=== PATIENT | female | born 1940 | race Caucasian/White ===

== ENCOUNTER 2020-01-02 12:00 | Outpatient (CLI) | payer MEDICARE, BC, SELFPAY ==
--- NOTE | ~2020-01-02 | XR_ITS ---
EXAMINATION: XR hip LT min 2V DATE: 01/02/2020 12:36 INDICATION: Dorsalgia, unspecified. TECHNIQUE: 3 views of left hip were obtained. COMPARISON: Left hip radiographs 12/06/2014 FINDINGS: Bone alignment is normal. No fracture. There is mild left hip osteoarthritis. IMPRESSION: 1. Mild left hip osteoarthritis. Reviewed, dictated and finalized at location E.
--- NOTE | ~2020-01-02 | XR_ITS ---
XR lumbar spine 2-3V 01/02/2020 12:36 Indication: Back pain Procedure: 3 views lumbar spine Comparison: 12/06/2014 Findings: There is disc narrowing at all lumbar levels. There is moderate multilevel facet hypertroph y. There is grade 1 degenerative spondylolisthesis at L4-5. No acute fracture or traumatic malalignme nt. Sacral foramen are symmetric. There is a right total hip arthroplasty. Status post cholecystectom y. There is atherosclerosis of the aorta. There are cholecystectomy clips. Impression: 1: Moderate-severe lumbar spondylosis. Reviewed, dictated and finalized at location A. Impression: 1: Moderate-severe lumbar spondylosis.
== END 2020-01-02 12:01 | disposition home or self-care (01) ==
LOC: ANHIMG 12:11
PROVIDERS: PCP Family Medicine; Visit Provider Physician Assistant
DX: M16.12 Unilateral primary osteoarthritis, left hip (principal); M47.816 Spondylosis without myelopathy or radiculopathy, lumbar region
CPT/HCPCS: 72100; 73502

== ENCOUNTER 2020-02-20 12:06 | Outpatient (CLI) | payer MEDICARE, BC, SELFPAY ==
--- NOTE | ~2020-02-20 | XR_ITS ---
EXAMINATION: XR chest 2V DATE: 02/20/2020 12:22 INDICATION: Shortness of breath. TECHNIQUE: Frontal and lateral views of the chest were obtained. COMPARISON: Chest 2 views 12/20/2017, CT abdomen and pelvis 05/19/2018 FINDINGS: The chest demonstrates clear lungs without pneumonia, pleural effusion, or pneumothorax. Th e heart size is normal. There are changes of aortic valve replacement. Surgical clips in the right u pper quadrant are likely from cholecystectomy. IMPRESSION: 1. No acute cardiopulmonary disease. Reviewed, dictated and finalized at location A.
== END 2020-02-20 12:07 | disposition home or self-care (01) ==
LOC: ANHIMG 12:11
PROVIDERS: PCP Family Medicine; Visit Provider Physician Assistant
DX: R06.02 Shortness of breath (principal)
CPT/HCPCS: 71046

== ENCOUNTER 2020-07-15 11:22 | Outpatient (NON) | payer MEDICARE, BC, SELFPAY ==
[2020-07-15 22:00] LABS: SARS-CoV-2 RNA PCR Negative
== END 2020-07-15 11:23 ==
LOC: ANHCOVIDDT 11:24
PROVIDERS: PCP Family Medicine; Visit Provider Family Medicine
DX: R19.7 Diarrhea, unspecified (principal); R50.9 Fever, unspecified; Z20.828 Contact with and (suspected) exposure to other viral communicable diseases
CPT/HCPCS: 87635; C9803; U0003

== ENCOUNTER 2021-02-05 01:02 | Day surgery (SDC) | payer MEDICARE, BC, SELFPAY ==
[2021-01-20 13:10] VITALS: BMI 34.4
--- NOTE | 2021-02-05 09:16 | WPDANESEPPF ---
Anes - Initial Pre Proc Eval Procedure: Operation Date: 02/05/21 11:00 Proposed Procedures p Colonoscopy - Kristofer Rico MD Date/Time: 02/05/21 09:16 Surgeon: Kristofer Rico MD Pre Op Diagnosis: diarrhea Patient Data Age: 80 Gender: F Height: 1.63 m Weight: 91 kg Allergies Allergy/AdvReac Type Severity Reaction Status Date / Time amitriptyline Allergy Unknown OPPOSITE Verified 01/20/21 13:03 atenolol Allergy Unknown cough Verified 01/20/21 13:03 chlordiazepoxide Allergy Unknown [place] crazy Verified 01/20/21 13:03 chlorthalidone [Tenoretic] Allergy Unknown cough Verified 01/20/21 13:03 ciprofloxacin Allergy Unknown Diarrhea Verified 01/20/21 13:03 house dust Allergy Unknown Sneezing Verified 01/20/21 13:03 milk Allergy Unknown DIARRHEA, Verified 01/20/21 13:03 CRAMPING niacin Allergy Unknown Skin Verified 01/20/21 13:03 Reaction Nitrate Analogues Allergy Unknown GI UPSET Verified 01/20/21 13:03 oxycodone Allergy Unknown RASH Verified 01/20/21 13:03 pepper (genus Capsicum) Allergy Unknown GI BURNING Verified 01/20/21 13:03 Home Medications Medication Instructions Recorded Confirmed Type aspirin 81 mg tablet,delayed 81 mg PO DAILY 05/30/19 01/20/21 History release cetirizine 10 mg capsule 10 mg PO DAILY cap 05/30/19 01/20/21 History hydrochlorothiazide 25 mg tablet 25 mg PO DAILY 05/30/19 01/20/21 History metoprolol succinate 100 mg 100 mg PO DAILY 05/30/19 01/20/21 History tablet,extended release 24 hr sulfamethoxazole 800 0.5 tablet PO DAILY #45 tablet 05/28/20 01/20/21 Rx mg-trimethoprim 160 mg tablet budesonide-formoterol HFA 160 2 puff INHALATION Q12H #10.2 gm 08/05/20 01/20/21 Rx mcg-4.5 mcg/actuation aerosol inhaler famotidine 20 mg tablet 20 mg PO Q12H #60 tablet 08/13/20 01/20/21 Rx losartan 50 mg tablet See Rx Instructions .ROUTE 11/11/20 01/20/21 Rx .COMPLEX #90 tablet levothyroxine 50 mcg tablet See Rx Instructions .ROUTE 12/09/20 01/20/21 Rx .COMPLEX #90 tablet omeprazole 40 mg capsule,delayed 40 mg PO DAILY #90 cap 01/15/21 01/20/21 Rx release ropinirole 1 mg tablet See Rx Instructions .ROUTE 01/28/21 Rx .COMPLEX #30 tablet Patient hx anesthesia problems: none Family hx anesthesia problems: none PMFSH Past Medical History Medical History (Updated 02/05/21 @ 09:18 by Franck Green MD) Carpal tunnel syndrome, bilateral GERD (gastroesophageal reflux disease) History of Mohs micrographic surgery for skin cancer Hx of ectopic Hypothyroidism Irritable bowel syndrome Mixed hyperlipidemia due to type 2 diabetes mellitus CESAR on CPAP Osteoarthritis Spinal stenosis, lumbar region, without neurogenic claudication Type 2 diabetes mellitus with complication, without long-term current use of insulin Unspecified essential hypertension Surgical History Surgical History H/O aortic valve replacement using Ross procedure H/O cataract removal with insertion of prosthetic lens History of back surgery History of cholecystectomy History of hip replacement Family History Family History Father Diabetes mellitus, Onset Age: 80 Hypertension, Onset Age: 80 Family history of allergic disorder, Onset Age: 80 Family history of elevated blood lipids, Onset Age: 80 Family history of cardiovascular disease, Onset Age: 80 Cerebrovascular accident, Onset Age: 80 Sibling Diabetes mellitus Family history of cardiovascular disease Acute myocardial infarction, Onset Age: 60 Family history of coronary artery disease Family history of malignant neoplasm of breast in first degree relative Mother Family history of Parkinson's disease, Onset Age: 86 Social History Social History Smoking status: Never smoker Alcohol intake: never Substance use: never Substanc
[2021-02-05 10:13] VITALS: BP 169/77; PULSE 59; RESP 18; TEMP 35.7; O2SAT 99; BMI 35.5
[2021-02-05] MEDS: LACTATED RINGERS 1,000 ML 150 ML IV CONT (10:34)
[2021-02-05] MEDS: AMPICILLIN 2 GM/NS 100 ML 2 GM/100 ML BAG IVPB (10:44)
--- NOTE | 2021-02-05 10:50 | WPDGICN ---
Assessment and Plan Assessment and plan (1) Diarrhea: Code(s): R19.7 - Diarrhea, unspecified Status: Acute Assessment and Plan: Patient with ongoing diarrhea. No improved with recent therapy. No obvious cultures have confirmed an infection. Plan is for follow-up colonoscopy. Continue Imodium if needed to control diarrhea fiber supplementation may be of additional benefit. Further recommendations will be given after endoscopy. Patient does have a prior history of irritable bowel syndrome and this may be related. (2) GERD (gastroesophageal reflux disease): Code(s): K21.9 - Gastro-esophageal reflux disease without esophagitis Status: Acute Assessment and Plan: Stable on current Therapy with famotidine. GI Consult Note Consult date/time: 02/05/21 10:50 HPI: Elizabeth Herrera is a 80 year old female Presents for colonoscopy. Patient's last colonoscopy was 2012. Patient has had recent diarrhea with 6 bowel movements a day. Typically watery. She has had some improvement on taking Imodium on a daily basis. She denies any blood in her stools. She has no significant abdominal pain at present. No specific aggravating or alleviating factors were identified. She had no improvement with Pepto-Bismol and other empiric treatment such as fiber therapy. A colonoscopy has been requested will be performed. Patient has had recurrent urinary tract infections recurring of occasional antibiotic usage. Stool cultures recently obtained were unremarkable. Review of Systems Review of Systems: All systems reviewed & are unremarkable except as noted in HPI and below PMFSH Past Medical History Medical History (Updated 02/05/21 @ 09:18 by Franck Green MD) Carpal tunnel syndrome, bilateral GERD (gastroesophageal reflux disease) History of Mohs micrographic surgery for skin cancer Hx of ectopic Hypothyroidism Irritable bowel syndrome Mixed hyperlipidemia due to type 2 diabetes mellitus CESAR on CPAP Osteoarthritis Spinal stenosis, lumbar region, without neurogenic claudication Type 2 diabetes mellitus with complication, without long-term current use of insulin Unspecified essential hypertension Surgical History Surgical History H/O aortic valve replacement using Ross procedure H/O cataract removal with insertion of prosthetic lens History of back surgery History of cholecystectomy History of hip replacement Family History Family History Father Diabetes mellitus, Onset Age: 80 Hypertension, Onset Age: 80 Family history of allergic disorder, Onset Age: 80 Family history of elevated blood lipids, Onset Age: 80 Family history of cardiovascular disease, Onset Age: 80 Cerebrovascular accident, Onset Age: 80 Sibling Diabetes mellitus Family history of cardiovascular disease Acute myocardial infarction, Onset Age: 60 Family history of coronary artery disease Family history of malignant neoplasm of breast in first degree relative Mother Family history of Parkinson's disease, Onset Age: 86 Social History Social History Smoking status: Never smoker Alcohol intake: never Substance use: never Substance use type: does not use Living arrangements: alone Gender identity (if verbalized by the patient): Female Sexual Orientation (if Verbalized by the Patient): Straight or Heterosexual Spiritual care concerns: No Meds Home Medications and Allergies Home Medications Medication Instructions Recorded Confirmed Type aspirin 81 mg tablet,delayed 81 mg PO DAILY 05/30/19 01/20/21 History release cetirizine 10 mg capsule 10 mg PO DAILY cap 05/30/19 01/20/21 History hydrochlorothiazide 25 mg tablet 25 mg PO DAILY 05/30/19 01/20/21 History metoprolol succinate 100 mg 100 mg PO DA
[2021-02-05 11:14] VITALS: BP 103/52; PULSE 56; RESP 15; O2SAT 97
[2021-02-05 11:24] VITALS: BP 108/58; PULSE 60; RESP 20; O2SAT 99
[2021-02-05] MEDS: GENTAMICIN 80MG/SOD CHL 50 ML 80 MG/50 ML BAG 100 MG IVPB (11:30)
[2021-02-05 11:34] VITALS: BP 109/57; PULSE 50; RESP 20; O2SAT 100
== END 2021-02-05 12:41 | disposition home or self-care (01) ==
PROVIDERS: PCP Family Medicine; Visit Provider Internal Medicine Gastroenterology
PROC: 0DJD8ZZ Inspection of Lower Intestinal Tract, Via Natural or Artificial Opening Endoscopic (ICD-10-PCS; CPT 45378; principal; 2021-02-05 11:00)
DX: K52.831 Collagenous colitis (principal); K52.832 Lymphocytic colitis; K64.8 Other hemorrhoids; K57.30 Diverticulosis of large intestine without perforation or abscess without bleeding; K21.9 Gastro-esophageal reflux disease without esophagitis; E11.9 Type 2 diabetes mellitus without complications; E78.2 Mixed hyperlipidemia; G47.33 Obstructive sleep apnea (adult) (pediatric); I10 Essential (primary) hypertension; E03.9 Hypothyroidism, unspecified; M48.061 Spinal stenosis, lumbar region without neurogenic claudication; Z79.82 Long term (current) use of aspirin; E66.9 Obesity, unspecified; Z68.35 Body mass index [BMI] 35.0-35.9, adult
CPT/HCPCS: 45380; 88305; J0290; J1580; J2704; J7120

== ENCOUNTER 2021-06-11 10:09 | Outpatient (CLI) | payer MEDICARE, BC, SELFPAY ==
[2021-06-11 10:51] LABS: Basophils Percent Auto 0.3 % (0.2-1.2); Eosinophils Absolute Auto 0.1 K/mm3 (0-0.3); Eosinophils Percent Auto 2.2 % (0-4.4); Hematocrit 34.7 % (37.0-47.0); Hemoglobin 11.3 g/dL (12.0-15.0); Immature Granulocyte Absolute 0.02 K/mm3 (0.00-0.031); Immature Granulocyte Percent A 0.3 % (0-0.5); Lymphocytes Absolute Auto 2.11 K/mm3 (0.9-3.2); Lymphocytes Percent Auto 32.7 % (18.3-44.2); Mean Corpuscular HGB Conc 32.6 g/dl (32-36); Mean Corpuscular Hemoglobin 30.5 pg (26-34); Mean Corpuscular Volume 93.5 fl (80-100); Mean Platelet Volume 8.5 fl (7.4-10.4); Monocytes Absolute Auto 0.9 K/mm3 (0.1-0.6); Monocytes Percent Auto 14.6 % (2.6-8.5); Neutrophils Absolute Auto 3.2 K/mm3 (1.3-6.7); Neutrophils Percent Auto 49.9 % (45.5-73.1); Platelet Count Result 277 k/mm3 (150-375); Red Blood Count 3.71 M/mm3 (4.2-5.4); Red Cell Distribution Width 13.4 % (11.5-14.5); White Blood Count 6.5 K/mm3 (4.5-10.0)
[2021-06-11 10:58] LABS: Alanine Aminotransferase 22 U/L (4-35); Alkaline Phosphatase 80 U/L (38-126); Anion Gap 7 mmol/L (8-16); Aspartate Amino Transferase 27 U/L (14-36); Bilirubin,Total 0.4 mg/dL (0.2-1.3); Blood Urea Nitrogen 18 mg/dL (7-17); Calcium 9.6 mg/dL (8.4-10.2); Carbon Dioxide 28 mmol/L (22-30); Chloride 96 mmol/L (98-107); Cholesterol 150 mg/dL (0-200); Estimated Glomerular Filt Rate 60; Glucose 126 mg/dL (65-110); HDL Direct 44 mg/dL; Potassium 4.4 mmol/L (3.4-5.0); Sodium 131 mmol/L (137-145); Triglycerides 181 mg/dL (<150)
[2021-06-11 11:11] LABS: Hemoglobin A1C 5.4 % (<5.7)
[2021-06-11 11:11] LABS: LDL Cholesterol Direct 65 mg/dL
== END 2021-06-11 10:10 | disposition home or self-care (01) ==
PROVIDERS: PCP Family Medicine; Visit Provider Physician Assistant
DX: E03.9 Hypothyroidism, unspecified (principal); K21.9 Gastro-esophageal reflux disease without esophagitis; E11.69 Type 2 diabetes mellitus with other specified complication; E78.2 Mixed hyperlipidemia
CPT/HCPCS: 36415; 80053; 80061; 83036; 84443; 85025

== ENCOUNTER 2021-06-12 16:21 | Emergency (ER) | payer OTHER, MEDICARE, BC, SELFPAY ==
--- NOTE | ~2021-06-12 | XR_ITS ---
EXAMINATION: [id number] DATE: 06/12/2021 18:10 INDICATION: Right rib pain TECHNIQUE: PA view of the chest and 3 views of the right ribs were obtained. COMPARISON: Chest radiograph dated 02/20/2020 FINDINGS: No rib fractures identified. Mild linear discoid atelectasis/scarring at the left lung base. Lungs ar e otherwise clear with no other airspace opacities, pulmonary edema, pleural effusion or pneumothorax . Cardiomediastinal silhouette is normal. Median sternotomy wires and prosthetic aortic valve. Cholec ystectomy clips in right upper quadrant. Partially visualized mild lumbar levoscoliosis with severe s pondylosis. IMPRESSION: 1. No rib fracture or acute cardiopulmonary disease. Reviewed, dictated and finalized at location A. 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
[2021-06-12 16:59] VITALS: BP 166/81; PULSE 65; RESP 14; TEMP 37.1; O2SAT 100
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
== END 2021-06-12 19:18 | disposition home or self-care (01) ==
PROVIDERS: Emergency Provider General Practice; PCP Family Medicine
DX: S23.41XA Sprain of ribs, initial encounter (principal); E11.69 Type 2 diabetes mellitus with other specified complication; E78.2 Mixed hyperlipidemia; I10 Essential (primary) hypertension; K21.9 Gastro-esophageal reflux disease without esophagitis; E03.9 Hypothyroidism, unspecified; K58.9 Irritable bowel syndrome, unspecified; G47.33 Obstructive sleep apnea (adult) (pediatric); M19.90 Unspecified osteoarthritis, unspecified site; Z85.828 Personal history of other malignant neoplasm of skin; Z79.82 Long term (current) use of aspirin; Z95.2 Presence of prosthetic heart valve; Z98.49 Cataract extraction status, unspecified eye; Z96.1 Presence of intraocular lens; Z96.641 Presence of right artificial hip joint; V49.40XA Driver injured in collision with unspecified motor vehicles in traffic accident, initial encounter
CPT/HCPCS: 71101; 99283

== ENCOUNTER 2021-06-27 10:57 | Outpatient (CLI) | payer MEDICARE, BC, SELFPAY ==
[2021-06-27 11:18] LABS: Basophils Percent Auto 0.3 % (0.2-1.2); Eosinophils Absolute Auto 0.1 K/mm3 (0-0.3); Eosinophils Percent Auto 1.6 % (0-4.4); Hemoglobin 10.9 g/dL (12.0-15.0); Immature Granulocyte Absolute 0.01 K/mm3 (0.00-0.031); Immature Granulocyte Percent A 0.1 % (0-0.5); Immature Reticulocyte Fraction 16.2 % (3.0-15.9); Lymphocytes Absolute Auto 1.79 K/mm3 (0.9-3.2); Lymphocytes Percent Auto 26.1 % (18.3-44.2); Mean Corpuscular Hemoglobin 31.8 pg (26-34); Mean Corpuscular Volume 96.2 fl (80-100); Mean Platelet Volume 8.5 fl (7.4-10.4); Monocytes Absolute Auto 0.8 K/mm3 (0.1-0.6); Monocytes Percent Auto 10.9 % (2.6-8.5); Neutrophils Absolute Auto 4.2 K/mm3 (1.3-6.7); Platelet Count Result 232 k/mm3 (150-375); Red Blood Count 3.43 M/mm3 (4.2-5.4); Red Cell Distribution Width 14.8 % (11.5-14.5); Reticulocyte Hemoglobin Conten 38.7 pg (28.2-35.7); Reticulocyte Percent 2.66 % (0.7-4.3); Reticulocytes Absolute 0.09 B/L (32.2-175.7); White Blood Count 6.9 K/mm3 (4.5-10.0)
[2021-06-27 11:31] LABS: Alanine Aminotransferase 23 U/L (4-35); Alkaline Phosphatase 99 U/L (38-126); Anion Gap 7 mmol/L (8-16); Aspartate Amino Transferase 31 U/L (14-36); Bilirubin,Total 0.4 mg/dL (0.2-1.3); Blood Urea Nitrogen 17 mg/dL (7-17); Calcium 9.3 mg/dL (8.4-10.2); Carbon Dioxide 24 mmol/L (22-30); Chloride 98 mmol/L (98-107); Estimated Glomerular Filt Rate > 60; Glucose 112 mg/dL (65-110); Potassium 4.2 mmol/L (3.4-5.0); Sodium 129 mmol/L (137-145)
[2021-06-27 12:18] LABS: Iron 54 ug/dL (37-170); Percent Iron Saturation 18 % (20-50)
[2021-06-27 12:53] LABS: Folic Acid > 20.0 ng/mL (2.76->20)
== END 2021-06-27 10:58 | disposition home or self-care (01) ==
PROVIDERS: PCP Family Medicine; Referring Provider Family Medicine; Visit Provider Physician Assistant
DX: D64.9 Anemia, unspecified (principal); E87.1 Hypo-osmolality and hyponatremia
CPT/HCPCS: 36415; 80053; 82607; 82728; 82746; 83540; 83550; 85025; 85046

== ENCOUNTER 2021-09-09 14:32 | Outpatient (CLI) | payer MEDICARE, BC, SELFPAY ==
--- NOTE | ~2021-09-09 | MM_ITS ---
EXAMINATION: MM screening sasha BI w hemal HISTORY: Screening TECHNIQUE: Craniocaudal and mediolateral oblique 3-D tomosynthesis images were obtained and synthetic 2-D images were generated. CAD analysis was submitted and interpreted. COMPARISON: Comparison to multiple prior studies sequentially, with oldest reviewed study dated 12/12. BREAST PARENCHYMAL COMPOSITION: There are scattered areas of fibroglandular density. FINDINGS: There is no evidence of suspicious mass, calcification, or architectural distortion to sugg est malignancy in either breast. There has been no suspicious interval change. IMPRESSION: 1. No mammographic evidence of malignancy. 2. Recommend routine screening mammography in one year. BI-RADS Category 1: Negative Reviewed, dictated and finalized at location A. 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
== END 2021-09-09 14:33 | disposition home or self-care (01) ==
LOC: ANHIMG 14:33
PROVIDERS: PCP Family Medicine; Visit Provider Physician Assistant
DX: Z12.31 Encounter for screening mammogram for malignant neoplasm of breast (principal)
CPT/HCPCS: 77063; 77067

== ENCOUNTER 2021-11-10 11:14 | Outpatient (CLI) | payer MEDICARE, BC, SELFPAY ==
[2021-11-10 11:50] LABS: Basophils Percent Auto 0.7 % (0.2-1.2); Eosinophils Absolute Auto 0.1 K/mm3 (0-0.3); Eosinophils Percent Auto 2.3 % (0-4.4); Hematocrit 38.6 % (37.0-47.0); Hemoglobin 12.8 g/dL (12.0-15.0); Immature Granulocyte Absolute 0.02 K/mm3 (0.00-0.031); Immature Granulocyte Percent A 0.3 % (0-0.5); Lymphocytes Percent Auto 36.9 % (18.3-44.2); Mean Corpuscular HGB Conc 33.2 g/dl (32-36); Mean Corpuscular Hemoglobin 33.4 pg (26-34); Mean Corpuscular Volume 100.8 fl (80-100); Mean Platelet Volume 9.3 fl (7.4-10.4); Monocytes Absolute Auto 0.5 K/mm3 (0.1-0.6); Monocytes Percent Auto 9.1 % (2.6-8.5); Neutrophils Percent Auto 50.7 % (45.5-73.1); Platelet Count Result 204 k/mm3 (150-375); Red Blood Count 3.83 M/mm3 (4.2-5.4); Red Cell Distribution Width 12.6 % (11.5-14.5)
[2021-11-10 12:04] LABS: Hemoglobin A1C 5.2 % (<5.7)
[2021-11-10 12:05] LABS: Creatinine Urine 103.5 mg/dL
[2021-11-10 12:12] LABS: MALB Creatinine Ratio 7.1 mg/g (0-30); Microalbumin Urine Random 7.3 mg/L (0-16.7)
[2021-11-10 12:15] LABS: Alanine Aminotransferase 27 U/L (4-35); Albumin Level 4.4 g/dL (3.5-5.1); Alkaline Phosphatase 80 U/L (38-126); Anion Gap 10 mmol/L (8-16); Aspartate Amino Transferase 35 U/L (14-36); Bilirubin,Total 0.4 mg/dL (0.2-1.3); Blood Urea Nitrogen 17 mg/dL (7-17); Calcium 9.6 mg/dL (8.4-10.2); Carbon Dioxide 25 mmol/L (22-30); Chloride 101 mmol/L (98-107); Cholesterol 183 mg/dL (0-200); Estimated Glomerular Filt Rate 53; Glucose 111 mg/dL (65-110); HDL Direct 46 mg/dL; LDL Cholesterol Direct 64 mg/dL; Potassium 4.3 mmol/L (3.4-5.0); Sodium 136 mmol/L (137-145); Triglycerides 284 mg/dL (<150); Uric Acid 5.3 mg/dL (2.5-7.5)
[2021-11-10 12:41] LABS: Free T4 Free Thyroxine 1.31 ng/mL (0.78-2.19)
[2021-11-10 12:45] LABS: Total Triiodothyronine (T3) 1.12 NG/ML (0.97-1.69)
== END 2021-11-10 11:15 | disposition home or self-care (01) ==
LOC: ANHLAB 11:16
PROVIDERS: PCP Family Medicine; Visit Provider Family Medicine
DX: E78.2 Mixed hyperlipidemia (principal); E03.9 Hypothyroidism, unspecified; E11.9 Type 2 diabetes mellitus without complications; I10 Essential (primary) hypertension; E79.0 Hyperuricemia without signs of inflammatory arthritis and tophaceous disease
CPT/HCPCS: 36415; 80053; 80061; 82043; 83036; 84439; 84443; 84480; 84550; 85025

== ENCOUNTER 2022-04-29 16:05 | Outpatient (CLI) | payer MEDICARE, BC, SELFPAY ==
[2022-04-29 17:09] LABS: Hematocrit 35.4 % (37.0-47.0); Hemoglobin 11.5 g/dL (12.0-15.0); Mean Corpuscular HGB Conc 32.5 g/dl (32-36); Mean Corpuscular Hemoglobin 33.2 pg (26-34); Mean Corpuscular Volume 102.3 fl (80-100); Mean Platelet Volume 8.5 fl (7.4-10.4); Platelet Count Result 286 k/mm3 (150-375); Red Blood Count 3.46 M/mm3 (4.2-5.4); Red Cell Distribution Width 12.9 % (11.5-14.5); White Blood Count 6.7 K/mm3 (4.5-10.0)
[2022-04-29 17:16] LABS: Appearance Urine Slightly Cloudy (Clear); Bilirubin Urine 1+ (Negative); Blood Urine Negative (Negative); Color Urine Yellow (Yellow); Glucose Urine UA Negative (Negative); Ketones Urine Trace mg/dL (Negative); Leukocyte Esterase Ur Negative LEU/UL (Negative); Nitrate Urine Negative (Negative); Protein Urine Negative (Negative); Urobilinogen Urine 0.2 mg/dL (<2.0); pH Urine 5.5 (5.0-9.0)
[2022-04-29 17:30] LABS: Bacteria Urine Trace /hpf; Mucus Urine Rare /lpf; RBC Urine 0-2 /hpf (0-2); Squamous Epithelial Cell Urine Rare /hpf (Few); WBC Urine 0-3 /hpf
[2022-04-29 17:32] LABS: Add Urine Microscopic? YES
[2022-04-29 17:52] LABS: Alanine Aminotransferase 31 U/L (6-35); Albumin Level 3.8 g/dL (3.5-5.1); Alkaline Phosphatase 81 U/L (38-126); Anion Gap 11 mmol/L (8-16); Aspartate Amino Transferase 33 U/L (14-36); Bilirubin,Total 0.3 mg/dL (0.2-1.3); Blood Urea Nitrogen 16 mg/dL (7-17); CRP 2.4 mg/dL (<1.0); Calcium 9.4 mg/dL (8.4-10.2); Carbon Dioxide 21 mmol/L (22-30); Chloride 100 mmol/L (98-107); Estimated Glomerular Filt Rate 36; Glucose 114 mg/dL (65-110); Potassium 4.6 mmol/L (3.4-5.0); Sodium 132 mmol/L (137-145)
[2022-04-29 19:31] LABS: Erythrocyte Sedimentation Rate 42 mm/hr (0-20)
== END 2022-04-29 16:06 | disposition home or self-care (01) ==
PROVIDERS: PCP Family Medicine; Visit Provider Nurse Practitioner Family
DX: R19.7 Diarrhea, unspecified (principal); R11.2 Nausea with vomiting, unspecified; E11.8 Type 2 diabetes mellitus with unspecified complications
CPT/HCPCS: 36415; 80053; 81001; 85027; 85652; 86140

== ENCOUNTER 2022-05-01 12:03 | Emergency (ER) | payer MEDICARE, BC, SELFPAY ==
--- NOTE | ~2022-05-01 | XR_ITS ---
EXAMINATION: XR chest 1V portable DATE: 05/01/2022 12:42 INDICATION: Chest pain and shortness of breath. TECHNIQUE: A single frontal view of the chest was obtained. COMPARISON: Chest 2 views 02/20/2020 FINDINGS: The chest demonstrates clear lungs without pneumonia, pleural effusion, or pneumothorax. Th e heart size is normal. There are changes of aortic valve replacement. IMPRESSION: 1. No acute cardiopulmonary disease. Reviewed, dictated and finalized at location B.
[2022-05-01 12:08] VITALS: BP 168/76; PULSE 79; RESP 16; TEMP 36.5; O2SAT 98
[2022-05-01 12:12] VITALS: PULSE 77
--- NOTE | 2022-05-01 12:13 | ECG_ITS ---
Measurements Intervals [place] Rate: 76 P: 74 SD: 160 QRS: -19 QRSD: 101 T: 75 QT: 365 QTc: 410 Interpretive Statements SINUS RHYTHM MODERATE VOLTAGE CRITERIA FOR LVH, CONSIDER NORMAL VARIANT [MEETS CRITERIA IN ONE OF: R(aVL), S(V1), R(V5), R(V5/V6)+S(V1)] NONSPECIFIC T-WAVE ABNORMALITY ABNORMAL ECG NO PREVIOUS ECG AVAILABLE FOR COMPARISON Electronically Signed On 05-01-2022 13:54:08 CDT by Ignacio Willard M.D.
[2022-05-01 12:30] LABS: Basophils Percent Auto 0.5 % (0.2-1.2); Eosinophils Percent Auto 0.3 % (0-4.4); Hematocrit 36.8 % (37.0-47.0); Hemoglobin 11.9 g/dL (12.0-15.0); Immature Granulocyte Absolute 0.03 K/mm3 (0.00-0.031); Immature Granulocyte Percent A 0.5 % (0-0.5); Lymphocytes Percent Auto 27.1 % (18.3-44.2); Mean Corpuscular HGB Conc 32.3 g/dl (32-36); Mean Corpuscular Hemoglobin 33.5 pg (26-34); Mean Corpuscular Volume 103.7 fl (80-100); Mean Platelet Volume 8.4 fl (7.4-10.4); Monocytes Absolute Auto 0.6 K/mm3 (0.1-0.6); Monocytes Percent Auto 9.7 % (2.6-8.5); Neutrophils Absolute Auto 3.9 K/mm3 (1.3-6.7); Neutrophils Percent Auto 61.9 % (45.5-73.1); Platelet Count Result 295 k/mm3 (150-375); Red Blood Count 3.55 M/mm3 (4.2-5.4); Red Cell Distribution Width 12.8 % (11.5-14.5); White Blood Count 6.3 K/mm3 (4.5-10.0)
[2022-05-01 12:42] LABS: INR 1.1; Partial Thromboplastin Time 21.1 SECONDS (22.3-36.8); Prothrombin Time 14.1 Seconds (11.1-14.7)
[2022-05-01 12:46] LABS: Alanine Aminotransferase 27 U/L (6-35); Albumin Level 4.1 g/dL (3.5-5.1); Alkaline Phosphatase 88 U/L (38-126); Anion Gap 15 mmol/L (8-16); Aspartate Amino Transferase 29 U/L (14-36); Bilirubin,Total 0.4 mg/dL (0.2-1.3); Blood Urea Nitrogen 20 mg/dL (7-17); Calcium 9.5 mg/dL (8.4-10.2); Carbon Dioxide 20 mmol/L (22-30); Chloride 100 mmol/L (98-107); Estimated CRCL calculation 37 ml/min; Estimated Glomerular Filt Rate 48; Glucose 124 mg/dL (65-110); Potassium 4.1 mmol/L (3.4-5.0); Sodium 135 mmol/L (137-145)
--- NOTE | 2022-05-01 12:53 | ED.ARRPALP ---
HPI - Arrhythmia/Palpitations General Chief Complaint: Arrhythmia/Palpitations Stated Complaint: dizzy & SOB Time Seen by Provider: 05/01/22 12:32 Source: patient, EMS, RN notes reviewed and old records reviewed Mode of arrival: EMS Limitations: no limitations History of Present Illness HPI narrative: This is an 81 year old female with history of chronic UTI and colitis who presents for evaluation of heart palpitations. Patient states she takes Bactrim daily for chronic UTI but she has increased dose to BID for 1 week. This was done because she was having burning with urination and she took a home test. She did not send an official sample to her PCP. She also reports intermittent nausea, vomiting and diarrhea for 2 weeks. She has not had any emesis since yesterday. She reports her stool is no longer watery. She was started on Flagyl by her seafood preparer yesterday and she was suppose to give stool sample. She has been unable to give stool sample. She called 911 because she developed feeling of heart racing, dizziness and sob 1 hour after taking her Flagyl and Bactrim. She feels better. She denies abdominal pain or fever. She denies chest pain. Related Data Home Medications Medication Instructions Recorded Confirmed aspirin 81 mg tablet,delayed 81 mg PO DAILY 05/30/19 04/29/22 release cetirizine 10 mg capsule (Zyrtec) 10 mg PO DAILY 05/30/19 04/29/22 metoprolol succinate 100 mg 50 mg PO DAILY 05/12/21 04/29/22 tablet,extended release 24 hr ferrous sulfate 325 mg (65 mg 325 mg PO BID 08/25/21 04/29/22 iron) tablet garlic 100 mg tablet 100 mg PO DAILY 08/25/21 04/29/22 magnesium 200 mg tablet 400 mg PO BID 08/25/21 04/29/22 zinc gluconate 50 mg tablet 50 mg PO DAILY 08/25/21 04/29/22 Allergies Allergy/AdvReac Type Severity Reaction Status Date / Time amitriptyline Allergy Unknown OPPOSITE Verified 05/01/22 12:17 atenolol Allergy Unknown cough Verified 05/01/22 12:17 chlordiazepoxide Allergy Unknown [place] crazy Verified 05/01/22 12:17 chlorthalidone [Tenoretic] Allergy Unknown cough Verified 05/01/22 12:17 ciprofloxacin Allergy Unknown Diarrhea Verified 05/01/22 12:17 house dust Allergy Unknown Sneezing Verified 05/01/22 12:17 milk Allergy Unknown DIARRHEA, Verified 05/01/22 12:17 CRAMPING niacin Allergy Unknown Skin Verified 05/01/22 12:17 Reaction Nitrate Analogues Allergy Unknown GI UPSET Verified 05/01/22 12:17 oxycodone Allergy Unknown RASH Verified 05/01/22 12:17 pepper (genus Capsicum) Allergy Unknown GI BURNING Verified 05/01/22 12:17 Review of Systems Review of Systems: All systems reviewed & are unremarkable except as noted in HPI and below Constitutional: Constitutional: Denies chills, Reports fatigue and Denies fever(s) Cardiovascular: Cardiovascular: Denies chest pain and Reports rapid heart rate Respiratory: Respiratory: Denies chest congestion, Reports dyspnea and Denies wheezing Gastrointestinal: Gastrointestinal: Denies abdominal pain, Reports diarrhea, Reports nausea and Reports vomiting Genitourinary: Genitourinary: Reports dysuria and Denies flank pain Neurologic: Denies syncope and Denies headache(s) [facility] Past Medical History Medical History (Updated 05/01/22 @ 15:33 by Ines Clark MD) Carpal tunnel syndrome, bilateral GERD (gastroesophageal reflux disease) History of Mohs micrographic surgery for skin cancer Hx of ectopic Hypothyroidism Irritable bowel syndrome Mixed hyperlipidemia due to type 2 diabetes mellitus Obese CESAR on CPAP Osteoarthritis Spinal stenosis, lumbar region, without neurogenic claudication Type 2 diabetes mellitus with complication, without long-term current use of insulin Unspecified essential hypertension Surgical History Surgical History H/O aortic valve replacement using Ross procedure H/O cataract removal with insertion of prosthetic lens History of back braulio
[2022-05-01 12:58] LABS: Troponin I < 0.012 ng/mL (0.000-0.034)
[2022-05-01] MEDS: LACTATED RINGERS 1,000 ML 999 ML IV CONT (13:05)
[2022-05-01 13:06] VITALS: BP 125/58; PULSE 63; RESP 18; O2SAT 98
[2022-05-01 13:19] LABS: Magnesium 1.4 mg/dL (1.6-2.3)
[2022-05-01 13:49] LABS: Influenza A QL RT-PCR Negative (Negative); Influenza B QL RT-PCR Negative (Negative); SARS-CoV-2 RNA PCR Negative
[2022-05-01 14:02] LABS: Appearance Urine Clear (Clear); Bilirubin Urine 1+ (Negative); Blood Urine Negative (Negative); Color Urine Yellow (Yellow); Glucose Urine UA Negative (Negative); Ketones Urine Trace mg/dL (Negative); Leukocyte Esterase Ur Negative LEU/UL (Negative); Nitrate Urine Negative (Negative); Protein Urine Negative (Negative); Urobilinogen Urine 0.2 mg/dL (<2.0); pH Urine 5.5 (5.0-9.0)
[2022-05-01 14:11] LABS: Bacteria Urine 2+ /hpf; Mucus Urine Rare /lpf; RBC Urine 0-2 /hpf (0-2)
[2022-05-01 14:16] LABS: Add Urine Microscopic? YES
[2022-05-01] MEDS: MAGNESIUM SULF 2 GM/WATER 50ML 2 GM/50 ML BAG IVPB (14:54)
[2022-05-01 14:56] VITALS: PULSE 61; RESP 17; O2SAT 100
[2022-05-01 15:47] VITALS: BP 142/87; PULSE 67; RESP 20; O2SAT 97
== END 2022-05-01 15:48 | disposition home or self-care (01) ==
PROVIDERS: Emergency Medicine; Emergency Provider General Practice; PCP Family Medicine
DX: R00.2 Palpitations (principal); E83.42 Hypomagnesemia; Z20.822 Contact with and (suspected) exposure to COVID-19; I10 Essential (primary) hypertension; E11.69 Type 2 diabetes mellitus with other specified complication; E03.9 Hypothyroidism, unspecified; E78.2 Mixed hyperlipidemia; K21.9 Gastro-esophageal reflux disease without esophagitis; K58.9 Irritable bowel syndrome, unspecified; G47.33 Obstructive sleep apnea (adult) (pediatric); Z85.828 Personal history of other malignant neoplasm of skin; Z95.2 Presence of prosthetic heart valve; Z98.49 Cataract extraction status, unspecified eye; Z96.1 Presence of intraocular lens; Z96.649 Presence of unspecified artificial hip joint; R94.31 Abnormal electrocardiogram [ECG] [EKG]; Z79.82 Long term (current) use of aspirin
CPT/HCPCS: 36415; 51701; 71045; 80053; 81001; 83735; 84484; 85025; 85610; 85730; 87502; 93005; 96361; 96365; 99284; C9803; J3475; J7120; U0003; U0005

== ENCOUNTER 2022-05-27 14:28 | Outpatient (CLI) | payer MEDICARE, BC, SELFPAY ==
[2022-05-27 14:55] LABS: Anion Gap 13 mmol/L (8-16); Blood Urea Nitrogen 15 mg/dL (7-17); Calcium 8.8 mg/dL (8.4-10.2); Carbon Dioxide 26 mmol/L (22-30); Chloride 96 mmol/L (98-107); Estimated Glomerular Filt Rate 60; Glucose 128 mg/dL (65-110); Potassium 3.9 mmol/L (3.4-5.0); Sodium 135 mmol/L (137-145)
== END 2022-05-27 14:29 | disposition home or self-care (01) ==
PROVIDERS: PCP Family Medicine; Visit Provider Physician Assistant
DX: E87.1 Hypo-osmolality and hyponatremia (principal)
CPT/HCPCS: 36415; 80048

== ENCOUNTER 2022-08-03 15:28 | Outpatient (CLI) | payer MEDICARE, BC, SELFPAY ==
[2022-08-03 16:10] LABS: Basophils Percent Auto 0.2 % (0.2-1.2); Eosinophils Absolute Auto 0.1 K/mm3 (0-0.3); Eosinophils Percent Auto 0.5 % (0-4.4); Hematocrit 31.8 % (37.0-47.0); Hemoglobin 10.5 g/dL (12.0-15.0); Immature Granulocyte Absolute 0.08 K/mm3 (0.00-0.031); Immature Granulocyte Percent A 0.7 % (0-0.5); Lymphocytes Absolute Auto 1.51 K/mm3 (0.9-3.2); Lymphocytes Percent Auto 12.3 % (18.3-44.2); Mean Corpuscular Hemoglobin 32.7 pg (26-34); Mean Corpuscular Volume 99.1 fl (80-100); Mean Platelet Volume 9.2 fl (7.4-10.4); Monocytes Absolute Auto 1.1 K/mm3 (0.1-0.6); Monocytes Percent Auto 9.2 % (2.6-8.5); Neutrophils Absolute Auto 9.4 K/mm3 (1.3-6.7); Neutrophils Percent Auto 77.1 % (45.5-73.1); Platelet Count Result 264 k/mm3 (150-375); Red Blood Count 3.21 M/mm3 (4.2-5.4); Red Cell Distribution Width 14.1 % (11.5-14.5); White Blood Count 12.3 K/mm3 (4.5-10.0)
[2022-08-03 16:20] LABS: Add Urine Microscopic? YES; Appearance Urine Clear (Clear); Bilirubin Urine Negative (Negative); Blood Urine 1+ (Negative); Color Urine Yellow (Yellow); Glucose Urine UA Negative (Negative); Ketones Urine Negative (Negative); Leukocyte Esterase Ur 3+ LEU/UL (Negative); Nitrate Urine Negative (Negative); Protein Urine 1+ mg/dL (Negative); Urobilinogen Urine 0.2 mg/dL (<2.0)
[2022-08-03 16:28] LABS: Bacteria Urine Trace /hpf; Squamous Epithelial Cell Urine Rare /hpf (Few); WBC Clumps Urine Present /HPF; WBC Urine >75 /hpf
[2022-08-03 18:32] LABS: Iron 18 ug/dL (37-170)
[2022-08-03 18:42] LABS: Percent Iron Saturation 8 % (20-50)
[2022-08-03 18:50] LABS: Free T4 Free Thyroxine 1.71 ng/mL (0.78-2.19)
[2022-08-03 19:13] LABS: Total Triiodothyronine (T3) 1.28 NG/ML (0.97-1.69)
[2022-08-03 20:34] LABS: Hemoglobin A1C 5.2 % (<5.7)
== END 2022-08-03 15:29 | disposition home or self-care (01) ==
PROVIDERS: PCP Family Medicine; Visit Provider Nurse Practitioner Gerontology
DX: R30.0 Dysuria (principal); E11.8 Type 2 diabetes mellitus with unspecified complications; D64.9 Anemia, unspecified; E03.9 Hypothyroidism, unspecified
CPT/HCPCS: 36415; 81001; 83036; 83540; 83550; 84439; 84443; 84480; 85025; 87077; 87086; 87186

== ENCOUNTER 2022-09-02 11:30 | Outpatient (CLI) | payer MEDICARE, BC, SELFPAY ==
[2022-09-02 12:48] LABS: Basophils Percent Auto 0.3 % (0.2-1.2); Eosinophils Percent Auto 0.5 % (0-4.4); Hematocrit 38.3 % (37.0-47.0); Hemoglobin 12.2 g/dL (12.0-15.0); Immature Granulocyte Absolute 0.03 K/mm3 (0.00-0.031); Immature Granulocyte Percent A 0.4 % (0-0.5); Lymphocytes Absolute Auto 2.33 K/mm3 (0.9-3.2); Lymphocytes Percent Auto 29.3 % (18.3-44.2); Mean Corpuscular HGB Conc 31.9 g/dl (32-36); Mean Corpuscular Hemoglobin 31.9 pg (26-34); Mean Platelet Volume 9.2 fl (7.4-10.4); Monocytes Absolute Auto 0.7 K/mm3 (0.1-0.6); Monocytes Percent Auto 8.2 % (2.6-8.5); Neutrophils Absolute Auto 4.9 K/mm3 (1.3-6.7); Neutrophils Percent Auto 61.3 % (45.5-73.1); Platelet Count Result 270 k/mm3 (150-375); Red Blood Count 3.83 M/mm3 (4.2-5.4); Red Cell Distribution Width 13.4 % (11.5-14.5)
[2022-09-02 12:49] LABS: Appearance Urine Clear (Clear); Bilirubin Urine Negative (Negative); Blood Urine Negative (Negative); Color Urine Yellow (Yellow); Glucose Urine UA Negative (Negative); Ketones Urine Negative (Negative); Leukocyte Esterase Ur Trace LEU/UL (Negative); Nitrate Urine Negative (Negative); Protein Urine Negative (Negative); Urobilinogen Urine 0.2 mg/dL (<2.0)
[2022-09-02 12:50] LABS: Bacteria Urine Trace /hpf; Mucus Urine Rare /lpf; RBC Urine 0-2 /hpf (0-2); WBC Urine 0-3 /hpf
[2022-09-02 12:54] LABS: Add Urine Microscopic? YES
[2022-09-02 12:59] LABS: Magnesium 1.8 mg/dL (1.6-2.3)
[2022-09-02 13:03] LABS: Alanine Aminotransferase 20 U/L (6-35); Albumin Level 4.2 g/dL (3.5-5.1); Alkaline Phosphatase 78 U/L (38-126); Anion Gap 9 mmol/L (8-16); Aspartate Amino Transferase 26 U/L (14-36); Bilirubin,Total 0.6 mg/dL (0.2-1.3); Blood Urea Nitrogen 10 mg/dL (7-17); Calcium 9.6 mg/dL (8.4-10.2); Carbon Dioxide 26 mmol/L (22-30); Chloride 96 mmol/L (98-107); Estimated Glomerular Filt Rate > 60; Glucose 111 mg/dL (65-110); Potassium 3.9 mmol/L (3.4-5.0); Sodium 131 mmol/L (137-145)
[2022-09-02 13:24] LABS: Iron 90 ug/dL (37-170)
[2022-09-02 13:25] LABS: Hemoglobin A1C 5.2 % (<5.7)
[2022-09-02 13:29] LABS: Total Triiodothyronine (T3) 0.96 NG/ML (0.97-1.69)
[2022-09-02 13:34] LABS: Percent Iron Saturation 27 % (20-50)
[2022-09-02 13:42] LABS: Free T4 Free Thyroxine 1.42 ng/mL (0.78-2.19)
== END 2022-09-02 11:31 | disposition home or self-care (01) ==
PROVIDERS: PCP Family Medicine; Visit Provider Nurse Practitioner Gerontology
DX: E11.8 Type 2 diabetes mellitus with unspecified complications (principal); D72.829 Elevated white blood cell count, unspecified; N39.0 Urinary tract infection, site not specified; D64.9 Anemia, unspecified; E87.1 Hypo-osmolality and hyponatremia; R53.1 Weakness; E86.0 Dehydration; R19.7 Diarrhea, unspecified; I10 Essential (primary) hypertension; E11.69 Type 2 diabetes mellitus with other specified complication; E78.2 Mixed hyperlipidemia; E03.9 Hypothyroidism, unspecified; K52.839 Microscopic colitis, unspecified; D63.8 Anemia in other chronic diseases classified elsewhere; R30.0 Dysuria; E83.42 Hypomagnesemia
CPT/HCPCS: 36415; 80053; 81001; 82607; 83036; 83540; 83550; 83735; 84439; 84443; 84480; 85025

== ENCOUNTER 2022-09-04 12:00 | Outpatient (CLI) | payer MEDICARE, BC, SELFPAY ==
[2022-09-04 12:33] LABS: Appearance Urine Cloudy (Clear); Bilirubin Urine Negative (Negative); Blood Urine 2+ (Negative); Color Urine Yellow (Yellow); Glucose Urine UA Negative (Negative); Ketones Urine Negative (Negative); Leukocyte Esterase Ur 3+ LEU/UL (Negative); Nitrate Urine Negative (Negative); Protein Urine 1+ mg/dL (Negative); Urobilinogen Urine 0.2 mg/dL (<2.0); pH Urine 6.5 (5.0-9.0)
[2022-09-04 12:36] LABS: Add Urine Microscopic? YES; Bacteria Urine Trace /hpf; RBC Urine 21-50 /hpf (0-2); WBC Clumps Urine Present /HPF; WBC Urine >75 /hpf
== END 2022-09-04 12:01 | disposition home or self-care (01) ==
LOC: ANHLAB 12:02
PROVIDERS: PCP Family Medicine; Visit Provider Nurse Practitioner Gerontology
DX: R30.0 Dysuria (principal)
CPT/HCPCS: 81001; 87077; 87086; 87186

== ENCOUNTER 2022-09-17 12:59 | Outpatient (CLI) | payer MEDICARE, BC, SELFPAY ==
--- NOTE | ~2022-09-17 | XR_ITS ---
Supine view of the abdomen Clinical history: Abdominal pain Findings: Bowel gas pattern is nonspecific. No evidence for obstruction or free air. No abnormal mass lesion or calcification is seen. Cholecystectomy clips noted. Right hip arthroplasty present. Degene rative changes of the lumbar spine are noted. There is severe osteoarthritis of the left hip joint. Impression: No renal stone identified. Degenerative changes, as above. Status post cholecystectomy. Reviewed, dictated and finalized at location . 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 Degenerative changes, as above. Status post cholecystectomy.
== END 2022-09-17 13:00 | disposition home or self-care (01) ==
PROVIDERS: PCP Family Medicine; Visit Provider Nurse Practitioner Gerontology
DX: R10.9 Unspecified abdominal pain (principal); Z90.49 Acquired absence of other specified parts of digestive tract
CPT/HCPCS: 74018

== ENCOUNTER 2022-10-08 15:15 | Emergency (ER) | payer OTHER, MEDICARE, BC, SELFPAY ==
[2022-10-08] VITALS (26 sets, daily range): BP systolic 133–183; BP diastolic 64–110; PULSE 59–70; RESP 15; TEMP 36.2; O2SAT 84–100
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
--- NOTE | 2022-10-08 15:36 | ECG_ITS ---
Measurements Intervals [place] Rate: 64 P: 71 [place]: 163 QRS: 12 QRSD: 105 T: 73 QT: 427 QTc: 442 Interpretive Statements SINUS RHYTHM LEFT VENTRICULAR HYPERTROPHY WITH ST-T CHANGE BASELINE ARTIFACT- I, II, III, AVR, AVF, V1-V6 BORDERLINE ECG COMPARED TO ECG 05/01/2022 12:10:56 NO SIGNIFICANT CHANGES Electronically Signed On 10-08-2022 15:48:07 CDT by Bryce Mcgregor D.O.
[2022-10-08 16:01] LABS: Basophils Percent Auto 0.4 % (0.2-1.2); Eosinophils Percent Auto 0.3 % (0-4.4); Hematocrit 36.2 % (37.0-47.0); Hemoglobin 11.8 g/dL (12.0-15.0); Mean Corpuscular HGB Conc 32.6 g/dl (32-36); Mean Corpuscular Hemoglobin 32.3 pg (26-34); Mean Corpuscular Volume 99.2 fl (80-100); Mean Platelet Volume 8.3 fl (7.4-10.4); Monocytes Absolute Auto 0.6 K/mm3 (0.1-0.6); Neutrophils Absolute Auto 7.7 K/mm3 (1.3-6.7); Neutrophils Percent Auto 77.3 % (45.5-73.1); Platelet Count Result 284 k/mm3 (150-375); Red Blood Count 3.65 M/mm3 (4.2-5.4); Red Cell Distribution Width 13.3 % (11.5-14.5)
[2022-10-08 16:14] LABS: Alanine Aminotransferase 27 U/L (6-35); Albumin Level 4.1 g/dL (3.5-5.1); Alkaline Phosphatase 93 U/L (38-126); Anion Gap 5 mmol/L (8-16); Aspartate Amino Transferase 31 U/L (14-36); Bilirubin,Total 0.5 mg/dL (0.2-1.3); Blood Urea Nitrogen 14 mg/dL (7-17); Calcium 9.2 mg/dL (8.4-10.2); Carbon Dioxide 24 mmol/L (22-30); Chloride 97 mmol/L (98-107); Estimated CRCL calculation 56 ml/min; Estimated Glomerular Filt Rate > 60; Glucose 151 mg/dL (65-110); Lipase 80 U/L (23-300); Potassium 4.4 mmol/L (3.4-5.0); Sodium 126 mmol/L (137-145)
[2022-10-08 16:17] LABS: Prothrombin Time 12.9 Seconds (11.1-14.7)
[2022-10-08 16:18] LABS: Partial Thromboplastin Time 24.3 SECONDS (22.3-36.8)
[2022-10-08 16:25] LABS: Troponin I < 0.012 ng/mL (0.000-0.034)
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
[2022-10-08] MEDS: SODIUM CHLORIDE 0.9% IV 1,000 ML 999 ML IV CONT (20:31)
[2022-10-08 22:06] LABS: Troponin I < 0.012 ng/mL (0.000-0.034)
[2022-10-08] MEDS: fentaNYL CITRATE INJ (*CRX) 100 MCG/2 ML VIAL 25 MCG IV PUSH (23:15)
== END 2022-10-08 23:24 | disposition short-term general hospital (02) ==
PROVIDERS: Emergency Medicine; Emergency Provider Physician Assistant; PCP Family Medicine
DX: S62.002A Unspecified fracture of navicular [scaphoid] bone of left wrist, initial encounter for closed fracture (principal); S22.41XA Multiple fractures of ribs, right side, initial encounter for closed fracture; S09.90XA Unspecified injury of head, initial encounter; R07.81 Pleurodynia; I10 Essential (primary) hypertension; I35.0 Nonrheumatic aortic (valve) stenosis; E11.69 Type 2 diabetes mellitus with other specified complication; E78.2 Mixed hyperlipidemia; E88.81 Metabolic syndrome and other insulin resistance; E03.9 Hypothyroidism, unspecified; K21.9 Gastro-esophageal reflux disease without esophagitis; K58.9 Irritable bowel syndrome, unspecified; G47.33 Obstructive sleep apnea (adult) (pediatric); M19.031 Primary osteoarthritis, right wrist; F32.A Depression, unspecified; F41.9 Anxiety disorder, unspecified; Z95.2 Presence of prosthetic heart valve; Z98.49 Cataract extraction status, unspecified eye; Z96.1 Presence of intraocular lens; Z96.649 Presence of unspecified artificial hip joint; Z85.828 Personal history of other malignant neoplasm of skin; Z79.82 Long term (current) use of aspirin; M47.812 Spondylosis without myelopathy or radiculopathy, cervical region; I51.7 Cardiomegaly; V43.52XA Car driver injured in collision with other type car in traffic accident, initial encounter
CPT/HCPCS: 29125; 36415; 70450; 71046; 71260; 72125; 73030; 73110; 74177; 80053; 83690; 84484; 85025; 85610; 85730; 93005; 96365; 96366; 96375; 99285; J0131; J3010; J7030; Q9967

== ENCOUNTER 2022-11-05 10:05 | Emergency (ER) | payer MEDICARE, BC, SELFPAY ==
[2022-11-05 10:12] VITALS: BP 146/60; PULSE 67; RESP 20; TEMP 36.7; O2SAT 98
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
== END 2022-11-05 11:15 | disposition home or self-care (01) ==
PROVIDERS: Emergency Provider Nurse Practitioner Family; PCP Family Medicine
DX: N39.0 Urinary tract infection, site not specified (principal); I10 Essential (primary) hypertension; K21.9 Gastro-esophageal reflux disease without esophagitis; E03.9 Hypothyroidism, unspecified; E78.2 Mixed hyperlipidemia; E11.9 Type 2 diabetes mellitus without complications; G47.33 Obstructive sleep apnea (adult) (pediatric); M19.90 Unspecified osteoarthritis, unspecified site; Z85.828 Personal history of other malignant neoplasm of skin; Z79.82 Long term (current) use of aspirin
CPT/HCPCS: 81003; 87077; 87086; 87186; 99213; G0463

== ENCOUNTER 2022-12-16 09:21 | Outpatient (CLI) | payer MEDICARE, BC, SELFPAY ==
[2022-12-16 09:45] LABS: Hematocrit 36.9 % (37.0-47.0); Hemoglobin 11.9 g/dL (12.0-15.0)
[2022-12-16 10:00] LABS: Alanine Aminotransferase 20 U/L (6-35); Albumin Level 4.2 g/dL (3.5-5.1); Alkaline Phosphatase 79 U/L (38-126); Anion Gap 7 mmol/L (8-16); Aspartate Amino Transferase 27 U/L (14-36); Bilirubin,Total 0.7 mg/dL (0.2-1.3); Blood Urea Nitrogen 14 mg/dL (7-17); Calcium 9.5 mg/dL (8.4-10.2); Carbon Dioxide 29 mmol/L (22-30); Chloride 95 mmol/L (98-107); Estimated Glomerular Filt Rate > 60; Glucose 104 mg/dL (65-110); Potassium 4.2 mmol/L (3.4-5.0); Sodium 131 mmol/L (137-145); Uric Acid 4.9 mg/dL (2.5-7.5)
[2022-12-16 10:07] LABS: Hemoglobin A1C 5.4 % (<5.7)
== END 2022-12-16 09:22 | disposition home or self-care (01) ==
PROVIDERS: PCP Family Medicine; Visit Provider Family Medicine
DX: E79.0 Hyperuricemia without signs of inflammatory arthritis and tophaceous disease (principal); E03.9 Hypothyroidism, unspecified; I10 Essential (primary) hypertension; D50.9 Iron deficiency anemia, unspecified; E11.8 Type 2 diabetes mellitus with unspecified complications
CPT/HCPCS: 36415; 80053; 83036; 84439; 84443; 84480; 84550; 85014; 85018

== ENCOUNTER 2023-02-16 16:27 | Outpatient (CLI) | payer MEDICARE, BC, SELFPAY ==
[2023-02-16 17:20] LABS: Alanine Aminotransferase 18 U/L (6-35); Alkaline Phosphatase 74 U/L (38-126); Anion Gap 10 mmol/L (8-16); Aspartate Amino Transferase 25 U/L (14-36); Bilirubin,Total 0.2 mg/dL (0.2-1.3); Blood Urea Nitrogen 19 mg/dL (7-17); Calcium 9.2 mg/dL (8.4-10.2); Carbon Dioxide 26 mmol/L (22-30); Chloride 96 mmol/L (98-107); Estimated Glomerular Filt Rate 60; Glucose 115 mg/dL (65-110); Potassium 4.9 mmol/L (3.4-5.0); Sodium 132 mmol/L (137-145)
[2023-02-16 19:57] LABS: Free T4 Free Thyroxine 1.67 ng/mL (0.78-2.19)
[2023-02-17 03:07] LABS: Total Triiodothyronine (T3) 1.28 NG/ML (0.97-1.69)
== END 2023-02-16 16:28 | disposition home or self-care (01) ==
PROVIDERS: PCP Family Medicine; Visit Provider Family Medicine
DX: E03.9 Hypothyroidism, unspecified (principal); I10 Essential (primary) hypertension
CPT/HCPCS: 36415; 80053; 84439; 84443; 84480

== ENCOUNTER 2023-02-25 10:52 | Inpatient (IN) | payer MEDICARE, BC, SELFPAY ==
[2023-02-25] VITALS (30 sets, daily range): BP systolic 109–144; BP diastolic 48–73; PULSE 64–93; RESP 11–30; TEMP 36.3–36.6; O2SAT 89–100; BMI 28.0
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
[2023-02-25 11:23] LABS: Hematocrit 34.6 % (37.0-47.0); Hemoglobin 11.3 g/dL (12.0-15.0); Mean Corpuscular HGB Conc 32.7 g/dl (32-36); Mean Platelet Volume 8.5 fl (7.4-10.4); Platelet Count Result 246 k/mm3 (150-375); Red Blood Count 3.53 M/mm3 (4.2-5.4); Red Cell Distribution Width 12.8 % (11.5-14.5)
[2023-02-25 11:37] LABS: Alanine Aminotransferase 16 U/L (6-35); Albumin Level 3.8 g/dL (3.5-5.1); Alkaline Phosphatase 74 U/L (38-126); Anion Gap 9 mmol/L (8-16); Aspartate Amino Transferase 18 U/L (14-36); Bilirubin,Total 0.3 mg/dL (0.2-1.3); Blood Urea Nitrogen 22 mg/dL (7-17); Calcium 9.2 mg/dL (8.4-10.2); Carbon Dioxide 26 mmol/L (22-30); Chloride 91 mmol/L (98-107); Estimated CRCL calculation 37 ml/min; Estimated Glomerular Filt Rate 53; Glucose 119 mg/dL (65-110); Lipase 24 U/L (23-300); Potassium 4.6 mmol/L (3.4-5.0); Sodium 126 mmol/L (137-145)
[2023-02-25 11:44] LABS: Band Neutrophils Percent 9 % (0-6); Eosinophils Absolute Manual 0.05 K/mm3 (0.02-0.5); Eosinophils Percent Manual 1 % (0-4); Monocytes Absolute Manual 0.55 K/mm3 (0.1-0.90); Monocytes Percent Manual 11 % (3-9); Neutrophils Percent Manual 47 % (46-73); Total Cells Counted 100
[2023-02-25 11:45] LABS: Platelet Estimate Adequate (Adequate); Schistocytes None Seen (NORMAL)
--- NOTE | 2023-02-25 12:48 | ED.GENADULT ---
HPI - General Adult General Chief complaint: Nausea/Vomiting/Diarrhea Stated complaint: diarrhea Time Seen by Provider: 02/25/23 12:47 Source: patient and family History of Present Illness HPI narrative: Patient is an 82-year-old female with history of type 2 diabetes, IBS, here under recommendation of her primary care doctor for diarrhea and low sodium levels. Patient notes that she has history of chronic diarrhea for the last 30 years, her last colonoscopy was within the last 5 years and found to have some mild colitis changes and started on budesonide. She notes she is currently on a very small dose of budesonide after tapering with her primary care doctor. She notes that typically her diarrhea is loose and watery however it seems to now be containing chunks of tissue and worsened over the last couple of weeks. It is associated with a excessive amount of flatulence and foul-smelling stools and flatulence. She additionally has some diffuse cramping abdominal pain. She notes some associated weakness and fatigue. She had outpatient labs performed preoperatively for a hip replacement on 02/24 and she was found to have a sodium of 127 there. she denies any fever chills. She denies any urinary changes. She has attempted to take Imodium at home without improvement. MD complaint: abdominal pain, diarrhea Onset (ago): week(s) Location: abdomen Severity: moderate Associated symptoms: malaise and nausea/vomiting Related Data Home Medications Medication Instructions Recorded Confirmed aspirin 81 mg tablet,delayed 81 mg PO DAILY 05/30/19 02/25/23 release metoprolol succinate 100 mg 100 mg PO DAILY 05/12/21 02/25/23 tablet,extended release 24 hr ferrous sulfate 325 mg (65 mg 325 mg PO BID 08/25/21 02/25/23 iron) tablet budesonide 3 mg 3 mg PO DAILY 02/25/23 02/25/23 capsule,delayed,extended release cholecalciferol (vitamin D3) 50 50 mcg PO DAILY 02/25/23 02/25/23 mcg (2,000 unit) tablet (Vitamin D3) diclofenac sodium 75 mg 75 mg PO BID 02/25/23 02/25/23 tablet,delayed release famotidine 20 mg tablet 20 mg PO BID 02/25/23 02/25/23 levothyroxine 50 mcg tablet 50 mcg PO DAILY 02/25/23 02/25/23 losartan 50 mg tablet 50 mg PO DAILY 02/25/23 02/25/23 psyllium husk 0.52 gram capsule 0.52 g PO DAILY 02/25/23 02/25/23 ropinirole 1 mg tablet 1 mg PO HS 02/25/23 02/25/23 sodium chloride 1 gram tablet 1,000 mg PO BID 02/25/23 02/25/23 Allergies Allergy/AdvReac Type Severity Reaction Status Date / Time amitriptyline Allergy Unknown OPPOSITE Verified 02/25/23 17:42 atenolol Allergy Unknown cough Verified 02/25/23 17:42 chlordiazepoxide Allergy Unknown [place] crazy Verified 02/25/23 17:42 chlorthalidone [Tenoretic] Allergy Unknown cough Verified 02/25/23 17:42 ciprofloxacin Allergy Unknown Diarrhea Verified 02/25/23 17:42 house dust Allergy Unknown Sneezing Verified 02/25/23 17:42 milk Allergy Unknown DIARRHEA, Verified 02/25/23 17:42 CRAMPING niacin Allergy Unknown Skin Verified 02/25/23 17:42 Reaction Nitrate Analogues Allergy Unknown GI UPSET Verified 02/25/23 17:42 oxycodone Allergy Unknown RASH Verified 02/25/23 17:42 pepper (genus Capsicum) Allergy Unknown GI BURNING Verified 02/25/23 17:42 cephalexin [From Keflex] AdvReac Intermediate Diarrhea Verified 02/25/23 17:42 Review of Systems Review of Systems: CONSTITUTIONAL: Denies fever, chills, or sweats. Has had some fatigue and generalized weakness. EYES: Denies visual changes, redness, or discharge. ENT: Denies rhinorrhea, congestion, sore throat, or otalgia. CARDIOVASCULAR: Denies chest pain, palpitations, or edema. RESPIRATORY: Denies cough or dyspnea. GASTROINTESTINAL: + abdominal pain and diarrhea, no nausea, vomiting GENITOURINARY: Denies dysuria or hematuria. SKIN: Denies rash or itching. MUSCULOSKELETAL: Denies back pain, joint pain, or myalgia. NEUROLOGIC: Denies headache, numbness PSYCHIATRIC: Denies anxiety or depression. PMFSH Past Medi
[2023-02-25 13:50] LABS: Appearance Urine Cloudy (Clear); Bacteria Urine 4+ /hpf; Bilirubin Urine Negative (Negative); Blood Urine Negative (Negative); Color Urine Yellow (Yellow); Glucose Urine UA Negative (Negative); Ketones Urine Trace mg/dL (Negative); Leukocyte Esterase Ur 3+ LEU/UL (Negative); Need Manual Microscopic Reviewed; Nitrate Urine Positive (Negative); Protein Urine 1+ mg/dL (Negative); RBC Urine 0-2 /hpf (0-2); Specific Grav Ur 1.021 (1.001-1.035); Squamous Epithelial Cell Urine None seen /hpf (Few); WBC Urine >100 /hpf
[2023-02-25 13:56] LABS: Add Urine Microscopic? YES
[2023-02-25 14:05] LABS: Magnesium 2.3 mg/dL (1.6-2.3)
[2023-02-25 14:08] LABS: Lactic Acid Reflex 1.3 mmol/L (0.7-2.0)
[2023-02-25] MEDS: LACTATED RINGERS 1,000 ML 999 ML IV CONT (14:22)
[2023-02-25 15:40] LABS: IFOB Positive Control Positive; Immunochemical Fecal Occult Bl Positive (N)
[2023-02-25 15:44] LABS: Sodium Urine Random 20 meq/L
[2023-02-25 16:11] LABS: Toxigenic C. Diff POSITIVE (NEGATIVE)
[2023-02-25 17:02] LABS: Sodium 125 mmol/L (137-145)
[2023-02-25] MEDS: ACETAMINOPHEN 325 MG TABLET 650 MG PO (17:03)
[2023-02-25 17:08] LABS: Anion Gap 7 mmol/L (8-16); Blood Urea Nitrogen 20 mg/dL (7-17); Calcium 9.3 mg/dL (8.4-10.2); Carbon Dioxide 25 mmol/L (22-30); Chloride 93 mmol/L (98-107); Estimated CRCL calculation 41 ml/min; Estimated Glomerular Filt Rate 60; Glucose 115 mg/dL (65-110); Potassium 4.2 mmol/L (3.4-5.0)
--- NOTE | 2023-02-25 17:35 | ADMGEN ---
This patient, Elizabeth Herrera, was admitted to Medical Room 346-. Patient/family oriented to hospital policies and general routines including ID bracelet, bed and alarms, visiting hours, pain management, procedures, bathroom and other care routines, personal items, smoking policy, room service/diet, and visiting hours. Information on how to activate the Rapid Response Team has been discussed. Patient/Family are encouraged to report perceived risks to care and to ask questions if they do not understand what they are told or what they should do.
--- NOTE | 2023-02-25 21:13 | PM.IMHP ---
H&P: HPI History of Present Illness Date/Time: 02/25/23 21:13 Chief Complaint: Nausea vomiting diarrhea Narrative: This is an 82 year old female patient who has a history of chronic diarrhea with chronic IBS, and diabetes type 2. The patient came here under the recommendation of her primary care doctor who stated that she had low sodium levels. The patient has had diarrhea for 30 years but she stated that she has been having a change in her stools. The patient was noted to have colitis on her last colonoscopy. The patient had some preop labs for her surgery for her hip replacement on 8 to in her sodium was found to be 127. The patient attempted to take Imodium at home without improvement. Her white count is normal. H&H is 11.3 and 34.6. Her initial sodium was found to be 125 here and it is now 128. Chloride 93 now 94. BUN 20 now 18. The patient was also found to have a UTI. Patient was positive for stool for occult blood and C diff. the patient was given lactated Ringer's, Zofran morphine, Rocephin, vancomycin p.o., and Tylenol. The patient is being admitted to observation status on the date of service of 02/25/2023 Review of Systems Review of Systems: All systems reviewed & are unremarkable except as noted in HPI and below Constitutional: Constitutional: Reports as per HPI and Reports no additional constitutional complaints Eyes: Eyes: Reports as per HPI and Reports no additional eye complaints ENT: Reports system reviewed and no additional complaints, except as documented and Reports Normal hearing present Cardiovascular: Cardiovascular: Reports no additional cardiovascular complaints Respiratory: Respiratory: Reports no additional respiratory complaints and Reports no additional respiratory complaints Gastrointestinal: Gastrointestinal: Reports as per HPI and Reports no additional gastrointestinal complaints Musculoskeletal: Musculoskeletal: Reports no additional musculoskeletal complaints Integumentary/Breasts: Skin/Breast: Reports system reviewed and no additional complaints, except as docu and Reports as per HPI Neurologic: Reports system reviewed and no additional complaints, except as documented, Reports as per HPI and Reports Normal hearing present Psychiatric: Psychiatric: Reports no additional psychiatric complaints and Reports as per HPI Endocrine: Endocrine: Reports no additional endocrine complaints Hematologic/Lymphatic: Hematologic/Lymphatic: Reports no additional hematologic/lymphatic complaints Allergic/Immunologic: Allergic/Immunologic: Reports no additional allergic/immunologic complaints [facility] Past Medical History Medical History (Updated 02/26/23 @ 01:25 by Nickie Klein NP) Allergic conjunctivitis of right eye Allergic rhinitis, cause unspecified Anxiety state, unspecified Basal cell carcinoma of skin, unspecified Benign hypertension Benign paroxysmal positional vertigo Carpal tunnel syndrome, bilateral Cutaneous abscess of abdominal wall Dependence on other enabling machines and devices Depressive disorder, not elsewhere classified Dysmetabolic syndrome X Dysphagia Dysuria Encounter for immunization (04/18/18) Esophageal spasm Essential (primary) hypertension Gastro-esophageal reflux disease without esophagitis GERD (gastroesophageal reflux disease) History of Mohs micrographic surgery for skin cancer Hx of ectopic Hypothyroidism Impacted cerumen of left ear Infected cyst of skin Irritable bowel syndrome Metabolic syndrome Mixed hyperlipidemia due to type 2 diabetes mellitus Nonrheumatic aortic (valve) stenosis Obese CESAR on CPAP Osteoarthritis Other seborrheic keratosis Spinal stenosis, lumbar region, without neurogenic claudication Type 2 diabetes mellitus with complication, without long-term current use of insulin Unspecified essential hypertension Surgical History Surgical History H/O aortic valve replacemen
--- NOTE | 2023-02-25 21:31 | PC.NURSE ---
Called pharmacy regarding 1700 dose of oral Vancomycin. Marisa stated that she would send up med.
[2023-02-25] MEDS: WATER FOR IRRIGATION, STERILE 1,000 ML BOTTLE 1000 ML (21:50)
--- NOTE | 2023-02-25 21:58 | PC.NURSE ---
Received call from pharmacy stating that medication was sent and that the order was discontinued. Both floor nurses have checked the fridge as the med rec shows medication still show as needing to be given. Will call pharmacy again.
--- NOTE | 2023-02-25 22:04 | PC.NURSE ---
Called pharmacy. Again she stated that she would send the medication. Awaiting medication
[2023-02-25] MEDS: VANCOMYCIN ORAL 125 MG/2.5 ML SYRUP PO (22:54)
[2023-02-25 23:22] LABS: Anion Gap 6 mmol/L (8-16); Blood Urea Nitrogen 18 mg/dL (7-17); Carbon Dioxide 28 mmol/L (22-30); Chloride 94 mmol/L (98-107); Estimated CRCL calculation 46 ml/min; Estimated Glomerular Filt Rate > 60; Glucose 96 mg/dL (65-110); Sodium 128 mmol/L (137-145)
[2023-02-26] MEDS: LACTATED RINGERS 1,000 ML 100 ML IV CONT ×2 (02:46→11:30)
[2023-02-26 03:40] VITALS: BP 124/54; PULSE 87; RESP 16; TEMP 36.6; O2SAT 94
[2023-02-26 03:53] LABS: Potassium Urine Random 49.8 meq/L; Sodium Urine Random 41 meq/L
[2023-02-26] MEDS: VANCOMYCIN ORAL 500 MG/10 ML SYRUP PO ×3 (05:15→17:16)
[2023-02-26] MEDS: LEVOTHYROXINE SODIUM 50 MCG TABLET PO (05:17)
[2023-02-26 08:00] VITALS: O2SAT 94
[2023-02-26 08:03] LABS: Basophils Percent Auto 0.2 % (0.2-1.2); Eosinophils Absolute Auto 0.1 K/mm3 (0-0.3); Eosinophils Percent Auto 1.1 % (0-4.4); Hematocrit 31.7 % (37.0-47.0); Hemoglobin 10.3 g/dL (12.0-15.0); Immature Granulocyte Absolute 0.02 K/mm3 (0.00-0.031); Immature Granulocyte Percent A 0.4 % (0-0.5); Lymphocytes Absolute Auto 1.47 K/mm3 (0.9-3.2); Mean Corpuscular HGB Conc 32.5 g/dl (32-36); Mean Corpuscular Hemoglobin 31.1 pg (26-34); Mean Corpuscular Volume 95.8 fl (80-100); Mean Platelet Volume 8.6 fl (7.4-10.4); Monocytes Absolute Auto 0.8 K/mm3 (0.1-0.6); Monocytes Percent Auto 18.6 % (2.6-8.5); Neutrophils Absolute Auto 2.1 K/mm3 (1.3-6.7); Neutrophils Percent Auto 46.7 % (45.5-73.1); Platelet Count Result 239 k/mm3 (150-375); Red Blood Count 3.31 M/mm3 (4.2-5.4); Red Cell Distribution Width 12.7 % (11.5-14.5); White Blood Count 4.5 K/mm3 (4.5-10.0)
[2023-02-26 08:18] LABS: Lactic Acid Reflex 1.1 mmol/L (0.7-2.0)
[2023-02-26 08:20] LABS: Alanine Aminotransferase 13 U/L (6-35); Albumin Level 3.3 g/dL (3.5-5.1); Alkaline Phosphatase 71 U/L (38-126); Anion Gap 6 mmol/L (8-16); Aspartate Amino Transferase 19 U/L (14-36); Bilirubin,Total 0.2 mg/dL (0.2-1.3); Blood Urea Nitrogen 15 mg/dL (7-17); Calcium 8.8 mg/dL (8.4-10.2); Carbon Dioxide 27 mmol/L (22-30); Chloride 96 mmol/L (98-107); Estimated CRCL calculation 46 ml/min; Estimated Glomerular Filt Rate > 60; Glucose 98 mg/dL (65-110); Potassium 4.1 mmol/L (3.4-5.0); Sodium 129 mmol/L (137-145)
[2023-02-26] MEDS: ACETAMINOPHEN 500 MG TABLET 1000 MG PO (08:32)
[2023-02-26 08:49] LABS: Cortisol Random 7.61 ug/dL
[2023-02-26] MEDS: FERROUS SULFATE 325 MG TABLET DR PO (09:55)
[2023-02-26] MEDS: CHOLECALCIFEROL 1,000 UNITS TABLET 2000 UNITS PO (09:55)
[2023-02-26] MEDS: ASPIRIN 81 MG ENTERIC TABLET PO (09:55)
[2023-02-26] MEDS: BUDESONIDE 3 MG CAP.SR.24H PO (09:55)
[2023-02-26 09:56] VITALS: PULSE 72
[2023-02-26] MEDS: PANTOPRAZOLE 40 MG TABLET PO (09:56)
[2023-02-26] MEDS: LOSARTAN POTASSIUM 100 MG TABLET PO (09:56)
[2023-02-26] MEDS: DICLOFENAC SOD 75 MG TABLET.EC PO ×2 (09:56→20:57)
[2023-02-26] MEDS: SODIUM CHLORIDE 500 MG TABLET 1000 MG PO ×2 (09:56→17:16)
[2023-02-26] MEDS: METOPROLOL SUCCINATE EXT REL 50 MG TABCR PO (09:56)
[2023-02-26] MEDS: FAMOTIDINE 20 MG TABLET PO ×2 (09:56→20:56)
[2023-02-26 11:05] VITALS: BMI 28.0
[2023-02-26] MEDS: LORATADINE 10 MG TABLET PO (11:30)
--- NOTE | 2023-02-26 11:32 | PM.IMPN ---
Progress Note: A&P Assessment and Plan (1) C. difficile colitis: Code(s): A04.72 - Enterocolitis due to Clostridium difficile, not specified as recurrent Status: Acute Assessment and Plan: The patient was started on oral vancomycin. (2) Acute hyponatremia: Code(s): E87.1 - Hypo-osmolality and hyponatremia Status: Acute Assessment and Plan: Check urine osmolality and electrolytes. The patient has chronic diarrhea and now she has C diff. the patient was started on sodium tablets. Patient's sodium level was last found to be 132. The patient is now 128. Continue to hydrate the patient. (3) Acute lower UTI: Code(s): N39.0 - Urinary tract infection, site not specified Status: Acute Assessment and Plan: Although the patient has listed Keflex as an allergy she did tolerate Rocephin in the emergency room. Continue IV Rocephin. urine and blood cultures are pending. (4) Sleep apnea: Qualifiers: Sleep apnea type: obstructive Qualified Code(s): G47.33 - Obstructive sleep apnea (adult) (pediatric) Code(s): G47.30 - Sleep apnea, unspecified Status: Acute Assessment and Plan: CPAP as per home settings. (5) Hypothyroidism: Qualifiers: Hypothyroidism type: unspecified Qualified Code(s): E03.9 - Hypothyroidism, unspecified Code(s): E03.9 - Hypothyroidism, unspecified Status: Acute Assessment and Plan: Continue with levothyroxine and check thyroid levels. (6) Essential (primary) hypertension: Code(s): I10 - Essential (primary) hypertension Status: Acute Assessment and Plan: Continue with losartan and metoprolol Subjective Date/time seen: 02/26/23 11:32 Interval history: Diarrhea is better Review of Systems Review of Systems: All systems reviewed & are unremarkable except as noted in HPI and below Constitutional: Constitutional: Reports as per HPI and Reports no additional constitutional complaints Eyes: Eyes: Reports as per HPI and Reports no additional eye complaints ENT: Reports system reviewed and no additional complaints, except as documented and Reports Normal hearing present Cardiovascular: Cardiovascular: Reports no additional cardiovascular complaints Respiratory: Respiratory: Reports no additional respiratory complaints and Reports no additional respiratory complaints Gastrointestinal: Gastrointestinal: Reports as per HPI and Reports no additional gastrointestinal complaints Musculoskeletal: Musculoskeletal: Reports no additional musculoskeletal complaints Integumentary/Breasts: Skin/Breast: Reports system reviewed and no additional complaints, except as docu and Reports as per HPI Neurologic: Reports system reviewed and no additional complaints, except as documented, Reports as per HPI and Reports Normal hearing present Psychiatric: Psychiatric: Reports no additional psychiatric complaints and Reports as per HPI Endocrine: Endocrine: Reports no additional endocrine complaints Hematologic/Lymphatic: Hematologic/Lymphatic: Reports no additional hematologic/lymphatic complaints Allergic/Immunologic: Allergic/Immunologic: Reports no additional allergic/immunologic complaints Exam Const: General: cooperative, healthy appearing, comfortable, no acute distress, well developed, alert, awake, Physically active and thin Nutritional Appearance: average body habitus and well nourished Orientation/consciousness: oriented to person, oriented to place, oriented to time and patient oriented x3 Limitations: no limitations HENMT: Head: normal to inspection, No palpable skull fracture present, normocephalic and atraumatic Ears: external ears normal and hearing grossly impaired Face/Nose/Sinus: Normal external nose present and Normal nares present Eyes: General: appearance normal, both eyes and all related structures Alignment and Position: alignment normal Periorbital: periorbital fi
[2023-02-26 14:00] VITALS: BP 121/63; PULSE 65; RESP 18; TEMP 36.6; O2SAT 100
--- NOTE | 2023-02-26 14:50 | PHAR ---
HOME MEDICATION VERIFIED BY PHARMACY: ACETAMINOPHEN 650MG EXTENDED RELEASE TABLETS
[2023-02-26] MEDS: rOPINIRole HCL 1 MG TABLET PO (20:56)
[2023-02-26 20:59] VITALS: BP 115/54; PULSE 84; RESP 18; TEMP 36.8; O2SAT 93
[2023-02-26 23:15] VITALS: RESP 18; O2SAT 98
[2023-02-27] MEDS: VANCOMYCIN ORAL 500 MG/10 ML SYRUP PO ×4 (03:28→17:40)
[2023-02-27] MEDS: LACTATED RINGERS 1,000 ML 100 ML IV CONT ×2 (05:44→17:37)
[2023-02-27] MEDS: LEVOTHYROXINE SODIUM 50 MCG TABLET PO (05:45)
[2023-02-27 05:46] VITALS: BP 126/76; PULSE 67; RESP 18; TEMP 36.5; O2SAT 100
[2023-02-27 09:43] VITALS: BP 142/60; PULSE 75; O2SAT 96
[2023-02-27] MEDS: PANTOPRAZOLE 40 MG TABLET PO (09:45)
[2023-02-27 09:46] VITALS: PULSE 75
[2023-02-27] MEDS: FERROUS SULFATE 325 MG TABLET DR PO (09:46)
[2023-02-27] MEDS: METOPROLOL SUCCINATE EXT REL 50 MG TABCR PO (09:46)
[2023-02-27] MEDS: LORATADINE 10 MG TABLET PO (09:46)
[2023-02-27] MEDS: ASPIRIN 81 MG ENTERIC TABLET PO (09:47)
[2023-02-27] MEDS: LOSARTAN POTASSIUM 100 MG TABLET PO (09:47)
[2023-02-27] MEDS: BUDESONIDE 3 MG CAP.SR.24H PO (09:47)
[2023-02-27] MEDS: DICLOFENAC SOD 75 MG TABLET.EC PO ×2 (09:47→20:33)
[2023-02-27] MEDS: SODIUM CHLORIDE 500 MG TABLET 1000 MG PO ×2 (09:47→16:49)
[2023-02-27] MEDS: FAMOTIDINE 20 MG TABLET PO ×2 (09:48→20:33)
[2023-02-27] MEDS: CHOLECALCIFEROL 1,000 UNITS TABLET 2000 UNITS PO (09:48)
[2023-02-27 10:05] LABS: Anion Gap 7 mmol/L (8-16); Blood Urea Nitrogen 12 mg/dL (7-17); Calcium 8.4 mg/dL (8.4-10.2); Carbon Dioxide 25 mmol/L (22-30); Chloride 98 mmol/L (98-107); Estimated CRCL calculation 46 ml/min; Estimated Glomerular Filt Rate > 60; Glucose 117 mg/dL (65-110); Sodium 130 mmol/L (137-145)
--- NOTE | 2023-02-27 11:34 | PM.IMPN ---
Progress Note: A&P Assessment and Plan (1) C. difficile colitis: Code(s): A04.72 - Enterocolitis due to Clostridium difficile, not specified as recurrent Status: Acute Assessment and Plan: The patient was started on oral vancomycin. (2) Acute hyponatremia: Code(s): E87.1 - Hypo-osmolality and hyponatremia Status: Acute Assessment and Plan: Check urine osmolality and electrolytes. The patient has chronic diarrhea and now she has C diff. the patient was started on sodium tablets. Continue to hydrate the patient. (3) Acute lower UTI: Code(s): N39.0 - Urinary tract infection, site not specified Status: Acute Assessment and Plan: Although the patient has listed Keflex as an allergy she did tolerate Rocephin in the emergency room. Continue IV Rocephin. (4) Sleep apnea: Qualifiers: Sleep apnea type: obstructive Qualified Code(s): G47.33 - Obstructive sleep apnea (adult) (pediatric) Code(s): G47.30 - Sleep apnea, unspecified Status: Acute Assessment and Plan: CPAP as per home settings. (5) Hypothyroidism: Qualifiers: Hypothyroidism type: unspecified Qualified Code(s): E03.9 - Hypothyroidism, unspecified Code(s): E03.9 - Hypothyroidism, unspecified Status: Acute Assessment and Plan: Continue with levothyroxine. Thyroid panel normal (6) Essential (primary) hypertension: Code(s): I10 - Essential (primary) hypertension Status: Acute Assessment and Plan: Continue with losartan and metoprolol Subjective Date/time seen: 02/27/23 11:34 Interval history: Patient states diarrhea is a little worse today Review of Systems Review of Systems: All systems reviewed & are unremarkable except as noted in HPI and below Constitutional: Constitutional: Reports as per HPI and Reports no additional constitutional complaints Eyes: Eyes: Reports as per HPI and Reports no additional eye complaints ENT: Reports system reviewed and no additional complaints, except as documented and Reports Normal hearing present Cardiovascular: Cardiovascular: Reports no additional cardiovascular complaints Respiratory: Respiratory: Reports no additional respiratory complaints and Reports no additional respiratory complaints Gastrointestinal: Gastrointestinal: Reports as per HPI and Reports no additional gastrointestinal complaints Musculoskeletal: Musculoskeletal: Reports no additional musculoskeletal complaints Integumentary/Breasts: Skin/Breast: Reports system reviewed and no additional complaints, except as docu and Reports as per HPI Neurologic: Reports system reviewed and no additional complaints, except as documented, Reports as per HPI and Reports Normal hearing present Psychiatric: Psychiatric: Reports no additional psychiatric complaints and Reports as per HPI Endocrine: Endocrine: Reports no additional endocrine complaints Hematologic/Lymphatic: Hematologic/Lymphatic: Reports no additional hematologic/lymphatic complaints Allergic/Immunologic: Allergic/Immunologic: Reports no additional allergic/immunologic complaints Exam Const: General: cooperative, healthy appearing, comfortable, no acute distress, well developed, alert, awake, Physically active and thin Nutritional Appearance: average body habitus and well nourished Orientation/consciousness: oriented to person, oriented to place, oriented to time and patient oriented x3 Limitations: no limitations HENMT: Head: normal to inspection, No palpable skull fracture present, normocephalic and atraumatic Ears: external ears normal and hearing grossly impaired Face/Nose/Sinus: Normal external nose present and Normal nares present Eyes: General: appearance normal, both eyes and all related structures Alignment and Position: alignment normal Periorbital: periorbital findings normal Eyelids: eyelids normal Sclera: sclerae normal Pupils: Equal, round a
[2023-02-27] MEDS: LOPERAMIDE HCL 2 MG CAPSULE PO (12:18)
[2023-02-27 14:00] VITALS: BP 147/59; PULSE 57; RESP 20; TEMP 36.4; O2SAT 96
[2023-02-27 20:30] VITALS: BP 132/72; PULSE 62; RESP 18; TEMP 36.2; O2SAT 94
[2023-02-27] MEDS: rOPINIRole HCL 1 MG TABLET PO (20:33)
[2023-02-27 21:50] VITALS: RESP 20
[2023-02-28] MEDS: VANCOMYCIN ORAL 500 MG/10 ML SYRUP PO ×5 (00:31→23:58)
[2023-02-28] MEDS: LACTATED RINGERS 1,000 ML 100 ML IV CONT (03:52)
[2023-02-28 03:59] VITALS: BP 145/54; PULSE 60; RESP 18; TEMP 36.6; O2SAT 100
[2023-02-28] MEDS: LEVOTHYROXINE SODIUM 50 MCG TABLET PO (06:38)
[2023-02-28 08:25] VITALS: BP 148/58; PULSE 60
[2023-02-28 08:30] VITALS: PULSE 60; O2SAT 100
[2023-02-28] MEDS: LORATADINE 10 MG TABLET PO (08:30)
[2023-02-28] MEDS: DICLOFENAC SOD 75 MG TABLET.EC PO ×2 (08:30→20:39)
[2023-02-28] MEDS: CHOLECALCIFEROL 1,000 UNITS TABLET 2000 UNITS PO (08:30)
[2023-02-28] MEDS: FERROUS SULFATE 325 MG TABLET DR PO (08:30)
[2023-02-28] MEDS: FAMOTIDINE 20 MG TABLET PO ×2 (08:30→20:40)
[2023-02-28] MEDS: SODIUM CHLORIDE 500 MG TABLET 1000 MG PO ×2 (08:30→17:33)
[2023-02-28] MEDS: LOSARTAN POTASSIUM 100 MG TABLET PO (08:30)
[2023-02-28] MEDS: BUDESONIDE 3 MG CAP.SR.24H PO (08:30)
[2023-02-28] MEDS: METOPROLOL SUCCINATE EXT REL 50 MG TABCR PO (08:30)
[2023-02-28] MEDS: ASPIRIN 81 MG ENTERIC TABLET PO (08:30)
[2023-02-28] MEDS: PANTOPRAZOLE 40 MG TABLET PO (08:30)
[2023-02-28] MEDS: ONDANSETRON HCL ODT 4 MG TABLET PO ×2 (08:33→18:32)
[2023-02-28 10:09] LABS: Anion Gap 3 mmol/L (8-16); Blood Urea Nitrogen 7 mg/dL (7-17); Calcium 8.4 mg/dL (8.4-10.2); Carbon Dioxide 26 mmol/L (22-30); Chloride 98 mmol/L (98-107); Estimated CRCL calculation 52 ml/min; Estimated Glomerular Filt Rate > 60; Glucose 113 mg/dL (65-110); Potassium 3.7 mmol/L (3.4-5.0); Sodium 127 mmol/L (137-145)
--- NOTE | 2023-02-28 12:01 | PM.IMPN ---
Progress Note: A&P Assessment and Plan (1) C. difficile colitis: Code(s): A04.72 - Enterocolitis due to Clostridium difficile, not specified as recurrent Status: Acute Assessment and Plan: Some improvement. Continue the patient on oral vancomycin. Discontinue IV fluids (2) Acute hyponatremia: Code(s): E87.1 - Hypo-osmolality and hyponatremia Status: Acute Assessment and Plan: Sodium still low. Patient asymptomatic. the patient has chronic diarrhea and now she has C diff. the patient was started on sodium tablets. (3) Acute lower UTI: Code(s): N39.0 - Urinary tract infection, site not specified Status: Acute Assessment and Plan: Discontinue IV Rocephin. Finished the course (4) Sleep apnea: Qualifiers: Sleep apnea type: obstructive Qualified Code(s): G47.33 - Obstructive sleep apnea (adult) (pediatric) Code(s): G47.30 - Sleep apnea, unspecified Status: Acute Assessment and Plan: CPAP as per home settings. (5) Hypothyroidism: Qualifiers: Hypothyroidism type: unspecified Qualified Code(s): E03.9 - Hypothyroidism, unspecified Code(s): E03.9 - Hypothyroidism, unspecified Status: Acute Assessment and Plan: Continue with levothyroxine. Thyroid panel normal (6) Essential (primary) hypertension: Code(s): I10 - Essential (primary) hypertension Status: Acute Assessment and Plan: Continue with losartan and metoprolol Subjective Date/time seen: 02/28/23 12:01 Interval history: Still having diarrhea Review of Systems Review of Systems: All systems reviewed & are unremarkable except as noted in HPI and below Constitutional: Constitutional: Reports as per HPI and Reports no additional constitutional complaints Eyes: Eyes: Reports as per HPI and Reports no additional eye complaints ENT: Reports system reviewed and no additional complaints, except as documented and Reports Normal hearing present Cardiovascular: Cardiovascular: Reports no additional cardiovascular complaints Respiratory: Respiratory: Reports no additional respiratory complaints and Reports no additional respiratory complaints Gastrointestinal: Gastrointestinal: Reports as per HPI and Reports no additional gastrointestinal complaints Musculoskeletal: Musculoskeletal: Reports no additional musculoskeletal complaints Integumentary/Breasts: Skin/Breast: Reports system reviewed and no additional complaints, except as docu and Reports as per HPI Neurologic: Reports system reviewed and no additional complaints, except as documented, Reports as per HPI and Reports Normal hearing present Psychiatric: Psychiatric: Reports no additional psychiatric complaints and Reports as per HPI Endocrine: Endocrine: Reports no additional endocrine complaints Hematologic/Lymphatic: Hematologic/Lymphatic: Reports no additional hematologic/lymphatic complaints Allergic/Immunologic: Allergic/Immunologic: Reports no additional allergic/immunologic complaints Exam Const: General: cooperative, healthy appearing, comfortable, no acute distress, well developed, alert, awake, Physically active and thin Nutritional Appearance: average body habitus and well nourished Orientation/consciousness: oriented to person, oriented to place, oriented to time and patient oriented x3 Limitations: no limitations HENMT: Head: normal to inspection, No palpable skull fracture present, normocephalic and atraumatic Ears: external ears normal and hearing grossly impaired Face/Nose/Sinus: Normal external nose present and Normal nares present Eyes: General: appearance normal, both eyes and all related structures Alignment and Position: alignment normal Periorbital: periorbital findings normal Eyelids: eyelids normal Sclera: sclerae normal Pupils: Equal, round and reactive pupils present EOM: EOMs intact bilaterally Neck: Neck: normal visual inspection, f
[2023-02-28 14:00] VITALS: BP 139/60; PULSE 53; RESP 16; TEMP 36.2; O2SAT 100
[2023-02-28 20:37] VITALS: BP 163/57; PULSE 73; RESP 20; TEMP 36.6; O2SAT 96
[2023-02-28] MEDS: rOPINIRole HCL 1 MG TABLET PO (20:40)
[2023-02-28 21:51] LABS: Osmolality, Urine 178 mOsm/kg (50-1200)
[2023-02-28 23:55] VITALS: RESP 18
[2023-03-01 04:57] VITALS: BP 146/58; PULSE 58; RESP 20; TEMP 36.9; O2SAT 98
[2023-03-01] MEDS: LEVOTHYROXINE SODIUM 50 MCG TABLET PO (05:59)
[2023-03-01] MEDS: VANCOMYCIN ORAL 500 MG/10 ML SYRUP PO ×2 (05:59→12:18)
[2023-03-01 07:41] VITALS: O2SAT 98
[2023-03-01 09:00] VITALS: BP 168/65; PULSE 65
[2023-03-01] MEDS: FERROUS SULFATE 325 MG TABLET DR PO (09:00)
[2023-03-01] MEDS: ASPIRIN 81 MG ENTERIC TABLET PO (09:00)
[2023-03-01 09:01] VITALS: PULSE 65
[2023-03-01] MEDS: LORATADINE 10 MG TABLET PO (09:01)
[2023-03-01] MEDS: SODIUM CHLORIDE 500 MG TABLET 1000 MG PO (09:01)
[2023-03-01] MEDS: METOPROLOL SUCCINATE EXT REL 50 MG TABCR PO (09:01)
[2023-03-01] MEDS: FAMOTIDINE 20 MG TABLET PO (09:01)
[2023-03-01] MEDS: PANTOPRAZOLE 40 MG TABLET PO (09:01)
[2023-03-01] MEDS: LOSARTAN POTASSIUM 100 MG TABLET PO (09:01)
[2023-03-01] MEDS: DICLOFENAC SOD 75 MG TABLET.EC PO (09:01)
[2023-03-01] MEDS: CHOLECALCIFEROL 1,000 UNITS TABLET 2000 UNITS PO (09:01)
[2023-03-01] MEDS: BUDESONIDE 3 MG CAP.SR.24H PO (09:01)
--- NOTE | 2023-03-01 10:27 | PM.DS ---
DS: Admitting Diagnosis Discharge Date 03/01/2023 Admitting Diagnosis UTI Chronic hyponatremia DS: Discharge Diagnosis Discharge Diagnosis (1) C. difficile colitis: Code(s): A04.72 - Enterocolitis due to Clostridium difficile, not specified as recurrent Status: Acute (2) Essential (primary) hypertension: Code(s): I10 - Essential (primary) hypertension Status: Acute (3) Acute lower UTI: Code(s): N39.0 - Urinary tract infection, site not specified Status: Acute DS: Summary Hospital Course Hospital Course: This is an 82 year old female patient who has a history of chronic diarrhea with chronic IBS, and diabetes type 2.? The patient came here under the recommendation of her primary care doctor who stated that she had low sodium levels.? The patient has had diarrhea for 30 years but she stated that she has been having a change in her stools.? The patient was noted to have colitis on her last colonoscopy.? The patient had some preop labs for her surgery for her hip replacement and her sodium was found to be 127.? Her initial sodium was found to be 125 here and it is now 128.? Chloride 93 now 94.? BUN 20 now 18.? The patient was also found to have a UTI.? Patient was positive for stool for occult blood and C diff. the patient was given lactated Ringer's, Zofran morphine, Rocephin, vancomycin p.o., and Tylenol.? She has chronic hyponatremia. Sodium has improved now. Patient is asymptomatic. Diarrhea is improved. She has finished course of Rocephin. Continue vancomycin p.o. for 10 more days for C diff colitis. Time Spent with Patient Time attestation: Total time spent providing and/or coordinating discharge services: DS: Data Data Completed and Pending Labs on day of discharge: Labs from last 24 hours 02/25/23 15:33 Urine Osmolality 178 Preliminary micro results at discharge 02/26/23 07:40 Blood Culture - Preliminary Blood 02/26/23 07:40 Blood Culture - Preliminary Blood Discharge Plan Discharge Discharging Clinician: Bryson Bateman Anticipated Discharge Date/Time: 03/01/23 10:25 Patient Disposition: Home, Self-Care Activity: no preference Diet: heart healthy Patient Instructions: Antibiotic Form Stand Alone Forms: General Discharge Information Follow-up/Referrals: Morelia Ingram MD [Primary Care Provider] - Discharge Medications: New loperamide 2 mg Capsule 2 mg PO PRN PRN (Reason: Diarrhea) Qty: 30 0RF vancomycin 1,000 mg Recon Soln 500 mg PO Q6HR 10 Days Qty: 40 0RF Continued metoprolol succinate 100 mg tablet extended release 24 hr 100 mg PO DAILY aspirin 81 mg tablet,delayed release (DR/EC) 81 mg PO DAILY omeprazole 40 mg capsule,delayed release(DR/EC) 40 mg PO DAILY Qty: 90 3RF budesonide 3 mg capsule,delayed,extend.release 3 mg PO DAILY ropinirole 1 mg tablet 1 mg PO HS famotidine 20 mg tablet 20 mg PO BID levothyroxine 50 mcg tablet 50 mcg PO DAILY losartan 50 mg Tablet 50 mg PO DAILY sodium chloride 1 gram Tablet 1,000 mg PO BID cholecalciferol (vitamin D3) [Vitamin D3] 50 mcg (2,000 unit) Tablet 50 mcg PO DAILY psyllium husk [Metamucil] 0.52 gram Capsule 0.52 g PO DAILY acetaminophen [Arthritis Pain Relief (acetam)] 650 mg Tablet Extended Release 1,300 mg PO Q8H Rx Instructions: home med ondansetron HCl 4 mg tablet 4 mg PO Q8H PRN (Reason: nausea and vomiting) Qty: 30 0RF Changed ferrous sulfate 325 mg (65 mg iron) tablet 325 mg PO DAILY 30 Days Qty: 0 0RF Discontinued diclofenac sodium 75 mg tablet,delayed release (DR/EC) 75 mg PO BID Date of admission: 02/26/23 09:58 Primary Care Provider: Morelia Ingram Admitting Provider: Kannan Mckeon Attending physician on admission: Bryson Bateman Condition: Stable
--- NOTE | 2023-03-01 18:39 | PC.NURSE ---
In Shop Service Technician spoke with [facility] pharmacy in regards to medication orders from Dr. Bateman. Pharmacy never received orders. In Shop Service Technician retransmitted orders to pharmacy.
== END 2023-03-01 12:50 | disposition home or self-care (01) | DRG 372 ==
LOC: ANHED 16:28 → ANH3MED 16:50
PROVIDERS: General Practice; Nurse Practitioner; Admitting Provider Internal Medicine; Emergency Provider Student in an Organized Health Care Education/Training Program; PCP Family Medicine; Visit Provider Hospitalist
DX: A04.72 Enterocolitis due to Clostridium difficile, not specified as recurrent (principal); E87.1 Hypo-osmolality and hyponatremia; N39.0 Urinary tract infection, site not specified; I10 Essential (primary) hypertension; K58.9 Irritable bowel syndrome, unspecified; E11.9 Type 2 diabetes mellitus without complications; E88.81 Metabolic syndrome and other insulin resistance; K21.9 Gastro-esophageal reflux disease without esophagitis; E03.9 Hypothyroidism, unspecified; E78.2 Mixed hyperlipidemia; M19.90 Unspecified osteoarthritis, unspecified site; M48.061 Spinal stenosis, lumbar region without neurogenic claudication; I35.0 Nonrheumatic aortic (valve) stenosis; G47.30 Sleep apnea, unspecified; F32.A Depression, unspecified; F41.9 Anxiety disorder, unspecified; Z96.649 Presence of unspecified artificial hip joint; Z85.828 Personal history of other malignant neoplasm of skin; Z95.2 Presence of prosthetic heart valve; Z90.49 Acquired absence of other specified parts of digestive tract
CPT/HCPCS: 36415; 74177; 80048; 80053; 81001; 82274; 82533; 83605; 83690; 83735; 83935; 84133; 84300; 84443; 85025; 87040; 87045; 87077; 87086; 87177; 87186; 87209; 87269; 87272; 87427; 87449; 87493; 89055; 94660; 96365; 99285; A9270; G0378; J0696; J7120; Q9967

== ENCOUNTER 2023-03-08 10:56 | Outpatient (CLI) | payer MEDICARE, BC, SELFPAY ==
[2023-03-08 11:23] LABS: Anion Gap 6 mmol/L (8-16); Blood Urea Nitrogen 18 mg/dL (7-17); Calcium 9.3 mg/dL (8.4-10.2); Carbon Dioxide 25 mmol/L (22-30); Chloride 96 mmol/L (98-107); Estimated Glomerular Filt Rate 60; Glucose 116 mg/dL (65-110); Potassium 3.8 mmol/L (3.4-5.0); Sodium 127 mmol/L (137-145)
== END 2023-03-08 10:57 | disposition home or self-care (01) ==
LOC: ANHLAB 10:59
PROVIDERS: PCP Family Medicine; Visit Provider Family Medicine
DX: E87.1 Hypo-osmolality and hyponatremia (principal)
CPT/HCPCS: 36415; 80048

== ENCOUNTER 2023-03-13 11:26 | Inpatient (IN) | payer MEDICARE, BC, SELFPAY ==
--- NOTE | ~2023-03-13 | US_ITS ---
EXAMINATION: US venous doppler [facility] DATE: 03/22/2023 16:32 INDICATION: Calf pain. TECHNIQUE: Grayscale ultrasound images without and with compression and Doppler ultrasound images of the bilateral lower extremity veins were obtained. COMPARISON: None. FINDINGS: The visualized portions of right common femoral vein, profunda (deep) femoral vein, femoral vein, pop liteal vein, peroneal veins, posterior tibial veins, and greater saphenous vein outflow are patent. The visualized portions of left common femoral vein, profunda femoral vein, femoral vein, popliteal v ein, peroneal veins, posterior tibial veins, and greater saphenous vein outflow are patent. IMPRESSION: 1. No deep venous thrombosis. Reviewed, dictated and finalized at location E.
[2023-03-13 11:30] VITALS: BP 125/63; PULSE 82; RESP 18; TEMP 36.3; O2SAT 100
[2023-03-13 11:47] LABS: Basophils Percent Auto 0.5 % (0.2-1.2); Eosinophils Absolute Auto 0.1 K/mm3 (0-0.3); Eosinophils Percent Auto 2.8 % (0-4.4); Hematocrit 33.1 % (37.0-47.0); Hemoglobin 10.6 g/dL (12.0-15.0); Immature Granulocyte Absolute 0.01 K/mm3 (0.00-0.031); Immature Granulocyte Percent A 0.3 % (0-0.5); Lymphocytes Absolute Auto 1.14 K/mm3 (0.9-3.2); Lymphocytes Percent Auto 29.2 % (18.3-44.2); Mean Corpuscular Hemoglobin 31.6 pg (26-34); Mean Corpuscular Volume 98.8 fl (80-100); Mean Platelet Volume 8.8 fl (7.4-10.4); Monocytes Absolute Auto 0.6 K/mm3 (0.1-0.6); Monocytes Percent Auto 14.4 % (2.6-8.5); Neutrophils Absolute Auto 2.1 K/mm3 (1.3-6.7); Neutrophils Percent Auto 52.8 % (45.5-73.1); Platelet Count Result 279 k/mm3 (150-375); Red Blood Count 3.35 M/mm3 (4.2-5.4); Red Cell Distribution Width 13.7 % (11.5-14.5); White Blood Count 3.9 K/mm3 (4.5-10.0)
[2023-03-13 11:57] LABS: Anion Gap 11 mmol/L (8-16); Blood Urea Nitrogen 16 mg/dL (7-17); Carbon Dioxide 23 mmol/L (22-30); Chloride 95 mmol/L (98-107); Estimated CRCL calculation 41 ml/min; Estimated Glomerular Filt Rate 60; Potassium 4.5 mmol/L (3.4-5.0); Sodium 129 mmol/L (137-145)
[2023-03-13 11:58] LABS: Alanine Aminotransferase 18 U/L (6-35); Albumin Level 3.7 g/dL (3.5-5.1); Alkaline Phosphatase 86 U/L (38-126); Aspartate Amino Transferase 23 U/L (14-36); Bilirubin,Total 0.5 mg/dL (0.2-1.3); Calcium 9.1 mg/dL (8.4-10.2); Glucose 130 mg/dL (65-110); Lipase 31 U/L (23-300)
--- NOTE | 2023-03-13 14:00 | PC.NURSE ---
Has had dark green soft stools since arrival to ed.
--- NOTE | 2023-03-13 14:23 | ED.GENADULT ---
HPI - General Adult General Chief complaint: Nausea/Vomiting/Diarrhea Stated complaint: c-diff Time Seen by Provider: 03/13/23 12:05 History of Present Illness HPI narrative: 82-year-old female with history of anemia, obesity, type 2 diabetes, hypothyroidism presented the emergency department for evaluation of worsening C. difficile. Patient was initially diagnosed with C. difficile on 02/25 and started on oral vancomycin. Patient states that over the last few days she had worsening diarrhea with worsening nausea and vomiting. Patient reports increased generalized weakness. Patient denies any abdominal pain. Related Data Home Medications Medication Instructions Recorded Confirmed aspirin 81 mg tablet,delayed 81 mg PO DAILY 05/30/19 03/13/23 release metoprolol succinate 100 mg 100 mg PO DAILY 05/12/21 03/13/23 tablet,extended release 24 hr budesonide 3 mg 3 mg PO DAILY 02/25/23 03/13/23 capsule,delayed,extended release cholecalciferol (vitamin D3) 50 50 mcg PO DAILY 02/25/23 03/13/23 mcg (2,000 unit) tablet (Vitamin D3) levothyroxine 50 mcg tablet 50 mcg PO DAILY 02/25/23 03/13/23 losartan 50 mg tablet 50 mg PO DAILY 02/25/23 03/13/23 psyllium husk 0.52 gram capsule 0.52 g PO DAILY 02/25/23 03/13/23 ropinirole 1 mg tablet 1 mg PO HS 02/25/23 03/13/23 acetaminophen 650 mg 1,300 mg PO Q8H 02/26/23 03/13/23 tablet,extended release (Arthritis Pain Relief (acetaminophen) ER) diclofenac sodium 75 mg 75 mg PO BID 03/13/23 03/13/23 tablet,delayed release Allergies Allergy/AdvReac Type Severity Reaction Status Date / Time ciprofloxacin Allergy Unknown Diarrhea Verified 03/13/23 11:34 house dust Allergy Unknown Sneezing Verified 03/13/23 11:34 milk Allergy Unknown DIARRHEA, Verified 03/13/23 11:34 CRAMPING niacin Allergy Unknown Skin Verified 03/13/23 11:34 Reaction Nitrate Analogues Allergy Unknown GI UPSET Verified 03/13/23 11:34 oxycodone Allergy Unknown RASH Verified 03/13/23 11:34 pepper (genus Capsicum) Allergy Unknown GI BURNING Verified 03/05/23 13:07 cephalexin [From Keflex] AdvReac Intermediate Diarrhea Verified 03/05/23 13:07 amitriptyline AdvReac Unknown OPPOSITE Verified 03/13/23 11:34 atenolol AdvReac Unknown cough Verified 03/13/23 11:34 chlordiazepoxide AdvReac Unknown Jackson crazy Verified 03/13/23 11:34 chlorthalidone [Tenoretic] AdvReac Unknown cough Verified 03/13/23 11:34 Review of Systems Review of Systems: All systems reviewed & are unremarkable except as noted in HPI and below PMFSH Past Medical History Medical History Allergic conjunctivitis of right eye Allergic rhinitis, cause unspecified Anxiety state, unspecified Basal cell carcinoma of skin, unspecified Benign hypertension Benign paroxysmal positional vertigo Carpal tunnel syndrome, bilateral Cutaneous abscess of abdominal wall Dependence on other enabling machines and devices Depressive disorder, not elsewhere classified Dysmetabolic syndrome X Dysphagia Dysuria Encounter for immunization (04/18/18) Esophageal spasm Essential (primary) hypertension Gastro-esophageal reflux disease without esophagitis GERD (gastroesophageal reflux disease) History of Mohs micrographic surgery for skin cancer Hx of ectopic Hypothyroidism Impacted cerumen of left ear Infected cyst of skin Irritable bowel syndrome Metabolic syndrome Mixed hyperlipidemia due to type 2 diabetes mellitus Nonrheumatic aortic (valve) stenosis Obese CESAR on CPAP Osteoarthritis Other seborrheic keratosis Spinal stenosis, lumbar region, without neurogenic claudication Type 2 diabetes mellitus with complication, without long-term current use of insulin Unspecified essential hypertension Surgical History Surgical History H/O aortic valve replacement H/O aortic valve replacement using Ross procedure H/O cataract removal with insertion of prosthe
[2023-03-13] MEDS: SODIUM CHLORIDE 0.9% IV 1,000 ML 999 ML IV CONT (14:47)
[2023-03-13] MEDS: ONDANSETRON INJ 4 MG/2 ML VIAL IV PUSH (14:47)
[2023-03-13 15:10] VITALS: BP 119/53; PULSE 59; RESP 20; O2SAT 100
[2023-03-13 15:26] LABS: Appearance Urine Clear (Clear); Bacteria Urine None Seen /hpf; Bilirubin Urine Negative (Negative); Blood Urine Negative (Negative); Color Urine Yellow (Yellow); Glucose Urine UA Negative (Negative); Hyaline Casts Urine Present /lpf; Ketones Urine Trace mg/dL (Negative); Leukocyte Esterase Ur 1+ LEU/UL (Negative); Nitrate Urine Negative (Negative); Protein Urine Negative (Negative); RBC Urine 0-2 /hpf (0-2); Specific Grav Ur 1.022 (1.001-1.035); Squamous Epithelial Cell Urine None seen /hpf (Few); Urobilinogen Urine 0.2 mg/dL (<2.0)
[2023-03-13 15:29] LABS: Add Urine Microscopic? YES
[2023-03-13 15:55] VITALS: BP 112/68; PULSE 61; RESP 20; O2SAT 96
--- NOTE | 2023-03-13 16:13 | PC.NURSE ---
This patient, Elizabeth Herrera, was admitted to Medical Room 244-. Patient/family oriented to hospital policies and general routines including ID bracelet, bed and alarms, visiting hours, pain management, procedures, bathroom and other care routines, personal items, smoking policy, room service/diet, and visiting hours. Information on how to activate the Rapid Response Team has been discussed. Patient/Family are encouraged to report perceived risks to care and to ask questions if they do not understand what they are told or what they should do.
[2023-03-13] MEDS: SODIUM CHLORIDE 0.9% IV 1,000 ML 75 ML IV CONT (16:23)
[2023-03-13] MEDS: FIDAXOMICIN 200 MG TABLET PO ×2 (16:27→20:28)
[2023-03-13 16:29] VITALS: BMI 28.3
[2023-03-13 16:30] VITALS: BP 123/48; PULSE 58; RESP 16; TEMP 35.9; O2SAT 100
[2023-03-13 20:04] VITALS: BP 117/51; PULSE 65; RESP 15; TEMP 36.1; O2SAT 100
--- NOTE | 2023-03-13 20:28 | PM.IMHP ---
H&P: HPI History of Present Illness Date/Time: 03/13/23 20:28 Chief Complaint: Nausea vomiting diarrhea Narrative: This is an 82-year-old female patient who recently was diagnosed with C diff is sound had been on p.o. vancomycin at home. The patient stated that the stool started to lighten up and her dose of vancomycin was decreased. The patient stated that she was 4 tablets of the vancomycin daily in when she was doing better she stated that her primary care doctor decreased her dose. Since then she has been more nauseated having more stools. She stated that she had house keeper clean her home with bleach. The patient stated that she feels very weak and is having difficulty getting up to the bathroom. The patient was changed to dificid in the emergency room. She was started on IV fluids and given Zofran as well. Her H&H is 10.6 and 33.1 which appears to be her baseline. Her white count is 3.9. Her sodium is 129 again this is her baseline. The patient is on sodium tablets at home. She has trace ketones in her urine. The patient is being admitted to observation status on the date of service of 03/13/2023. Review of Systems Review of Systems: All systems reviewed & are unremarkable except as noted in HPI and below Constitutional: Constitutional: Reports as per HPI and Reports no additional constitutional complaints Eyes: Eyes: Reports as per HPI and Reports no additional eye complaints ENT: Reports system reviewed and no additional complaints, except as documented and Reports Normal hearing present Cardiovascular: Cardiovascular: Reports no additional cardiovascular complaints Respiratory: Respiratory: Reports no additional respiratory complaints and Reports no additional respiratory complaints Gastrointestinal: Gastrointestinal: Reports as per HPI and Reports no additional gastrointestinal complaints Musculoskeletal: Musculoskeletal: Reports no additional musculoskeletal complaints Integumentary/Breasts: Skin/Breast: Reports system reviewed and no additional complaints, except as docu and Reports as per HPI Neurologic: Reports system reviewed and no additional complaints, except as documented, Reports as per HPI and Reports Normal hearing present Psychiatric: Psychiatric: Reports no additional psychiatric complaints and Reports as per HPI Endocrine: Endocrine: Reports no additional endocrine complaints Hematologic/Lymphatic: Hematologic/Lymphatic: Reports no additional hematologic/lymphatic complaints Allergic/Immunologic: Allergic/Immunologic: Reports no additional allergic/immunologic complaints [facility] Past Medical History Medical History Allergic conjunctivitis of right eye Allergic rhinitis, cause unspecified Anxiety state, unspecified Basal cell carcinoma of skin, unspecified Benign hypertension Benign paroxysmal positional vertigo Carpal tunnel syndrome, bilateral Cutaneous abscess of abdominal wall Dependence on other enabling machines and devices Depressive disorder, not elsewhere classified Dysmetabolic syndrome X Dysphagia Dysuria Encounter for immunization (04/18/18) Esophageal spasm Essential (primary) hypertension Gastro-esophageal reflux disease without esophagitis GERD (gastroesophageal reflux disease) History of Mohs micrographic surgery for skin cancer Hx of ectopic Hypothyroidism Impacted cerumen of left ear Infected cyst of skin Irritable bowel syndrome Metabolic syndrome Mixed hyperlipidemia due to type 2 diabetes mellitus Nonrheumatic aortic (valve) stenosis Obese CESAR on CPAP Osteoarthritis Other seborrheic keratosis Spinal stenosis, lumbar region, without neurogenic claudication Type 2 diabetes mellitus with complication, without long-term current use of insulin Unspecified essential hypertension Surgical History Surgical History H/O aortic valve replacement H/O aort
[2023-03-13 22:00] VITALS: PULSE 58; O2SAT 99
--- NOTE | 2023-03-13 23:28 | PHAR ---
PHARMACY VERIFIED HOME MED: * USE FROM HOME * ACETAMINOPHEN EXTENDED RELEASE 650 MG CAPLETS TAKE 2 CAPLETS BY MOUTH EVERY 8 HOURS
--- NOTE | 2023-03-13 23:32 | PC.NURSE ---
Maintenance checked home CPAP. Ok to use. RT notified.
[2023-03-13] MEDS: rOPINIRole HCL 1 MG TABLET PO (23:49)
[2023-03-14 04:20] LABS: Basophils Percent Auto 0.3 % (0.2-1.2); Eosinophils Absolute Auto 0.1 K/mm3 (0-0.3); Eosinophils Percent Auto 2.9 % (0-4.4); Hematocrit 30.4 % (37.0-47.0); Hemoglobin 9.6 g/dL (12.0-15.0); Lymphocytes Absolute Auto 1.21 K/mm3 (0.9-3.2); Lymphocytes Percent Auto 39.2 % (18.3-44.2); Mean Corpuscular HGB Conc 31.6 g/dl (32-36); Mean Corpuscular Hemoglobin 31.6 pg (26-34); Mean Platelet Volume 9.1 fl (7.4-10.4); Monocytes Absolute Auto 0.6 K/mm3 (0.1-0.6); Monocytes Percent Auto 20.1 % (2.6-8.5); Neutrophils Absolute Auto 1.2 K/mm3 (1.3-6.7); Neutrophils Percent Auto 37.5 % (45.5-73.1); Platelet Count Result 234 k/mm3 (150-375); Red Blood Count 3.04 M/mm3 (4.2-5.4); White Blood Count 3.1 K/mm3 (4.5-10.0)
[2023-03-14 04:27] LABS: Lactic Acid Reflex 0.8 mmol/L (0.7-2.0)
[2023-03-14 04:28] LABS: Alanine Aminotransferase 13 U/L (6-35); Alkaline Phosphatase 71 U/L (38-126); Anion Gap 5 mmol/L (8-16); Aspartate Amino Transferase 26 U/L (14-36); Bilirubin,Total 0.4 mg/dL (0.2-1.3); Blood Urea Nitrogen 12 mg/dL (7-17); Calcium 8.6 mg/dL (8.4-10.2); Carbon Dioxide 25 mmol/L (22-30); Chloride 102 mmol/L (98-107); Estimated CRCL calculation 52 ml/min; Estimated Glomerular Filt Rate > 60; Glucose 98 mg/dL (65-110); Sodium 132 mmol/L (137-145)
[2023-03-14 05:52] VITALS: BP 120/65; PULSE 68; RESP 17; TEMP 36.1; O2SAT 94
[2023-03-14] MEDS: LEVOTHYROXINE SODIUM 50 MCG TABLET PO (06:05)
[2023-03-14] MEDS: SODIUM CHLORIDE 0.9% IV 1,000 ML 75 ML IV CONT (06:05)
[2023-03-14] MEDS: ASPIRIN 81 MG ENTERIC TABLET PO (09:39)
[2023-03-14] MEDS: FERROUS SULFATE 325 MG TABLET DR BY MOUTH (09:40)
[2023-03-14] MEDS: DICLOFENAC SOD 75 MG TABLET.EC PO ×2 (09:40→17:24)
[2023-03-14] MEDS: CHOLECALCIFEROL 1,000 UNITS TABLET 2000 UNITS PO (09:40)
[2023-03-14] MEDS: FAMOTIDINE 20 MG TABLET PO ×2 (09:40→17:24)
[2023-03-14] MEDS: PANTOPRAZOLE 40 MG TABLET PO (09:41)
[2023-03-14] MEDS: SODIUM CHLORIDE 1 GM TABLET PO (09:41)
[2023-03-14] MEDS: FUROSEMIDE 20 MG TABLET PO (09:41)
[2023-03-14] MEDS: FIDAXOMICIN 200 MG TABLET PO ×2 (09:41→21:07)
[2023-03-14] MEDS: LOSARTAN POTASSIUM 50 MG TABLET PO (09:41)
[2023-03-14 09:43] VITALS: PULSE 66
[2023-03-14] MEDS: METOPROLOL SUCCINATE EXT REL 100 MG TABCR PO (09:43)
--- NOTE | 2023-03-14 11:32 | PM.IMPN ---
Progress Note: A&P Assessment and Plan (1) C. difficile diarrhea: Code(s): A04.72 - Enterocolitis due to Clostridium difficile, not specified as recurrent Status: Acute Assessment and Plan: The patient was diagnosed with CDiff prior to admission on 02/25. CT A/P (02/25) for diarrhea showed no colitis. The patient was on p.o. vancomycin and recently went to primary care doctor's office and her dose was decreased. The patient stated that she became weak and was having diarrhea. She is afebrile and WBC was normal/low. She was started on IV fluids. Clear liquid diet started. Oral Vanco was held and Dificid was started. Diarrhea resolving and she feels better. Advance diet. Stopped IV fluids. Stop Metamucil and Entocort. Care coordination to determine taylor of Dificid. (2) Weakness generalized: Code(s): R53.1 - Weakness Status: Acute Assessment and Plan: Related to above. PT OT evaluation ordered (3) Hyponatremia: Code(s): E87.1 - Hypo-osmolality and hyponatremia Status: Acute Assessment and Plan: Patient has chronically low sodium. Na 129 on admisison. She is currently on IV fluids and her sodium chloride tablets were resumed. Na level better today. Stop IV fluids. Follow (4) Essential (primary) hypertension: Code(s): I10 - Essential (primary) hypertension Status: Acute Assessment and Plan: Patient's blood pressure was reviewed on 03/14 Blood pressure remains well controlled. Will continue to monitor (5) Sleep apnea: Qualifiers: Sleep apnea type: obstructive Qualified Code(s): G47.33 - Obstructive sleep apnea (adult) (pediatric) Code(s): G47.30 - Sleep apnea, unspecified Status: Acute Assessment and Plan: Chronic. Continue with home settings for CPAP (6) Anemia: Code(s): D64.9 - Anemia, unspecified Status: Acute Assessment and Plan: Chronic. Hgb mostly in the 10-11 range and 10.6 on admission. Hgb dropped to 9.6 today felt related to IV fluids. No evidence of acute blod loss. Iron studies normal in August. Monitor. Transfuse as needed. Continue with ferrous sulfate. (7) Hypothyroidism: Qualifiers: Hypothyroidism type: unspecified Qualified Code(s): E03.9 - Hypothyroidism, unspecified Code(s): E03.9 - Hypothyroidism, unspecified Status: Acute Assessment and Plan: TSH normal in January. Continue with levothyroxine Plan Leukopenia - B12 level normal in Aug. Normal plt count. Monocytosis noted. Related to Vanco? Follow Subjective Date/time seen: 03/14/23 11:32 Interval history: 82yo female with HTN, CESAR, hyponatremia and hypothyroidism here for worsening CDiff. Patient states her diarrhea was improving prior to her provider decreasing the dose of oral vancomycin. Patient has been started on Dificid. She feels much better today. No chest pain or shortness of breath. She does have dyspnea on exertion but this is chronic. No abdominal pain. She has not had a bowel movement since midnight. She is tolerating her clear liquid diet. Exam Narrative: AF 97.0 120/65 66 17 94% ra Gen - NARD Chest - CTA bilaterally, nml RR CV - RRR S1/S2 Abd - Soft, NT/ND, Positive BS Ext - No pedal edema Psych - Nml mood and affect Skin - Warm and dry Objective Data Vital Signs Vital Signs: Vital Signs - 24 hr 03/13/23 15:10 03/13/23 15:55 03/13/23 16:30 Temperature 96.6 F L Pulse Rate 59 L 61 58 L Respiratory Rate 20 20 16 Blood Pressure 119/53 L 112/68 123/48 L Pulse Oximetry 100 96 100 Oxygen Delivery Fraction of Inspired Oxygen 03/13/23 17:00 03/13/23 20:04 03/13/23 20:00 Temperature 97 F L Pulse Rate 65 Respiratory Rate 15 Blood Pressure 117/51 L Pulse Oximetry 100 Oxygen Delivery Room Air Room Air Fraction of Inspired Oxygen 03/13/23 22:00 03/13/23 22:00 03/14/23 05:52 Temperature 97 F L
[2023-03-14 14:00] VITALS: BP 120/47; PULSE 57; RESP 16; TEMP 36.6; O2SAT 100
[2023-03-14] MEDS: LOPERAMIDE HCL 2 MG CAPSULE PO (14:32)
[2023-03-14 20:43] VITALS: BP 126/67; PULSE 52; RESP 18; TEMP 36; O2SAT 100
[2023-03-14] MEDS: rOPINIRole HCL 1 MG TABLET PO (21:07)
[2023-03-14 23:05] VITALS: PULSE 61; O2SAT 97
[2023-03-15 05:46] VITALS: BP 140/52; PULSE 58; RESP 20; TEMP 36.6; O2SAT 100
[2023-03-15] MEDS: LEVOTHYROXINE SODIUM 50 MCG TABLET PO (06:15)
[2023-03-15] MEDS: FAMOTIDINE 20 MG TABLET PO ×2 (09:26→16:43)
[2023-03-15] MEDS: ASPIRIN 81 MG ENTERIC TABLET PO (09:26)
[2023-03-15] MEDS: METOPROLOL SUCCINATE EXT REL 100 MG TABCR PO (09:26)
[2023-03-15] MEDS: FUROSEMIDE 20 MG TABLET PO (09:26)
[2023-03-15] MEDS: LOSARTAN POTASSIUM 50 MG TABLET PO (09:26)
[2023-03-15] MEDS: PANTOPRAZOLE 40 MG TABLET PO (09:26)
[2023-03-15] MEDS: FERROUS SULFATE 325 MG TABLET DR BY MOUTH (09:26)
[2023-03-15] MEDS: SODIUM CHLORIDE 1 GM TABLET PO (09:26)
[2023-03-15] MEDS: CHOLECALCIFEROL 1,000 UNITS TABLET 2000 UNITS PO (09:26)
[2023-03-15] MEDS: FIDAXOMICIN 200 MG TABLET PO ×2 (09:27→21:18)
[2023-03-15] MEDS: DICLOFENAC SOD 75 MG TABLET.EC PO ×2 (09:27→16:43)
--- NOTE | 2023-03-15 11:35 | PM.IMPN ---
Progress Note: A&P Assessment and Plan (1) C. difficile diarrhea: Code(s): A04.72 - Enterocolitis due to Clostridium difficile, not specified as recurrent Status: Acute Assessment and Plan: The patient was diagnosed with CDiff prior to admission on 02/25. CT A/P (02/25) for diarrhea showed no colitis. The patient was on p.o. vancomycin and recently went to primary care doctor's office and her dose was decreased. The patient stated that she became weak and was having diarrhea. She is afebrile and WBC was normal/low. She was started on IV fluids. Started on clear liquid diet and advanced. Oral Vanco was held and Dificid was started. Diarrhea improved initially but worse now. Add Banatrol. No imodium. Continu Dificid. (2) Weakness generalized: Code(s): R53.1 - Weakness Status: Acute Assessment and Plan: Related to above. Better. Continue PT/OT. (3) Hyponatremia: Code(s): E87.1 - Hypo-osmolality and hyponatremia Status: Acute Assessment and Plan: Patient has chronically low sodium. Na 129 on admisison. She was on IV fluids but now stopped. Sodium chloride tablets were resumed. Na level better. Follow (4) Essential (primary) hypertension: Code(s): I10 - Essential (primary) hypertension Status: Acute Assessment and Plan: Patient's blood pressure was reviewed on 03/15 Blood pressure remains well controlled. Will continue to monitor (5) Sleep apnea: Qualifiers: Sleep apnea type: obstructive Qualified Code(s): G47.33 - Obstructive sleep apnea (adult) (pediatric) Code(s): G47.30 - Sleep apnea, unspecified Status: Acute Assessment and Plan: Chronic. Continue with home settings for CPAP (6) Anemia: Code(s): D64.9 - Anemia, unspecified Status: Acute Assessment and Plan: Chronic. Hgb mostly in the 10-11 range and 10.6 on admission. Hgb dropped to 9.6 felt related to IV fluids. No evidence of acute blood loss. Iron studies normal in August. Monitor. Transfuse as needed. Continue with ferrous sulfate. (7) Hypothyroidism: Qualifiers: Hypothyroidism type: unspecified Qualified Code(s): E03.9 - Hypothyroidism, unspecified Code(s): E03.9 - Hypothyroidism, unspecified Status: Acute Assessment and Plan: TSH normal in January. Continue with levothyroxine Plan Leukopenia - B12 level normal in Aug. Normal plt count. Monocytosis noted. Leukopenia related to Vanco? Follow. Subjective Date/time seen: 03/15/23 11:35 Interval history: 82yo female with HTN, CESAR, hyponatremia and hypothyroidism here for worsening CDiff. Patient having more diarrhea past 24 hours. Had about 10 BMs this morning already. No blood. No abd pain except occasionally crampy pain. No n/v today. Eating okay. Exam Narrative: AF 98.0 140/52 58 20 100% ra Gen - NARD Chest - CTA bilaterally, nml RR CV - RRR S1/S2 Abd - Soft, NT/ND, Positive BS Ext - No pedal edema Psych - Nml mood and affect Skin - Warm and dry Objective Data Vital Signs Vital Signs: Vital Signs - 24 hr 03/14/23 14:00 03/14/23 20:43 03/14/23 20:00 Temperature 97.9 F 96.8 F L Pulse Rate 57 L 52 L Respiratory Rate 16 18 Blood Pressure 120/47 L 126/67 Pulse Oximetry 100 100 Oxygen Delivery Room Air 03/14/23 22:00 03/15/23 05:46 03/14/23 23:05 Temperature 98 F Pulse Rate 58 L 61 Respiratory Rate 20 Blood Pressure 140/52 L Pulse Oximetry 100 97 Oxygen Delivery CPAP CPAP Intake/Output Intake/Output: Intake & Output 03/12/23 03/13/23 03/14/23 03/15/23 23:59 23:59 23:59 23:59 Intake Total 1250 3130 530 Balance 1250 3130 530 Meds/Results Medications: Active Medications Generic Name Dose Route Start Last Admin Trade Name Freq PRN Reason Stop Dose Admin Aspirin 81 mg 03/14/23 09:00 03/15/23 09:26 Aspirin 81 Mg Enteric Tablet PO 81 mg DAILY [facility]
[2023-03-15 12:32] VITALS: BMI 28.3
[2023-03-15 14:31] VITALS: BP 153/67; PULSE 57; RESP 17; TEMP 36.7; O2SAT 100
[2023-03-15 19:37] VITALS: BP 149/62; PULSE 55; RESP 18; TEMP 36.6; O2SAT 100
[2023-03-15] MEDS: rOPINIRole HCL 1 MG TABLET PO (21:18)
[2023-03-15 23:43] VITALS: PULSE 60; O2SAT 98
[2023-03-16] MEDS: ONDANSETRON INJ 4 MG/2 ML VIAL IV PUSH (01:20)
[2023-03-16 02:37] VITALS: PULSE 57; O2SAT 98
[2023-03-16 05:30] LABS: Basophils Percent Auto 0.4 % (0.2-1.2); Eosinophils Absolute Auto 0.2 K/mm3 (0-0.3); Eosinophils Percent Auto 4.2 % (0-4.4); Hematocrit 33.4 % (37.0-47.0); Hemoglobin 10.6 g/dL (12.0-15.0); Immature Granulocyte Absolute 0.02 K/mm3 (0.00-0.031); Immature Granulocyte Percent A 0.4 % (0-0.5); Lymphocytes Absolute Auto 1.99 K/mm3 (0.9-3.2); Lymphocytes Percent Auto 34.9 % (18.3-44.2); Mean Corpuscular HGB Conc 31.7 g/dl (32-36); Mean Corpuscular Hemoglobin 31.5 pg (26-34); Mean Corpuscular Volume 99.1 fl (80-100); Mean Platelet Volume 9.1 fl (7.4-10.4); Monocytes Absolute Auto 0.8 K/mm3 (0.1-0.6); Monocytes Percent Auto 14.2 % (2.6-8.5); Neutrophils Absolute Auto 2.6 K/mm3 (1.3-6.7); Neutrophils Percent Auto 45.9 % (45.5-73.1); Platelet Count Result 262 k/mm3 (150-375); Red Blood Count 3.37 M/mm3 (4.2-5.4); Red Cell Distribution Width 13.4 % (11.5-14.5); White Blood Count 5.7 K/mm3 (4.5-10.0)
[2023-03-16 05:40] LABS: Alanine Aminotransferase 14 U/L (6-35); Albumin Level 3.6 g/dL (3.5-5.1); Alkaline Phosphatase 94 U/L (38-126); Anion Gap 5 mmol/L (8-16); Aspartate Amino Transferase 25 U/L (14-36); Bilirubin,Total 0.2 mg/dL (0.2-1.3); Blood Urea Nitrogen 12 mg/dL (7-17); Carbon Dioxide 27 mmol/L (22-30); Chloride 99 mmol/L (98-107); Estimated CRCL calculation 41 ml/min; Estimated Glomerular Filt Rate 60; Glucose 95 mg/dL (65-110); Sodium 131 mmol/L (137-145)
[2023-03-16 06:00] VITALS: BP 155/73; PULSE 65; RESP 18; TEMP 36.4; O2SAT 100
[2023-03-16] MEDS: LEVOTHYROXINE SODIUM 50 MCG TABLET PO (06:30)
[2023-03-16 06:43] LABS: Folic Acid 13.8 ng/mL (2.76->20)
--- NOTE | 2023-03-16 07:52 | P.CDI_ITS ---
CDI Query Clarification Request BMI 28.3 Nutritional Diagnostic Statement Moderate protein calorie malnutrition related to acute c-diff and chronic diarrhea as evidenced by intake <75% needs > 1 month; weight loss 12% /6 months; mild muscle wasting and fat loss. Please refer to the comprehensive nutrition assessment for further information. Please clarify severity of protein calorie malnutrition if known: * Mild * Moderate * Severe * Other/ Unspecified
[2023-03-16 11:08] VITALS: BP 126/60; PULSE 69; O2SAT 100
[2023-03-16] MEDS: FERROUS SULFATE 325 MG TABLET DR BY MOUTH (11:08)
[2023-03-16] MEDS: METOPROLOL SUCCINATE EXT REL 100 MG TABCR PO (11:08)
[2023-03-16] MEDS: FUROSEMIDE 20 MG TABLET PO (11:09)
[2023-03-16] MEDS: CHOLECALCIFEROL 1,000 UNITS TABLET 2000 UNITS PO (11:09)
[2023-03-16] MEDS: PANTOPRAZOLE 40 MG TABLET PO (11:09)
[2023-03-16] MEDS: FIDAXOMICIN 200 MG TABLET PO ×2 (11:09→21:03)
[2023-03-16] MEDS: ASPIRIN 81 MG ENTERIC TABLET PO (11:09)
[2023-03-16] MEDS: LOSARTAN POTASSIUM 50 MG TABLET PO (11:10)
[2023-03-16] MEDS: DICLOFENAC SOD 75 MG TABLET.EC PO ×2 (11:10→16:20)
[2023-03-16] MEDS: FAMOTIDINE 20 MG TABLET PO ×2 (11:10→16:20)
[2023-03-16] MEDS: SODIUM CHLORIDE 1 GM TABLET PO (11:10)
[2023-03-16 15:20] VITALS: BP 116/68; PULSE 60; RESP 16; TEMP 36.7; O2SAT 99
--- NOTE | 2023-03-16 16:48 | PM.IMPN ---
Progress Note: A&P Assessment and Plan (1) C. difficile diarrhea: Code(s): A04.72 - Enterocolitis due to Clostridium difficile, not specified as recurrent Status: Acute Assessment and Plan: The patient was diagnosed with CDiff prior to admission on 02/25. CT A/P (02/25) for diarrhea showed no colitis. The patient was on p.o. vancomycin and was being weaned down when she had recurrent diarrhea. The patient stated that she became weak from the diarrhea. She is afebrile and WBC was normal/low. CDiff not rechecked since most likely would be positive. She was started on IV fluids. Started on clear liquid diet and advanced to regular. Oral Vanco was held and Dificid was started. Banatrol added. Diarrhea waxing and waning. Check CT if persistent diarrhea. Check stool studies. Continue Dificid. (2) Weakness generalized: Code(s): R53.1 - Weakness Status: Acute Assessment and Plan: Related to above. Better. Continue PT/OT. (3) Hyponatremia: Code(s): E87.1 - Hypo-osmolality and hyponatremia Status: Acute Assessment and Plan: Patient has chronically low sodium. Na 129 on admisison. She was on IV fluids but now stopped. Sodium chloride tablets were resumed. Na level low but stable. Follow (4) Essential (primary) hypertension: Code(s): I10 - Essential (primary) hypertension Status: Acute Assessment and Plan: Patient's blood pressure was reviewed on 03/16 Blood pressure remains controlled. Will continue to monitor (5) Sleep apnea: Qualifiers: Sleep apnea type: obstructive Qualified Code(s): G47.33 - Obstructive sleep apnea (adult) (pediatric) Code(s): G47.30 - Sleep apnea, unspecified Status: Acute Assessment and Plan: Chronic. Continue with home settings for CPAP (6) Anemia: Code(s): D64.9 - Anemia, unspecified Status: Acute Assessment and Plan: Chronic. Hgb mostly in the 10-11 range and 10.6 on admission. Hgb dropped to 9.6 felt related to IV fluids. No evidence of acute blood loss. Iron studies normal in August. Monitor. Transfuse as needed. Continue with ferrous sulfate. (7) Hypothyroidism: Qualifiers: Hypothyroidism type: unspecified Qualified Code(s): E03.9 - Hypothyroidism, unspecified Code(s): E03.9 - Hypothyroidism, unspecified Status: Acute Assessment and Plan: TSH normal in January. Continue with levothyroxine (8) Moderate protein-calorie malnutrition: Code(s): E44.0 - Moderate protein-calorie malnutrition Status: Acute Assessment and Plan: Moderate protein calorie malnutrition related to acute C diff and chronic diarrhea as evidenced by <75% needs greater than 1 month and weight loss 12% over 6 months. She also has mild muscle wasting and fat loss. Continue supplements. Plan Leukopenia - B12 level normal in Fe. Normal plt count. Monocytosis noted. Leukopenia better. Follow. Subjective Date/time seen: 03/16/23 16:48 Interval history: 82yo female with HTN, CESAR, hyponatremia and hypothyroidism here for worsening CDiff. Diagnosed with CDiff on 02/25/23. Was on a tapering dose on Vanco on admission. Patient had nausea and 8 BMs overnight (within 2 hour span). Symptoms have improved and only has had 2 BM's today. Eating much better. Exam Narrative: AF 98.0 116/68 60 16 99% ra Gen - NARD Chest - CTA bilaterally, nml RR CV - RRR S1/S2 Abd - Soft, NT/ND, Positive BS Ext - No pedal edema Psych - Nml mood and affect Skin - Warm and dry Objective Data Vital Signs Vital Signs: Vital Signs - 24 hr 03/15/23 19:37 03/15/23 23:43 03/15/23 20:00 Temperature 97.8 F Pulse Rate 55 L 60 Respiratory Rate 18 Blood Pressure 149/62 H Pulse Oximetry 100 98 Oxygen Delivery CPAP Room Air 03/16/23 02:37 03/16/23 06:00 03/16/23 11:08 Temperature 97.6 F Pulse Rate 57 L 65 69 Respiratory Rate 1
[2023-03-16 20:29] VITALS: BP 140/55; PULSE 57; RESP 20; TEMP 36.1; O2SAT 99
[2023-03-16 21:00] VITALS: PULSE 58; O2SAT 97
[2023-03-16] MEDS: MELATONIN 3 MG TABLET PO (21:03)
[2023-03-16] MEDS: rOPINIRole HCL 1 MG TABLET PO (21:03)
[2023-03-17 05:16] VITALS: BP 129/57; PULSE 58; RESP 18; TEMP 36.2; O2SAT 98
[2023-03-17] MEDS: LEVOTHYROXINE SODIUM 50 MCG TABLET PO (06:40)
--- NOTE | 2023-03-17 07:01 | PC.NURSE ---
Med cart not unlocking. IT called and will come up to work on it. Pt's 0600 home dose Tylenol locked in and not administered at this time. Will notify dayshift nurse of issue.
[2023-03-17 08:57] VITALS: BP 115/46; PULSE 67; O2SAT 99
[2023-03-17] MEDS: ASPIRIN 81 MG ENTERIC TABLET PO (09:02)
[2023-03-17] MEDS: FIDAXOMICIN 200 MG TABLET PO ×2 (09:02→21:13)
[2023-03-17] MEDS: CHOLECALCIFEROL 1,000 UNITS TABLET 2000 UNITS PO (09:03)
[2023-03-17] MEDS: FAMOTIDINE 20 MG TABLET PO ×2 (09:03→18:15)
[2023-03-17] MEDS: SODIUM CHLORIDE 1 GM TABLET PO (09:03)
[2023-03-17] MEDS: PANTOPRAZOLE 40 MG TABLET PO (09:03)
[2023-03-17] MEDS: DICLOFENAC SOD 75 MG TABLET.EC PO ×2 (09:04→18:15)
[2023-03-17] MEDS: FERROUS SULFATE 325 MG TABLET DR BY MOUTH (09:04)
[2023-03-17 09:05] VITALS: PULSE 67
--- NOTE | 2023-03-17 11:50 | PM.IMPN ---
Progress Note: A&P Assessment and Plan (1) C. difficile diarrhea: Code(s): A04.72 - Enterocolitis due to Clostridium difficile, not specified as recurrent Status: Acute Assessment and Plan: The patient was diagnosed with CDiff prior to admission on 02/25. CT A/P (02/25) for diarrhea showed no colitis. The patient was on p.o. vancomycin and was being weaned down when she had recurrent diarrhea. The patient stated that she became weak from the diarrhea. She is afebrile and WBC was normal/low. CDiff not rechecked since most likely would be positive. She was started on IV fluids. Started on clear liquid diet and advanced to regular. Oral Vanco was held and Dificid was started. Banatrol added. Diarrhea waxing and waning. Check CT if persistent diarrhea. Check stool studies. Continue Dificid. (2) Weakness generalized: Code(s): R53.1 - Weakness Status: Acute Assessment and Plan: Related to above. Better. Continue PT/OT. (3) Hyponatremia: Code(s): E87.1 - Hypo-osmolality and hyponatremia Status: Acute Assessment and Plan: Patient has chronically low sodium. Na 129 on admisison. She was on IV fluids but now stopped. Sodium chloride tablets were resumed. Na level low but stable. Follow (4) Essential (primary) hypertension: Code(s): I10 - Essential (primary) hypertension Status: Acute Assessment and Plan: Patient's blood pressure was reviewed on 03/16 Blood pressure remains controlled. Will continue to monitor (5) Sleep apnea: Qualifiers: Sleep apnea type: obstructive Qualified Code(s): G47.33 - Obstructive sleep apnea (adult) (pediatric) Code(s): G47.30 - Sleep apnea, unspecified Status: Acute Assessment and Plan: Chronic. Continue with home settings for CPAP (6) Anemia: Code(s): D64.9 - Anemia, unspecified Status: Acute Assessment and Plan: Chronic. Hgb mostly in the 10-11 range and 10.6 on admission. Hgb dropped to 9.6 felt related to IV fluids. No evidence of acute blood loss. Iron studies normal in August. Monitor. Transfuse as needed. Continue with ferrous sulfate. (7) Hypothyroidism: Qualifiers: Hypothyroidism type: unspecified Qualified Code(s): E03.9 - Hypothyroidism, unspecified Code(s): E03.9 - Hypothyroidism, unspecified Status: Acute Assessment and Plan: TSH normal in January. Continue with levothyroxine (8) Moderate protein-calorie malnutrition: Code(s): E44.0 - Moderate protein-calorie malnutrition Status: Acute Assessment and Plan: Moderate protein calorie malnutrition related to acute C diff and chronic diarrhea as evidenced by <75% needs greater than 1 month and weight loss 12% over 6 months. She also has mild muscle wasting and fat loss. Continue supplements. Plan Leukopenia - B12 level normal in Aug. Normal plt count. Monocytosis noted. Leukopenia better. Follow. Subjective Date/time seen: 03/17/23 11:50 Interval history: still having diarrhea Exam Narrative: AF 98.0 116/68 60 16 99% ra Gen - NARD Chest - CTA bilaterally, nml RR CV - RRR S1/S2 Abd - Soft, NT/ND, Positive BS Ext - No pedal edema Psych - Nml mood and affect Skin - Warm and dry Objective Data Vital Signs Vital Signs: Vital Signs - 24 hr 03/16/23 15:20 03/16/23 20:29 03/16/23 21:00 Temperature 98.0 F 97.0 F L Pulse Rate 60 57 L 58 L Respiratory Rate 16 20 Blood Pressure 116/68 140/55 L Pulse Oximetry 99 99 97 Oxygen Delivery CPAP 03/16/23 20:50 03/17/23 05:16 03/17/23 08:57 Temperature 97.1 F L Pulse Rate 58 L 67 Respiratory Rate 18 Blood Pressure 129/57 L 115/46 L Pulse Oximetry 98 99 Oxygen Delivery Room Air 03/17/23 09:05 Temperature Pulse Rate 67 Respiratory Rate Blood Pressure Pulse Oximetry Oxygen Delivery Intake/Output Intake/Output: Intake & Output 02/24
[2023-03-17 14:00] VITALS: BP 125/54; PULSE 62; RESP 19; TEMP 37; O2SAT 99
[2023-03-17 20:09] VITALS: BP 137/57; PULSE 61; RESP 20; TEMP 36.3; O2SAT 100
[2023-03-17 20:30] VITALS: PULSE 61; RESP 20; O2SAT 100
[2023-03-17] MEDS: rOPINIRole HCL 1 MG TABLET PO (21:13)
[2023-03-17] MEDS: MELATONIN 3 MG TABLET PO (21:25)
[2023-03-18 05:13] VITALS: BP 124/62; PULSE 71; RESP 18; TEMP 36.3; O2SAT 100
[2023-03-18] MEDS: LEVOTHYROXINE SODIUM 50 MCG TABLET PO (06:12)
[2023-03-18 08:00] VITALS: O2SAT 100
[2023-03-18] MEDS: ASPIRIN 81 MG ENTERIC TABLET PO (08:51)
[2023-03-18] MEDS: CHOLECALCIFEROL 1,000 UNITS TABLET 2000 UNITS PO (08:51)
[2023-03-18] MEDS: FERROUS SULFATE 325 MG TABLET DR BY MOUTH (08:52)
[2023-03-18] MEDS: LOSARTAN POTASSIUM 50 MG TABLET PO (08:52)
[2023-03-18] MEDS: PANTOPRAZOLE 40 MG TABLET PO (08:52)
[2023-03-18] MEDS: SODIUM CHLORIDE 1 GM TABLET PO (08:52)
[2023-03-18] MEDS: FIDAXOMICIN 200 MG TABLET PO ×2 (08:52→20:55)
[2023-03-18] MEDS: DICLOFENAC SOD 75 MG TABLET.EC PO ×2 (08:52→17:00)
[2023-03-18 08:53] VITALS: PULSE 80
[2023-03-18] MEDS: METOPROLOL SUCCINATE EXT REL 100 MG TABCR PO (08:53)
[2023-03-18] MEDS: ONDANSETRON INJ 4 MG/2 ML VIAL IV PUSH (08:54)
[2023-03-18] MEDS: FAMOTIDINE 20 MG TABLET PO ×2 (08:56→17:00)
[2023-03-18 09:46] LABS: Anion Gap 6 mmol/L (8-16); Blood Urea Nitrogen 11 mg/dL (7-17); Calcium 8.9 mg/dL (8.4-10.2); Carbon Dioxide 25 mmol/L (22-30); Chloride 95 mmol/L (98-107); Estimated CRCL calculation 41 ml/min; Estimated Glomerular Filt Rate 60; Glucose 116 mg/dL (65-110); Potassium 3.5 mmol/L (3.4-5.0); Sodium 126 mmol/L (137-145)
--- NOTE | 2023-03-18 10:47 | PM.IMPN ---
Progress Note: A&P Assessment and Plan (1) C. difficile diarrhea: Code(s): A04.72 - Enterocolitis due to Clostridium difficile, not specified as recurrent Status: Acute Assessment and Plan: Still having loose stools. Had more than 7 yesterday. Still having some abdominal cramping. Eating some. Monitor 1 more day in hospital (2) Weakness generalized: Code(s): R53.1 - Weakness Status: Acute Assessment and Plan: Related to above. Better. Continue PT/OT. (3) Hyponatremia: Code(s): E87.1 - Hypo-osmolality and hyponatremia Status: Acute Assessment and Plan: Patient has chronically low sodium. Na 129 on admisison. She was on IV fluids but now stopped. Sodium chloride tablets were resumed. Na level low but stable. Follow (4) Essential (primary) hypertension: Code(s): I10 - Essential (primary) hypertension Status: Acute Assessment and Plan: Patient's blood pressure was reviewed on 03/16 Blood pressure remains controlled. Will continue to monitor (5) Sleep apnea: Qualifiers: Sleep apnea type: obstructive Qualified Code(s): G47.33 - Obstructive sleep apnea (adult) (pediatric) Code(s): G47.30 - Sleep apnea, unspecified Status: Acute Assessment and Plan: Chronic. Continue with home settings for CPAP (6) Anemia: Code(s): D64.9 - Anemia, unspecified Status: Acute Assessment and Plan: Chronic. Hgb mostly in the 10-11 range and 10.6 on admission. Hgb dropped to 9.6 felt related to IV fluids. No evidence of acute blood loss. Iron studies normal in August. Monitor. Transfuse as needed. Continue with ferrous sulfate. (7) Hypothyroidism: Qualifiers: Hypothyroidism type: unspecified Qualified Code(s): E03.9 - Hypothyroidism, unspecified Code(s): E03.9 - Hypothyroidism, unspecified Status: Acute Assessment and Plan: TSH normal in January. Continue with levothyroxine (8) Moderate protein-calorie malnutrition: Code(s): E44.0 - Moderate protein-calorie malnutrition Status: Acute Assessment and Plan: Moderate protein calorie malnutrition related to acute C diff and chronic diarrhea as evidenced by <75% needs greater than 1 month and weight loss 12% over 6 months. She also has mild muscle wasting and fat loss. Continue supplements. Plan Leukopenia - B12 level normal in Feb. Normal plt count. Monocytosis noted. Leukopenia better. Follow. Subjective Date/time seen: 03/18/23 10:47 Interval history: No new complaints. Exam Narrative: AF 98.0 116/68 60 16 99% ra Gen - NARD Chest - CTA bilaterally, nml RR CV - RRR S1/S2 Abd - Soft, NT/ND, Positive BS Ext - No pedal edema Psych - Nml mood and affect Skin - Warm and dry Objective Data Vital Signs Vital Signs: Vital Signs - 24 hr 03/17/23 14:00 03/17/23 20:09 03/17/23 20:30 Temperature 98.6 F 97.3 F L Pulse Rate 62 61 61 Respiratory Rate 19 20 20 Blood Pressure 125/54 L 137/57 L Pulse Oximetry 99 100 100 Oxygen Delivery Room Air Fraction of Inspired Oxygen 21 03/18/23 05:13 03/18/23 08:53 03/18/23 08:00 Temperature 97.3 F L Pulse Rate 71 80 Respiratory Rate 18 Blood Pressure 124/62 Pulse Oximetry 100 100 Oxygen Delivery Room Air Fraction of Inspired Oxygen Intake/Output Intake/Output: Intake & Output 03/15/23 03/16/23 03/17/23 03/18/23 23:59 23:59 23:59 23:59 Intake Total 1210 2030 2290 770 Output Total 1 Balance 1210 2030 2289 770 Meds/Results Medications: Active Medications Generic Name Dose Route Start Last Admin Trade Name Freq PRN Reason Stop Dose Admin Aspirin 81 mg 03/14/23 09:00 03/18/23 08:51 Aspirin 81 Mg Enteric Tablet PO 81 mg DAILY [facility] Administration Budesonide 3 mg 03/14/23 09:00 Budesonide 3 Mg Cap.Sr.24h PO DAILY [facility] Diclofenac Sodium 75 mg 03/14/23 09:0
[2023-03-18 15:26] VITALS: BP 116/54; PULSE 65; RESP 18; TEMP 36.4; O2SAT 99
[2023-03-18 20:35] VITALS: BP 143/57; PULSE 66; RESP 18; TEMP 36.3; O2SAT 98
[2023-03-18 20:45] VITALS: PULSE 66; RESP 18; O2SAT 98
[2023-03-18] MEDS: MELATONIN 3 MG TABLET PO (20:55)
[2023-03-18] MEDS: rOPINIRole HCL 1 MG TABLET PO (20:55)
[2023-03-19] MEDS: ONDANSETRON INJ 4 MG/2 ML VIAL IV PUSH (03:15)
[2023-03-19 04:01] VITALS: BP 131/53; PULSE 64; RESP 20; TEMP 36.4; O2SAT 98
[2023-03-19] MEDS: LEVOTHYROXINE SODIUM 50 MCG TABLET PO (06:36)
[2023-03-19 08:12] LABS: Anion Gap 3 mmol/L (8-16); Blood Urea Nitrogen 13 mg/dL (7-17); Calcium 8.8 mg/dL (8.4-10.2); Carbon Dioxide 27 mmol/L (22-30); Chloride 96 mmol/L (98-107); Estimated CRCL calculation 46 ml/min; Estimated Glomerular Filt Rate > 60; Glucose 105 mg/dL (65-110); Potassium 4.1 mmol/L (3.4-5.0); Sodium 126 mmol/L (137-145)
[2023-03-19] MEDS: ASPIRIN 81 MG ENTERIC TABLET PO (09:14)
[2023-03-19] MEDS: FAMOTIDINE 20 MG TABLET PO ×2 (09:15→17:12)
[2023-03-19] MEDS: CHOLECALCIFEROL 1,000 UNITS TABLET 2000 UNITS PO (09:15)
[2023-03-19] MEDS: DICLOFENAC SOD 75 MG TABLET.EC PO ×2 (09:15→17:11)
[2023-03-19 09:16] VITALS: PULSE 66
[2023-03-19] MEDS: LOSARTAN POTASSIUM 50 MG TABLET PO (09:16)
[2023-03-19] MEDS: FERROUS SULFATE 325 MG TABLET DR BY MOUTH (09:16)
[2023-03-19] MEDS: FIDAXOMICIN 200 MG TABLET PO ×2 (09:16→20:46)
[2023-03-19] MEDS: METOPROLOL SUCCINATE EXT REL 100 MG TABCR PO (09:16)
[2023-03-19] MEDS: PANTOPRAZOLE 40 MG TABLET PO (09:17)
[2023-03-19] MEDS: SODIUM CHLORIDE 1 GM TABLET PO (09:18)
--- NOTE | 2023-03-19 11:12 | PM.IMPN ---
Progress Note: A&P Assessment and Plan (1) C. difficile diarrhea: Code(s): A04.72 - Enterocolitis due to Clostridium difficile, not specified as recurrent Status: Acute Assessment and Plan: Still having loose stools. Had more than 7 yesterday. Still having some abdominal cramping. Eating some. Monitor 1 more day in hospital (2) Weakness generalized: Code(s): R53.1 - Weakness Status: Acute Assessment and Plan: Related to above. Better. Continue PT/OT. (3) Hyponatremia: Code(s): E87.1 - Hypo-osmolality and hyponatremia Status: Acute Assessment and Plan: Patient has chronically low sodium. Na 129 on admisison. She was on IV fluids but now stopped. Sodium chloride tablets were resumed. Na level low but stable. Follow (4) Essential (primary) hypertension: Code(s): I10 - Essential (primary) hypertension Status: Acute Assessment and Plan: Patient's blood pressure was reviewed on 03/16 Blood pressure remains controlled. Will continue to monitor (5) Sleep apnea: Qualifiers: Sleep apnea type: obstructive Qualified Code(s): G47.33 - Obstructive sleep apnea (adult) (pediatric) Code(s): G47.30 - Sleep apnea, unspecified Status: Acute Assessment and Plan: Chronic. Continue with home settings for CPAP (6) Anemia: Code(s): D64.9 - Anemia, unspecified Status: Acute Assessment and Plan: Chronic. Hgb mostly in the 10-11 range and 10.6 on admission. Hgb dropped to 9.6 felt related to IV fluids. No evidence of acute blood loss. Iron studies normal in August. Monitor. Transfuse as needed. Continue with ferrous sulfate. (7) Hypothyroidism: Qualifiers: Hypothyroidism type: unspecified Qualified Code(s): E03.9 - Hypothyroidism, unspecified Code(s): E03.9 - Hypothyroidism, unspecified Status: Acute Assessment and Plan: TSH normal in January. Continue with levothyroxine (8) Moderate protein-calorie malnutrition: Code(s): E44.0 - Moderate protein-calorie malnutrition Status: Acute Assessment and Plan: Moderate protein calorie malnutrition related to acute C diff and chronic diarrhea as evidenced by <75% needs greater than 1 month and weight loss 12% over 6 months. She also has mild muscle wasting and fat loss. Continue supplements. Plan Leukopenia - B12 level normal in Feb. Normal plt count. Monocytosis noted. Leukopenia better. Follow. Subjective Date/time seen: 03/19/23 11:12 Interval history: No complaints Exam Narrative: AF 98.0 116/68 60 16 99% ra Gen - NARD Chest - CTA bilaterally, nml RR CV - RRR S1/S2 Abd - Soft, NT/ND, Positive BS Ext - No pedal edema Psych - Nml mood and affect Skin - Warm and dry Objective Data Vital Signs Vital Signs: Vital Signs - 24 hr 03/18/23 15:26 03/18/23 20:35 03/18/23 20:45 Temperature 97.6 F 97.4 F L Pulse Rate 65 66 66 Respiratory Rate 18 18 18 Blood Pressure 116/54 L 143/57 H Pulse Oximetry 99 98 98 Oxygen Delivery Room Air Fraction of Inspired Oxygen 21 03/19/23 04:01 03/19/23 09:16 Temperature 97.6 F Pulse Rate 64 66 Respiratory Rate 20 Blood Pressure 131/53 L Pulse Oximetry 98 Oxygen Delivery Fraction of Inspired Oxygen Intake/Output Intake/Output: Intake & Output 03/16/23 03/17/23 03/18/23 03/19/23 23:59 23:59 23:59 23:59 Intake Total 2029 2290 1610 890 Output Total 07 26 Balance 20299 1610 889 Meds/Results Medications: Active Medications Generic Name Dose Route Start Last Admin Trade Name Freq PRN Reason Stop Dose Admin Aspirin 81 mg 03/14/23 09:00 03/19/23 09:14 Aspirin 81 Mg Enteric Tablet PO [address] [facility] Administration Budesonide 3 mg 03/14/23 09:00 Budesonide 3 Mg Cap.Sr.24h PO DAILY [facility] Diclofenac Sodium 75 mg 03/14/23 09:00 03/19/23 09:15 Diclofenac Sod 75 Mg
--- NOTE | 2023-03-19 12:54 | PCNFU ---
Nutrition Follow-Up Complete: Moderate protein calorie malnutrition related to acute c-diff and chronic diarrhea as evidenced by intake <75% needs >1 month; weight loss 12%/6 months; mild muscle wasting and fat loss. Adequate PO intake at least 75% meals and supplements Goal: Pt current nutrition is Heart healthy diet with Ensure Compact BID and Banatrol BID for diarrhea. Nutrition recommendation: Last recorded weight is 72.6 kg. Bowel Motility: +1 BM today 03/19/23 Labs Reviewed: Hgb 10.6, Hct 33.4, Na 26 Meds Noted: Vancomycin, Lasix, Zofran, protonix Skin: No areas of skin breakdown noted Additional Notes: Intakes are improving. Drinking 50-100% Glucerna. Still having loose stools although less frequent. Labs improved. Agree with current orders Monitor intakes, weights, labs, plan of care, supplement tolerance, stool patterns Follow up in 5 days
[2023-03-19 15:15] VITALS: BP 130/55; PULSE 64; RESP 18; TEMP 36.2; O2SAT 100
[2023-03-19 20:00] VITALS: PULSE 59; RESP 18; O2SAT 100
[2023-03-19] MEDS: MELATONIN 3 MG TABLET PO (20:46)
[2023-03-19] MEDS: rOPINIRole HCL 1 MG TABLET PO (20:46)
[2023-03-19] MEDS: WATER FOR IRRIGATION, STERILE 1,000 ML BOTTLE 1000 ML (20:47)
[2023-03-19 20:58] VITALS: BP 148/63; PULSE 59; RESP 18; TEMP 36.2; O2SAT 100
[2023-03-20] VITALS (8 sets, daily range): BP systolic 116–141; BP diastolic 52–56; PULSE 59–66; RESP 16–20; TEMP 36–36.6; O2SAT 97–100
[2023-03-20] MEDS: LEVOTHYROXINE SODIUM 50 MCG TABLET PO (05:27)
[2023-03-20] MEDS: ONDANSETRON INJ 4 MG/2 ML VIAL IV PUSH (05:29)
[2023-03-20 07:48] LABS: Anion Gap 4 mmol/L (8-16); Blood Urea Nitrogen 12 mg/dL (7-17); Calcium 8.7 mg/dL (8.4-10.2); Carbon Dioxide 25 mmol/L (22-30); Chloride 93 mmol/L (98-107); Estimated CRCL calculation 46 ml/min; Estimated Glomerular Filt Rate > 60; Glucose 95 mg/dL (65-110); Potassium 4.1 mmol/L (3.4-5.0); Sodium 122 mmol/L (137-145)
[2023-03-20 08:50] LABS: Basophils Percent Auto 0.5 % (0.2-1.2); Eosinophils Absolute Auto 0.2 K/mm3 (0-0.3); Eosinophils Percent Auto 2.8 % (0-4.4); Hemoglobin 9.8 g/dL (12.0-15.0); Immature Granulocyte Absolute 0.08 K/mm3 (0.00-0.031); Immature Granulocyte Percent A 1.1 % (0-0.5); Lymphocytes Absolute Auto 2.17 K/mm3 (0.9-3.2); Lymphocytes Percent Auto 28.8 % (18.3-44.2); Mean Corpuscular HGB Conc 31.6 g/dl (32-36); Mean Corpuscular Hemoglobin 31.4 pg (26-34); Mean Corpuscular Volume 99.4 fl (80-100); Mean Platelet Volume 9.6 fl (7.4-10.4); Monocytes Percent Auto 12.7 % (2.6-8.5); Neutrophils Absolute Auto 4.1 K/mm3 (1.3-6.7); Neutrophils Percent Auto 54.1 % (45.5-73.1); Platelet Count Result 241 k/mm3 (150-375); Red Blood Count 3.12 M/mm3 (4.2-5.4); Red Cell Distribution Width 13.7 % (11.5-14.5); White Blood Count 7.5 K/mm3 (4.5-10.0)
[2023-03-20] MEDS: ASPIRIN 81 MG ENTERIC TABLET PO (09:14)
[2023-03-20] MEDS: FAMOTIDINE 20 MG TABLET PO ×2 (09:14→17:21)
[2023-03-20] MEDS: CHOLECALCIFEROL 1,000 UNITS TABLET 2000 UNITS PO (09:14)
[2023-03-20] MEDS: DICLOFENAC SOD 75 MG TABLET.EC PO ×2 (09:14→17:21)
[2023-03-20] MEDS: FERROUS SULFATE 325 MG TABLET DR BY MOUTH (09:14)
[2023-03-20] MEDS: SODIUM CHLORIDE 1 GM TABLET PO ×2 (09:15→13:05)
[2023-03-20] MEDS: FIDAXOMICIN 200 MG TABLET PO ×2 (09:15→20:13)
[2023-03-20] MEDS: PANTOPRAZOLE 40 MG TABLET PO (09:15)
[2023-03-20] MEDS: LOSARTAN POTASSIUM 50 MG TABLET PO (09:15)
[2023-03-20] MEDS: METOPROLOL SUCCINATE EXT REL 100 MG TABCR PO (09:16)
--- NOTE | 2023-03-20 10:56 | PM.IMPN ---
Progress Note: A&P Assessment and Plan (1) C. difficile diarrhea: Code(s): A04.72 - Enterocolitis due to Clostridium difficile, not specified as recurrent Status: Acute Assessment and Plan: Still having loose stools. Had for 5 loose stools this morning. Still having some abdominal cramping. Eating some. Monitor Cannot tolerate cholestyramine secondary to nausea (2) Weakness generalized: Code(s): R53.1 - Weakness Status: Acute Assessment and Plan: Related to above. Better. Continue PT/OT. (3) Hyponatremia: Code(s): E87.1 - Hypo-osmolality and hyponatremia Status: Acute Assessment and Plan: Sodium level is 122 today. Has history of chronic hyponatremia between 129 and 130. Will increase sodium chloride tabs. Likely secondary to GI losses. Serial sodium levels today No symptoms. (4) Essential (primary) hypertension: Code(s): I10 - Essential (primary) hypertension Status: Acute Assessment and Plan: Monitor (5) Sleep apnea: Qualifiers: Sleep apnea type: obstructive Qualified Code(s): G47.33 - Obstructive sleep apnea (adult) (pediatric) Code(s): G47.30 - Sleep apnea, unspecified Status: Acute Assessment and Plan: Chronic. Continue with home settings for CPAP (6) Anemia: Code(s): D64.9 - Anemia, unspecified Status: Acute Assessment and Plan: Chronic. Hgb mostly in the 10-11 range and 10.6 on admission. Hgb dropped to 9.6 felt related to IV fluids. No evidence of acute blood loss. Iron studies normal in August. Monitor. Transfuse as needed. Continue with ferrous sulfate. (7) Hypothyroidism: Qualifiers: Hypothyroidism type: unspecified Qualified Code(s): E03.9 - Hypothyroidism, unspecified Code(s): E03.9 - Hypothyroidism, unspecified Status: Acute Assessment and Plan: TSH normal in January. Continue with levothyroxine (8) Moderate protein-calorie malnutrition: Code(s): E44.0 - Moderate protein-calorie malnutrition Status: Acute Plan Leukopenia - B12 level normal in Aug. Normal plt count. Monocytosis noted. Leukopenia better. Follow. Subjective Date/time seen: 03/20/23 10:56 Interval history: Doing okay, still having loose stools. Some nausea as well. She does have this at home. Sodium level noted. Exam Narrative: AF 98.0 116/68 60 16 99% ra Gen - NARD Chest - CTA bilaterally, nml RR CV - RRR S1/S2 Abd - Soft, NT/ND, Positive BS Ext - No pedal edema Psych - Nml mood and affect Skin - Warm and dry Objective Data Vital Signs Vital Signs: Vital Signs - 24 hr 03/19/23 15:15 03/19/23 20:58 03/19/23 21:26 Temperature 97.2 F L 97.1 F L Pulse Rate 64 59 L Respiratory Rate 18 18 Blood Pressure 130/55 L 148/63 H Pulse Oximetry 100 100 Oxygen Delivery CPAP Fraction of Inspired Oxygen 03/19/23 20:00 03/20/23 04:29 03/20/23 09:16 Temperature 97.8 F Pulse Rate 59 L 59 L 66 Respiratory Rate 18 20 Blood Pressure 141/53 H Pulse Oximetry 100 98 Oxygen Delivery CPAP Fraction of Inspired Oxygen 21 03/20/23 09:11 Temperature Pulse Rate Respiratory Rate Blood Pressure Pulse Oximetry Oxygen Delivery Room Air Fraction of Inspired Oxygen Intake/Output Intake/Output: Intake & Output 03/17/23 03/18/23 03/19/23 03/20/23 23:59 23:59 23:59 23:59 Intake Total 2290 1610 1770 850 Output Total 1 1 Balance 2289 1610 1769 850 Meds/Results Medications: Active Medications Generic Name Dose Route Start Last Admin Trade Name Freq PRN Reason Stop Dose Admin Aspirin 81 mg 03/14/23 09:00 03/20/23 09:14 Aspirin 81 Mg Enteric Tablet PO 81 mg DAILY [facility] Administration Budesonide 3 mg 03/14/23 09:00 Budesonide 3 Mg Cap.Sr.24h PO DAILY [facility] Diclofenac Sodium 75 mg 03/14/23 09:00 03/20/23 09:14 Diclofenac Sod 75 Mg Tablet.Ec PO
[2023-03-20 15:56] LABS: Anion Gap 6 mmol/L (8-16); Blood Urea Nitrogen 14 mg/dL (7-17); Calcium 8.7 mg/dL (8.4-10.2); Carbon Dioxide 28 mmol/L (22-30); Chloride 94 mmol/L (98-107); Estimated CRCL calculation 46 ml/min; Estimated Glomerular Filt Rate > 60; Glucose 105 mg/dL (65-110); Potassium 4.2 mmol/L (3.4-5.0); Sodium 128 mmol/L (137-145)
[2023-03-20] MEDS: rOPINIRole HCL 1 MG TABLET PO (20:13)
[2023-03-20] MEDS: MELATONIN 3 MG TABLET PO (20:13)
[2023-03-20 20:20] LABS: Sodium 125 mmol/L (137-145)
[2023-03-21] VITALS (7 sets, daily range): BP systolic 117–138; BP diastolic 48–65; PULSE 56–68; RESP 14–18; TEMP 36.4–36.7; O2SAT 96–100
[2023-03-21] MEDS: ONDANSETRON INJ 4 MG/2 ML VIAL IV PUSH (04:09)
[2023-03-21 05:11] LABS: Anion Gap 8 mmol/L (8-16); Blood Urea Nitrogen 14 mg/dL (7-17); Calcium 8.6 mg/dL (8.4-10.2); Carbon Dioxide 25 mmol/L (22-30); Chloride 94 mmol/L (98-107); Estimated CRCL calculation 46 ml/min; Estimated Glomerular Filt Rate > 60; Glucose 92 mg/dL (65-110); Potassium 3.7 mmol/L (3.4-5.0); Sodium 127 mmol/L (137-145)
[2023-03-21] MEDS: LEVOTHYROXINE SODIUM 50 MCG TABLET PO (06:04)
[2023-03-21] MEDS: CHOLECALCIFEROL 1,000 UNITS TABLET 2000 UNITS PO (09:29)
[2023-03-21] MEDS: DICLOFENAC SOD 75 MG TABLET.EC PO ×2 (09:29→17:14)
[2023-03-21] MEDS: ASPIRIN 81 MG ENTERIC TABLET PO (09:29)
[2023-03-21] MEDS: SODIUM CHLORIDE 1 GM TABLET PO (09:30)
[2023-03-21] MEDS: PANTOPRAZOLE 40 MG TABLET PO (09:30)
[2023-03-21] MEDS: FERROUS SULFATE 325 MG TABLET DR BY MOUTH (09:30)
[2023-03-21] MEDS: FAMOTIDINE 20 MG TABLET PO ×2 (09:30→17:14)
[2023-03-21] MEDS: FIDAXOMICIN 200 MG TABLET PO ×2 (09:30→21:12)
[2023-03-21] MEDS: METOPROLOL SUCCINATE EXT REL 100 MG TABCR PO (09:33)
[2023-03-21] MEDS: LOSARTAN POTASSIUM 50 MG TABLET PO (09:34)
--- NOTE | 2023-03-21 11:55 | PM.IMPN ---
Progress Note: A&P Assessment and Plan (1) C. difficile diarrhea: Code(s): A04.72 - Enterocolitis due to Clostridium difficile, not specified as recurrent Status: Acute Assessment and Plan: Still having loose stools but improved with decreased volume. Abd cramping better. Cannot tolerate cholestyramine secondary to nausea Her persistent diarrhea could be related to IBD. Her Entocort is on hold still Add Metamucil GI consult Continue Banatol (2) Weakness generalized: Code(s): R53.1 - Weakness Status: Acute Assessment and Plan: Related to above. Better. Continue PT/OT. (3) Hyponatremia: Code(s): E87.1 - Hypo-osmolality and hyponatremia Status: Acute Assessment and Plan: Sodium level dropped to 122 yesterday. Has history of chronic hyponatremia between 129 and 130. Sodium chloride tab dose increased. Likely secondary to GI losses. Serial sodium level better today at 127 No symptoms. (4) Essential (primary) hypertension: Code(s): I10 - Essential (primary) hypertension Status: Acute Assessment and Plan: Monitor (5) Sleep apnea: Qualifiers: Sleep apnea type: obstructive Qualified Code(s): G47.33 - Obstructive sleep apnea (adult) (pediatric) Code(s): G47.30 - Sleep apnea, unspecified Status: Acute Assessment and Plan: Chronic. Continue with home settings for CPAP. (6) Anemia: Code(s): D64.9 - Anemia, unspecified Status: Acute Assessment and Plan: Chronic. Hgb mostly in the 10-11 range and 10.6 on admission. Hgb dropped to 9.6 felt related to IV fluids. No evidence of acute blood loss. Iron studies normal in August. Monitor. Transfuse as needed. Continue with ferrous sulfate. (7) Hypothyroidism: Qualifiers: Hypothyroidism type: unspecified Qualified Code(s): E03.9 - Hypothyroidism, unspecified Code(s): E03.9 - Hypothyroidism, unspecified Status: Acute Assessment and Plan: TSH normal in January. Continue with levothyroxine (8) Moderate protein-calorie malnutrition: Code(s): E44.0 - Moderate protein-calorie malnutrition Status: Acute Assessment and Plan: Moderate protein calorie malnutrition related to acute C diff and chronic diarrhea as evidenced by <75% needs greater than 1 month and weight loss 12% over 6 months.? She also has mild muscle wasting and fat loss. Continue supplements. Plan Leukopenia - B12 level normal in Feb. Normal plt count. Monocytosis noted. Leukopenia resolved. Follow. Subjective Date/time seen: 03/21/23 11:55 Interval history: 82yo female with HTN, CESAR, hyponatremia and hypothyroidism here for worsening CDiff. Diagnosed with CDiff on 02/25/23. Was on a tapering dose on Vanco on admission. Assuming care. Chart reviewed. Patient still having multiple number of stools but small volume. Abd cramping better. Had upper bilateral chest pain yesterday that she felt related to using the walker frequently but no pain today. When she has a flare of her IBD, she states this is similar with frequent stools. Exam Narrative: AF 97.8 123/54 66 15 100% ra Gen - NARD Chest - CTA bilaterally, nml RR CV - RRR S1/S2 Abd - Soft, NT/ND, Positive BS Ext - No pedal edema Psych - Nml mood and affect Skin - Warm and dry Objective Data Vital Signs Vital Signs: Vital Signs - 24 hr 03/20/23 14:00 03/20/23 15:06 03/20/23 19:22 Temperature 96.8 F L 97 F L Pulse Rate 62 60 65 Respiratory Rate 16 18 18 Blood Pressure 122/55 L 116/52 L 130/56 L Pulse Oximetry 100 100 Oxygen Delivery Fraction of Inspired Oxygen 03/20/23 20:00 03/20/23 21:50 03/21/23 04:33 Temperature 97.8 F Pulse Rate 66 56 L Respiratory Rate 18 15 Blood Pressure 123/54 L Pulse Oximetry 98 97 100 Oxygen Delivery Room Air CPAP Fraction of Inspired Oxygen 21 03/21/23 09:33 03/21/23 09:26 Tempera
[2023-03-21 12:47] LABS: Sodium 125 mmol/L (137-145)
[2023-03-21 18:51] LABS: Sodium 127 mmol/L (137-145)
[2023-03-21] MEDS: MELATONIN 3 MG TABLET PO (21:12)
[2023-03-21] MEDS: rOPINIRole HCL 1 MG TABLET PO (21:12)
[2023-03-22] VITALS (8 sets, daily range): BP systolic 132–144; BP diastolic 54; PULSE 52–64; RESP 14–18; TEMP 35.7–36.6; O2SAT 97–100
[2023-03-22 01:32] LABS: Sodium 127 mmol/L (137-145)
[2023-03-22 05:59] LABS: Hemoglobin 9.7 g/dL (12.0-15.0); Mean Corpuscular HGB Conc 32.3 g/dl (32-36); Mean Corpuscular Hemoglobin 31.6 pg (26-34); Mean Corpuscular Volume 97.7 fl (80-100); Mean Platelet Volume 9.2 fl (7.4-10.4); Platelet Count Result 229 k/mm3 (150-375); Red Blood Count 3.07 M/mm3 (4.2-5.4); Red Cell Distribution Width 13.4 % (11.5-14.5); White Blood Count 6.5 K/mm3 (4.5-10.0)
[2023-03-22] MEDS: LEVOTHYROXINE SODIUM 50 MCG TABLET PO (06:06)
[2023-03-22 06:13] LABS: Anion Gap 16 mmol/L (8-16); Blood Urea Nitrogen 13 mg/dL (7-17); Calcium 8.5 mg/dL (8.4-10.2); Carbon Dioxide 24 mmol/L (22-30); Chloride 87 mmol/L (98-107); Estimated CRCL calculation 46 ml/min; Estimated Glomerular Filt Rate > 60; Glucose 95 mg/dL (65-110); Magnesium 1.5 mg/dL (1.6-2.3); Phosphorus 4.4 mg/dL (2.5-4.5); Potassium 3.9 mmol/L (3.4-5.0); Sodium 127 mmol/L (137-145)
[2023-03-22] MEDS: MAGNESIUM SULF 2 GM/WATER 50ML 2 GM/50 ML BAG IVPB (09:51)
[2023-03-22] MEDS: FIDAXOMICIN 200 MG TABLET PO ×2 (09:52→21:22)
[2023-03-22] MEDS: PANTOPRAZOLE 40 MG TABLET PO (09:52)
[2023-03-22] MEDS: SODIUM CHLORIDE 1 GM TABLET PO ×2 (09:53→17:00)
[2023-03-22] MEDS: DICLOFENAC SOD 75 MG TABLET.EC PO ×2 (09:53→17:00)
[2023-03-22] MEDS: LOSARTAN POTASSIUM 50 MG TABLET PO (09:53)
[2023-03-22] MEDS: FERROUS SULFATE 325 MG TABLET DR BY MOUTH (09:53)
[2023-03-22] MEDS: FAMOTIDINE 20 MG TABLET PO ×2 (09:54→17:00)
[2023-03-22] MEDS: ASPIRIN 81 MG ENTERIC TABLET PO (09:54)
[2023-03-22] MEDS: CHOLECALCIFEROL 1,000 UNITS TABLET 2000 UNITS PO (09:54)
[2023-03-22] MEDS: METOPROLOL SUCCINATE EXT REL 100 MG TABCR PO (09:57)
[2023-03-22] MEDS: PSYLLIUM POWDER PACKET 1 PACKET BY MOUTH (10:02)
[2023-03-22] MEDS: SODIUM CHLORIDE 0.9% IV 1,000 ML 100 ML IV CONT (10:39)
[2023-03-22 10:48] LABS: Sodium 127 mmol/L (137-145)
--- NOTE | 2023-03-22 11:13 | PM.IMPN ---
Progress Note: A&P Assessment and Plan (1) C. difficile diarrhea: Code(s): A04.72 - Enterocolitis due to Clostridium difficile, not specified as recurrent Status: Acute Assessment and Plan: Still having loose stools but improved with decreased volume. Abd cramping resolved Cannot tolerate cholestyramine secondary to nausea so stopped Her persistent symtoms could be related to IBD. Her Entocort is on hold still Resume Metamucil. Stop Banatrol. GI consulted (2) Weakness generalized: Code(s): R53.1 - Weakness Status: Acute Assessment and Plan: Related to above. Better. has been ambulating in the room. Continue PT/OT. (3) Hyponatremia: Code(s): E87.1 - Hypo-osmolality and hyponatremia Status: Acute Assessment and Plan: Sodium level dropped to 122 on 03/20. has been asymptomatic. Has history of chronic hyponatremia between 129 and 130. Drop in sodium likely secondary to GI losses. Sodium chloride tab dose increased. Serial sodium level better but stable at 127 Follow (4) Essential (primary) hypertension: Code(s): I10 - Essential (primary) hypertension Status: Acute Assessment and Plan: Patient's blood pressure was reviewed on 03/22 Blood pressure remains well controlled. Will continue to monitor (5) Sleep apnea: Qualifiers: Sleep apnea type: obstructive Qualified Code(s): G47.33 - Obstructive sleep apnea (adult) (pediatric) Code(s): G47.30 - Sleep apnea, unspecified Status: Acute Assessment and Plan: Chronic. Patient has been compliant with CPAP. Continue with home settings for CPAP. (6) Anemia: Code(s): D64.9 - Anemia, unspecified Status: Acute Assessment and Plan: Chronic. Hgb mostly in the 10-11 range and 10.6 on admission. Hgb dropped to 9.6 felt related to IV fluids. No evidence of acute blood loss. Iron studies normal in August. Repeat hgb in the 9 range. Monitor. Transfuse as needed. Continue with ferrous sulfate. (7) Hypothyroidism: Qualifiers: Hypothyroidism type: unspecified Qualified Code(s): E03.9 - Hypothyroidism, unspecified Code(s): E03.9 - Hypothyroidism, unspecified Status: Acute Assessment and Plan: TSH normal in January. Continue with levothyroxine (8) Moderate protein-calorie malnutrition: Code(s): E44.0 - Moderate protein-calorie malnutrition Status: Acute Assessment and Plan: Moderate protein calorie malnutrition related to acute C diff and chronic diarrhea as evidenced by <75% needs greater than 1 month and weight loss 12% over 6 months.? She also has mild muscle wasting and fat loss. Continue supplements. Plan Leukopenia - B12 level normal in Feb. Normal plt count. Monocytosis noted. [place] related to CDiff infection. Leukopenia resolved. Follow. DVT Prophylaxis - SCDs. Check Dopplers. Add prophylactic Lovenox if doppler negative Code status - Full Subjective Date/time seen: 03/22/23 11:13 Interval history: 82yo female with HTN, CESAR, hyponatremia and hypothyroidism here for worsening CDiff. Diagnosed with CDiff on 02/25/23. Was on a tapering dose on Vanco on admission. No abd pain. Having small stools associated with passing gas but no large volumes. Not been wearing the SCDs. Exam Narrative: AF 98.0 132/54 64 16 100% ra Gen - NARD Chest - CTA bilaterally, nml RR CV - RRR S1/S2 Abd - Soft, NT/ND, Positive BS Ext - No pedal edema. +Homans bilaterally (described as achy) Psych - Nml mood and affect Skin - Warm and dry Objective Data Vital Signs Vital Signs: Vital Signs - 24 hr 03/21/23 14:30 03/21/23 20:00 03/21/23 21:14 Temperature 98.1 F 97.6 F Pulse Rate 63 68 60 Respiratory Rate 16 18 14 Blood Pressure 138/65 117/48 L Pulse Oximetry 100 99 100 Oxygen Delivery CPAP Fraction of Inspired Oxygen 21 03/21/23 23:46 03/22/23 02:34 03/22/23
[2023-03-22 12:44] LABS: Creatinine Urine 22.6 mg/dL
[2023-03-22 12:56] LABS: Sodium Urine Random 65 meq/L
--- NOTE | 2023-03-22 13:23 | WPDGICN ---
Assessment and Plan Assessment and plan (1) C. difficile diarrhea: Code(s): A04.72 - Enterocolitis due to Clostridium difficile, not specified as recurrent Status: Acute Assessment and Plan: currently on dificid, she says that better almost 1 month of diarrhea, will resume budesonide 3 mg since she has been diagnosed in the past with microscopic colitis and helped previously, probably also component of ibs she can complete treatment as outpatient (2) Hyponatremia: Code(s): E87.1 - Hypo-osmolality and hyponatremia Status: Acute Assessment and Plan: stable now (3) Irritable bowel syndrome: Code(s): K58.9 - Irritable bowel syndrome without diarrhea Status: Chronic (4) Microscopic colitis: Code(s): K52.839 - Microscopic colitis, unspecified Status: Acute Assessment and Plan: resume budesonide and she can follow-up with Dr Rico (5) Recurrent UTI: Code(s): N39.0 - Urinary tract infection, site not specified Status: Acute (6) Moderate protein-calorie malnutrition: Code(s): E44.0 - Moderate protein-calorie malnutrition Status: Acute (7) Anemia: Code(s): D64.9 - Anemia, unspecified Status: Acute Assessment and Plan: h/h stable, no overt gib noted fobt + but probably from c diff last colonoscopy 2020 GI Consult Note Consult date/time: 03/22/23 13:23 Reason for consult: C diff, microscopic colitis HPI: Elizabeth Herrera is a 82 year old female with last colonoscopy [address] Rico performed because of chronic diarrhea revealed microscopic colitis, histology was consistent with collagenous colitis and was on Enticort 3 mg?sometimes twice daily with better control of diarrhea. Also known IBS, GERD with bloating. She has recurrent urinary tract infections recurring of occasional antibiotic usage and about 1 month ago diagnosed for first time with C diff, initially treated with vancomycin taper but diarrhea worsen finally admitted to hospital, also found to have hyponatremia, currently on dificid and feeling better with less diarrhea, still bloating. She is feeling like going home soon. Budesonide has been on hold since C diff infection. Review of Systems Constitutional: Constitutional: Reports lethargy Eyes: Eyes: Denies blurry vision ENT: Reports Normal hearing present Cardiovascular: Cardiovascular: Denies chest pain Respiratory: Respiratory: Denies cough Gastrointestinal: Gastrointestinal: Reports diarrhea Genitourinary: Comments: recurrent uti Musculoskeletal: Musculoskeletal: Denies back pain Integumentary/Breasts: Skin/Breast: Denies rash Neurologic: Denies Abnormal speech present Psychiatric: Psychiatric: Denies behavioral changes [facility] Past Medical History Medical History (Updated 03/16/23 @ 16:58 by Kannan Mckeon MD) Allergic conjunctivitis of right eye Allergic rhinitis, cause unspecified Anxiety state, unspecified Basal cell carcinoma of skin, unspecified Benign hypertension Benign paroxysmal positional vertigo Carpal tunnel syndrome, bilateral Cutaneous abscess of abdominal wall Dependence on other enabling machines and devices Depressive disorder, not elsewhere classified Dysmetabolic syndrome X Dysphagia Dysuria Encounter for immunization (04/18/18) Esophageal spasm Essential (primary) hypertension Gastro-esophageal reflux disease without esophagitis GERD (gastroesophageal reflux disease) History of Mohs micrographic surgery for skin cancer Hx of ectopic Hyponatremia Hypothyroidism Impacted cerumen of left ear Infected cyst of skin Irritable bowel syndrome Metabolic syndrome Mixed hyperlipidemia due to type 2 diabetes mellitus Nonrheumatic aortic (valve) stenosis Obese CESAR on CPAP Osteoarthritis Other seborrheic keratosis Spinal stenosis, lumbar region, without neurogenic claudication Type 2 diabetes mellitus with complication, without long-term cu
[2023-03-22 16:58] LABS: Sodium 129 mmol/L (137-145)
[2023-03-22] MEDS: rOPINIRole HCL 1 MG TABLET PO (21:23)
[2023-03-22] MEDS: MELATONIN 3 MG TABLET PO (21:23)
[2023-03-23 00:01] LABS: Sodium 129 mmol/L (137-145)
[2023-03-23 02:30] VITALS: O2SAT 96
[2023-03-23 04:09] VITALS: BP 139/54; PULSE 64; RESP 20; TEMP 36.3; O2SAT 100
[2023-03-23] MEDS: ONDANSETRON HCL ODT 4 MG TABLET PO (04:18)
[2023-03-23 04:56] LABS: Anion Gap 6 mmol/L (8-16); Blood Urea Nitrogen 16 mg/dL (7-17); Calcium 8.7 mg/dL (8.4-10.2); Carbon Dioxide 23 mmol/L (22-30); Chloride 99 mmol/L (98-107); Estimated CRCL calculation 46 ml/min; Estimated Glomerular Filt Rate > 60; Glucose 104 mg/dL (65-110); Sodium 128 mmol/L (137-145)
[2023-03-23] MEDS: LEVOTHYROXINE SODIUM 50 MCG TABLET PO (05:39)
[2023-03-23] MEDS: SODIUM CHLORIDE 1 GM TABLET PO ×2 (08:59→16:43)
[2023-03-23] MEDS: ASPIRIN 81 MG ENTERIC TABLET PO (09:00)
[2023-03-23] MEDS: FERROUS SULFATE 325 MG TABLET DR BY MOUTH (09:00)
[2023-03-23] MEDS: DICLOFENAC SOD 75 MG TABLET.EC PO ×2 (09:00→16:43)
[2023-03-23] MEDS: CHOLECALCIFEROL 1,000 UNITS TABLET 2000 UNITS PO (09:00)
[2023-03-23] MEDS: LOSARTAN POTASSIUM 50 MG TABLET PO (09:00)
[2023-03-23] MEDS: FAMOTIDINE 20 MG TABLET PO ×2 (09:00→16:43)
[2023-03-23 09:01] VITALS: PULSE 64
[2023-03-23] MEDS: FIDAXOMICIN 200 MG TABLET PO (09:01)
[2023-03-23] MEDS: PANTOPRAZOLE 40 MG TABLET PO (09:01)
[2023-03-23] MEDS: METOPROLOL SUCCINATE EXT REL 100 MG TABCR PO (09:01)
[2023-03-23 09:02] VITALS: RESP 20; O2SAT 100
[2023-03-23] MEDS: BUDESONIDE 3 MG CAP.SR.24H PO (09:02)
--- NOTE | 2023-03-23 10:53 | WPDGIPROGNO ---
Progress Note: A&P Assessment and Plan (1) C. difficile colitis: Code(s): A04.72 - Enterocolitis due to Clostridium difficile, not specified as recurrent Status: Acute Assessment and Plan: treated with vancomycin as outpatient and then dificid she also has ibs with microscopic colitis, today started back on budesonide 3 mg daily (2) Microscopic colitis: Code(s): K52.839 - Microscopic colitis, unspecified Status: Acute Assessment and Plan: resume budesonide today (3) Hyponatremia: Code(s): E87.1 - Hypo-osmolality and hyponatremia Status: Acute Assessment and Plan: stable (4) Moderate protein-calorie malnutrition: Code(s): E44.0 - Moderate protein-calorie malnutrition Status: Acute (5) Weakness generalized: Code(s): R53.1 - Weakness Status: Acute Subjective Date/time seen: 03/23/23 10:53 Interval history: she was having better day yesterday but then tonight again with nausea and had to use restrooms several times. Review of Systems Review of Systems: All systems reviewed & are unremarkable except as noted in HPI and below Exam Const: General: comfortable and no acute distress HENMT: Face/Nose/Sinus: Normal nares present Eyes: Sclera: sclerae normal Neck: Neck: supple Resp: Auscultation: clear to auscultation bilaterally Cardio: Rate: regular rate GI: GI Palp: Yes Soft to palpation, No Tenderness to palpation present (GI) and No Guarding due to palpation present (GI) Auscultation: normal bowel sounds Skin: General skin exam: normal color Neuro: Speech: normal speech Motor exam (neuro): 5/5 motor strength present throughout Extrem: General: normal to inspection Psych: Affect: normal affect Objective Data Vital Signs Vital Signs: Vital Signs - 24 hr 03/22/23 16:34 03/22/23 20:08 03/22/23 20:00 Temperature 97.7 F 96.3 F L Pulse Rate 54 L 56 L 56 L Respiratory Rate 16 18 18 Blood Pressure 134/54 L 144/54 H Pulse Oximetry 100 100 100 Oxygen Delivery Room Air Fraction of Inspired Oxygen 21 03/23/23 04:09 03/22/23 22:45 03/23/23 02:30 Temperature 97.4 F L Pulse Rate 64 57 L Respiratory Rate 20 Blood Pressure 139/54 L Pulse Oximetry 100 97 96 Oxygen Delivery CPAP CPAP Fraction of Inspired Oxygen 03/23/23 09:01 03/23/23 09:02 Temperature Pulse Rate 64 Respiratory Rate 20 Blood Pressure Pulse Oximetry 100 Oxygen Delivery Room Air Fraction of Inspired Oxygen Intake/Output Intake/Output: Intake & Output 03/20/23 03/21/23 03/22/23 03/23/23 23:59 23:59 23:59 23:59 Intake Total 2430 1590 1310 460 Output Total 1 2 550 200 Balance 2429 1588 760 260 Meds/Results Medications: Active Medications Generic Name Dose Route Start Last Admin Trade Name Freq PRN Reason Stop Dose Admin Aspirin 81 mg 03/14/23 09:00 03/23/23 09:00 Aspirin 81 Mg Enteric Tablet PO 81 mg DAILY [facility] Administration Budesonide 3 mg 03/14/23 09:00 03/23/23 09:02 Budesonide 3 Mg Cap.Sr.24h PO 3 mg DAILY [facility] Administration Diclofenac Sodium 75 mg 03/14/23 09:00 03/23/23 09:00 Diclofenac Sod 75 Mg Tablet.Ec PO 75 mg BID [facility] Administration Famotidine 20 mg 03/14/23 09:00 03/23/23 09:00 Famotidine 20 Mg Tablet PO 20 mg BID [facility] Administration Ferrous Sulfate 325 mg 03/14/23 09:00 03/23/23 09:00 Ferrous Sulfate [address] BY MOUTH 325 mg DAILY [facility] Administration Fidaxomicin 200 mg 03/13/23 21:00 03/23/23 09:01 Fidaxomicin 200 Mg Tablet PO 03/23/23 20:59 200 mg Q12HR [facility] Administration Furosemide 20 mg 03/14/23 09:00 03/23/23 09:01 Furosemide 20 Mg Tablet PO Not Given QAM [facility] Home Med 2 each 03/13/23 23:30 03/23/23 05:39 * Home Med * Acetaminophen Xr 650 Mg Caplets PO 2 each Q8HR [facility] Administration Levothyroxine Sodium 50 mcg 03/14/23 06:30 03/23/23 05:39 Levothyroxine Sodium 50 Mcg Table
[2023-03-23 14:07] VITALS: BP 118/70; PULSE 65; RESP 18; TEMP 36.8; O2SAT 100
[2023-03-23 15:58] LABS: Sodium 129 mmol/L (137-145)
--- NOTE | 2023-03-23 16:11 | PM.DS ---
DS: Admitting Diagnosis Discharge Date 03/23/23 Admitting Diagnosis Diarrhea DS: Discharge Diagnosis Discharge Diagnosis (1) C. difficile diarrhea: Code(s): A04.72 - Enterocolitis due to Clostridium difficile, not specified as recurrent Status: Acute (2) Weakness generalized: Code(s): R53.1 - Weakness Status: Acute (3) Hyponatremia: Code(s): E87.1 - Hypo-osmolality and hyponatremia Status: Acute (4) Essential (primary) hypertension: Code(s): I10 - Essential (primary) hypertension Status: Acute (5) Sleep apnea: Qualifiers: Sleep apnea type: obstructive Qualified Code(s): G47.33 - Obstructive sleep apnea (adult) (pediatric) Code(s): G47.30 - Sleep apnea, unspecified Status: Acute (6) Anemia: Code(s): D64.9 - Anemia, unspecified Status: Acute (7) Hypothyroidism: Qualifiers: Hypothyroidism type: unspecified Qualified Code(s): E03.9 - Hypothyroidism, unspecified Code(s): E03.9 - Hypothyroidism, unspecified Status: Acute (8) Moderate protein-calorie malnutrition: Code(s): E44.0 - Moderate protein-calorie malnutrition Status: Acute DS: Summary Hospital Course Reason for hospitalization: 82yo female with HTN, CESAR, hyponatremia and hypothyroidism here for worsening CDiff. Diagnosed with CDiff on 02/25/23. Was on a tapering dose on Vanco on admission. Please see H&P for details Hospital Course: Patient presents with diarrhea. She completed a course of Vancomycin for CDiff and now on a tapering dose prior to admission. She tested positive here for CDiff. She was changed to Dificid. She had clinical improvement with decreasing abdominal pain and decrease in the volume of stool but still having frequency. She could not tolerate cholestyramine secondary to nausea so stopped. Banatrol added. Her Entocort was on hold prior to admission and while hospitalized. Concern that she may be having flare from her IBD. GI consulted. We resumed Metamucil and Entocort. She was weak but this improved. She has been ambulating in the room. She worked with PT/OT. Sodium level dropped to 122 on 03/20. She was asymptomatic. She has a history of chronic hyponatremia between 129 and 130. The drop in sodium likely secondary to GI losses. Treated with NaCl tabs. Repeat Na level was 129. Patient has been compliant with CPAP.?Hgb mostly in the 10-11 range and 10.6 on admission. Hgb dropped to 9.6 felt related to IV fluids. No evidence of acute blood loss. Iron studies normal in August. Repeat hgb stable in the 9 range. Moderate protein calorie malnutrition related to acute C diff and chronic diarrhea as evidenced by <75% needs greater than 1 month and weight loss 12% over 6 months.? She also has mild muscle wasting and fat loss. Treated with supplements. Leukopenia noted. B12 level normal in Aug. Normal plt count. Monocytosis noted. Spraggs related to CDiff infection. Leukopenia resolved.? She overall did well and was able to be discharged home on 03/23/23 Status at Discharge Cognitive/behavioral status at discharge: stable Time Spent with Patient Time attestation: Total time spent providing and/or coordinating discharge services: 35 minutes Time spent: Greater than 30 minutes Exam Narrative: AF 98.3 118/70 65 18 100% ra Gen - NARD Chest - CTA bilaterally, nml RR CV - RRR S1/S2 Abd - Soft, NT/ND, Positive BS Ext - No pedal edema Psych - Nml mood and affect Skin - Warm and dry DS: Data Data Completed and Pending Labs on day of discharge: Labs from last 24 hours 03/23/23 03/23/23 03/22/23 15:05 04:26 23:27 Sodium 129 L 128 L 129 L Potassium 4.0 Chloride 99 Carbon Dioxide 23 Anion Gap 6 L BUN 16 Creatinine 0.80 Estim Creat Clear Calc 46 Estimated GFR > 60 Glucose 104 Calcium 8.7 03/22/23 16:24 Sodium 129 L Potassium Chloride Carbon Dioxide Anion Gap
--- NOTE | 2023-03-23 18:19 | PC.NURSE ---
Last dose of FIDAXOMICIN 200 mg given at 1818 prior to discharge.
== END 2023-03-23 18:45 | disposition home or self-care (01) | DRG 372 ==
LOC: ANHED 15:06 → ANH3MEDSUR 15:35 → ANH2MED 15:49
PROVIDERS: Chiropractor; Emergency Medicine; Nurse Practitioner; Admitting Provider Hospitalist; Emergency Provider Emergency Medicine; PCP Family Medicine; Visit Provider Internal Medicine
DX: A04.72 Enterocolitis due to Clostridium difficile, not specified as recurrent (principal); E44.0 Moderate protein-calorie malnutrition; E87.1 Hypo-osmolality and hyponatremia; N39.0 Urinary tract infection, site not specified; I20.9 Angina pectoris, unspecified; I10 Essential (primary) hypertension; I77.1 Stricture of artery; D64.9 Anemia, unspecified; K21.9 Gastro-esophageal reflux disease without esophagitis; K52.839 Microscopic colitis, unspecified; E11.9 Type 2 diabetes mellitus without complications; E03.9 Hypothyroidism, unspecified; E78.2 Mixed hyperlipidemia; M19.90 Unspecified osteoarthritis, unspecified site; M48.061 Spinal stenosis, lumbar region without neurogenic claudication; H81.10 Benign paroxysmal vertigo, unspecified ear; G47.33 Obstructive sleep apnea (adult) (pediatric); F41.1 Generalized anxiety disorder; F32.A Depression, unspecified; Z96.649 Presence of unspecified artificial hip joint; Z95.2 Presence of prosthetic heart valve; Z79.82 Long term (current) use of aspirin; Z68.28 Body mass index [BMI] 28.0-28.9, adult
CPT/HCPCS: 36415; 80048; 80053; 80069; 81001; 82570; 82746; 83605; 83690; 83735; 84295; 84300; 85025; 85027; 87045; 87086; 87427; 87449; 93970; 96361; 96374; 97110; 97116; 97161; 97165; 99285; A9270; G0378; J2405; J3475; J7030

== ENCOUNTER 2023-03-30 17:17 | Outpatient (CLI) | payer MEDICARE, BC, SELFPAY ==
[2023-03-30 18:45] LABS: Anion Gap 8 mmol/L (8-16); Blood Urea Nitrogen 21 mg/dL (7-17); Calcium 9.3 mg/dL (8.4-10.2); Carbon Dioxide 27 mmol/L (22-30); Chloride 98 mmol/L (98-107); Estimated Glomerular Filt Rate 60; Glucose 104 mg/dL (65-110); Potassium 4.1 mmol/L (3.4-5.0); Sodium 133 mmol/L (137-145)
[2023-03-30 18:46] LABS: Anion Gap 9 mmol/L (8-16); Blood Urea Nitrogen 21 mg/dL (7-17); Calcium 9.4 mg/dL (8.4-10.2); Carbon Dioxide 27 mmol/L (22-30); Chloride 98 mmol/L (98-107); Estimated Glomerular Filt Rate 53; Glucose 105 mg/dL (65-110); Potassium 4.1 mmol/L (3.4-5.0); Sodium 134 mmol/L (137-145)
== END 2023-03-30 17:18 | disposition home or self-care (01) ==
PROVIDERS: Physician Assistant; PCP Family Medicine; Visit Provider Internal Medicine
DX: E87.1 Hypo-osmolality and hyponatremia (principal)
CPT/HCPCS: 36415; 80048

== ENCOUNTER 2023-04-07 13:00 | Outpatient (CLI) | payer MEDICARE, BC, SELFPAY ==
[2023-04-07 14:20] LABS: Appearance Urine Turbid (Clear); Bacteria Urine 2+ /hpf; Bilirubin Urine Negative (Negative); Blood Urine Trace (Negative); Color Urine Yellow (Yellow); Glucose Urine UA Negative (Negative); Ketones Urine Negative (Negative); Leukocyte Esterase Ur 3+ LEU/UL (Negative); Nitrate Urine Positive (Negative); Non Pathogenic Casts 0-2; Protein Urine Trace mg/dL (Negative); RBC Urine 0-2 /hpf (0-2); Specific Grav Ur 1.018 (1.001-1.035); Squamous Epithelial Cell Urine None seen /hpf (Few); Urobilinogen Urine 0.2 mg/dL (<2.0); WBC Urine >100 /hpf
[2023-04-07 14:29] LABS: Add Urine Microscopic? YES
== END 2023-04-07 13:01 | disposition home or self-care (01) ==
LOC: ANHLAB 13:03
PROVIDERS: PCP Family Medicine; Visit Provider Nurse Practitioner Family
DX: N39.0 Urinary tract infection, site not specified (principal)
CPT/HCPCS: 81001; 87086; 87088

== ENCOUNTER 2023-04-26 16:12 | Outpatient (CLI) | payer MEDICARE, BC, SELFPAY ==
--- NOTE | ~2023-04-26 | XR_ITS ---
Supine and upright views of the abdomen Clinical history: Kidney stones COMPARISON: 09/17/2022 Findings: Bowel gas pattern is nonspecific. No evidence for obstruction or free air. No definite baljit l stone identified. Calcified pelvic phleboliths are present. Cholecystectomy clips are present. Dege nerative spondylosis of the lumbar spine noted. Right hip arthroplasty present. Impression: No definite renal stone. Calcified pelvic phleboliths. Reviewed, dictated and finalized at location . Impression: No definite renal stone. Calcified pelvic phleboliths.
== END 2023-04-26 16:13 | disposition home or self-care (01) ==
LOC: ANHIMG 16:15
PROVIDERS: PCP Family Medicine; Visit Provider Urology
DX: N20.0 Calculus of kidney (principal)
CPT/HCPCS: 74018

== ENCOUNTER 2023-04-28 13:23 | Outpatient (CLI) | payer MEDICARE, BC, SELFPAY ==
[2023-04-28 14:57] LABS: Anion Gap 6 mmol/L (8-16); Blood Urea Nitrogen 22 mg/dL (7-17); Calcium 9.5 mg/dL (8.4-10.2); Carbon Dioxide 29 mmol/L (22-30); Chloride 97 mmol/L (98-107); Estimated Glomerular Filt Rate 53; Glucose 108 mg/dL (65-110); Potassium 4.2 mmol/L (3.4-5.0); Sodium 132 mmol/L (137-145)
== END 2023-04-28 13:24 | disposition home or self-care (01) ==
LOC: ANHLAB 13:24
PROVIDERS: PCP Family Medicine; Visit Provider Family Medicine
DX: E87.1 Hypo-osmolality and hyponatremia (principal)
CPT/HCPCS: 36415; 80048

== ENCOUNTER 2023-06-03 08:59 | Outpatient (NON) | payer MEDICARE, BC, SELFPAY ==
[2023-06-03 11:14] LABS: Toxigenic C. Diff NEGATIVE (NEGATIVE)
[2023-06-09 17:53] LABS: Calprotectin, Stool 4210 mcg/g; Pancreatic Elastase, Stool 231 mcg/g
== END 2023-06-03 09:00 | disposition home or self-care (01) ==
LOC: ANHLAB 09:01
PROVIDERS: PCP Family Medicine; Visit Provider Nurse Practitioner Family
DX: R19.7 Diarrhea, unspecified (principal)
CPT/HCPCS: 82653; 83993; 87493

== ENCOUNTER 2023-07-04 16:07 | Inpatient (IN) | payer MEDICARE, BC, SELFPAY ==
[2023-07-04] VITALS (7 sets, daily range): BP systolic 130–162; BP diastolic 61–90; PULSE 58–88; RESP 16–19; TEMP 36.2–36.7; O2SAT 96–100; BMI 24.3
--- NOTE | ~2023-07-04 | XR_ITS ---
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 RESULT: Lines, tubes, and devices: Intact sternotomy wires. Cardiac valve replacement. Cholecystectomy clips .. Lungs and pleura: Senescent changes, otherwise clear. Cardiomediastinal silhouette: Stable. Other: No acute osseous or upper abdominal finding. IMPRESSION: No acute cardiopulmonary process. Reviewed, dictated and finalized at location K. R MAKER
--- NOTE | ~2023-07-04 | CT_ITS ---
EXAMINATION: CT brain wo con DATE: 07/04/2023 18:42 INDICATION: dizziness, LH, HAs . TECHNIQUE: Computed tomography (CT) of the head was performed without intravenous contrast. The mA wa s adjusted according to patient size. Iterative reconstruction technique was employed. The dose-lengt h product was 605.33 mGy-cm. COMPARISON: 10/08/2022. FINDINGS: No acute intracranial hemorrhage or extra-axial fluid collection. No hydrocephalus, mass, or herniation. No acute ischemic infarct. Unremarkable dural venous sinus attenuation. No acute osseous abnormality. The aerated spaces are clear. Mild atrophy and chronic white matter change. Atherosclerotic intracranial calcification. Bilateral l ens replacements. IMPRESSION: No acute intracranial process. Reviewed, dictated and finalized at location K. LAINT INVESTIGATIONS OFFICER
--- NOTE | 2023-07-04 16:20 | ECG_ITS ---
Measurements Intervals [place] Rate: 77 P: 81 IA: 197 QRS: 10 QRSD: 105 T: 72 QT: 404 QTc: 459 Interpretive Statements SINUS RHYTHM POSSIBLE LATERAL MYOCARDIAL INFARCTION , PROBABLY OLD [30 ms Q WAVE IN I/aVL/V5/V6] ABNORMAL ECG COMPARED TO ECG 10/08/2022 15:42:06 NO SIGNIFICANT CHANGES Electronically Signed On 07-05-2023 12:40:22 BOOKMAKER'S CLERK by Darrion Ramos M.D.
[2023-07-04 19:07] LABS: Basophils Percent Auto 0.4 % (0.2-1.2); Eosinophils Absolute Auto 0.1 K/mm3 (0-0.3); Eosinophils Percent Auto 1.1 % (0-4.4); Hemoglobin 10.7 g/dL (12.0-15.0); Immature Granulocyte Absolute 0.02 K/mm3 (0.00-0.031); Immature Granulocyte Percent A 0.2 % (0-0.5); Lymphocytes Absolute Auto 1.77 K/mm3 (0.9-3.2); Lymphocytes Percent Auto 19.4 % (18.3-44.2); Mean Corpuscular HGB Conc 31.5 g/dl (32-36); Mean Corpuscular Hemoglobin 35.1 pg (26-34); Mean Corpuscular Volume 111.5 fl (80-100); Mean Platelet Volume 8.5 fl (7.4-10.4); Monocytes Absolute Auto 0.8 K/mm3 (0.1-0.6); Monocytes Percent Auto 8.3 % (2.6-8.5); Neutrophils Absolute Auto 6.5 K/mm3 (1.3-6.7); Neutrophils Percent Auto 70.6 % (45.5-73.1); Platelet Count Result 197 k/mm3 (150-375); Red Blood Count 3.05 M/mm3 (4.2-5.4); Red Cell Distribution Width 12.1 % (11.5-14.5); White Blood Count 9.1 K/mm3 (4.5-10.0)
[2023-07-04 19:17] LABS: Alanine Aminotransferase 20 U/L (6-35); Albumin Level 3.8 g/dL (3.5-5.1); Alkaline Phosphatase 71 U/L (38-126); Anion Gap 9 mmol/L (8-16); Appearance Urine Clear (Clear); Aspartate Amino Transferase 29 U/L (14-36); Bacteria Urine None Seen /hpf; Bilirubin Urine Negative (Negative); Bilirubin,Total 0.6 mg/dL (0.2-1.3); Blood Urea Nitrogen 19 mg/dL (7-17); Blood Urine Negative (Negative); Calcium 9.3 mg/dL (8.4-10.2); Carbon Dioxide 21 mmol/L (22-30); Chloride 100 mmol/L (98-107); Color Urine Dark Yellow (Yellow); Estimated CRCL calculation 50 ml/min; Estimated Glomerular Filt Rate > 60; Glucose 104 mg/dL (65-110); Glucose Urine UA Negative (Negative); INR 1.1; Ketones Urine Negative (Negative); Leukocyte Esterase Ur 3+ LEU/UL (Negative); Magnesium 2.2 mg/dL (1.6-2.3); Need Manual Microscopic Reviewed; Nitrate Urine Positive (Negative); Non Pathogenic Casts 0-2; Partial Thromboplastin Time 26.9 SECONDS (22.3-36.8); Potassium 4.2 mmol/L (3.4-5.0); Protein Urine Negative (Negative); Prothrombin Time 14.4 Seconds (11.1-14.7); RBC Urine 0-2 /hpf (0-2); Sodium 130 mmol/L (137-145); Specific Grav Ur 1.007 (1.001-1.035); Squamous Epithelial Cell Urine None seen /hpf (Few)
--- NOTE | 2023-07-04 19:18 | ED.GENADULT ---
HPI - General Adult General Chief complaint: Dizziness <PETERSON Farrar Last Filed: 07/04/23 22:09> Stated complaint: EAR, NECK PAIN <PETERSON Farrar Last Filed: 07/04/23 22:09> Time Seen by Provider: 07/04/23 17:02 <Monica Tai PA-C - Last Filed: 07/04/23 22:09> Source: patient <PETERSON Farrar Last Filed: 07/04/23 22:09> Mode of arrival: EMS <PETERSON Farrar Last Filed: 07/04/23 22:09> Limitations: no limitations <PETERSON Farrar Last Filed: 07/04/23 22:09> History of Present Illness HPI narrative: Patient is an 82-year-old female, with PMH of aortic valve replacement, who presents to ED via EMS with report of the lightheadedness, left-sided neck and shoulder pain. Patient reports she began feeling unwell around 1:30 p.m. today when she developed pain in her left-sided neck, extending into her left shoulder and jaw. She developed a headache and palpitations and began feeling nauseous and lightheaded at that time. She felt near-syncopal. She states sx's progressively worsened for approx 1 hour before resolving on its own. Patient does still feel slightly lightheaded currently but otherwise feels mostly back to her baseline. She denies feeling as though the pain radiated into her chest today. Denies chest pain currently. Denies previous CAD. Denied feeling short of breath. Denies recent cough/cold sx's, vision changes, focal numbness or weakness. Patient sees Dr. Bangura. <PETERSON Farrar Last Filed: 07/04/23 22:09> Related Data Home medications: Home Medications Medication Instructions Recorded Confirmed aspirin 81 mg tablet,delayed 81 mg PO DAILY 05/30/19 06/23/23 release metoprolol succinate 100 mg 100 mg PO DAILY 05/12/21 06/23/23 tablet,extended release 24 hr cholecalciferol (vitamin D3) 50 50 mcg PO DAILY 02/25/23 06/23/23 mcg (2,000 unit) tablet (Vitamin D3) levothyroxine 50 mcg tablet 50 mcg PO DAILY 02/25/23 06/23/23 losartan 50 mg tablet 50 mg PO DAILY 02/25/23 06/23/23 ropinirole 1 mg tablet 1 mg PO HS 02/25/23 06/23/23 acetaminophen 650 mg 1,300 mg PO Q8H 02/26/23 06/23/23 tablet,extended release (Arthritis Pain Relief (acetaminophen) ER) cetirizine 10 mg tablet (Zyrtec) 10 mg PO HS 03/16/23 06/23/23 melatonin 3 mg tablet 3 mg PO HS 03/16/23 06/23/23 d-mannose 500 mg capsule (AZO mg PO 06/08/23 06/23/23 D-Mannose) estradiol 0.01% (0.1 mg/gram) 1 g vaginal 2XW 06/08/23 06/23/23 vaginal cream magnesium citrate 100 mg tablet 100 mg PO DAILY 06/23/23 06/23/23 potassium chloride 20 mEq 20 meq PO DAILY 06/23/23 06/23/23 tablet,extended release thiamine HCl (vitamin B1) 250 mg 250 mg PO DAILY 06/23/23 06/23/23 tablet <Monica Tai PA-C - Last Filed: 07/04/23 22:09> Allergies/adverse reactions: Allergies Allergy/AdvReac Type Severity Reaction Status Date / Time ciprofloxacin Allergy Unknown Diarrhea Verified 07/04/23 16:19 house dust Allergy Unknown Sneezing Verified 07/04/23 16:19 niacin Allergy Unknown Skin Verified 07/04/23 16:19 Reaction Nitrate Analogues Allergy Unknown GI UPSET Verified 07/04/23 16:19 oxycodone Allergy Unknown RASH Verified 07/04/23 16:19 pepper (genus Capsicum) Allergy Unknown GI BURNING Verified 07/04/23 16:19 cephalexin [From Keflex] AdvReac Intermediate Diarrhea Verified 07/04/23 16:19 lactose AdvReac Mild Diarrhea Verified 07/04/23 16:19 amitriptyline AdvReac Unknown OPPOSITE Verified 07/04/23 16:19 atenolol AdvReac Unknown cough Verified 07/04/23 16:19 chlordiazepoxide AdvReac Unknown [place] crazy Verified 06/23/23 10:01 chlorthalidone [Tenoretic] AdvReac Unknown cough Verified 06/23/23 10:01 <Monica Tai PA-C - Last Filed: 07/04/23 22:09> Review of Systems Review of Systems: CONSTITUTIONAL: Denies fever, chills, or sweats. ENT: Denies vision changes, rhinorrhea, congestion, sore throat. CARD
[2023-07-04 19:21] LABS: Add Urine Microscopic? YES
[2023-07-04 19:28] LABS: NT Pro B Type Natriuretic Pept 789 pg/mL (19.9-100); Troponin I 0.016 ng/mL (0.000-0.034)
[2023-07-04] MEDS: SODIUM CHLORIDE 0.9% IV 500 ML 999 ML IV CONT (19:38)
--- NOTE | 2023-07-04 21:53 | ECG_ITS ---
Measurements Intervals [place] Rate: 57 P: 82 SC: 195 QRS: 24 QRSD: 100 T: 64 QT: 451 QTc: 443 Interpretive Statements SINUS BRADYCARDIA POSSIBLE LATERAL MYOCARDIAL INFARCTION , PROBABLY OLD [30 ms Q WAVE IN I/aVL/V5/V6] ABNORMAL ECG COMPARED TO ECG 07/04/2023 16:47:44 SINUS BRADYCARDIA NOW PRESENT Electronically Signed On 07-05-2023 12:44:49 TUMBLING AND ROLLING SUPERVISOR by Darrion Ramos M.D.
[2023-07-04 22:19] LABS: Troponin I 0.026 ng/mL (0.000-0.034)
--- NOTE | 2023-07-04 23:08 | PM.IMHP ---
H&P: HPI History of Present Illness Date/Time: 07/04/23 23:08 Chief Complaint: Near-syncope Narrative: This is an 82-year-old female who resides at a halfway, past medical history significant for generalized anxiety disorder, hypertension, paroxysmal positional vertigo, depression, dysphagia, GERD, obstructive sleep apnea on CPAP, osteoarthritis, type 2 diabetes mellitus, spinal stenosis. Patient was brought to the emergency room for evaluation after having episode of near-syncope while using the toilet patient felt dizzy lightheaded and had palpitations, waited for a few minutes but this did not go away and decided to call the ambulance. By the time EMS arrived patient was back to her usual. However was brought to the emergency room to be checked up. Preliminary workup was significant for mild hyponatremia with sodium 130, a urinalysis showed numerous WBCs present. EXAMINATION: CT brain wo con DATE: 07/04/2023 18:42 INDICATION: dizziness, LH, HAs . TECHNIQUE: Computed tomography (CT) of the head was performed without intravenous contrast. The mA was adjusted according to patient size. Iterative reconstruction technique was employed. The dose-length product was 605.33 mGy-cm. COMPARISON: 10/08/2022. FINDINGS: No acute intracranial hemorrhage or extra-axial fluid collection. No hydrocephalus, mass, or herniation. No acute ischemic infarct. Unremarkable dural venous sinus attenuation. No acute osseous abnormality. The? aerated spaces are clear. Mild atrophy and chronic white matter change. Atherosclerotic intracranial calcification. Bilateral lens replacements. IMPRESSION:? No acute intracranial process. EXAMINATION:? XR chest 2V Exam Date/Time:? 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 Comparison:? 10/08/2022. RESULT: Lines, tubes, and devices:? Intact sternotomy wires. Cardiac valve replacement. Cholecystectomy clips.. Lungs and pleura:? Senescent changes, otherwise clear. Cardiomediastinal silhouette:? Stable. Other:? No acute osseous or upper abdominal finding. ? IMPRESSION: No acute cardiopulmonary process. Review of Systems Review of Systems: Near-syncope, palpitations. Constitutional: Constitutional: Denies chills, Denies fatigue, Denies fever(s), Denies malaise and Denies weakness Eyes: Eyes: Denies change in vision ENT: Denies dysphagia and Denies odynophagia Cardiovascular: Cardiovascular: Denies chest pain, Reports lightheadedness, Denies radiating jaw, neck or arm pain and Reports palpitations Respiratory: Respiratory: Denies cough Gastrointestinal: Gastrointestinal: Denies abdominal pain, Denies dyspepsia, Denies heartburn, Denies diarrhea, Denies nausea and Denies vomiting Genitourinary: Genitourinary: Denies dysuria Musculoskeletal: Musculoskeletal: Reports back pain Integumentary/Breasts: Skin/Breast: Denies rash Neurologic: Denies focal weakness and Denies Sensory deficit (Neuro) Psychiatric: Psychiatric: Reports no additional psychiatric complaints and Reports as per HPI Endocrine: Endocrine: Denies cold intolerance, Denies fatigue, Denies flushing, Denies heat intolerance, Denies polyphagia, Denies polydipsia and Denies palpitations Hematologic/Lymphatic: Hematologic/Lymphatic: Reports no additional hematologic/lymphatic complaints and Reports as per HPI Allergic/Immunologic: Allergic/Immunologic: Reports no additional allergic/immunologic complaints and Reports as per HPI PMFSH Past Medical History Medical History Allergic conjunctivitis of right eye Allergic rhinitis, cause unspecified Anxiety state, unspecified Basal cell carcinoma of skin, unspecified Benign hypertension Benign paroxysmal positional vertigo BMI 27.0-27.9,adult Carpal tunnel syndrome, bilateral Cutaneous abscess of abdominal wall Dependence on other enabling machines and devices Depr
--- NOTE | 2023-07-04 23:51 | PC.NURSE ---
This patient, Elizabeth Herrera, was admitted to IMU Room 201-01 at 2236. Patient/family oriented to hospital policies and general routines including ID bracelet, bed and alarms, visiting hours, pain management, procedures, bathroom and other care routines, personal items, smoking policy, room service/diet, and visiting hours. Information on how to activate the Rapid Response Team has been discussed. Patient/Family are encouraged to report perceived risks to care and to ask questions if they do not understand what they are told or what they should do.
[2023-07-05] VITALS (20 sets, daily range): BP systolic 124–154; BP diastolic 55–78; PULSE 50–71; RESP 14–27; TEMP 36.2–36.8; O2SAT 93–98
--- NOTE | 2023-07-05 | ECHO_ITS ---
Patient Info Name: Elizabeth Herrera Age: 82 years : 1940 Gender: Female Ht: 63 in Wt: 140 lbs BSA: 1.69 m2 HR: 80 bpm BP: 124 / 55 mmHg Heart Rhythm: Sinus Rhythm Technical Quality: Fair Exam Date: 07/05/2023 4:28 PM Exam Location: Echo Lab Exam Room: 201 Patient Status: Inpatient Admit Date: 07/04/2023 Staff Ordering Physician: Kannan Mckeon MD Lithographic General Worker: Gosia Cameron RDCS Attending Provider: Emily Malik MD Exam Type: CA echo doppler color flow Study Info Indications - pre syncope Complete two-dimensional, color flow and Doppler transthoracic echocardiogram is performed. Summary 1. Complete two-dimensional, color flow and Doppler transthoracic echocardiogram is performed. 2. Left ventricular chamber dimension is normal. 3. Left ventricular systolic function is normal, estimated at 65-70%. 4. There is mildly increased left ventricular wall thickness. 5. The left ventricular diastolic function is grade I diastolic dysfunction. 6. Left atrial chamber dimension is mildly enlarged. 7. There is moderate aortic valve stenosis with a peak velocity of 309 cm/s, mean gradient of 16 mmHg, and aortic valve area of 1.2 cm2. 8. There is mild aortic valve regurgitation. 9. There is mild aortic valve calcification. 10. There is mild to moderate mitral valve regurgitation. 11. The mitral valve has thickened leaflets. 12. The mitral valve annulus is severely calcified. 13. There is mild tricuspid valve regurgitation. 14. There is mild pulmonic regurgitation. Left Ventricle Left ventricular chamber dimension is normal. Left ventricular systolic function is normal, estimated at 65-70%. There is mildly increased left ventricular wall thickness. The left ventricular diastolic function is grade I diastolic dysfunction. Right Ventricle Right ventricular chamber dimension is normal. Right ventricular systolic function is normal. Left Atria Left atrial chamber dimension is mildly enlarged. Right Atria Right atrial chamber dimension is normal. Atrial Septum Intact interatrial septum visualized by color flow imaging. Aortic Valve The aortic valve is not well visualized. There is moderate aortic valve stenosis with a peak velocity of 309 cm/s, mean gradient of 16 mmHg, and aortic valve area of 1.2 cm2. There is mild aortic valve regurgitation. There is mild aortic valve calcification. Pulmonic Valve The pulmonic valve is normal. There is no pulmonic valve stenosis. There is mild pulmonic regurgitation. Mitral Valve The mitral valve has thickened leaflets. There is no mitral valve stenosis. There is mild to moderate mitral valve regurgitation. The mitral valve annulus is severely calcified. Tricuspid Valve The tricuspid valve leaflets are normal. There is no significant tricuspid valve stenosis. There is mild tricuspid valve regurgitation. No pulmonary hypertension, estimated pulmonary arterial systolic pressure is 28 mmHg. Pericardium/Pleural The pericardium appears normal. There is no pericardial effusion. Inferior Vena Cava Normal inferior vena cava with <50% collapse upon inspiration consistent with elevated right atrial pressure, 10 mmHg. Aorta The aortic root size at the sinus of Valsalva is normal. Left Ventricular Outflow Tract Name Value Normal LVOT 2D LVOT
[2023-07-05] MEDS: WATER FOR IRRIGATION, STERILE 1,000 ML BOTTLE 1000 ML (04:43)
[2023-07-05] MEDS: rOPINIRole HCL 1 MG TABLET PO ×2 (05:32→21:35)
[2023-07-05] MEDS: ACETAMINOPHEN 500 MG TABLET 1000 MG PO ×2 (05:32→18:13)
[2023-07-05] MEDS: LEVOTHYROXINE SODIUM 50 MCG TABLET PO (05:32)
[2023-07-05 08:10] LABS: Anion Gap 6 mmol/L (8-16); Blood Urea Nitrogen 13 mg/dL (7-17); Calcium 9.4 mg/dL (8.4-10.2); Carbon Dioxide 26 mmol/L (22-30); Chloride 102 mmol/L (98-107); Estimated CRCL calculation 52 ml/min; Estimated Glomerular Filt Rate > 60; Glucose 98 mg/dL (65-110); Potassium 4.3 mmol/L (3.4-5.0); Sodium 134 mmol/L (137-145)
[2023-07-05 08:30] LABS: Toxigenic C. Diff POSITIVE (NEGATIVE)
[2023-07-05] MEDS: DICLOFENAC SOD 75 MG TABLET.EC PO ×2 (09:48→21:36)
[2023-07-05] MEDS: PHENAZOPYRIDINE HCL 100 MG TABLET 200 MG PO (09:48)
[2023-07-05] MEDS: THIAMINE HCL 50 MG TABLET PO (09:48)
[2023-07-05] MEDS: THIAMINE HCL 100 MG TABLET 200 MG PO (09:50)
[2023-07-05] MEDS: METOPROLOL SUCCINATE EXT REL 50 MG TABCR PO (09:50)
[2023-07-05] MEDS: LOSARTAN POTASSIUM 100 MG TABLET PO (09:50)
[2023-07-05] MEDS: CHOLECALCIFEROL 1,000 UNITS TABLET 2000 UNITS PO (09:51)
[2023-07-05] MEDS: FAMOTIDINE 20 MG TABLET PO ×2 (09:52→21:36)
[2023-07-05] MEDS: SODIUM CHLORIDE 1 GM TABLET PO (09:52)
[2023-07-05] MEDS: FERROUS SULFATE 325 MG TABLET DR PO (13:03)
[2023-07-05] MEDS: CHOLESTYRAMINE (W/ SUGAR) 4 GM POWD.PACK PO ×2 (13:03→21:37)
[2023-07-05] MEDS: FIDAXOMICIN 200 MG TABLET PO ×2 (13:03→21:35)
--- NOTE | 2023-07-05 15:14 | PM.IMPN ---
Progress Note: A&P Assessment and Plan (1) Lightheadedness: Code(s): R42 - Dizziness and giddiness Status: Acute Assessment and Plan: Patient developed LH and left arm pain while sitting on the toilet. Possibly vasovagal but not had this before. Left arm pain radiated to the neck and her Fitbit and HR 107 EKG showing NSR with possible lateral old PR but no change from prior EKG Troponin negative x2. [facility] 2016 showing no angiographic evidence of coronary dz but no recent stress Hx of bioprostheic calve. Check Echo. Cardiology consult (2) C. difficile diarrhea: Code(s): A04.72 - Enterocolitis due to Clostridium difficile, not specified as recurrent Status: Acute Assessment and Plan: Patient has a long hx of CDiff infection. She was CDiff negative in May. She was finally weaned off Vanco about 2 weeks ago. Was still having diarrhea despite being off Vanco and no recent abx. On Rocephin now CDiff positive today. Diarrhea worse per patient Start fidaxomicin. GI consult for other options given her hx (3) Acute lower UTI: Code(s): N39.0 - Urinary tract infection, site not specified Status: Acute Assessment and Plan: UA is consistent with UTI. UCx collected. Rocephin started. UCx pending. Follow up on UCx results. (4) Weakness generalized: Code(s): R53.1 - Weakness Status: Acute Assessment and Plan: Related to above. Start PT and OT. (5) Acute hyponatremia: Code(s): E87.1 - Hypo-osmolality and hyponatremia Status: Acute Assessment and Plan: Patient with chronic hyponatremia. Sodium 130 on admission and improved to 134 today. Continue to follow. (6) Essential (primary) hypertension: Code(s): I10 - Essential (primary) hypertension Status: Acute Assessment and Plan: Patient's blood pressure was reviewed on 07/05 Blood pressure remains well controlled. Will continue to monitor (7) Sleep apnea: Qualifiers: Sleep apnea type: obstructive Qualified Code(s): G47.33 - Obstructive sleep apnea (adult) (pediatric) Code(s): G47.30 - Sleep apnea, unspecified Status: Acute Assessment and Plan: Patient with CESAR. CPAP ordered. (8) Type 2 diabetes mellitus with complication, without long-term current use of insulin: Code(s): E11.8 - Type 2 diabetes mellitus with unspecified complications Status: Chronic Assessment and Plan: A1c 5.4% in November. The patient's blood glucose was reviewed on 07/05 Glucose remains well controlled. Start AccuCheks covering with sliding scale. Hypoglycemia protocol available as needed. Continue to monitor Subjective Date/time seen: 07/05/23 15:14 Interval history: 82yo female with hx of CDiff, HTN, CESAR and DM here for near syncope. Tested negative for CDiff in May. No recent abx. Stop Vanco about 2 weeks ago. Despite being off Vanco, still was having 3-4 stools per day. She has not had the LH or arm pain before. Exam Narrative: AF 98.3 135/69 66 14 93% ra Gen - NARD sitting up Chest - CTA bilaterally, nml RR CV - RRR S1/S2. Tele showing no significant dysrhythmias Abd - Soft, NT/ND, Positive BS Ext - trace pedal edema Psych - Nml mood and affect Skin - Warm and dry Objective Data Vital Signs Vital Signs: Vital Signs - 24 hr 07/04/23 16:10 07/04/23 18:54 07/04/23 20:29 Temperature 98.1 F Pulse Rate 88 66 63 Respiratory Rate 16 17 18 Blood Pressure 130/72 140/61 138/68 Pulse Oximetry 96 100 100 Oxygen Delivery Room Air 07/04/23 22:26 07/04/23 23:14 07/05/23 00:53 Temperature 97.1 F L Pulse Rate 58 L 59 L 60 Respiratory Rate 19 19 27 H Blood Pressure 132/76 162/90 H Pulse Oximetry 98 98 98 Oxygen Delivery Autopap 07/05/23 00:00 07/05/23 02:00 07/04/23 22:46 Temperature Pulse Rate 71 59 L 63 Respiratory Rate Blood Pressure Pulse Oxime
[2023-07-05 16:44] LABS: Troponin I 0.013 ng/mL (0.000-0.034)
[2023-07-05 17:55] LABS: Glucose Point of Care 105 mg/dl (65-105)
[2023-07-05 20:40] LABS: Glucose Point of Care 113 mg/dl (65-105)
[2023-07-05] MEDS: ASPIRIN 81 MG ENTERIC TABLET PO (21:35)
[2023-07-05] MEDS: LORATADINE 10 MG TABLET PO (21:36)
[2023-07-05] MEDS: MELATONIN 3 MG TABLET PO (21:37)
[2023-07-06] VITALS (19 sets, daily range): BP systolic 118–164; BP diastolic 53–69; PULSE 50–81; RESP 14–21; TEMP 36.3–36.7; O2SAT 97–100
[2023-07-06] MEDS: ACETAMINOPHEN 500 MG TABLET 1000 MG PO ×3 (00:15→14:16)
[2023-07-06 05:43] LABS: Basophils Percent Auto 0.5 % (0.2-1.2); Eosinophils Absolute Auto 0.1 K/mm3 (0-0.3); Eosinophils Percent Auto 1.8 % (0-4.4); Hematocrit 32.9 % (37.0-47.0); Hemoglobin 10.4 g/dL (12.0-15.0); Immature Granulocyte Absolute 0.02 K/mm3 (0.00-0.031); Immature Granulocyte Percent A 0.4 % (0-0.5); Lymphocytes Absolute Auto 2.32 K/mm3 (0.9-3.2); Lymphocytes Percent Auto 41.6 % (18.3-44.2); Mean Corpuscular HGB Conc 31.6 g/dl (32-36); Mean Corpuscular Hemoglobin 35.3 pg (26-34); Mean Corpuscular Volume 111.5 fl (80-100); Mean Platelet Volume 9.1 fl (7.4-10.4); Monocytes Absolute Auto 0.6 K/mm3 (0.1-0.6); Neutrophils Absolute Auto 2.6 K/mm3 (1.3-6.7); Neutrophils Percent Auto 45.7 % (45.5-73.1); Platelet Count Result 186 k/mm3 (150-375); Red Blood Count 2.95 M/mm3 (4.2-5.4); Red Cell Distribution Width 12.1 % (11.5-14.5); White Blood Count 5.6 K/mm3 (4.5-10.0)
[2023-07-06 05:50] LABS: Albumin Level 3.5 g/dL (3.5-5.1); Anion Gap 7 mmol/L (8-16); Blood Urea Nitrogen 18 mg/dL (7-17); Calcium 9.2 mg/dL (8.4-10.2); Carbon Dioxide 23 mmol/L (22-30); Chloride 100 mmol/L (98-107); Estimated CRCL calculation 40 ml/min; Estimated Glomerular Filt Rate > 60; Glucose 86 mg/dL (65-110); Magnesium 1.9 mg/dL (1.6-2.3); Phosphorus 3.5 mg/dL (2.5-4.5); Potassium 3.9 mmol/L (3.4-5.0); Sodium 130 mmol/L (137-145)
[2023-07-06] MEDS: LEVOTHYROXINE SODIUM 50 MCG TABLET PO (06:00)
[2023-07-06 06:12] LABS: Macrocytosis 1+ (NORMAL); Platelet Estimate Adequate (Adequate)
[2023-07-06 06:13] LABS: Schistocytes None Seen (NORMAL)
[2023-07-06 07:39] LABS: Hemoglobin A1C < 4.0 % (<5.7)
[2023-07-06 08:55] LABS: Glucose Point of Care 89 mg/dl (65-105)
[2023-07-06] MEDS: FIDAXOMICIN 200 MG TABLET PO ×2 (09:00→20:18)
[2023-07-06] MEDS: THIAMINE HCL 100 MG TABLET 200 MG PO (09:16)
[2023-07-06] MEDS: SODIUM CHLORIDE 1 GM TABLET PO (09:17)
[2023-07-06] MEDS: LOSARTAN POTASSIUM 100 MG TABLET PO (09:17)
[2023-07-06] MEDS: PHENAZOPYRIDINE HCL 100 MG TABLET 200 MG PO (09:17)
[2023-07-06] MEDS: FAMOTIDINE 20 MG TABLET PO ×2 (09:17→20:17)
[2023-07-06] MEDS: CHOLECALCIFEROL 1,000 UNITS TABLET 2000 UNITS PO (09:17)
[2023-07-06] MEDS: METOPROLOL SUCCINATE EXT REL 50 MG TABCR PO (09:17)
[2023-07-06] MEDS: THIAMINE HCL 50 MG TABLET PO (09:17)
[2023-07-06] MEDS: DICLOFENAC SOD 75 MG TABLET.EC PO ×2 (09:17→20:17)
[2023-07-06] MEDS: ESTRADIOL VAGINAL CREAM 42.5 GM 1 APPLIC VAGINAL (11:44)
[2023-07-06 11:59] LABS: Glucose Point of Care 105 mg/dl (65-105)
--- NOTE | 2023-07-06 14:16 | PM.CNCAR ---
Assessment and Plan Assessment and plan (1) Pre-syncope: Code(s): R55 - Syncope and collapse Status: Acute Assessment and Plan: She had dizziness in the setting of palpitations, but did not have syncope. Has not had any recurrence of symptoms since hospital admission. Thus far her telemetry does not show any tachyarrhythmias and her ECG has shown sinus rhythm and sinus bradycardia. Continue to monitor on telemetry and will plan for a 30 day outpatient cardiac monitor Echo has been ordered and will be reviewed (2) Aortic stenosis: Code(s): I35.0 - Nonrheumatic aortic (valve) stenosis Status: Acute Assessment and Plan: Status post bioprosthetic aortic valve replacement in 2016. She does have systolic murmur consistent with aortic stenosis which is not new. Echocardiogram has been ordered and will be reviewed. History of Present Illness History of Present Illness Consult date/time: 07/06/23 14:16 Requesting physician: Kannan Mckeon MD Consult reason: Other (arm pain, pre-syncope) Reason For Visit: L Sided Neck/Jaw Pain, HEART score =4, UTI Narrative: Elizabeth Herrera is a 82 year old female with a history of bioprosthetic aortic valve replacement for severe aortic stenosis in July 2025, hypertension, diabetes, and obesity. She is hospitalized because of an episode of palpitations. She had an episode of palpitations on Wednesday following eating a meal. She had a sudden onset of a racing heartbeat and had associated shortness of breath, jaw pain, and arm pain. She did briefly feel like she was going to pass out but said on the toilet and placed her head between her legs which resolved her presyncope. She did continue to have palpitations for about an hour and finally decided to call EMS. She states that during that time her Fitbit was alerting her of a high heart rate and noticed a heart rate of 107 bpm. Her EKG in the emergency department shows sinus rhythm with a heart rate of 77 bpm. Telemetry has not revealed any tachyarrhythmias. She is being treated for C diff. at the time of my visit with her she is resting comfortably in bed does not have any complaints. Review of Systems Review of Systems: All systems reviewed & are unremarkable except as noted in HPI and below PMFSH Past Medical History Medical History Allergic conjunctivitis of right eye Allergic rhinitis, cause unspecified Anxiety state, unspecified Basal cell carcinoma of skin, unspecified Benign hypertension Benign paroxysmal positional vertigo BMI 27.0-27.9,adult Carpal tunnel syndrome, bilateral Cutaneous abscess of abdominal wall Dependence on other enabling machines and devices Depressive disorder, not elsewhere classified Dysmetabolic syndrome X Dysphagia Dysuria Encounter for immunization (04/18/18) Esophageal spasm Essential (primary) hypertension Gastro-esophageal reflux disease without esophagitis GERD (gastroesophageal reflux disease) History of Mohs micrographic surgery for skin cancer Hx of ectopic Hyponatremia Hypothyroidism Impacted cerumen of left ear Infected cyst of skin Irritable bowel syndrome Metabolic syndrome Mixed hyperlipidemia due to type 2 diabetes mellitus Nonrheumatic aortic (valve) stenosis Obese CESAR on CPAP Osteoarthritis Other seborrheic keratosis Spinal stenosis, lumbar region, without neurogenic claudication Type 2 diabetes mellitus with complication, without long-term current use of insulin Unspecified essential hypertension Surgical History Surgical History H/O aortic valve replacement H/O aortic valve replacement using Ross procedure H/O cataract removal with insertion of prosthetic lens H/O excision of epidermal inclusion cyst 07/01/2022- excision ruptured epidermal cyst of the LLQ abdomen H/O hammer toe correction History of back surgery History of cho
[2023-07-06] MEDS: CHOLESTYRAMINE (W/ SUGAR) 4 GM POWD.PACK PO (14:18)
[2023-07-06] MEDS: PSYLLIUM SUGAR FREE POWDER PACKET 1 PACKET PO (14:21)
[2023-07-06] MEDS: FERROUS SULFATE 325 MG TABLET DR PO (14:22)
--- NOTE | 2023-07-06 15:40 | PCCCNOTE ---
On 07/06/23, the student, [Tita Easley ], provided care and completed [facility] documentation on this patient. I have reviewed the student's documentation and agree with the findings.
--- NOTE | 2023-07-06 16:11 | WPDGICN ---
Assessment and Plan Assessment and plan (1) C. difficile diarrhea: Code(s): A04.72 - Enterocolitis due to Clostridium difficile, not specified as recurrent Status: Acute Assessment and Plan: she was on long vancomycin taper that was discontinued few weeks ago after had negative C diff started on dificid this time, consider use of fecal microbiota spore (vowst) 1-2 days after completing treatment (2) Pre-syncope: Code(s): R55 - Syncope and collapse Status: Acute Assessment and Plan: resolved work up by cardiology (3) Aortic stenosis: Code(s): I35.0 - Nonrheumatic aortic (valve) stenosis Status: Acute Assessment and Plan: pending 2d-echo (4) Lightheadedness: Code(s): R42 - Dizziness and giddiness Status: Acute GI Consult Note Consult date/time: 07/06/23 16:11 Reason for consult: recurrent C diff HPI: Elizabeth Herrera is a 82 year old female with past medical history significant for generalized anxiety disorder, hypertension, paroxysmal positional vertigo, depression, GERD, obstructive sleep apnea on CPAP, type 2 diabetes mellitus and previous history of C diff (she has hx of microscopic colitis and was dx with C-diff in Feb with hospitalization and treated with dificid and vancomycin taper along with budesonide 6 mg daily. Initially diarrhea improved but she called the office on 06/01/2023 for worsening diarrhea. She was instructed to increase her budesonide back to 6 mg daily but is actually taking 9 mg daily and cholestyramine 1-2 daily was added, finally 06/03/23 repeat C diff was negative and she discontinued long taper vancomycin recently). She came to the emergency room for evaluation after having episode of near-syncope while using the toilet, she felt dizzy and lightheaded. She had loose stool and C diff again positive. Review of Systems Review of Systems: CONSTITUTIONAL: Denies fever, chills, or sweats. ENT: Denies vision changes, rhinorrhea, congestion, sore throat. CARDIOVASCULAR: Denies chest pain, palpitations, or edema. RESPIRATORY: Denies cough or dyspnea. GASTROINTESTINAL: See HPI. GENITOURINARY: Denies dysuria or hematuria. SKIN: Denies rash or itching. MUSCULOSKELETAL: See HPI. NEUROLOGIC: See HPI. All systems reviewed & are unremarkable except as noted in HPI and below PMFSH Past Medical History Medical History Allergic conjunctivitis of right eye Allergic rhinitis, cause unspecified Anxiety state, unspecified Basal cell carcinoma of skin, unspecified Benign hypertension Benign paroxysmal positional vertigo BMI 27.0-27.9,adult Carpal tunnel syndrome, bilateral Cutaneous abscess of abdominal wall Dependence on other enabling machines and devices Depressive disorder, not elsewhere classified Dysmetabolic syndrome X Dysphagia Dysuria Encounter for immunization (04/18/18) Esophageal spasm Essential (primary) hypertension Gastro-esophageal reflux disease without esophagitis GERD (gastroesophageal reflux disease) History of Mohs micrographic surgery for skin cancer Hx of ectopic Hyponatremia Hypothyroidism Impacted cerumen of left ear Infected cyst of skin Irritable bowel syndrome Metabolic syndrome Mixed hyperlipidemia due to type 2 diabetes mellitus Nonrheumatic aortic (valve) stenosis Obese CESAR on CPAP Osteoarthritis Other seborrheic keratosis Spinal stenosis, lumbar region, without neurogenic claudication Type 2 diabetes mellitus with complication, without long-term current use of insulin Unspecified essential hypertension Surgical History Surgical History H/O aortic valve replacement H/O aortic valve replacement using Ross procedure H/O cataract removal with insertion of prosthetic lens H/O excision of epidermal inclusion cyst 07/01/2022- excision ruptured epidermal cyst of the LLQ abdomen H/O hammer toe
[2023-07-06 16:46] LABS: Glucose Point of Care 105 mg/dl (65-105)
--- NOTE | 2023-07-06 16:53 | PM.IMPN ---
Progress Note: A&P Assessment and Plan (1) Lightheadedness: Code(s): R42 - Dizziness and giddiness Status: Acute Assessment and Plan: Patient developed LH and left arm pain while sitting on the toilet. Possibly vasovagal but not had this before. Left arm pain radiated to the neck and her Fitbit had HR 107 EKG showing NSR with possible lateral old [place] but no change from prior EKG Troponin negative x3 [facility] 2016 showing no angiographic evidence of coronary dz but no recent stress Hx of bioprosthetic valve with Echo showing EF 65-70% with Grade I diastolic dysfxn and moderate (1.2cm2) and mild-mod MR. Cardiology consulted and appreciate their input. (2) C. difficile diarrhea: Code(s): A04.72 - Enterocolitis due to Clostridium difficile, not specified as recurrent Status: Acute Assessment and Plan: Patient has a long hx of CDiff infection. She was CDiff negative in May on Vanco She was finally weaned off Vanco about 2 weeks ago. Was still having diarrhea despite being off Vanco. No recent abx. On Rocephin now for UTI CDiff positive and started on fidaxomicin. GI consult for other options given her hx but her stool volume has decreased Dtr recently with gastroenteritis symptoms. False positive? Continue fidaxomicin for now. GI consult appreciated. Home tomorrow if stool output manageable. Care coordiantor to see about cost of meds (3) Acute lower UTI: Code(s): N39.0 - Urinary tract infection, site not specified Status: Acute Assessment and Plan: UA is consistent with UTI. UCx collected. Rocephin started. UCx growing 10-49K Proteus. Rocephin 1gm IV x3 days only then stop (4) Weakness generalized: Code(s): R53.1 - Weakness Status: Acute Assessment and Plan: Related to above. Continue PT and OT. (5) Acute hyponatremia: Code(s): E87.1 - Hypo-osmolality and hyponatremia Status: Acute Assessment and Plan: Patient with chronic hyponatremia. Sodium 130 on admission and within 130-134 range Continue to follow. (6) Essential (primary) hypertension: Code(s): I10 - Essential (primary) hypertension Status: Acute Assessment and Plan: Patient's blood pressure was reviewed on 07/06 Blood pressure remains well controlled. Will continue to monitor (7) Sleep apnea: Qualifiers: Sleep apnea type: obstructive Qualified Code(s): G47.33 - Obstructive sleep apnea (adult) (pediatric) Code(s): G47.30 - Sleep apnea, unspecified Status: Acute Assessment and Plan: Patient with CESAR. CPAP ordered. (8) Type 2 diabetes mellitus with complication, without long-term current use of insulin: Code(s): E11.8 - Type 2 diabetes mellitus with unspecified complications Status: Chronic Assessment and Plan: A1c 5.4% in November. The patient's blood glucose was reviewed on 07/06 Glucose remains well controlled. Start AccuCheks covering with sliding scale. Hypoglycemia protocol available as needed. Continue to monitor Plan DVT Prophylaxis - SCDs Code status - full Subjective Date/time seen: 07/06/23 16:53 Interval history: 82yo female with hx of CDiff, HTN, CESAR and DM here for near syncope. The number of stools have since yesterday. She feels better today. Eating well. She does take questran at home chronically. Exam Narrative: AF 98.0 122/60 59 14 100% ra Gen - NARD sitting up at side of bed Chest - CTA bilaterally, nml RR CV - RRR S1/S2 with 2/6 systolic murmur USB. Tele showing no significant dysrhythmias Abd - Soft, NT/ND, Positive BS Ext - trace pedal edema Psych - Nml mood and affect Skin - Warm and dry Objective Data Vital Signs Vital Signs: Vital Signs - 24 hr 07/05/23 18:00 07/05/23 20:42 07/05/23 20:00 Temperature 97.1 F L Pulse Rate 63 63 65 Respiratory Rate 16 Blood Pressure 125/78 Pulse Oxi
[2023-07-06] MEDS: LORATADINE 10 MG TABLET PO (20:17)
[2023-07-06] MEDS: rOPINIRole HCL 1 MG TABLET PO (20:17)
[2023-07-06 20:18] LABS: Glucose Point of Care 108 mg/dl (65-105)
[2023-07-06] MEDS: ASPIRIN 81 MG ENTERIC TABLET PO (20:18)
[2023-07-06] MEDS: MELATONIN 3 MG TABLET PO (20:18)
--- NOTE | 2023-07-06 23:30 | PC.NURSE ---
This patient, Elizabeth Herrera, was transferred to [[id number] ] on 07/06/23 at 2331. Personal belongings sent with patient. Report given to [Jay decker ]. Appropriate documentation sent with patient.
[2023-07-07] VITALS (8 sets, daily range): BP systolic 121–147; BP diastolic 58–69; PULSE 55–61; RESP 16–21; TEMP 36.6–36.9; O2SAT 96–98
[2023-07-07] MEDS: LEVOTHYROXINE SODIUM 50 MCG TABLET PO (05:39)
[2023-07-07] MEDS: ACETAMINOPHEN 500 MG TABLET 1000 MG PO (05:49)
[2023-07-07 06:34] LABS: Anion Gap 8 mmol/L (8-16); Blood Urea Nitrogen 17 mg/dL (7-17); Calcium 9.1 mg/dL (8.4-10.2); Carbon Dioxide 20 mmol/L (22-30); Chloride 101 mmol/L (98-107); Estimated CRCL calculation 52 ml/min; Estimated Glomerular Filt Rate > 60; Glucose 87 mg/dL (65-110); Potassium 4.1 mmol/L (3.4-5.0); Sodium 129 mmol/L (137-145)
[2023-07-07] MEDS: DICLOFENAC SOD 75 MG TABLET.EC PO ×2 (08:12→20:31)
[2023-07-07] MEDS: LOSARTAN POTASSIUM 100 MG TABLET PO (08:12)
[2023-07-07] MEDS: FIDAXOMICIN 200 MG TABLET PO ×2 (08:12→20:31)
[2023-07-07] MEDS: PHENAZOPYRIDINE HCL 100 MG TABLET 200 MG PO (08:12)
[2023-07-07] MEDS: CHOLECALCIFEROL 1,000 UNITS TABLET 2000 UNITS PO (08:12)
[2023-07-07] MEDS: FAMOTIDINE 20 MG TABLET PO ×2 (08:12→20:30)
[2023-07-07] MEDS: THIAMINE HCL 100 MG TABLET 200 MG PO (08:12)
[2023-07-07] MEDS: METOPROLOL SUCCINATE EXT REL 50 MG TABCR PO (08:13)
[2023-07-07] MEDS: SODIUM CHLORIDE 1 GM TABLET PO (08:13)
[2023-07-07 08:28] LABS: Glucose Point of Care 93 mg/dl (65-105)
--- NOTE | 2023-07-07 09:13 | P.PNIM_ITS ---
Progress Note: A&P Assessment and Plan (1) Acute lower UTI: Code(s): N39.0 - Urinary tract infection, site not specified Status: Acute Assessment and Plan: 07/06/23: * UA is consistent with UTI. UCx collected. * Rocephin started. * UCx growing 10-49K Proteus. * Rocephin 1gm IV x3 days only then stop 07/07/23: * Continue Rocephin * Urine culture showing Proteus mirabilis on preliminary read, awaiting sensitivities. (2) C. difficile diarrhea: Code(s): A04.72 - Enterocolitis due to Clostridium difficile, not specified as recurrent Status: Acute Assessment and Plan: 07/06/23: * Patient has a long hx of CDiff infection. She was CDiff negative in May on Vanco * She was finally weaned off Vanco about 2 weeks ago. * Was still having diarrhea despite being off Vanco. No recent abx. * On Rocephin now for UTI * CDiff positive and started on fidaxomicin. * GI consult for other options given her hx but her stool volume has decreased * Dtr recently with gastroenteritis symptoms. False positive? * Continue fidaxomicin for now. GI consult appreciated. * Home tomorrow if stool output manageable. * Care coordiantor to see about cost of meds 07/07/23: * Continue difficile * GI following * Care coordination following as well for outpatient needs (3) Lightheadedness: Code(s): R42 - Dizziness and giddiness Status: Acute Assessment and Plan: 07/06/23: * Patient developed LH and left arm pain while sitting on the toilet. Possibly vasovagal but not had this before. * Left arm pain radiated to the neck and her Fitbit had HR 107 * EKG showing NSR with possible lateral old [place] but no change from prior EKG * Troponin negative x3 * [facility] 2015 showing no angiographic evidence of coronary dz but no recent stress * Hx of bioprosthetic valve with Echo showing EF 65-70% with Grade I diastolic dysfxn and moderate (1.2cm2) and mild-mod MR. Cardiology consulted and appreciate their input. 07/07/23: * Echo showing moderate aortic stenosis, EF 65-70% with a grade 1 diastolic dysfunction * Cardiology is following (4) Weakness generalized: Code(s): R53.1 - Weakness Status: Acute Assessment and Plan: 07/06/23: * Related to above. * Continue PT and OT. 07/07/23: * Continue with PT and OT (5) Acute hyponatremia: Code(s): E87.1 - Hypo-osmolality and hyponatremia Status: Acute Assessment and Plan: 07/06/23: * Patient with chronic hyponatremia. * Sodium 130 on admission and within 130-134 range * Continue to follow. 07/07/23: * Sodium level 129 today * Continue to trend labs (6) Essential (primary) hypertension: Code(s): I10 - Essential (primary) hypertension Status: Acute Assessment and Plan: 07/06/23: * Patient's blood pressure was reviewed on 07/06 * Blood pressure remains well controlled. * Will continue to monitor 07/07/23: * No change to current treatment plan (7) Sleep apnea: Qualifiers: Sleep apnea type: obstructive Qualified Code(s): G47.33 - Obstructive sleep apnea (adult) (pediatric) Code(s): G47.30 - Sleep apnea, unspecified Status: Acute Assessment and Plan: 07/06/23: * Patient with CESAR. * CPAP ordered. 07/07/23: * No change to current treatment plan (8) Type 2 diabetes mellitus with complication, without long-term current use of insulin: C
--- NOTE | 2023-07-07 09:13 | PM.IMPN ---
Progress Note: A&P Assessment and Plan (1) Acute lower UTI: Code(s): N39.0 - Urinary tract infection, site not specified Status: Acute Assessment and Plan: 07/06/23: UA is consistent with UTI. UCx collected. Rocephin started. UCx growing 10-49K Proteus. Rocephin 1gm IV x3 days only then stop 07/07/23: Continue Rocephin Urine culture showing Proteus mirabilis on preliminary read, awaiting sensitivities. (2) C. difficile diarrhea: Code(s): A04.72 - Enterocolitis due to Clostridium difficile, not specified as recurrent Status: Acute Assessment and Plan: 07/06/23: Patient has a long hx of CDiff infection. She was CDiff negative in May on Vanco She was finally weaned off Vanco about 2 weeks ago. Was still having diarrhea despite being off Vanco. No recent abx. On Rocephin now for UTI CDiff positive and started on fidaxomicin. GI consult for other options given her hx but her stool volume has decreased Dtr recently with gastroenteritis symptoms. False positive? Continue fidaxomicin for now. GI consult appreciated. Home tomorrow if stool output manageable. Care coordiantor to see about cost of meds 07/07/23: Continue difficile GI following Care coordination following as well for outpatient needs (3) Lightheadedness: Code(s): R42 - Dizziness and giddiness Status: Acute Assessment and Plan: 07/06/23: Patient developed LH and left arm pain while sitting on the toilet. Possibly vasovagal but not had this before. Left arm pain radiated to the neck and her Fitbit had HR 107 EKG showing NSR with possible lateral old [place] but no change from prior EKG Troponin negative x3 [facility] 2016 showing no angiographic evidence of coronary dz but no recent stress Hx of bioprosthetic valve with Echo showing EF 65-70% with Grade I diastolic dysfxn and moderate (1.2cm2) and mild-mod MR. Cardiology consulted and appreciate their input. 07/07/23: Echo showing moderate aortic stenosis, EF 65-70% with a grade 1 diastolic dysfunction Cardiology is following (4) Weakness generalized: Code(s): R53.1 - Weakness Status: Acute Assessment and Plan: 07/06/23: Related to above. Continue PT and OT. 07/07/23: Continue with PT and OT (5) Acute hyponatremia: Code(s): E87.1 - Hypo-osmolality and hyponatremia Status: Acute Assessment and Plan: 07/06/23: Patient with chronic hyponatremia. Sodium 130 on admission and within 130-134 range Continue to follow. 07/07/23: Sodium level 129 today Continue to trend labs (6) Essential (primary) hypertension: Code(s): I10 - Essential (primary) hypertension Status: Acute Assessment and Plan: 07/06/23: Patient's blood pressure was reviewed on 07/06 Blood pressure remains well controlled. Will continue to monitor 07/07/23: No change to current treatment plan (7) Sleep apnea: Qualifiers: Sleep apnea type: obstructive Qualified Code(s): G47.33 - Obstructive sleep apnea (adult) (pediatric) Code(s): G47.30 - Sleep apnea, unspecified Status: Acute Assessment and Plan: 07/06/23: Patient with CESAR. CPAP ordered. 07/07/23: No change to current treatment plan (8) Type 2 diabetes mellitus with complication, without long-term current use of insulin: Code(s): E11.8 - Type 2 diabetes mellitus with unspecified complications Status: Chronic Assessment and Plan: 07/06/23: A1c 5.4% in November. The patient's blood glucose was reviewed on 07/06 Glucose remains well controlled. Start AccuCheks covering with sliding scale. Hypoglycemia protocol available as needed. Continue to monitor 07/07/23: Blood sugars ranging 85-108 No change to current treatment plan Time Spent With Patient Time with patient: Greater than 35 minutes Subjective Date/time seen: 07/07/23 09
[2023-07-07 09:33] LABS: Basophils Percent Auto 0.6 % (0.2-1.2); Eosinophils Absolute Auto 0.1 K/mm3 (0-0.3); Eosinophils Percent Auto 1.8 % (0-4.4); Hematocrit 34.9 % (37.0-47.0); Hemoglobin 10.5 g/dL (12.0-15.0); Immature Granulocyte Absolute 0.02 K/mm3 (0.00-0.031); Immature Granulocyte Percent A 0.4 % (0-0.5); Lymphocytes Absolute Auto 2.34 K/mm3 (0.9-3.2); Lymphocytes Percent Auto 45.9 % (18.3-44.2); Mean Corpuscular HGB Conc 30.1 g/dl (32-36); Mean Corpuscular Hemoglobin 35.6 pg (26-34); Mean Corpuscular Volume 118.3 fl (80-100); Monocytes Absolute Auto 0.5 K/mm3 (0.1-0.6); Monocytes Percent Auto 9.8 % (2.6-8.5); Neutrophils Absolute Auto 2.1 K/mm3 (1.3-6.7); Neutrophils Percent Auto 41.5 % (45.5-73.1); Platelet Count Result 167 k/mm3 (150-375); Red Blood Count 2.95 M/mm3 (4.2-5.4); Red Cell Distribution Width 12.3 % (11.5-14.5); White Blood Count 5.1 K/mm3 (4.5-10.0)
[2023-07-07 09:39] LABS: Alanine Aminotransferase 18 U/L (6-35); Albumin Level 3.5 g/dL (3.5-5.1); Alkaline Phosphatase 60 U/L (38-126); Aspartate Amino Transferase 58 U/L (14-36); Bilirubin,Total 0.6 mg/dL (0.2-1.3)
[2023-07-07 10:20] LABS: Macrocytosis 1+ (NORMAL); Platelet Estimate Adequate (Adequate); Schistocytes None Seen (NORMAL)
[2023-07-07] MEDS: THIAMINE HCL 50 MG TABLET PO (10:28)
[2023-07-07 12:31] LABS: Glucose Point of Care 85 mg/dl (65-105)
[2023-07-07] MEDS: FERROUS SULFATE 325 MG TABLET DR PO (12:39)
[2023-07-07] MEDS: CHOLESTYRAMINE (W/ SUGAR) 4 GM POWD.PACK PO ×2 (12:39→20:31)
[2023-07-07] MEDS: PSYLLIUM SUGAR FREE POWDER PACKET 1 PACKET PO ×2 (12:39→20:30)
--- NOTE | 2023-07-07 14:39 | PM.PNCARD ---
Progress Note: A&P Assessment and Plan (1) Pre-syncope: Code(s): R55 - Syncope and collapse Status: Acute Assessment and Plan: She had dizziness in the setting of palpitations, but did not have syncope.? Has not had any recurrence of symptoms since hospital admission.? Thus far her telemetry does not show any tachyarrhythmias and her ECG has shown sinus rhythm and sinus bradycardia. Continue to monitor on telemetry and will plan for a 30 day outpatient [facility] (already ordered). Echo with normal LVEF, moderate , mild-moderate MR No further inpatient cardiac evaluation needed. Will arrange for outpatient follow up in our clinic. (2) Aortic stenosis: Code(s): I35.0 - Nonrheumatic aortic (valve) stenosis Status: Acute Assessment and Plan: Status post bioprosthetic aortic valve replacement in 2015.? She does have systolic murmur consistent with aortic stenosis which is not new. Echo with normal LVEF. Moderate , mild AR. No further inpatient cardiac evaluation needed. Will arrange for outpatient follow up in our clinic. Plan Okay to discharge home from a Cardiology standpoint. We will sign off at this time. Subjective Date/time seen: 07/07/23 14:39 Interval history: Reason for visit: Presyncope HPI: Elizabeth Herrera is a 82 year old female with a history of bioprosthetic aortic valve replacement for severe aortic stenosis in July 2025, hypertension, diabetes, and obesity.? She is hospitalized because of an episode of palpitations.? She had an episode of palpitations on Wednesday following eating a meal.? She had a sudden onset of a racing heartbeat and had associated shortness of breath, jaw pain, and arm pain.? She did briefly feel like she was going to pass out but said on the toilet and placed her head between her legs which resolved her presyncope.? She did continue to have palpitations for about an hour and finally decided to call EMS.? She states that during that time her Fitbit was alerting her of a high heart rate and noticed a heart rate of 107 bpm.? Her EKG in the emergency department shows sinus rhythm with a heart rate of 77 bpm.? Telemetry has not revealed any tachyarrhythmias.? She is being treated for C diff. at the time of my visit with her she is resting comfortably in bed does not have any complaints. Date of service 07/07: Feeling well today. No cardiac complaints. Exam Const: General: comfortable and no acute distress Eyes: General: appearance normal, both eyes and all related structures Sclera: sclerae normal Neck: Neck: supple Resp: Effort & Inspection: normal respiratory effort Cardio: Rate: regular rate Rhythm: regular rhythm Skin: General skin exam: normal color Neuro: Speech: normal speech Psych: Mental Status: mental status grossly normal Affect: normal affect Objective Data Vital Signs Vital Signs: Vital Signs - 24 hr 07/06/23 15:50 07/06/23 15:50 07/06/23 16:28 Temperature 36.7 C Pulse Rate 81 72 62 Respiratory Rate 16 14 Blood Pressure 122/60 Pulse Oximetry 97 100 Oxygen Delivery Room Air 07/06/23 16:36 07/06/23 19:45 07/06/23 20:00 Temperature 36.4 C Pulse Rate 59 L 62 62 Respiratory Rate 18 Blood Pressure 164/69 H Pulse Oximetry 97 Oxygen Delivery 07/06/23 20:00 07/06/23 22:46 07/06/23 23:27 Temperature Pulse Rate 62 67 62 Respiratory Rate 18 20 Blood Pressure Pulse Oximetry 97 98 Oxygen Delivery Room Air Autopap 07/06/23 23:27 07/06/23 23:55 07/07/23 00:16 Temperature 36.6 C Pulse Rate 62 57 L Respiratory Rate 17 Blood Pressure 135/53 L Pulse Oximetry 97 Oxygen Delivery Autopap 07/07/23 04:00 07/07/23 05:11 Temperature 36.8 C Pulse Rate 55 L 59 L Respiratory Rate 17 Blood Pressure 147/58 H Pulse Oximetry 98 Oxygen Delivery Intake/Output Intake/Output: Intake & Output 07/04/23 07/05/23 07/06/23 07/07/23 23:59 23:59 23:59 23:59 Intak
--- NOTE | 2023-07-07 15:10 | WPDGIPROGNO ---
Progress Note: A&P Assessment and Plan (1) C. difficile diarrhea: Code(s): A04.72 - Enterocolitis due to Clostridium difficile, not specified as recurrent Status: Acute Assessment and Plan: denies more loose stool she can complete total of 10 days of dificid then hopefully she can get vowst 1-2 days after completing treatment (will check with her insurance if that is possible) now also on iv abx because uti, try shortest duration possible (2) Pre-syncope: Code(s): R55 - Syncope and collapse Status: Acute Assessment and Plan: resolved (3) Aortic stenosis: Code(s): I35.0 - Nonrheumatic aortic (valve) stenosis Status: Acute (4) Acute lower UTI: Code(s): N39.0 - Urinary tract infection, site not specified Status: Acute Assessment and Plan: on rx (5) Acute hyponatremia: Code(s): E87.1 - Hypo-osmolality and hyponatremia Status: Acute Subjective Date/time seen: 07/07/23 15:10 Interval history: semi-formed stool, feeling better, hoping to go home tomorrow Review of Systems Review of Systems: All systems reviewed & are unremarkable except as noted in HPI and below Exam Const: General: comfortable, no acute distress, alert and awake Orientation/consciousness: patient oriented x3 HENMT: Head: normal to inspection Eyes: General: appearance normal, both eyes and all related structures Pupils: Equal, round and reactive pupils present Neck: Neck: normal visual inspection and supple Resp: Effort & Inspection: normal respiratory effort Auscultation: clear to auscultation bilaterally Cardio: Rate: regular rate Rhythm: regular rhythm Heart sounds: Murmur heart sound present systolic III/ GI: GI Palp: Yes Soft to palpation, No Tenderness to palpation present (GI) and No Guarding due to palpation present (GI) Auscultation: normal bowel sounds Skin: General skin exam: normal color Neuro: General: patient oriented x3 Cranial nerves: Yes Equal, round and reactive pupils present Speech: normal speech Extrem: General: normal to inspection Psych: Appearance: grossly normal Mental Status: mental status grossly normal Objective Data Vital Signs Vital Signs: Vital Signs - 24 hr 07/06/23 15:50 07/06/23 15:50 07/06/23 16:28 Temperature 98.0 F Pulse Rate 81 72 62 Respiratory Rate 16 14 Blood Pressure 122/60 Pulse Oximetry 97 100 Oxygen Delivery Room Air 07/06/23 16:36 07/06/23 19:45 07/06/23 20:00 Temperature 97.6 F Pulse Rate 59 L 62 62 Respiratory Rate 18 Blood Pressure 164/69 H Pulse Oximetry 97 Oxygen Delivery 07/06/23 20:00 07/06/23 22:46 07/06/23 23:27 Temperature Pulse Rate 62 67 62 Respiratory Rate 18 20 Blood Pressure Pulse Oximetry 97 98 Oxygen Delivery Room Air Autopap 07/06/23 23:27 07/06/23 23:55 07/07/23 00:16 Temperature 97.9 F Pulse Rate 62 57 L Respiratory Rate 17 Blood Pressure 135/53 L Pulse Oximetry 97 Oxygen Delivery Autopap 07/07/23 04:00 07/07/23 05:11 07/07/23 08:00 Temperature 98.2 F Pulse Rate 55 L 59 L 59 L Respiratory Rate 17 17 Blood Pressure 147/58 H Pulse Oximetry 98 98 Oxygen Delivery Room Air Intake/Output Intake/Output: Intake & Output 07/04/23 07/05/23 07/06/23 07/07/23 23:59 23:59 23:59 23:59 Intake Total 550 2200 1270 480 Output Total 064 747 6083 Balance -50 1450 -1132 480 Meds/Results Medications: Active Medications Generic Name Dose Route Start Last Admin Trade Name Freq PRN Reason Stop Dose Admin Acetaminophen 1,000 mg 07/05/23 04:45 07/07/23 05:49 Acetaminophen 500 Mg Tablet PO 1,000 mg Q6H PRN Administration PAIN 1-3 Aspirin 81 mg 07/05/23 21:00 07/06/23 20:18 Aspirin 81 Mg Enteric Tablet PO 81 mg HS VY Administration Cholestyramine Resin 4 gm 07/05/23 12:00 07/07/23 12:39 Cholestyramine (W/ Sugar) 4 Gm Powd.Pack PO 08/04/23 11:59 4 gm 1200,2
--- NOTE | 2023-07-07 15:19 | PCCCNOTE ---
On 07/07/23, the student, [Tita Easley ], provided care and completed [facility] documentation on this patient. I have reviewed the student's documentation and agree with the findings.
[2023-07-07 17:21] LABS: Glucose Point of Care 92 mg/dl (65-105)
[2023-07-07] MEDS: LORATADINE 10 MG TABLET PO (20:31)
[2023-07-07] MEDS: ASPIRIN 81 MG ENTERIC TABLET PO (20:31)
[2023-07-07] MEDS: rOPINIRole HCL 1 MG TABLET PO (20:31)
[2023-07-07] MEDS: MELATONIN 3 MG TABLET PO (20:31)
[2023-07-07] MEDS: CEFDINIR 300 MG CAPSULE PO (20:31)
[2023-07-07 20:49] LABS: Glucose Point of Care 103 mg/dl (65-105)
[2023-07-08] VITALS (7 sets, daily range): BP systolic 146; BP diastolic 61; PULSE 54–69; RESP 17–18; TEMP 36.8; O2SAT 98
[2023-07-08] MEDS: ACETAMINOPHEN 500 MG TABLET 1000 MG PO ×2 (03:59→10:12)
[2023-07-08] MEDS: LEVOTHYROXINE SODIUM 50 MCG TABLET PO (05:54)
[2023-07-08 06:18] LABS: Basophils Absolute Auto 0.1 K/mm3 (0.0-0.1); Basophils Percent Auto 1.1 % (0.2-1.2); Eosinophils Absolute Auto 0.1 K/mm3 (0-0.3); Hematocrit 34.5 % (37.0-47.0); Hemoglobin 10.9 g/dL (12.0-15.0); Immature Granulocyte Absolute 0.01 K/mm3 (0.00-0.031); Immature Granulocyte Percent A 0.2 % (0-0.5); Lymphocytes Absolute Auto 2.07 K/mm3 (0.9-3.2); Lymphocytes Percent Auto 37.7 % (18.3-44.2); Mean Corpuscular HGB Conc 31.6 g/dl (32-36); Mean Corpuscular Hemoglobin 35.5 pg (26-34); Mean Corpuscular Volume 112.4 fl (80-100); Mean Platelet Volume 8.7 fl (7.4-10.4); Monocytes Absolute Auto 0.5 K/mm3 (0.1-0.6); Monocytes Percent Auto 8.4 % (2.6-8.5); Neutrophils Absolute Auto 2.8 K/mm3 (1.3-6.7); Neutrophils Percent Auto 50.6 % (45.5-73.1); Platelet Count Result 164 k/mm3 (150-375); Red Blood Count 3.07 M/mm3 (4.2-5.4); Red Cell Distribution Width 11.9 % (11.5-14.5); White Blood Count 5.5 K/mm3 (4.5-10.0)
[2023-07-08 06:32] LABS: Alanine Aminotransferase 18 U/L (6-35); Albumin Level 3.5 g/dL (3.5-5.1); Alkaline Phosphatase 68 U/L (38-126); Anion Gap 7 mmol/L (8-16); Aspartate Amino Transferase 27 U/L (14-36); Bilirubin,Total 0.4 mg/dL (0.2-1.3); Blood Urea Nitrogen 16 mg/dL (7-17); Calcium 9.3 mg/dL (8.4-10.2); Carbon Dioxide 21 mmol/L (22-30); Chloride 99 mmol/L (98-107); Estimated CRCL calculation 40 ml/min; Estimated Glomerular Filt Rate > 60; Glucose 86 mg/dL (65-110); Potassium 3.9 mmol/L (3.4-5.0); Sodium 127 mmol/L (137-145)
--- NOTE | 2023-07-08 08:08 | PM.DS ---
DS: Admitting Diagnosis Discharge Date 07/08/23 Admitting Diagnosis lightheadedness acute lower UTI weakness generalized acute hyponatremia essential hypertension sleep apnea type 2 DM spinal stenosis, lumbar region, without neurogenic claudication GERD restless legs syndrome DS: Discharge Diagnosis Discharge Diagnosis (1) Acute lower UTI: Code(s): N39.0 - Urinary tract infection, site not specified Status: Acute (2) C. difficile diarrhea: Code(s): A04.72 - Enterocolitis due to Clostridium difficile, not specified as recurrent Status: Acute (3) Lightheadedness: Code(s): R42 - Dizziness and giddiness Status: Acute (4) Weakness generalized: Code(s): R53.1 - Weakness Status: Acute (5) Acute hyponatremia: Code(s): E87.1 - Hypo-osmolality and hyponatremia Status: Acute (6) Essential (primary) hypertension: Code(s): I10 - Essential (primary) hypertension Status: Acute (7) Sleep apnea: Qualifiers: Sleep apnea type: obstructive Qualified Code(s): G47.33 - Obstructive sleep apnea (adult) (pediatric) Code(s): G47.30 - Sleep apnea, unspecified Status: Acute (8) Type 2 diabetes mellitus with complication, without long-term current use of insulin: Code(s): E11.8 - Type 2 diabetes mellitus with unspecified complications Status: Chronic DS: Summary Hospital Course Reason for hospitalization: Urinary tract infection C-diff Hospital Course: This is an 82 year old female who presented to the hospital on 07/04/23 with complaint of worsening diarrhea. Patient has history of C-diff colitis and was recently on a long taper of vancomycin, Dificid, and budesonide 6mg daily. Patient had a repeat C-diff lab on 06/03/23 which was negative for C-diff. She was then discontinued on vancomycin. She presented to the ER after a near syncopal episode while using the toilet. She stated that she felt dizzy and lightheaded. Another specimen was obtained showing that she was C-diff positive again. Work up in the hospital included a UA which shown positive nitrates, 3+ leukocytes, 11-20 urine WBC's. Urine culture was obtained and is showing proteus mirabilis on final read. Patient was started on Difacid and Rocephin. She was then transitioned to oral Cefdinir once urine cultures resulted. Head CT which was negative for any intracranial process, and a chest x-ray which was negative for any cardiopulmonary process.? Cardiology was consulted. An echo was obtained which shown normal LV systolic function with an EF of 65-70%, grade I diastolic dysfunction, moderate aortic stenosis, RV function was normal. GI was also consulted. On examination today is alert oriented x3, sitting in the chair. She denies any fever, chills, nausea, vomiting,abdominal pain, chest pain, shortness a breath. Vital signs are stable, she is on room air, she has remained afebrile. labs today show hemoglobin 10.9 hematocrit 34.5, sodium 127, potassium 3.9, bicarb 21, blood sugars 86-103, liver enzymes are normal. Patient is stable for discharge at this time. She will need to follow up with her primary care physician which she has an appointment set up for tomorrow. She will also need to follow up in 2 weeks with the gastrointestinal doctor for further management of her stay chronic C diff. she will be discharged home on cefdinir and Dificid. She will also need to follow up with cardiology in 2 weeks. Final diagnosis: urinary tract infection and C difficile Status at Discharge Cognitive/behavioral status at discharge: Alert and oriented x3 Functional status at discharge: independent ambulation Overall status at discharge: patient is progressing back to baseline Time Spent with Patient Time attestation: Total time spent providing and/or coordinating discharge services: Time spent: Greater than 30 minutes Exam Narrative: General: In no acute distress, well nourished Head:
[2023-07-08 08:20] LABS: Glucose Point of Care 90 mg/dl (65-105)
[2023-07-08] MEDS: FIDAXOMICIN 200 MG TABLET PO (08:29)
[2023-07-08] MEDS: SODIUM CHLORIDE 1 GM TABLET PO (08:29)
[2023-07-08] MEDS: DICLOFENAC SOD 75 MG TABLET.EC PO (08:29)
[2023-07-08] MEDS: PHENAZOPYRIDINE HCL 100 MG TABLET 200 MG PO (08:29)
[2023-07-08] MEDS: FAMOTIDINE 20 MG TABLET PO (08:29)
[2023-07-08] MEDS: CEFDINIR 300 MG CAPSULE PO (08:29)
[2023-07-08] MEDS: LOSARTAN POTASSIUM 100 MG TABLET PO (08:29)
[2023-07-08] MEDS: THIAMINE HCL 50 MG TABLET PO (08:29)
[2023-07-08] MEDS: THIAMINE HCL 100 MG TABLET 200 MG PO (08:30)
[2023-07-08] MEDS: CHOLECALCIFEROL 1,000 UNITS TABLET 2000 UNITS PO (08:30)
[2023-07-08] MEDS: METOPROLOL SUCCINATE EXT REL 50 MG TABCR PO (08:30)
== END 2023-07-08 11:10 | disposition home or self-care (01) | DRG 372 ==
LOC: ANHED 22:09 → ANHIMU 22:10 → ANH2MED 07-06 23:30
PROVIDERS: Internal Medicine; Admitting Provider Internal Medicine; Emergency Provider Physician Assistant; PCP Family Medicine; Visit Provider Nurse Practitioner Acute Care
DX: A04.72 Enterocolitis due to Clostridium difficile, not specified as recurrent (principal); E87.1 Hypo-osmolality and hyponatremia; N39.0 Urinary tract infection, site not specified; B96.4 Proteus (mirabilis) (morganii) as the cause of diseases classified elsewhere; E11.9 Type 2 diabetes mellitus without complications; E78.5 Hyperlipidemia, unspecified; E03.9 Hypothyroidism, unspecified; F41.1 Generalized anxiety disorder; F32.A Depression, unspecified; G25.81 Restless legs syndrome; G47.33 Obstructive sleep apnea (adult) (pediatric); H81.10 Benign paroxysmal vertigo, unspecified ear; I10 Essential (primary) hypertension; I35.0 Nonrheumatic aortic (valve) stenosis; K21.9 Gastro-esophageal reflux disease without esophagitis; M48.061 Spinal stenosis, lumbar region without neurogenic claudication; M19.90 Unspecified osteoarthritis, unspecified site; R55 Syncope and collapse; Z95.4 Presence of other heart-valve replacement; Z79.82 Long term (current) use of aspirin; Z99.89 Dependence on other enabling machines and devices; Z98.49 Cataract extraction status, unspecified eye; Z96.1 Presence of intraocular lens; Z90.49 Acquired absence of other specified parts of digestive tract; Z85.828 Personal history of other malignant neoplasm of skin
CPT/HCPCS: 36415; 70450; 71046; 80048; 80053; 80069; 80076; 81001; 82948; 83036; 83735; 83880; 84484; 85025; 85610; 85730; 87077; 87086; 87186; 87493; 93005; 93306; 96365; 96366; 97161; 97165; 97530; 97535; 99285; A9270; G0378; J0696; J7040

== ENCOUNTER 2023-08-10 17:04 | Outpatient (CLI) | payer MEDICARE, BC, SELFPAY ==
[2023-08-10 17:55] LABS: Hematocrit 34.7 % (37.0-47.0); Hemoglobin 11.5 g/dL (12.0-15.0); Mean Corpuscular HGB Conc 33.1 g/dl (32-36); Mean Corpuscular Hemoglobin 33.2 pg (26-34); Mean Corpuscular Volume 100.3 fl (80-100); Mean Platelet Volume 8.6 fl (7.4-10.4); Platelet Count Result 252 k/mm3 (150-375); Red Blood Count 3.46 M/mm3 (4.2-5.4); Red Cell Distribution Width 11.4 % (11.5-14.5); White Blood Count 6.3 K/mm3 (4.5-10.0)
[2023-08-10 18:02] LABS: Alanine Aminotransferase 18 U/L (6-35); Albumin Level 4.2 g/dL (3.5-5.1); Alkaline Phosphatase 87 U/L (38-126); Anion Gap 12 mmol/L (8-16); Aspartate Amino Transferase 29 U/L (14-36); Bilirubin,Total 0.8 mg/dL (0.2-1.3); Blood Urea Nitrogen 27 mg/dL (7-17); Calcium 9.8 mg/dL (8.4-10.2); Carbon Dioxide 26 mmol/L (22-30); Chloride 88 mmol/L (98-107); Estimated Glomerular Filt Rate 43; Glucose 115 mg/dL (65-110); Potassium 4.3 mmol/L (3.4-5.0); Sodium 126 mmol/L (137-145)
== END 2023-08-10 17:05 | disposition home or self-care (01) ==
PROVIDERS: PCP Family Medicine; Visit Provider Nurse Practitioner Family
DX: R19.7 Diarrhea, unspecified (principal); A04.72 Enterocolitis due to Clostridium difficile, not specified as recurrent
CPT/HCPCS: 36415; 80053; 85027

== ENCOUNTER 2023-08-11 15:48 | Outpatient (NON) | payer MEDICARE, BC, SELFPAY ==
[2023-08-11 18:28] LABS: Toxigenic C. Diff NEGATIVE (NEGATIVE)
[2023-08-18 23:47] LABS: Calprotectin, Stool 3910 mcg/g
== END 2023-08-11 15:49 | disposition home or self-care (01) ==
LOC: ANHLAB 15:50
PROVIDERS: PCP Family Medicine; Visit Provider Nurse Practitioner Family
DX: A04.72 Enterocolitis due to Clostridium difficile, not specified as recurrent (principal); R19.7 Diarrhea, unspecified; R19.5 Other fecal abnormalities
CPT/HCPCS: 83993; 87493

== ENCOUNTER 2023-09-01 11:17 | Outpatient (CLI) | payer MEDICARE, BC, SELFPAY ==
[2023-09-01 11:44] LABS: Anion Gap 3 mmol/L (8-16); Blood Urea Nitrogen 19 mg/dL (7-17); Carbon Dioxide 25 mmol/L (22-30); Chloride 101 mmol/L (98-107); Estimated Glomerular Filt Rate > 60; Glucose 104 mg/dL (65-110); Potassium 3.9 mmol/L (3.4-5.0); Sodium 129 mmol/L (137-145)
== END 2023-09-01 11:18 | disposition home or self-care (01) ==
LOC: ANHLAB 11:20
PROVIDERS: PCP Family Medicine; Visit Provider Physician Assistant
DX: E87.1 Hypo-osmolality and hyponatremia (principal)
CPT/HCPCS: 36415; 80048

== ENCOUNTER 2023-09-14 09:12 | Outpatient (RCR) | payer MEDICARE, BC, SELFPAY ==
[2023-09-14 10:32] LABS: Toxigenic C. Diff NEGATIVE (NEGATIVE)
== END 2023-09-14 09:30 | disposition home or self-care (01) ==
LOC: ANHLAB 09:12
PROVIDERS: PCP Family Medicine; Visit Provider Nurse Practitioner
DX: A04.72 Enterocolitis due to Clostridium difficile, not specified as recurrent (principal)
CPT/HCPCS: 87493

== ENCOUNTER 2023-10-24 18:50 | Inpatient (IN) | payer MEDICARE, BC, SELFPAY ==
[2023-10-24] VITALS (28 sets, daily range): BP systolic 88–124; BP diastolic 40–57; PULSE 67–80; RESP 12–20; TEMP 36.3–36.7; O2SAT 90–100
--- NOTE | 2023-10-24 | ECG_ITS ---
Measurements Intervals [place] Rate: 73 P: 70 SC: 170 QRS: -22 QRSD: 107 T: 46 QT: 413 QTc: 456 Interpretive Statements SINUS RHYTHM NONSPECIFIC ST & T-WAVE ABNORMALITY BORDERLINE ECG COMPARED TO ECG 10/24/2023 20:00:36 NO DIFFERENCE Electronically Signed On 10-25-2023 12:53:32 CDT by Ignacio Willard M.D.
--- NOTE | ~2023-10-24 | XR_ITS ---
EXAMINATION: XR chest 1V portable DATE: 10/24/2023 20:04 INDICATION: Weakness. Syncope. TECHNIQUE: A single frontal view of the chest was obtained. COMPARISON: Chest 2 views 07/04/2023 FINDINGS: There is no pneumonia, pleural effusion, or pneumothorax. The heart size is normal. There a re changes of aortic valve replacement. IMPRESSION: 1. No acute cardiopulmonary disease. Reviewed, dictated and finalized at location E.
--- NOTE | ~2023-10-24 | CT_ITS ---
EXAMINATION: CT abdomen pelvis w con DATE: 10/24/2023 21:02 INDICATION: Nausea and vomiting. Weakness. TECHNIQUE: Computed tomography (CT) of the abdomen and pelvis was performed with 100 mL Omnipaque 350 intravenous contrast. Automated exposure control and iterative reconstruction technique were employe d. The dose-length product was 354.00 mGy-cm. COMPARISON: None. FINDINGS: The visualized portions of the lung bases demonstrate mild atelectasis. There is mild scarr ing in paraspinal right lower lobe. No pleural effusion. The heart size is normal. No pericardial eff usion. There is a small sliding hiatal hernia. The liver and spleen are normal. There are changes of cholecystectomy. The pancreas and adrenal glands are normal. There is cortical thinning of the kidney s. There are two stones in right kidney measuring up to 5 mm. There is mild right hydronephrosis. The re is a 3 mm stone in proximal right ureter. There is diverticulosis of the colon without evidence of diverticulitis. There are no dilated loops of bowel. The appendix is not visualized. There is calcif ied atherosclerosis of the aorta and many of the other arteries. There are no pathologically enlarged lymph nodes. There is no free intraperitoneal fluid. There is a total right hip arthroplasty. There is advanced left hip osteoarthritis. There is thoracolumbar dextroscoliosis and severe spondylosis. IMPRESSION: 1. 3 mm stone in proximal right ureter with mild right hydronephrosis. 2. Nonobstructing right kidney stones. Reviewed, dictated and finalized at location E.
--- NOTE | ~2023-10-24 | XR_ITS ---
EXAMINATION: XR abdomen/kub 1V DATE: 10/27/2023 14:13 INDICATION: Right ureteral stone. TECHNIQUE: A supine view of the abdomen on 2 radiographs was obtained. COMPARISON: CT abdomen and pelvis 02/25/2023, abdomen radiographs 04/26/2023 FINDINGS: There are no dilated loops of bowel. Surgical clips in the right upper quadrant are likely from cholecystectomy. There are changes of heart valve replacement. There is a total right hip arthro plasty. IMPRESSION: 1. No visible urolithiasis. Reviewed, dictated and finalized at location A. IMPRESSION: 1. No visible urolithiasis.
--- NOTE | ~2023-10-24 | US_ITS ---
EXAMINATION: US renal BI DATE: 10/28/2023 14:16 INDICATION: Right ureteral stone with mild hydronephrosis TECHNIQUE: Multiple ultrasound grayscale images of the kidneys were obtained. COMPARISON: CT dated 10/24/2023 FINDINGS: The right kidney measures 9.8 x 4.3 x 4.8 cm. The left kidney measures 11.0 x 5.5 x 4.7 cm. The kidne ys demonstrate normal echogenicity. There are a few echogenic and shadowing stones in the right kidne y the largest measuring 5-6 mm in maximal diameter. There is mild right hydronephrosis. There also ap pears to be a approximately 8 mm long dimension 3 mm wide shadowing stone in the proximal most and ri ght ureter best appreciated on the cine images. No left-sided renal stones or hydronephrosis. The jordy dder is decompressed which limits evaluation. IMPRESSION: 1. Right nephrolithiasis with persistent mild right hydronephrosis and likely obstructing 7 x 3 mm s tone in the proximal right ureter. Reviewed, dictated and finalized at location A. IMPRESSION: 1. Right nephrolithiasis with persistent mild right hydronephrosis and likely obstructing 7 x 3 mm stone in the proximal right ureter.
--- NOTE | 2023-10-24 19:13 | ECG_ITS ---
Measurements Intervals [place] Rate: 70 P: 85 OR: 163 QRS: 24 QRSD: 98 T: 156 QT: 414 QTc: 448 Interpretive Statements SINUS RHYTHM NONSPECIFIC ST-T WAVE ABNORMALITY- DIFFUSE LEADS BASELINE ARTIFACT- I, II, AVR, AVL, AVF, V1-V6 BORDERLINE ECG COMPARED TO ECG 07/04/2023 21:59:29 [address]M NOW PRESENT ST-T WAVE ABNORMALITY NOW PRESENT Electronically Signed On 10-24-2023 20:08:01 CDT by Bryce Mcgregor D.O.
--- NOTE | 2023-10-24 19:47 | ED.GENADULT ---
HPI - General Adult General Chief complaint: Weakness Stated complaint: weakness Time Seen by Provider: 10/24/23 18:59 History of Present Illness HPI narrative: This is an 82 yo female presenting with nausea/vomiting/abdominal pain x 3 days. She has also had several loose stools. She said they were dark however she is already on iron supplementation for anemia and they are typically dark. The nausea vomiting associated with a crampy epigastric pain, it is nonradiating constant. Pain is worse after eating. Patient notes subjective fevers but denies chest pain difficulty breathing or urinary symptoms. She has been having episodes of presyncope that resolved when she put her head between her knees. No true syncope or falls. Patient states she takes daily phenazopyridine for frequent UTIs... Related Data Home Medications Medication Instructions Recorded Confirmed aspirin 81 mg tablet,delayed 81 mg PO HS 05/30/19 10/18/23 release cholecalciferol (vitamin D3) 50 50 mcg PO DAILY 02/25/23 10/18/23 mcg (2,000 unit) tablet (Vitamin D3) acetaminophen 650 mg 1,300 mg PO Q8H 02/26/23 10/18/23 tablet,extended release (Arthritis Pain Relief (acetaminophen) ER) cetirizine 10 mg tablet (Zyrtec) 10 mg PO HS 03/16/23 10/18/23 melatonin 3 mg tablet 3 mg PO HS 03/16/23 10/18/23 d-mannose 500 mg capsule (AZO See Rx Instructions .Route .COMPLEX 06/08/23 10/18/23 D-Mannose) estradiol 0.01% (0.1 mg/gram) 1 g vaginal 2XW 06/08/23 10/18/23 vaginal cream magnesium citrate 100 mg tablet 200 mg PO BID 06/23/23 10/18/23 thiamine HCl (vitamin B1) 250 mg 250 mg PO DAILY 06/23/23 10/18/23 tablet cranberry 1,680 mg PO BID 07/04/23 10/18/23 diclofenac sodium 75 mg 75 mg PO Q12H 07/04/23 10/18/23 tablet,delayed release furosemide 20 mg tablet 20 mg PO DAILY PRN swelling 07/04/23 10/18/23 metoprolol succinate 50 mg 50 mg PO DAILY 07/04/23 10/18/23 tablet,extended release 24 hr potassium gluconate 595 mg (99 mg) 595 mg PO BID 07/04/23 10/18/23 tablet psyllium husk 0.52 gram capsule 0.52 g PO BID 07/05/23 10/18/23 loperamide 2 mg capsule (Imodium 2 mg PO Q6H PRN 10/18/23 10/18/23 A-D) Allergies Allergy/AdvReac Type Severity Reaction Status Date / Time ciprofloxacin Allergy Unknown Diarrhea Verified 10/24/23 19:01 house dust Allergy Unknown Sneezing Verified 10/24/23 19:01 niacin Allergy Unknown Skin Verified 10/24/23 19:01 Reaction Nitrate Analogues Allergy Unknown GI UPSET Verified 10/24/23 19:01 oxycodone Allergy Unknown RASH Verified 10/24/23 19:01 pepper (genus Capsicum) Allergy Unknown GI BURNING Verified 10/24/23 19:01 cephalexin [From Keflex] AdvReac Intermediate Diarrhea Verified 10/24/23 19:01 lactose AdvReac Mild Diarrhea Verified 10/24/23 19:01 amitriptyline AdvReac Unknown OPPOSITE Verified 10/24/23 19:01 atenolol AdvReac Unknown cough Verified 10/24/23 19:01 chlordiazepoxide AdvReac Unknown Cashion crazy Verified 10/24/23 19:01 chlorthalidone [Tenoretic] AdvReac Unknown cough Verified 10/24/23 19:01 [facility] Past Medical History Medical History Allergic conjunctivitis of right eye Allergic rhinitis, cause unspecified Anxiety state, unspecified Basal cell carcinoma of skin, unspecified Benign hypertension Benign paroxysmal positional vertigo BMI 27.0-27.9,adult Carpal tunnel syndrome, bilateral Cutaneous abscess of abdominal wall Dependence on other enabling machines and devices Depressive disorder, not elsewhere classified Dysmetabolic syndrome X Dysphagia Dysuria Encounter for immunization (04/18/18) Esophageal spasm Essential (primary) hypertension Gastro-esophageal reflux disease without esophagitis GERD (gastroesophageal reflux disease) History of Mohs micrographic surgery for skin cancer Hx of ectopic Hyponatremia Hypothyroidism Impacted cerumen of left ear Infected cyst of skin Irritable bowel syndrome Metabolic syndrome Mixed hyperlip
[2023-10-24 20:01] LABS: Basophils Percent Auto 0.5 % (0.2-1.2); Eosinophils Absolute Auto 0.1 K/mm3 (0-0.3); Eosinophils Percent Auto 0.6 % (0-4.4); Hematocrit 22.5 % (37.0-47.0); Immature Granulocyte Absolute 0.02 K/mm3 (0.00-0.031); Immature Granulocyte Percent A 0.2 % (0-0.5); Lymphocytes Absolute Auto 2.36 K/mm3 (0.9-3.2); Lymphocytes Percent Auto 27.8 % (18.3-44.2); Mean Corpuscular HGB Conc 30.7 g/dl (32-36); Mean Corpuscular Hemoglobin 32.7 pg (26-34); Mean Corpuscular Volume 106.6 fl (80-100); Monocytes Absolute Auto 0.8 K/mm3 (0.1-0.6); Monocytes Percent Auto 9.1 % (2.6-8.5); Neutrophils Absolute Auto 5.3 K/mm3 (1.3-6.7); Neutrophils Percent Auto 61.8 % (45.5-73.1); Platelet Count Result 178 k/mm3 (150-375); Red Blood Count 2.11 M/mm3 (4.2-5.4); Red Cell Distribution Width 14.2 % (11.5-14.5); White Blood Count 8.5 K/mm3 (4.5-10.0)
[2023-10-24] MEDS: SODIUM CHLORIDE 0.9% IV 2,000 ML 999 ML IV CONT (20:16)
[2023-10-24 20:17] LABS: Hemoglobin 6.9 g/dL (12.0-15.0)
[2023-10-24] MEDS: ONDANSETRON INJ 4 MG/2 ML VIAL IV PUSH (20:17)
[2023-10-24] MEDS: FAMOTIDINE 20 MG/2 ML VIAL IV PUSH (20:17)
[2023-10-24 20:18] LABS: Anisocytosis 1+; Platelet Estimate Adequate (Adequate); Schistocytes Rare
[2023-10-24 20:19] LABS: Lipase 48 U/L (23-300)
[2023-10-24 20:20] LABS: Alanine Aminotransferase 11 U/L (6-35); Albumin Level 3.3 g/dL (3.5-5.1); Alkaline Phosphatase 50 U/L (38-126); Anion Gap 9 mmol/L (4-12); Aspartate Amino Transferase 18 U/L (14-36); Bilirubin,Total 0.5 mg/dL (0.2-1.3); Blood Urea Nitrogen 90 mg/dL (7-17); Calcium 9.4 mg/dL (8.4-10.2); Carbon Dioxide 21 mmol/L (22-30); Chloride 97 mmol/L (98-107); Estimated CRCL calculation 34 ml/min; Estimated Glomerular Filt Rate 48; Glucose 117 mg/dL (65-110); Lactic Acid Reflex 3.2 mmol/L (0.7-2.0); Potassium 4.5 mmol/L (3.4-5.0); Sodium 127 mmol/L (137-145)
[2023-10-24 20:25] LABS: Appearance Urine Cloudy (Clear); Bacteria Urine None Seen /hpf; Bilirubin Urine Negative (Negative); Blood Urine Negative (Negative); Color Urine Dark Yellow (Yellow); Glucose Urine UA 1+ mg/dL (Negative); Ketones Urine Negative (Negative); Leukocyte Esterase Ur 3+ LEU/UL (Negative); Need Manual Microscopic Reviewed; Nitrate Urine Positive (Negative); Non Pathogenic Casts 0-2; Protein Urine Negative (Negative); RBC Urine 0-2 /hpf (0-2); Specific Grav Ur 1.016 (1.001-1.035); Squamous Epithelial Cell Urine None Seen /hpf (Few); WBC Urine >100 /hpf (0-3); pH Urine 5.5 (5.0-9.0)
[2023-10-24 20:26] LABS: Add Urine Microscopic? YES
[2023-10-24 20:31] LABS: NT Pro B Type Natriuretic Pept 633 pg/mL (19.9-100); Troponin I < 0.012 ng/mL (0.000-0.034)
--- NOTE | 2023-10-24 20:35 | PC.NURSE ---
Consent obtained for blood transfusion
[2023-10-24 20:38] LABS: Influenza A QL RT-PCR Negative (Negative); Influenza B QL RT-PCR Negative (Negative); RSV RNA, RT-PCR Negative (Negative); SARS-CoV-2 RNA PCR Negative (Negative)
[2023-10-24] MEDS: PANTOPRAZOLE SODIUM IV 40 MG VIAL 80 MG IV PUSH (21:04)
[2023-10-24] MEDS: SODIUM CHLORIDE 0.9% IV 250 ML 30 ML IV CONT (22:36)
--- NOTE | 2023-10-24 22:39 | PC.NURSE ---
Per Dr. Mari emergency release blood and administer two bags of O negative blood.
[2023-10-24 22:57] LABS: Reflex Lactic Acid Yes or No Add Lactic
[2023-10-24 23:36] LABS: Folic Acid > 20.0 ng/mL (2.76->20)
[2023-10-25] VITALS (30 sets, daily range): BP systolic 103–151; BP diastolic 42–69; PULSE 60–88; RESP 12–21; TEMP 36.1–37.4; O2SAT 92–100; BMI 25.9
--- NOTE | 2023-10-25 00:46 | ECG_ITS ---
Measurements Intervals [place] Rate: 64 P: 81 [place]: 176 QRS: 6 QRSD: 102 T: 73 QT: 431 QTc: 447 Interpretive Statements SINUS RHYTHM NONSPECIFIC T-WAVE ABNORMALITY BORDERLINE ECG COMPARED TO ECG 10/24/2023 21:58:26 NO SIGNIFICANT CHANGES Electronically Signed On 10-25-2023 13:00:23 CDT by Ignacio Willard M.D.
[2023-10-25 00:54] LABS: Hematocrit 27.1 % (37.0-47.0); Hemoglobin 8.7 g/dL (12.0-15.0)
[2023-10-25 02:07] LABS: Troponin I 0.101 ng/mL (0.000-0.034)
[2023-10-25] MEDS: ACETAMINOPHEN 500 MG TABLET 1000 MG PO (03:20)
--- NOTE | 2023-10-25 03:58 | ADMGEN ---
This patient, Elizabeth Herrera, was admitted to IMU Room 232-01. Patient/family oriented to hospital policies and general routines including ID bracelet, bed and alarms, visiting hours, pain management, procedures, bathroom and other care routines, personal items, smoking policy, room service/diet, and visiting hours. Information on how to activate the Rapid Response Team has been discussed. Patient/Family are encouraged to report perceived risks to care and to ask questions if they do not understand what they are told or what they should do.
--- NOTE | 2023-10-25 07:27 | WPDURCON ---
Assessment and Plan Assessment and plan (1) Calculus of proximal ureter: Code(s): N20.1 - Calculus of ureter Status: Acute Assessment and Plan: Currently asymptomatic in terms of the ureteral stone. She does have at abnormal urinalysis but no signs of upper tract infection. She has no flank pain or fever. She is currently on antibiotics. We will strain urine. Will start Flomax. May need intervention for this stone. At current there is no need for acute intervention as she is not septic appearing and not symptomatic. She is also undergoing workup today for anemia. According to the patient it sounds like she may be undergoing EGD today (2) Abnormal urinalysis: Code(s): R82.90 - Unspecified abnormal findings in urine Status: Acute Assessment and Plan: Urine culture pending. Largely asymptomatic. She has a history of asymptomatic bacteriuria in the past. She is on antibiotics Urology Consult Note HPI Date Seen: 10/25/23 Requesting Physician: Geoff Cassidy MD Primary Care Provider: Morelia Ingram MD Consult Narrative Narrative: Elizabeth Herrera is a 82 year old female she has been seen in our office before for recurrent urinary tract infections. She also has asymptomatic bacteriuria. She had a known 4 mm right renal stone which she elected observation. Previous urinalysis have been abnormal but do not always grow out infection. She is in the hospital for weakness. She was diagnosed with anemia. She is undergoing workup for that. She underwent a CT scan. It showed a 3 mm proximal right ureteral stone with mild hydronephrosis. There was also stone in the kidney. There is no delayed nephrogram. There is no stranding around the kidney. There is no signs of upper tract infection. She has an abnormal urinalysis as well. She does not have prominent urinary tract infection symptoms. She denies fever. She denies flank pain. Review of Systems Review of Systems: All systems reviewed & are unremarkable except as noted in HPI and below PMFSH Past Medical History Medical History Allergic conjunctivitis of right eye Allergic rhinitis, cause unspecified Anxiety state, unspecified Basal cell carcinoma of skin, unspecified Benign hypertension Benign paroxysmal positional vertigo BMI 27.0-27.9,adult Carpal tunnel syndrome, bilateral Cutaneous abscess of abdominal wall Dependence on other enabling machines and devices Depressive disorder, not elsewhere classified Dysmetabolic syndrome X Dysphagia Dysuria Encounter for immunization (04/18/18) Esophageal spasm Essential (primary) hypertension Gastro-esophageal reflux disease without esophagitis GERD (gastroesophageal reflux disease) History of Mohs micrographic surgery for skin cancer Hx of ectopic Hyponatremia Hypothyroidism Impacted cerumen of left ear Infected cyst of skin Irritable bowel syndrome Metabolic syndrome Mixed hyperlipidemia due to type 2 diabetes mellitus Nonrheumatic aortic (valve) stenosis Obese CESAR on CPAP Osteoarthritis Other seborrheic keratosis Spinal stenosis, lumbar region, without neurogenic claudication Type 2 diabetes mellitus with complication, without long-term current use of insulin Unspecified essential hypertension Surgical History Surgical History H/O aortic valve replacement H/O aortic valve replacement using Ross procedure H/O cataract removal with insertion of prosthetic lens H/O excision of epidermal inclusion cyst 07/01/2022- excision ruptured epidermal cyst of the LLQ abdomen H/O hammer toe correction History of back surgery History of cholecystectomy History of hip replacement Family History Family History Father Family history of cardiovascular disease Family history of allergic disorder
--- NOTE | 2023-10-25 09:49 | PM.IMHP ---
H&P: HPI History of Present Illness Date/Time: 10/25/23 09:49 Chief Complaint: Weakness Narrative: 82yo female with DM, HTN, CESAR and recent hx of recurrent CDiff. Patient has been feeling weak and fatigued with occasional nausea over the past month. She was taking diclofenac b.i.d. but decrease this to every other day use about 3 months ago. She does use diclofenac gel for her arthritis of her knees, hips and back. Patient has a history of C diff and was last positive in June. She has 2 loose bowel movements daily with stool incontinence since having CDiff and follows with GI. Her stools are dark related to iron intake. She recently she has noted strong odor to her stools. Over the past 3 days she has developed nausea with emesis. The emesis is usually bilious and sometimes mixed with food but no hematemesis. She has been feeling lightheaded and presyncopal but no loss of consciousness. She has been having upper abdominal pain especially after eating for the past few weeks. She does take aspirin daily. She has chills off and on for about a month that is brief. No fevers. Has chronic dysuria and hx of frequent UTIs. She had left sided chest pressure in ED that lasted 3-4 minutes and has this once every 2-3 weeks since August. Last stress test okay about 1-2 years ago. No SOB, diaphoresis or nausea. She follows with Cardiology. Because of her symptoms she present to the emergency room for evaluation. In the Emergency room, patient was hemodynamically stable. Blood pressure however dropped to 88/40. White count and platelet count were normal. Hemoglobin was 6.9. Baseline hemoglobin is 10-11 range. Sodium is 127 with a BUN of 90 and a creatinine 1.1. She has a chronic hyponatremia but her renal function is worse than baseline. Lactic acid was 3.2. B12 level was 215. Urinalysis was consistent with UTI. Influenza, RSV and COVID PCR were negative. Chest x-ray was clear. CT of the abdomen and pelvis with contrast showed a 3 mm stone in the proximal right ureter with mild right hydronephrosis but otherwise no acute findings. She was treated with Pepcid than Protonix. Zofran given. She was given Rocephin for UTI. She was given IV fluids with improvement of her blood pressure. She was transfused 2U PRBC. EKG showing NSR with nonspecific ST-T wave changes in diffuse leads. Repeat EKG showing no change. Troponin climbed to 0.101. She was admitted for further care. Since admission, patient underwent EGD which showed reflux esophagitis grade 2, hiatal hernia and a few crater ulcers in the antrum. No signs of bleeding. Biopsies were taken. Repeat hemoglobin is 9.9. Review of Systems Review of Systems: All systems reviewed & are unremarkable except as noted in HPI and below PMFSH Past Medical History Medical History (Updated 10/25/23 @ 18:33 by Kannan Mckeon MD) Acute on chronic blood loss anemia Allergic conjunctivitis of right eye Allergic rhinitis, cause unspecified Anxiety state, unspecified Basal cell carcinoma of skin, unspecified Benign hypertension Benign paroxysmal positional vertigo BMI 27.0-27.9,adult Carpal tunnel syndrome, bilateral Cutaneous abscess of abdominal wall Dependence on other enabling machines and devices Depressive disorder, not elsewhere classified Dysmetabolic syndrome X Dysphagia Dysuria Encounter for immunization (04/18/18) Esophageal spasm Essential (primary) hypertension Gastro-esophageal reflux disease without esophagitis GERD (gastroesophageal reflux disease) History of Mohs micrographic surgery for skin cancer Hx of ectopic Hyponatremia Hypothyroidism Impacted cerumen of left ear Infected cyst of skin Irritable bowel syndrome Melena Metabolic syndrome Mixed hyperlipidemia due to type 2 diabetes mellitus Nonrheumatic aortic (valve) stenosis Obese CESAR on CPAP Osteoarthritis Other seborrheic keratosis Spinal stenosis, lumbar region, without neurogenic claudication Type 2 d
[2023-10-25] MEDS: LACTATED RINGERS 1,000 ML 150 ML IV CONT (11:39)
--- NOTE | 2023-10-25 11:44 | WPDANESEPPF ---
Anes - Initial Pre Proc Eval Procedure: Operation Date: 10/25/23 15:30 Proposed Procedures p Esophagogastroduodenoscopy - Benji Osman MD Date/Time: 10/25/23 11:44 Surgeon: Geoff Cassidy MD Pre Op Diagnosis: UGIB/UTI Patient Data Age: 82 Gender: F Height: 1.6 m Weight: 66.5 kg Last Vital Signs Temp 97 F L 10/25/23 11:35 Pulse 69 10/25/23 11:35 Resp 19 10/25/23 11:35 BP 115/53 L 10/25/23 11:35 Pulse Ox 95 10/25/23 11:35 O2 Del Method Room Air 10/25/23 11:35 Allergies Allergy/AdvReac Type Severity Reaction Status Date / Time house dust Allergy Unknown Sneezing Verified 10/24/23 19:01 niacin Allergy Unknown Skin Verified 10/24/23 19:01 Reaction oxycodone Allergy Unknown RASH Verified 10/24/23 19:01 cephalexin [From Keflex] AdvReac Intermediate Diarrhea Verified 10/24/23 19:01 lactose AdvReac Mild Diarrhea Verified 10/24/23 19:01 amitriptyline AdvReac Unknown OPPOSITE Verified 10/24/23 19:01 atenolol AdvReac Unknown cough Verified 10/24/23 19:01 chlordiazepoxide AdvReac Unknown [place] crazy Verified 10/24/23 19:01 chlorthalidone [Tenoretic] AdvReac Unknown cough Verified 10/24/23 19:01 ciprofloxacin AdvReac Unknown Diarrhea Verified 10/25/23 11:38 Nitrate Analogues AdvReac Unknown GI UPSET Verified 10/25/23 11:38 pepper (genus Capsicum) AdvReac Unknown GI BURNING Verified 10/25/23 11:38 Home Medications Medication Instructions Recorded Confirmed Type aspirin 81 mg tablet,delayed 81 mg PO HS 05/30/19 10/25/23 History release cholecalciferol (vitamin D3) 50 50 mcg PO DAILY 02/25/23 10/25/23 History mcg (2,000 unit) tablet (Vitamin D3) acetaminophen 650 mg 1,300 mg PO Q8H 02/26/23 10/25/23 History tablet,extended release (Arthritis Pain Relief (acetaminophen) ER) ferrous sulfate 325 mg (65 mg 325 mg PO DAILY 30 days #0 tabs 03/01/23 10/25/23 Rx iron) tablet cetirizine 10 mg tablet (Zyrtec) 10 mg PO HS 03/16/23 10/25/23 History melatonin 3 mg tablet 3 mg PO HS 03/16/23 10/25/23 History ondansetron HCl 4 mg tablet 4 mg PO Q8H PRN nausea and 03/23/23 10/25/23 Rx vomiting #30 tabs d-mannose 500 mg capsule (AZO See Rx Instructions .Route .COMPLEX 06/08/23 10/25/23 History D-Mannose) magnesium citrate 100 mg tablet 200 mg PO BID 06/23/23 10/25/23 History thiamine HCl (vitamin B1) 250 mg 250 mg PO DAILY 06/23/23 10/25/23 History tablet cranberry 1,680 mg PO BID 07/04/23 10/25/23 History metoprolol succinate 50 mg 50 mg PO DAILY 07/04/23 10/25/23 History tablet,extended release 24 hr potassium gluconate 595 mg (99 mg) 595 mg PO BID 07/04/23 10/25/23 History tablet psyllium husk 0.52 gram capsule 0.52 g PO BID 07/05/23 10/25/23 History phenazopyridine 200 mg tablet 200 mg PO DAILY #100 tabs 07/29/23 10/25/23 Rx (Pyridium) levothyroxine 50 mcg tablet See Rx Instructions .Route 08/03/23 10/25/23 Rx .COMPLEX #90 tabs ropinirole 1 mg tablet See Rx Instructions .Route 08/03/23 10/25/23 Rx .COMPLEX #90 tabs famotidine 20 mg tablet See Rx Instructions .Route 08/09/23 10/25/23 Rx .COMPLEX #180 tabs losartan 100 mg tablet 100 mg PO DAILY #90 tabs 08/18/23 10/25/23 Rx sodium chloride 1,000 mg soluble See Rx Instructions .Route 08/18/23 10/25/23 Rx tablet .COMPLEX #90 tabs budesonide 3 mg 6 mg PO DAILY 3 months #180 ea 09/08/23 10/25/23 Rx capsule,delayed,extended release loperamide 2 mg capsule (Imodium 2 mg PO Q6H PRN Diarrhea 10/18/23 10/25/23 History A-D) tramadol 50 mg tablet 50 mg PO BID PRN pain #60 tabs 10/20/23 10/25/23 Rx Laboratory Tests 10/24/23 10/24/23 10/25/23 19:51 19:56 00:43 WBC 8.5 K/mm3 (4.5-10.0) RBC 2.11 L M/mm3 (4.2-5.4) Hgb 6.9 L* D g/dL 8.7 L g/dL (12.0-15.0) (12.0-15.0) Hct 22.5 L % 27.1 L % (37.0-47.0) (37.0-47.0) MCV 106.6 H fl (80-100) MCH 32.7 pg (26-34) MCHC 30.7 L g/dl (32-36) RDW 14.2 %
--- NOTE | 2023-10-25 12:11 | WPDGICN ---
Assessment and Plan Assessment and plan (1) Acute upper GI bleed: Code(s): K92.2 - Gastrointestinal hemorrhage, unspecified Status: Acute Assessment and Plan: probably ulcer- she has been taking nsaid's for long time will proceed with urgent EGD, already on iv protonix more recommendations after egd (2) Melena: Code(s): K92.1 - Melena Status: Acute Assessment and Plan: probably upper gi source keep hgb>7 discontinue nsaid's (3) Acute on chronic blood loss anemia: Code(s): D62 - Acute posthemorrhagic anemia Status: Acute Assessment and Plan: monitor for more signs of bleeding (4) Calculus of proximal ureter: Code(s): N20.1 - Calculus of ureter Status: Acute Assessment and Plan: urology on board GI Consult Note Consult date/time: 10/25/23 12:11 Reason for consult: melena, acute on chronic blood loss anemia HPI: Elizabeth Herrera is a 82 year old female known to our office with previous history of microscopic colitis and C diff, previously treated with vancomycin and Dificid, last episode on June- was treated with Dificid for 14 days and this was followed by [facility]. She is here with nausea/vomiting and abdominal pain for 3 days, noted dark tarry stools and generalized weakness, finally decided to come to ER. She has chronic anemia and normally takes iron but this time stool darker than normal. Also had crampy epigastric pain, it is nonradiating. Blood work with worsening anemia hgb 6.9 (baseline 10-11), bun 90. She has been using nsaid's for long time and recently diclofenac every other day. Admitted to hospital, given iv protonix, transfusion. CT scan reviewed, ?3 mm stone in proximal right ureter with mild right hydronephrosis. 2. Nonobstructing right kidney stones. Review of Systems Constitutional: Constitutional: Reports lethargy and Reports weakness Eyes: Eyes: Denies blurry vision ENT: Reports Normal hearing present Cardiovascular: Cardiovascular: Denies chest pain Respiratory: Respiratory: Denies cough Gastrointestinal: Gastrointestinal: Reports melena and Reports nausea Genitourinary: Genitourinary: Denies urinary urgency Musculoskeletal: Musculoskeletal: Reports arthralgias Integumentary/Breasts: Skin/Breast: Denies rash Neurologic: Denies confusion Psychiatric: Psychiatric: Denies behavioral changes [facility] Past Medical History Medical History (Updated 10/25/23 @ 15:46 by Benji Osman MD) Acute on chronic blood loss anemia Allergic conjunctivitis of right eye Allergic rhinitis, cause unspecified Anxiety state, unspecified Basal cell carcinoma of skin, unspecified Benign hypertension Benign paroxysmal positional vertigo BMI 27.0-27.9,adult Carpal tunnel syndrome, bilateral Cutaneous abscess of abdominal wall Dependence on other enabling machines and devices Depressive disorder, not elsewhere classified Dysmetabolic syndrome X Dysphagia Dysuria Encounter for immunization (04/18/18) Esophageal spasm Essential (primary) hypertension Gastro-esophageal reflux disease without esophagitis GERD (gastroesophageal reflux disease) History of Mohs micrographic surgery for skin cancer Hx of ectopic Hyponatremia Hypothyroidism Impacted cerumen of left ear Infected cyst of skin Irritable bowel syndrome Melena Metabolic syndrome Mixed hyperlipidemia due to type 2 diabetes mellitus Nonrheumatic aortic (valve) stenosis Obese CESAR on CPAP Osteoarthritis Other seborrheic keratosis Spinal stenosis, lumbar region, without neurogenic claudication Type 2 diabetes mellitus with complication, without long-term current use of insulin Unspecified essential hypertension Surgical History Surgical History H/O aortic valve replacement H/O aortic valve replacement using Ross procedure H/O cataract removal with insertion of prosthetic lens H/O excision of e
[2023-10-25] MEDS: PANTOPRAZOLE 40 MG TABLET PO ×2 (15:43→21:28)
[2023-10-25 17:19] LABS: Hematocrit 30.3 % (37.0-47.0); Hemoglobin 9.9 g/dL (12.0-15.0)
[2023-10-26] VITALS (18 sets, daily range): BP systolic 94–144; BP diastolic 42–71; PULSE 56–132; RESP 18–20; TEMP 36–36.6; O2SAT 91–100
[2023-10-26] MEDS: traMADol HCL (*CRX) 50 MG TABLET PO ×3 (00:19→20:53)
[2023-10-26] MEDS: MELATONIN 3 MG TABLET PO ×2 (00:19→20:54)
[2023-10-26] MEDS: rOPINIRole HCL 1 MG TABLET BY MOUTH ×2 (00:19→20:53)
[2023-10-26] MEDS: ACETAMINOPHEN 325 MG TABLET 650 MG PO ×2 (02:42→08:56)
[2023-10-26 05:13] LABS: Basophils Percent Auto 0.4 % (0.2-1.2); Eosinophils Absolute Auto 0.2 K/mm3 (0-0.3); Eosinophils Percent Auto 2.3 % (0-4.4); Hemoglobin 8.2 g/dL (12.0-15.0); Immature Granulocyte Absolute 0.04 K/mm3 (0.00-0.031); Immature Granulocyte Percent A 0.6 % (0-0.5); Lymphocytes Absolute Auto 2.07 K/mm3 (0.9-3.2); Lymphocytes Percent Auto 29.7 % (18.3-44.2); Mean Corpuscular HGB Conc 31.5 g/dl (32-36); Mean Corpuscular Hemoglobin 30.6 pg (26-34); Mean Platelet Volume 9.3 fl (7.4-10.4); Monocytes Absolute Auto 0.6 K/mm3 (0.1-0.6); Monocytes Percent Auto 8.9 % (2.6-8.5); Neutrophils Percent Auto 58.1 % (45.5-73.1); Platelet Count Result 142 k/mm3 (150-375); Red Blood Count 2.68 M/mm3 (4.2-5.4); Red Cell Distribution Width 20.4 % (11.5-14.5)
[2023-10-26 05:32] LABS: Alanine Aminotransferase 14 U/L (6-35); Albumin Level 2.8 g/dL (3.5-5.1); Alkaline Phosphatase 49 U/L (38-126); Anion Gap 7 mmol/L (4-12); Aspartate Amino Transferase 26 U/L (14-36); Bilirubin,Total 0.7 mg/dL (0.2-1.3); Blood Urea Nitrogen 34 mg/dL (7-17); Calcium 8.9 mg/dL (8.4-10.2); Carbon Dioxide 19 mmol/L (22-30); Chloride 107 mmol/L (98-107); Estimated CRCL calculation 29 ml/min; Estimated Glomerular Filt Rate 48; Glucose 99 mg/dL (65-110); Magnesium 2.1 mg/dL (1.6-2.3); Phosphorus 3.3 mg/dL (2.5-4.5); Potassium 3.7 mmol/L (3.4-5.0); Sodium 133 mmol/L (137-145)
[2023-10-26 05:56] LABS: Troponin I 0.251 ng/mL (0.000-0.034)
[2023-10-26] MEDS: LEVOTHYROXINE SODIUM 50 MCG TABLET BY MOUTH (06:05)
--- NOTE | 2023-10-26 07:40 | WPDANESPN ---
Anes - Prog Note Post-Op Date/Time: 10/26/23 07:40 Cardiovascular status: normal Respiratory status: normal Airway patency: baseline Mental status: baseline Post-Op hydration status: normal Vital Signs: Last Vital Signs Temp 97.7 F 10/26/23 04:42 Pulse 66 10/26/23 06:00 Resp 20 10/26/23 04:42 BP 125/56 L 10/26/23 04:42 Pulse Ox 94 10/26/23 04:42 O2 Del Method CPAP 10/26/23 04:00 Pain Score (VAS): 0 I/O: Intake & Output 10/25/23 10/25/23 10/26/23 15:59 23:59 07:59 Intake Total 150 1070 350 Output Total 1100 1745 450 Balance -950 -1455 -100 Laboratory Tests 10/26/23 04:16 10/26/23 04:16 10/25/23 10/25/23 10/26/23 00:43 17:13 04:16 WBC 7.0 RBC 2.68 L Hgb 9.9 L 8.2 L Hct 30.3 L 26.0 L MCV 97.0 D MCH 30.6 D MCHC 31.5 L RDW 20.4 H Plt Count 142 L MPV 9.3 Immature Gran % (Auto) 0.6 H Neut % (Auto) 58.1 Lymph % (Auto) 29.7 [place] % (Auto) 8.9 H Eos % (Auto) 2.3 Baso % (Auto) 0.4 Lymph # (Auto) 2.07 [place] # (Auto) 0.6 Eos # (Auto) 0.2 Baso # (Auto) 0.0 Abs Immat Gran (auto) 0.04 H Absolute Neuts (auto) 4.0 Absolute Nucleated RBC 0.000 Nucleated RBC % 0.0 Sodium 133 L Potassium 3.7 Chloride 107 Carbon Dioxide 19 L Anion Gap 7 L BUN 34 H D Creatinine 1.10 H Estim Creat Clear Calc 29 Estimated GFR 48 L Glucose 99 Calcium 8.9 Phosphorus 3.3 Magnesium 2.1 Total Bilirubin 0.7 AST 26 ALT 14 Alkaline Phosphatase 49 Troponin I 0.251 H* Total Protein 5.0 L Albumin 2.8 L Crossmatch See Detail Microbiology 10/24/23 19:56 Urine Clean Catch Urine Culture - Final Post-procedural complaints: none Patient Feedback: Patient satisfied with anesthetic care.
[2023-10-26] MEDS: CYANOCOBALAMIN 1,000 MCG TABLET 1000 MCG PO (08:51)
[2023-10-26] MEDS: PANTOPRAZOLE 40 MG TABLET PO ×2 (08:51→20:53)
--- NOTE | 2023-10-26 12:33 | ECG_ITS ---
Measurements Intervals [place] Rate: 148 P: MA: 0 QRS: 18 QRSD: 98 T: 155 QT: 258 QTc: 405 Interpretive Statements ATRIAL FIBRILLATION WITH RAPID VENTRICULAR RESPONSE MARKED ST DEPRESSION, CONSIDER SUBENDOCARDIAL INJURY [0.2+ mV ST DEPRESSION] WARNING: DATA QUALITY MAY AFFECT INTERPRETATION INTERPRETATION BASED ON A DEFAULT AGE OF 40 YEARS COMPARED TO ECG 10/25/2023 00:53:23 ATRIAL FIBRILLATION NOW PRESENT Electronically Signed On 10-27-2023 12:16:24 CDT by Jones Coats M.D.
--- NOTE | 2023-10-26 12:47 | PM.IMPN ---
Progress Note: A&P Assessment and Plan (1) Atrial fibrillation: Code(s): I48.91 - Unspecified atrial fibrillation Status: Acute Assessment and Plan: Patient developed tachycardia with EKG showing AFib/RVR with marked ST depression across the anterior-lateral leads and inferior to a less extent. Metoprolol once, Check Trop series Cardiology consult No plans for anticoagulation due recent GI bleed Neuro checks (2) Hypotension: Code(s): I95.9 - Hypotension, unspecified Status: Acute Assessment and Plan: Patient presents with weakness and symptoms of presyncope related to acute blood loss anemia. Blood pressure dropped to 88/40. Lactic acid was elevated 3.2. Hemoglobin 6.9. She was treated appropriately with IV fluids and blood transfusion. Blood pressure responded appropriately. Lactic acid level normal. Hemoglobin has improved BP remaining stable. (3) Acute on chronic blood loss anemia: Code(s): D62 - Acute posthemorrhagic anemia Status: Acute Assessment and Plan: Patient with acute blood loss anemia related to gastric ulcers most likely. She has a chronic underlying anemia with hemoglobin mostly in the 10-11 range. B12 deficiency noted which is probably contributing to her chronic anemia. BUN of 90 related to the GI bleed. No recent iron studies but will hold on checking the since she has just had a transfusion. Oral B12 ordered and tolerating this (has niacin allergy) Hgb running 8-9 range. Trend hemoglobin for stability. Transfuse as needed. (4) Elevated troponin: Code(s): R79.89 - Other specified abnormal findings of blood chemistry Status: Acute Assessment and Plan: Troponin normal on admission but repeat is elevated 0.25 EKG on admission showing nonspecific ST-T wave changes. Echo in June showing EF of 65-70% and grade 1 diastolic dysfunction and moderate aortic stenosis with mild-moderate MR. Suspect this is more likely related to type 2 RI from demand ischemia from the anemia or from episode of AFib priro to admission Repeat EKG showing ischemic changes. Trend troponins. Cards consult. (5) Acute UTI: Code(s): N39.0 - Urinary tract infection, site not specified Status: Acute Assessment and Plan: UA is consistent with UTI. UCx collected. Rocephin started. UCx negative. UTI ruled out. Stop Rocephin (6) Kidney stone: Code(s): N20.0 - Calculus of kidney Status: Acute Assessment and Plan: Incidental finding of a 3 mm stone in the proximal right ureter with mild right hydronephrosis. This might be contributing to her mildly elevated creatinine although suspect this is more likely related to above. Urology consulted. Appreciate their input. (7) Gastric ulcer: Code(s): K25.9 - Gastric ulcer, unspecified as acute or chronic, without hemorrhage or perforation Status: Acute Assessment and Plan: Patient was seen by GI for acute blood loss anemia. EGD 10/25/23 shows reflux esophagitis grade 2, hiatal hernia and a few crater ulcers without signs of bleeding. Biopsies were taken. Continue Protonix. Monitor hemoglobin for stability. Appreciate GI input. (8) Esophagitis: Code(s): K20.90 - Esophagitis, unspecified without bleeding Status: Acute Assessment and Plan: As above (9) B12 deficiency anemia: Code(s): D51.9 - Vitamin B12 deficiency anemia, unspecified Status: Acute Assessment and Plan: Patient noted to be B12 deficient. Continue replacement. (10) CESAR on CPAP: Code(s): G47.33 - Obstructive sleep apnea (adult) (pediatric); Z99.89 - Dependence on other enabling machines and devices Status: Chronic Assessment and Plan: Continue CPAP. (11) Type 2 diabetes mellitus with complication, without long-term current use of insulin: Code(s): E11.8 - Type 2 diabetes mellitus with unspecified com
[2023-10-26] MEDS: METOPROLOL TARTRATE INJ 5 MG/5 ML VIAL IV PUSH (12:52)
--- NOTE | 2023-10-26 13:26 | PM.CNCAR ---
Assessment and Plan Assessment and plan (1) Atrial fibrillation: Code(s): I48.91 - Unspecified atrial fibrillation Status: Acute Assessment and Plan: History of postoperative atrial fibrillation with no known recurrence since 2016. She did have atrial fibrillation with RVR captured on telemetry and EKG this afternoon. She has converted spontaneously to sinus rhythm. Discussed the concept of starting an antiarrhythmic (amiodarone or dronedarone probably) to encourage maintenance of sinus rhythm. Patient does not wish to add any new medications at this time, and would prefer to continue with metoprolol If she has further recurrences, will need to select another strategy No anticoagulation at this time as she presented with Hgb 6.9 with presumed GIB from ulcers Continue to monitor on telemetry Check TSH Metoprolol had been held because of hypotension, but as BP has improved with fluid resuscitation, can up titrate her metoprolol dose, and will shift to Toprol XL for dosing convenience. (2) Elevated troponin: Code(s): R79.89 - Other specified abnormal findings of blood chemistry Status: Acute Assessment and Plan: Troponin levels elevated at 0.101, 0.251, 0.158. Probably secondary to demand ischemia from anemia and tachycardia. She did have some ST depression on EKG taken while in AF RVR. Again, probably related to demand ischemia. Will repeat an EKG in the morning. She denies any anginal symptoms. However, cannot rule out underlying CAD, so outpatient ischemic evaluation would be reasonable. (3) Acute on chronic blood loss anemia: Code(s): D62 - Acute posthemorrhagic anemia Status: Acute Assessment and Plan: Per GI and hospitalist. History of Present Illness History of Present Illness Consult date/time: 10/26/23 13:26 Requesting physician: Kannan Mckeon MD Consult reason: atrial fibrillation Reason For Visit: UGIB/UTI Narrative: Elizabeth Herrera is an 82 year old female with history of severe aortic stenosis status post bioprosthetic AVR in 2016 and diastolic heart failure. She also reports a history of postoperative atrial fibrillation in 2016 but has not had problems with AF since. She followed previously with Dr. Bangura and now sees Dr. Kendrick for follow up. She enters the hospital with complaints of weakness and fatigue. She was found to be significantly anemic. She has undergone EGD which showed reflux esophagitis grade 2, hiatal hernia and a few crater ulcers in the antrum with no signs of bleeding. She has been transfused and received IV fluids. This afternoon, she went into atrial fibrillation with rapid ventricular response for about 45 minutes. She was symptomatic with palpitations and shortness of breath. She converted spontaneously to sinus rhythm. At the time of my evaluation she is lying comfortably in bed with no complaints and remains in sinus rhythm Review of Systems Review of Systems: All systems reviewed & are unremarkable except as noted in HPI and below PMFSH Past Medical History Medical History Acute on chronic blood loss anemia Allergic conjunctivitis of right eye Allergic rhinitis, cause unspecified Anxiety state, unspecified Atrial fibrillation Basal cell carcinoma of skin, unspecified Benign hypertension Benign paroxysmal positional vertigo BMI 27.0-27.9,adult Carpal tunnel syndrome, bilateral Cutaneous abscess of abdominal wall Dependence on other enabling machines and devices Depressive disorder, not elsewhere classified Dysmetabolic syndrome X Dysphagia Dysuria Encounter for immunization (04/18/18) Esophageal spasm Essential (primary) hypertension Gastro-esophageal reflux disease without esophagitis GERD (gastroesophageal reflux disease) History of Mohs micrographic surgery for skin cancer Hx of ectopic Hyponatremia Hypothyroidism Impacted cerumen of left ear In
[2023-10-26 13:56] LABS: Troponin I 0.158 ng/mL (0.000-0.034)
[2023-10-26] MEDS: CHOLECALCIFEROL 1,000 UNITS TABLET 2000 UNITS PO (14:11)
[2023-10-26] MEDS: METOPROLOL TARTRATE 25 MG TABLET PO (14:12)
[2023-10-26] MEDS: BUDESONIDE 3 MG CAP.SR.24H 6 MG PO (14:12)
[2023-10-26] MEDS: SODIUM CHLORIDE 1 GM TABLET BY MOUTH (14:12)
[2023-10-26] MEDS: THIAMINE HCL 100 MG TABLET 200 MG PO (14:12)
--- NOTE | 2023-10-26 14:12 | WPDGIPROGNO ---
Progress Note: A&P Assessment and Plan (1) Gastric ulcer: Code(s): K25.9 - Gastric ulcer, unspecified as acute or chronic, without hemorrhage or perforation Status: Acute Assessment and Plan: cause of melena on presentation she has been taking nsaid's- discontinued now ppi twice daily monitor for more signs of bleeding (2) Esophagitis: Code(s): K20.90 - Esophagitis, unspecified without bleeding Status: Acute (3) Acute on chronic blood loss anemia: Code(s): D62 - Acute posthemorrhagic anemia Status: Acute Assessment and Plan: s/p transfusion monitor h/h (4) Melena: Code(s): K92.1 - Melena Status: Acute (5) Hypotension: Code(s): I95.9 - Hypotension, unspecified Status: Acute Assessment and Plan: resolved (6) Atrial fibrillation: Code(s): I48.91 - Unspecified atrial fibrillation Status: Acute Subjective Date/time seen: 10/26/23 14:12 Interval history: egd with gastric ulcers and esophagitis last BM still with dark material Review of Systems Review of Systems: All systems reviewed & are unremarkable except as noted in HPI and below Exam Const: General: comfortable and no acute distress HENMT: Face/Nose/Sinus: Normal nares present Eyes: General: appearance normal, both eyes and all related structures Neck: Neck: supple Resp: Auscultation: clear to auscultation bilaterally Cardio: Rate: regular rate Rhythm: regular rhythm GI: Inspection: non-distended GI Palp: Yes Soft to palpation and No Tenderness to palpation present (GI) Auscultation: normal bowel sounds Skin: Other: pallor Neuro: Speech: normal speech Motor exam (neuro): 5/5 motor strength present throughout Extrem: General: normal to inspection Psych: Mental Status: mental status grossly normal Objective Data Vital Signs Vital Signs: Vital Signs - 24 hr 10/25/23 16:00 10/25/23 16:00 10/25/23 17:36 Temperature 99.4 F Pulse Rate 66 72 Respiratory Rate 18 Blood Pressure 151/69 H Pulse Oximetry 100 Oxygen Delivery Room Air Fraction of Inspired Oxygen 10/25/23 18:00 10/25/23 20:00 10/26/23 00:34 Temperature 97.4 F L 97.8 F Pulse Rate 79 72 98 Respiratory Rate 16 20 Blood Pressure 112/42 L 120/45 L Pulse Oximetry 92 96 Oxygen Delivery Fraction of Inspired Oxygen 10/25/23 20:00 10/25/23 20:00 10/25/23 22:00 Temperature Pulse Rate 86 79 Respiratory Rate Blood Pressure Pulse Oximetry Oxygen Delivery CPAP Fraction of Inspired Oxygen 10/26/23 00:00 10/26/23 00:00 10/26/23 02:00 Temperature Pulse Rate 81 79 Respiratory Rate Blood Pressure Pulse Oximetry Oxygen Delivery CPAP Fraction of Inspired Oxygen 10/26/23 04:42 10/26/23 04:00 10/26/23 04:00 Temperature 97.7 F Pulse Rate 74 69 Respiratory Rate 20 Blood Pressure 125/56 L Pulse Oximetry 94 Oxygen Delivery CPAP Fraction of Inspired Oxygen 10/26/23 06:00 10/26/23 08:23 10/26/23 08:00 Temperature 96.9 F L Pulse Rate 66 79 Respiratory Rate 20 Blood Pressure 134/57 L Pulse Oximetry 98 98 Oxygen Delivery Room Air Fraction of Inspired Oxygen 21 10/26/23 08:00 10/26/23 10:55 10/26/23 12:00 Temperature 96.8 F L Pulse Rate 71 78 Respiratory Rate 18 Blood Pressure 144/71 H Pulse Oximetry 100 Oxygen Delivery Room Air Fraction of Inspired Oxygen 10/26/23 10:00 10/26/23 12:52 10/26/23 13:23 Temperature Pulse Rate 78 132 H Respiratory Rate Blood Pressure Pulse Oximetry Oxygen Delivery Room Air Fraction of Inspired Oxygen Intake/Output Intake/Output: Intake & Output 10/23/23 10/24/23 10/25/23 10/26/23 23:59 23:59 23:59 23:59 Intake Total 2049 2170 810 Output Total 5625 950 Balance 1490 -4531 -374 Meds/Results Medications: Active Medications Generic Name Dose Route Start Last Admin Trade
[2023-10-26] MEDS: THIAMINE HCL 50 MG TABLET PO (14:13)
--- NOTE | 2023-10-26 15:51 | WPDUROPN2 ---
Progress Note: A&P Assessment and Plan (1) Calculus of proximal ureter: Code(s): N20.1 - Calculus of ureter Status: Acute Assessment and Plan: 3 mm proximal right ureteral stone with mild right hydroureter. She is asymptomatic with this. No evidence of infection. Urine culture is negative. Continue with trial of passage. Strain all urine. Will begin tamsulosin. Will obtain KUB in the morning to see if stone is visible. If she is unable to pass the stone, will arrange outpatient surgical intervention given lack of infection or pain. (2) Abnormal urinalysis: Code(s): R82.90 - Unspecified abnormal findings in urine Status: Acute Assessment and Plan: UA abnormal on presentation. History of asymptomatic bacteriuria. She has no UTI symptoms. Urine culture finalized today is negative. No need for ongoing antibiotics. Subjective Subjective Date/Time Seen: 10/26/23 15:51 Interval history: Elizabeth is doing well today. She complains of knee and hip pain that is chronic. She denies suprapubic pain, flank pain, back pain. She is voiding well and has no concerns. WBC is normal. Creatinine stable at 1.1. She is afebrile and vital signs are stable. Review of Systems Review of Systems: All systems reviewed & are unremarkable except as noted in HPI and below Exam Narrative: General: Awake, alert, comfortable, no acute distress HEENT: Normocephalic, atraumatic, sclerae anicteric Respiratory: Normal respiratory effort, no accessory muscle use Abdomen: Nondistended, soft, nontender Skin: Normal coloration, warm and dry Neurologic: No focal neuro deficits noted Psychiatric: Appropriate mood and affect, judgment and insight intact Objective Data Vital Signs Vital Signs: Vital Signs - 24 hr 10/25/23 16:00 10/25/23 16:10/25/23 17:36 Temperature 99.4 F Pulse Rate 66 72 Respiratory Rate 18 Blood Pressure 151/69 H Pulse Oximetry 100 Oxygen Delivery Room Air Fraction of Inspired Oxygen 10/25/23 18:00 10/25/23 20:00 10/26/23 00:34 Temperature 97.4 F L 97.8 F Pulse Rate 79 72 98 Respiratory Rate 16 20 Blood Pressure 112/42 L 120/45 L Pulse Oximetry 92 96 Oxygen Delivery Fraction of Inspired Oxygen 10/25/23 20:00 10/25/23 20:00 10/25/23 22:00 Temperature Pulse Rate 86 79 Respiratory Rate Blood Pressure Pulse Oximetry Oxygen Delivery CPAP Fraction of Inspired Oxygen 10/26/23 00:00 10/26/23 00:00 10/26/23 02:00 Temperature Pulse Rate 81 79 Respiratory Rate Blood Pressure Pulse Oximetry Oxygen Delivery CPAP Fraction of Inspired Oxygen 10/26/23 04:42 10/26/23 04:00 10/26/23 04:00 Temperature 97.7 F Pulse Rate 74 69 Respiratory Rate 20 Blood Pressure 125/56 L Pulse Oximetry 94 Oxygen Delivery CPAP Fraction of Inspired Oxygen 10/26/23 06:00 10/26/23 08:23 10/26/23 08:00 Temperature 96.9 F L Pulse Rate 66 79 Respiratory Rate 20 Blood Pressure 134/57 L Pulse Oximetry 98 98 Oxygen Delivery Room Air Fraction of Inspired Oxygen 21 10/26/23 08:00 10/26/23 10:55 10/26/23 12:00 Temperature 96.8 F L Pulse Rate 71 78 Respiratory Rate 18 Blood Pressure 144/71 H Pulse Oximetry 100 Oxygen Delivery Room Air Fraction of Inspired Oxygen 10/26/23 10:00 10/26/23 12:52 10/26/23 13:23 Temperature Pulse Rate 78 132 H Respiratory Rate Blood Pressure Pulse Oximetry Oxygen Delivery Room Air Fraction of Inspired Oxygen 10/26/23 14:12 Temperature Pulse Rate 67 Respiratory Rate Blood Pressure Pulse Oximetry Oxygen Delivery Fraction of Inspired Oxygen Intake/Output Intake/Output: Intake & Output 10/23/23 10/24/23 10/25/23 10/26/23 23:59 23:59 23:59 23:59 Intake Total 2 2170 810 Output Total 4893 950 Balance 3764 -1559 -140 Meds/Results Medications: Active Medications Generic Name Dose Route
[2023-10-26] MEDS: TAMSULOSIN HCL 0.4 MG CAPSULE PO (16:12)
[2023-10-26] MEDS: MAGNESIUM OXIDE 200 MG TABLET PO (16:12)
[2023-10-26] MEDS: ACETAMINOPHEN 500 MG TABLET 1000 MG PO (16:12)
[2023-10-26 19:19] LABS: Troponin I 0.152 ng/mL (0.000-0.034)
[2023-10-26] MEDS: LORATADINE 10 MG TABLET PO (20:55)
[2023-10-27] VITALS (16 sets, daily range): BP systolic 98–129; BP diastolic 41–54; PULSE 54–80; RESP 12–18; TEMP 36.1–36.5; O2SAT 95–98
[2023-10-27] MEDS: ACETAMINOPHEN 500 MG TABLET 1000 MG PO ×4 (00:07→21:08)
[2023-10-27 04:35] LABS: Hematocrit 25.8 % (37.0-47.0); Hemoglobin 8.2 g/dL (12.0-15.0); Mean Corpuscular HGB Conc 31.8 g/dl (32-36); Mean Corpuscular Hemoglobin 31.1 pg (26-34); Mean Corpuscular Volume 97.7 fl (80-100); Mean Platelet Volume 8.8 fl (7.4-10.4); Platelet Count Result 127 k/mm3 (150-375); Red Blood Count 2.64 M/mm3 (4.2-5.4); Red Cell Distribution Width 20.1 % (11.5-14.5); White Blood Count 4.8 K/mm3 (4.5-10.0)
[2023-10-27 04:55] LABS: Anion Gap 3 mmol/L (4-12); Blood Urea Nitrogen 20 mg/dL (7-17); Calcium 8.7 mg/dL (8.4-10.2); Carbon Dioxide 21 mmol/L (22-30); Chloride 104 mmol/L (98-107); Estimated CRCL calculation 40 ml/min; Estimated Glomerular Filt Rate > 60; Glucose 100 mg/dL (65-110); Magnesium 1.9 mg/dL (1.6-2.3); Potassium 3.7 mmol/L (3.4-5.0); Sodium 128 mmol/L (137-145)
[2023-10-27] MEDS: LEVOTHYROXINE SODIUM 50 MCG TABLET BY MOUTH (06:14)
--- NOTE | 2023-10-27 08:00 | ECG_ITS ---
Measurements Intervals [place] Rate: 59 P: 82 IA: 174 QRS: -3 QRSD: 114 T: 66 QT: 460 QTc: 459 Interpretive Statements SINUS BRADYCARDIA CANNOT RULE OUT LATERAL MYOCARDIAL INFARCTION, PROBABLY OLD [40+ ms Q WAVE IN I/aVL/V3- V6] BORDERLINE ECG COMPARED TO ECG 10/26/2023 12:33:15 SINUS BRADYCARDIA HAS REPLACED ATRIAL FIBRILLATION Electronically Signed On 10-27-2023 14:35:08 CDT by Melvin Lombardi M.D.
[2023-10-27] MEDS: THIAMINE HCL 100 MG TABLET 200 MG PO (08:34)
[2023-10-27] MEDS: THIAMINE HCL 50 MG TABLET PO (08:34)
[2023-10-27] MEDS: CHOLECALCIFEROL 1,000 UNITS TABLET 2000 UNITS PO (08:34)
[2023-10-27] MEDS: METOPROLOL SUCCINATE EXT REL 25 MG, METOPROLOL SUCCINATE EXT REL 50 MG 75 MG PO (08:34)
[2023-10-27] MEDS: PANTOPRAZOLE 40 MG TABLET PO ×2 (08:34→20:01)
[2023-10-27] MEDS: TAMSULOSIN HCL 0.4 MG CAPSULE PO (08:34)
[2023-10-27] MEDS: CYANOCOBALAMIN 1,000 MCG TABLET 1000 MCG PO (08:35)
[2023-10-27] MEDS: BUDESONIDE 3 MG CAP.SR.24H 6 MG PO (08:35)
[2023-10-27] MEDS: SODIUM CHLORIDE 1 GM TABLET BY MOUTH (08:35)
[2023-10-27] MEDS: MAGNESIUM OXIDE 200 MG TABLET PO ×2 (08:35→17:50)
--- NOTE | 2023-10-27 11:37 | PCOTNOTE ---
The patient treatment was not able to be completed. Patient was eating at the time. Will plan to continue treatment per plan of care.
--- NOTE | 2023-10-27 12:32 | PM.PNCARD ---
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 She did have atrial fibrillation with RVR captured on telemetry and EKG this afternoon. She has converted spontaneously to sinus rhythm. Discussed the concept of starting an antiarrhythmic (amiodarone or dronedarone probably) to encourage maintenance of sinus rhythm. Patient does not wish to add any new medications at this time, and would prefer to continue with metoprolol If she has further recurrences, will need to select another strategy No anticoagulation at this time as she presented with Hgb 6.9 with presumed GIB from ulcers Continue to monitor on telemetry Metoprolol had been held because of hypotension. Patient tolerated Toprol XL 75 mg daily today. BP improved overall. Discussed at length patient is not presently a candidate for initiation of systemic anticoagulation a poor candidate for aspirin in the future. As such, discussed benefits of left atrial appendage occlusion device which should be considered on outpatient basis. All questions answered to her satisfaction. Patient verbalized understanding. Patient follows with Dr. Kendrick can discuss in further detail as an outpatient. Explained the pros and cons, benefits and risks in this regard. She appreciated by time and explanations. Discussed pathophysiology of atrial fibrillation, embolic stroke risk, management with anticoagulation and according to bleeding risk. Patient also mentions she has had several falls in the past making patient overall a relatively poor candidate for systemic anticoagulation. We need to continue to monitor to ensure hemodynamic stability on beta-blockers. I explained patient is at elevated risk with CHADS2 Vasc score 5. (2) Elevated troponin: Code(s): R79.89 - Other specified abnormal findings of blood chemistry Status: Acute Assessment and Plan: Troponin levels elevated at 0.101, 0.251, 0.158. Probably secondary to demand ischemia from anemia and tachycardia. She did have some ST depression on EKG taken while in AF RVR. Again, probably related to demand ischemia. Will repeat an EKG in the morning. She denies any anginal symptoms. However, cannot rule out underlying CAD, so outpatient ischemic evaluation would be reasonable. (3) Acute on chronic blood loss anemia: Code(s): D62 - Acute posthemorrhagic anemia Status: Acute Assessment and Plan: Status post blood transfusion secondary to acute GI bleed related to gastric ulcer. Continue to monitor closely. Management Per GI and hospitalist. B.i.d. Protonix 40 mg. Patient is not a candidate for systemic anticoagulation due to presentation in GI bleeding with subsequent anemia. (4) Gastric ulcer: Code(s): K25.9 - Gastric ulcer, unspecified as acute or chronic, without hemorrhage or perforation Status: Acute Assessment and Plan: Management per GI. Continue b.i.d. PPI. Patient has advised to avoid NSAIDs including aspirin. Follow H&H which is unstable past 24 hours at 8.2.. (5) CESAR on CPAP: Code(s): G47.33 - Obstructive sleep apnea (adult) (pediatric); Z99.89 - Dependence on other enabling machines and devices Status: Chronic Assessment and Plan: Continue compliance with CPAP for treatment of CESAR. Risk for recurrent atrial fibrillation with noncompliance. (6) H/O aortic valve replacement: Code(s): Z95.2 - Presence of prosthetic heart valve Status: Acute Assessment and Plan: History of bioprosthetic aortic valve 2016 secondary to severe aortic stenosis. Stable this time. Prophylactic antibiotics prior to dental/surgical procedures. No acut
[2023-10-27] MEDS: traMADol HCL (*CRX) 50 MG TABLET PO ×2 (12:43→20:01)
--- NOTE | 2023-10-27 13:47 | WPDUROPN2 ---
Progress Note: A&P Assessment and Plan (1) Calculus of proximal ureter: Code(s): N20.1 - Calculus of ureter Status: Acute Assessment and Plan: 3 mm proximal right ureteral stone with mild right hydroureter. She is asymptomatic with this. No evidence of infection. Urine culture is negative. Continue with trial of passage. Strain all urine. Continue tamsulosin. Will obtain KUB to see if stone is visible. If she is unable to pass the stone, will arrange outpatient surgical intervention. No need for acute intervention as there is no infection and she is largely asymptomatic. (2) Abnormal urinalysis: Code(s): R82.90 - Unspecified abnormal findings in urine Status: Acute Assessment and Plan: UA abnormal on presentation. History of asymptomatic bacteriuria. She has no UTI symptoms. Urine culture collected on 10/24/23 negative. No need for ongoing antibiotics. Subjective Subjective Date/Time Seen: 10/27/23 13:47 Interval history: Doing well today. Denies abdominal pain, flank pain, suprapubic pain, nausea, or vomiting. She is tolerating her diet. She does complain of some intermittent dysuria. No fever or chills. She is afebrile and her vital signs are stable. WBC is normal at 4.8. Creatinine normal, 0.8. Review of Systems Review of Systems: All systems reviewed & are unremarkable except as noted in HPI and below Exam Narrative: General: Awake, alert, comfortable, no acute distress HEENT: Normocephalic, atraumatic, sclerae anicteric Respiratory: Normal respiratory effort, no accessory muscle use Abdomen: Nondistended, soft, nontender Skin: Normal coloration, warm and dry Neurologic: No focal neuro deficits noted Psychiatric: Appropriate mood and affect, judgment and insight intact Objective Data Vital Signs Vital Signs: Vital Signs - 24 hr 10/26/23 14:12 10/26/23 14:00 10/26/23 16:00 Temperature 97.7 F Pulse Rate 67 72 60 Respiratory Rate 18 Blood Pressure 114/50 L Pulse Oximetry 100 Oxygen Delivery 10/26/23 16:00 10/26/23 21:03 10/26/23 20:00 Temperature 97.7 F Pulse Rate 56 L 63 66 Respiratory Rate 18 Blood Pressure 94/42 L Pulse Oximetry 91 Oxygen Delivery 10/26/23 22:00 10/26/23 20:00 10/26/23 23:53 Temperature 97.7 F Pulse Rate 65 64 Respiratory Rate 18 Blood Pressure 131/42 L Pulse Oximetry 96 Oxygen Delivery Room Air 10/27/23 00:00 10/27/23 00:00 10/27/23 02:00 Temperature Pulse Rate 73 61 Respiratory Rate Blood Pressure Pulse Oximetry Oxygen Delivery CPAP 10/27/23 05:02 10/27/23 04:00 10/27/23 04:00 Temperature 97.6 F Pulse Rate 75 70 Respiratory Rate 18 Blood Pressure 121/53 L Pulse Oximetry 95 Oxygen Delivery CPAP 10/27/23 06:00 10/27/23 08:00 10/27/23 08:34 Temperature 97.0 F L Pulse Rate 54 L 56 L 72 Respiratory Rate 12 Blood Pressure 129/54 L Pulse Oximetry 98 Oxygen Delivery 10/27/23 08:00 10/27/23 10:00 10/27/23 11:24 Temperature 97.5 F L Pulse Rate 80 59 L 63 Respiratory Rate 16 Blood Pressure 125/52 L Pulse Oximetry 96 Oxygen Delivery 10/27/23 12:00 Temperature Pulse Rate 67 Respiratory Rate Blood Pressure Pulse Oximetry Oxygen Delivery Intake/Output Intake/Output: Intake & Output 10/24/23 10/25/23 10/26/23 10/27/23 23:59 23:59 23:59 23:59 Intake Total 2050 2170 1730 1030 Output Total 7766 1186 995 Balance 9981 -8015 -560 480 Meds/Results Medications: Active Medications Generic Name Dose Route Start Last Admin Trade Name Freq PRN Reason Stop Dose Admin Acetaminophen 1,000 mg 10/26/23 12:48 10/27/23 06:14 Acetaminophen 500 Mg Tablet PO 1,000 mg Q6H PRN Administration Mild Pain (1-3) or Fever Budesonide 6 mg 10/26/23 13:15 10/27/23 08:35 Budesonide 3 Mg Cap.Sr.24h PO 6 mg DAILY VY Administration Cyanocobalamin 1,000 mcg 10/26/23 09:00
--- NOTE | 2023-10-27 16:45 | WPDGIPROGNO ---
Progress Note: A&P Assessment and Plan (1) Gastric ulcer: Code(s): K25.9 - Gastric ulcer, unspecified as acute or chronic, without hemorrhage or perforation Status: Acute Assessment and Plan: cause of melena on presentation she has been taking nsaid's- discontinued now ppi twice daily no more signs of bleeding (2) Esophagitis: Code(s): K20.90 - Esophagitis, unspecified without bleeding Status: Acute (3) Acute on chronic blood loss anemia: Code(s): D62 - Acute posthemorrhagic anemia Status: Acute Assessment and Plan: s/p transfusion monitor h/h hgb 8-9 last colonoscopy 2020 she would like to see hematology- will refer as outpatient (4) Melena: Code(s): K92.1 - Melena Status: Acute (5) Atrial fibrillation: Qualifiers: Atrial fibrillation type: paroxysmal Qualified Code(s): I48.0 - Paroxysmal atrial fibrillation Code(s): I48.91 - Unspecified atrial fibrillation Status: Acute Assessment and Plan: by cardiology Subjective Date/time seen: 10/27/23 16:45 Interval history: no more BM today she was on afib and evaluated by cardiology she is comfortable Review of Systems Review of Systems: All systems reviewed & are unremarkable except as noted in HPI and below Exam Const: General: comfortable, no acute distress, alert and awake Orientation/consciousness: patient oriented x3 HENMT: Head: normal to inspection Eyes: General: appearance normal, both eyes and all related structures Pupils: Equal, round and reactive pupils present Neck: Neck: normal visual inspection and supple Resp: Effort & Inspection: normal respiratory effort Auscultation: clear to auscultation bilaterally Cardio: Rate: regular rate Rhythm: regular rhythm Heart sounds: S1 normal heart sound present and S2 normal heart sound present GI: GI Palp: Yes Soft to palpation Auscultation: normal bowel sounds Skin: General skin exam: normal color Neuro: General: patient oriented x3 Cranial nerves: Yes Equal, round and reactive pupils present Extrem: General: normal to inspection Psych: Appearance: grossly normal Mental Status: mental status grossly normal Objective Data Vital Signs Vital Signs: Vital Signs - 24 hr 10/26/23 21:03 10/26/23 20:00 10/26/23 22:00 Temperature 97.7 F Pulse Rate 63 66 65 Respiratory Rate 18 Blood Pressure 94/42 L Pulse Oximetry 91 Oxygen Delivery 10/26/23 20:00 10/26/23 23:53 10/27/23 00:00 Temperature 97.7 F Pulse Rate 64 73 Respiratory Rate 18 Blood Pressure 131/42 L Pulse Oximetry 96 Oxygen Delivery Room Air 10/27/23 00:00 10/27/23 02:00 10/27/23 05:02 Temperature 97.6 F Pulse Rate 61 75 Respiratory Rate 18 Blood Pressure 121/53 L Pulse Oximetry 95 Oxygen Delivery CPAP 10/27/23 04:00 10/27/23 04:00 10/27/23 06:00 Temperature Pulse Rate 70 54 L Respiratory Rate Blood Pressure Pulse Oximetry Oxygen Delivery CPAP 10/27/23 08:00 10/27/23 08:34 10/27/23 08:00 Temperature 97.0 F L Pulse Rate 56 L 72 80 Respiratory Rate 12 Blood Pressure 129/54 L Pulse Oximetry 98 Oxygen Delivery 10/27/23 10:00 10/27/23 11:24 10/27/23 12:00 Temperature 97.5 F L Pulse Rate 59 L 63 67 Respiratory Rate 16 Blood Pressure 125/52 L Pulse Oximetry 96 Oxygen Delivery Intake/Output Intake/Output: Intake & Output 10/24/23 10/25/23 10/26/23 10/27/23 23:59 23:59 23:59 23:59 Intake Total 2050 2170 1730 1030 Output Total 3639 1824 507 Balance 6809 -0094 -069 [facility] Meds/Results Medications: Active Medications Generic Name Dose Route Start Last Admin Trade Name Freq PRN Reason Stop Dose Admin Acetaminophen 1,000 mg 10/26/23 12:48 10/27/23 15:22 Acetaminophen 500 Mg Tablet PO 1,000 mg Q6H PRN Administration Mild Pain (1-3) or Fever Budesonide 6 mg 10/26/23 13:15 10/27/23 08:35 Budeson
--- NOTE | 2023-10-27 17:18 | PM.IMPN ---
Progress Note: A&P Assessment and Plan (1) Calculus of proximal ureter: Code(s): N20.1 - Calculus of ureter Status: Acute Assessment and Plan: (2) Abnormal urinalysis: Code(s): R82.90 - Unspecified abnormal findings in urine Status: Acute (3) Atrial fibrillation: Qualifiers: Atrial fibrillation type: paroxysmal Qualified Code(s): I48.0 - Paroxysmal atrial fibrillation Code(s): I48.91 - Unspecified atrial fibrillation Status: Acute Assessment and Plan: Pt now back in NSR thanks to cardiology management OAC on hold (4) Hypotension: Code(s): I95.9 - Hypotension, unspecified Status: Acute Assessment and Plan: continue to watch hb is hospital BP remaining stable. (5) Acute on chronic blood loss anemia: Code(s): D62 - Acute posthemorrhagic anemia Status: Acute Assessment and Plan: Patient with acute blood loss anemia related to gastric ulcers most likely. She has a chronic underlying anemia with hemoglobin mostly in the 10-11 range. Hgb running 8-9 range. Trend hemoglobin for stability. Transfuse as needed. (6) Elevated troponin: Code(s): R79.89 - Other specified abnormal findings of blood chemistry Status: Acute Assessment and Plan: Troponin normal on admission but repeat is elevated 0.25 EKG on admission showing nonspecific ST-T wave changes. Echo in June showing EF of 65-70% and grade 1 diastolic dysfunction and moderate aortic stenosis with mild-moderate MR. (7) Acute UTI: Code(s): N39.0 - Urinary tract infection, site not specified Status: Acute Assessment and Plan: UCx negative. UTI ruled out. Stop Rocephin (8) Kidney stone: Code(s): N20.0 - Calculus of kidney Status: Acute Assessment and Plan: Incidental finding of a 3 mm stone in the proximal right ureter with mild right hydronephrosis. follow up outpatient (9) Gastric ulcer: Code(s): K25.9 - Gastric ulcer, unspecified as acute or chronic, without hemorrhage or perforation Status: Acute Assessment and Plan: Patient was seen by GI for acute blood loss anemia. EGD 10/25/23 shows reflux esophagitis grade 2, hiatal hernia and a few crater ulcers without signs of bleeding. Biopsies were taken. Continue Protonix. continue to watch hb levels (10) Esophagitis: Code(s): K20.90 - Esophagitis, unspecified without bleeding Status: Acute Assessment and Plan: As above (11) B12 deficiency anemia: Code(s): D51.9 - Vitamin B12 deficiency anemia, unspecified Status: Acute Assessment and Plan: Patient noted to be B12 deficient. Continue replacement. (12) CESAR on CPAP: Code(s): G47.33 - Obstructive sleep apnea (adult) (pediatric); Z99.89 - Dependence on other enabling machines and devices Status: Chronic Assessment and Plan: Continue CPAP. (13) Type 2 diabetes mellitus with complication, without long-term current use of insulin: Code(s): E11.8 - Type 2 diabetes mellitus with unspecified complications Status: Chronic Assessment and Plan: A1c less than 4 in June. Patient is not on medications for diabetes. Patient with diet-controlled diabetes. (14) Unspecified essential hypertension: Code(s): I10 - Essential (primary) hypertension Status: Chronic Assessment and Plan: Blood pressure as mentioned above. Holding losartan resume metoprolol Subjective Date/time seen: 10/27/23 17:18 Interval history: 82yo female with DM, HTN, CESAR and recent hx of recurrent CDiff here for weakness.?? Pt was in AF with rvr now in NSR Pt had GI bleed had urgent EGD watching for any further tarry stools continue to watch in hospital advance diet slowly and continue PPI Pt had kidney stone urology 3 mm in size advised fluids and Flomax and urology f
[2023-10-27 17:45] LABS: Hematocrit 28.6 % (37.0-47.0); Hemoglobin 8.9 g/dL (12.0-15.0); Mean Corpuscular HGB Conc 31.1 g/dl (32-36); Mean Corpuscular Hemoglobin 30.9 pg (26-34); Mean Corpuscular Volume 99.3 fl (80-100); Mean Platelet Volume 8.8 fl (7.4-10.4); Platelet Count Result 143 k/mm3 (150-375); Red Blood Count 2.88 M/mm3 (4.2-5.4); Red Cell Distribution Width 20.2 % (11.5-14.5); White Blood Count 5.6 K/mm3 (4.5-10.0)
[2023-10-27] MEDS: MELATONIN 3 MG TABLET PO (20:01)
[2023-10-27] MEDS: LORATADINE 10 MG TABLET PO (20:01)
[2023-10-27] MEDS: rOPINIRole HCL 1 MG TABLET BY MOUTH (20:01)
[2023-10-28] VITALS (13 sets, daily range): BP systolic 115–128; BP diastolic 44–56; PULSE 51–73; RESP 14–18; TEMP 36.1–37.1; O2SAT 97–100
[2023-10-28] MEDS: ACETAMINOPHEN 500 MG TABLET 1000 MG PO ×2 (04:52→14:22)
[2023-10-28 05:00] LABS: Anion Gap 3 mmol/L (4-12); Blood Urea Nitrogen 15 mg/dL (7-17); Calcium 8.6 mg/dL (8.4-10.2); Carbon Dioxide 23 mmol/L (22-30); Chloride 104 mmol/L (98-107); Estimated CRCL calculation 36 ml/min; Estimated Glomerular Filt Rate 60; Glucose 98 mg/dL (65-110); Potassium 3.9 mmol/L (3.4-5.0); Sodium 130 mmol/L (137-145)
[2023-10-28] MEDS: LEVOTHYROXINE SODIUM 50 MCG TABLET BY MOUTH (05:38)
[2023-10-28] MEDS: MORPHINE SULFATE (*CRX) 2 MG/ML INJ 1 MG IV PUSH (05:48)
[2023-10-28] MEDS: METOPROLOL SUCCINATE EXT REL 25 MG, METOPROLOL SUCCINATE EXT REL 50 MG 75 MG PO (09:28)
[2023-10-28] MEDS: MAGNESIUM OXIDE 200 MG TABLET PO (09:29)
[2023-10-28] MEDS: CHOLECALCIFEROL 1,000 UNITS TABLET 2000 UNITS PO (09:32)
[2023-10-28] MEDS: BUDESONIDE 3 MG CAP.SR.24H 6 MG PO (09:32)
[2023-10-28] MEDS: THIAMINE HCL 50 MG TABLET PO (09:32)
[2023-10-28] MEDS: THIAMINE HCL 100 MG TABLET 200 MG PO (09:32)
[2023-10-28] MEDS: TAMSULOSIN HCL 0.4 MG CAPSULE PO (09:33)
[2023-10-28] MEDS: SODIUM CHLORIDE 1 GM TABLET BY MOUTH (09:33)
[2023-10-28] MEDS: CYANOCOBALAMIN 1,000 MCG TABLET 1000 MCG PO (09:33)
[2023-10-28] MEDS: PANTOPRAZOLE 40 MG TABLET PO (09:34)
[2023-10-28] MEDS: traMADol HCL (*CRX) 50 MG TABLET PO (09:34)
--- NOTE | 2023-10-28 12:27 | PC.NURSE ---
On 10/28/23, the student, [VALENTINO Garcia ], provided care and completed [facility] documentation on this patient. I have reviewed the student's documentation and agree with the findings.
--- NOTE | 2023-10-28 12:32 | WPDUROPN2 ---
Progress Note: A&P Assessment and Plan (1) Calculus of proximal ureter: Code(s): N20.1 - Calculus of ureter Status: Acute Assessment and Plan: 3 mm proximal right ureteral stone with mild right hydroureter noted on CT 10/24/23. She has remained asymptomatic. No evidence of infection. Urine culture is negative. She has been straining her urine and was started on tamsulosin to facilitate stone passage. KUB completed on 10/27/23 with no visible stone. Will obtain YOANNA and if resoluton of hydronephrosis, no further treatment/intervention will be required. If stone/hydro is persistent, will arrange outpatient surgical intervention. (2) Abnormal urinalysis: Code(s): R82.90 - Unspecified abnormal findings in urine Status: Acute Assessment and Plan: UA abnormal on presentation. History of asymptomatic bacteriuria. She has no UTI symptoms. Urine culture collected on 10/24/23 negative. No need for ongoing antibiotics. Subjective Subjective Date/Time Seen: 10/28/23 12:32 Interval history: Elizabeth is feeling well today. Had flare up of her chronic back pain last night but this is better today. Denies flank pain, suprapubic pain. No nausea or vomiting. Overall doing well. Voiding without difficulty. Review of Systems Review of Systems: All systems reviewed & are unremarkable except as noted in HPI and below Exam Narrative: General: Awake, alert, comfortable, no acute distress HEENT: Normocephalic, atraumatic, sclerae anicteric Respiratory: Normal respiratory effort, no accessory muscle use Abdomen: Nondistended, soft, nontender Skin: Normal coloration, warm and dry Neurologic: No focal neuro deficits noted Psychiatric: Appropriate mood and affect, judgment and insight intact Objective Data Vital Signs Vital Signs: Vital Signs - 24 hr 10/27/23 14:00 10/27/23 16:00 10/27/23 18:00 Temperature Pulse Rate 60 64 61 Respiratory Rate Blood Pressure Pulse Oximetry Oxygen Delivery 10/27/23 16:00 10/27/23 20:48 10/27/23 20:00 Temperature 97.5 F L 97.7 F Pulse Rate 59 L 55 L 66 Respiratory Rate 12 14 Blood Pressure 98/41 L 123/50 L Pulse Oximetry 98 98 Oxygen Delivery 10/27/23 20:00 10/27/23 22:00 10/28/23 01:04 Temperature 97.8 F Pulse Rate 60 67 Respiratory Rate 14 Blood Pressure 124/53 L Pulse Oximetry 97 Oxygen Delivery Room Air 10/28/23 00:00 10/28/23 00:00 10/28/23 02:00 Temperature Pulse Rate 51 L 54 L Respiratory Rate Blood Pressure Pulse Oximetry Oxygen Delivery Room Air 10/28/23 04:00 10/28/23 04:00 10/28/23 05:01 Temperature 98.7 F Pulse Rate 60 52 L Respiratory Rate 14 Blood Pressure 115/52 L Pulse Oximetry 99 Oxygen Delivery Room Air 10/28/23 06:00 10/28/23 08:00 10/28/23 09:28 Temperature 97.4 F L Pulse Rate 64 63 64 Respiratory Rate 16 Blood Pressure 128/56 L Pulse Oximetry 98 Oxygen Delivery 10/28/23 08:00 10/28/23 10:00 Temperature Pulse Rate 73 70 Respiratory Rate Blood Pressure Pulse Oximetry Oxygen Delivery Intake/Output Intake/Output: Intake & Output 10/25/23 10/26/23 10/27/23 10/28/23 23:59 23:59 23:59 23:59 Intake Total 2170 1730 1570 970 Output Total 3725 2575 1000 650 Balance -1555 -845 570 320 Meds/Results Medications: Active Medications Generic Name Dose Route Start Last Admin Trade Name Freq PRN Reason Stop Dose Admin Acetaminophen 1,000 mg 10/26/23 12:48 10/28/23 04:52 Acetaminophen 500 Mg Tablet PO 1,000 mg Q6H PRN Administration Mild Pain (1-3) or Fever Budesonide 6 mg 10/26/23 13:15 10/28/23 09:32 Budesonide 3 Mg Cap.Sr.24h PO 6 mg DAILY VY Administration Cyanocobalamin 1,000 mcg 10/26/23 09:00 10/28/23 09:33 Cyanocobalamin 1,000 Mcg Tablet PO 1,000 mcg QAM VY Administration Diclofenac Sodium 1 applic 10/26/23 09:00 Diclofenac Sodium 1% 100 Gm Gel (
--- NOTE | 2023-10-28 14:04 | PM.DS ---
DS: Admitting Diagnosis Discharge Date 10/28/2023 Admitting Diagnosis Weakness DS: Discharge Diagnosis Discharge Diagnosis (1) Calculus of proximal ureter: Code(s): N20.1 - Calculus of ureter Status: Acute Assessment and Plan: (2) Abnormal urinalysis: Code(s): R82.90 - Unspecified abnormal findings in urine Status: Acute (3) Atrial fibrillation: Qualifiers: Atrial fibrillation type: paroxysmal Qualified Code(s): I48.0 - Paroxysmal atrial fibrillation Code(s): I48.91 - Unspecified atrial fibrillation Status: Acute Assessment and Plan: Pt now back in NSR thanks to cardiology management OAC on hold (4) Hypotension: Code(s): I95.9 - Hypotension, unspecified Status: Acute Assessment and Plan: continue to watch hb is hospital BP remaining stable. (5) Acute on chronic blood loss anemia: Code(s): D62 - Acute posthemorrhagic anemia Status: Acute Assessment and Plan: Patient with acute blood loss anemia related to gastric ulcers most likely. She has a chronic underlying anemia with hemoglobin mostly in the 10-11 range. Hgb running 8-9 range. Trend hemoglobin for stability. Transfuse as needed. (6) Elevated troponin: Code(s): R79.89 - Other specified abnormal findings of blood chemistry Status: Acute Assessment and Plan: Troponin normal on admission but repeat is elevated 0.25 EKG on admission showing nonspecific ST-T wave changes. Echo in June showing EF of 65-70% and grade 1 diastolic dysfunction and moderate aortic stenosis with mild-moderate MR. (7) Acute UTI: Code(s): N39.0 - Urinary tract infection, site not specified Status: Acute Assessment and Plan: UCx negative. UTI ruled out. Stop Rocephin (8) Kidney stone: Code(s): N20.0 - Calculus of kidney Status: Acute Assessment and Plan: Incidental finding of a 3 mm stone in the proximal right ureter with mild right hydronephrosis. follow up outpatient (9) Gastric ulcer: Code(s): K25.9 - Gastric ulcer, unspecified as acute or chronic, without hemorrhage or perforation Status: Acute Assessment and Plan: Patient was seen by GI for acute blood loss anemia. EGD 10/25/23 shows reflux esophagitis grade 2, hiatal hernia and a few crater ulcers without signs of bleeding. Biopsies were taken. Continue Protonix. hb levels are stable (10) Esophagitis: Code(s): K20.90 - Esophagitis, unspecified without bleeding Status: Acute Assessment and Plan: As above (11) B12 deficiency anemia: Code(s): D51.9 - Vitamin B12 deficiency anemia, unspecified Status: Acute Assessment and Plan: Patient noted to be B12 deficient. Continue replacement. (12) CESAR on CPAP: Code(s): G47.33 - Obstructive sleep apnea (adult) (pediatric); Z99.89 - Dependence on other enabling machines and devices Status: Chronic Assessment and Plan: Continue CPAP. (13) Type 2 diabetes mellitus with complication, without long-term current use of insulin: Code(s): E11.8 - Type 2 diabetes mellitus with unspecified complications Status: Chronic Assessment and Plan: A1c less than 4 in June. Patient is not on medications for diabetes. Patient with diet-controlled diabetes. (14) Unspecified essential hypertension: Code(s): I10 - Essential (primary) hypertension Status: Chronic Assessment and Plan: Blood pressure as mentioned above. Holding losartan resume metoprolol DS: Summary Hospital Course Hospital Course: 82yo female with DM, HTN, CESAR and recent hx of recurrent CDiff here for weakness.?? Pt was in AF with rvr now in NSR after increasing to metoprolol 75 mg po qdaily Pt had GI bleed had urgent EGD watching for any further tarry stools continue to watch in hospital advance
== END 2023-10-28 17:35 | disposition home or self-care (01) | DRG 377 ==
LOC: ANHED 10-25 01:24 → ANHIMU 10-25 03:15
PROVIDERS: Internal Medicine; Internal Medicine Gastroenterology; Nurse Practitioner; Admitting Provider Internal Medicine; Emergency Provider Emergency Medicine; PCP Family Medicine; Visit Provider Family Medicine
PROC: 0DJ08ZZ Inspection of Upper Intestinal Tract, Via Natural or Artificial Opening Endoscopic (ICD-10-PCS; CPT 43235; principal; 2023-10-25 15:30)
DX: K25.4 Chronic or unspecified gastric ulcer with hemorrhage (principal); I21.A1 Myocardial infarction type 2; K21.01 Gastro-esophageal reflux disease with esophagitis, with bleeding; N13.2 Hydronephrosis with renal and ureteral calculous obstruction; D62 Acute posthemorrhagic anemia; I50.32 Chronic diastolic (congestive) heart failure; K22.11 Ulcer of esophagus with bleeding; Z20.822 Contact with and (suspected) exposure to COVID-19; K44.9 Diaphragmatic hernia without obstruction or gangrene; I48.0 Paroxysmal atrial fibrillation; I95.9 Hypotension, unspecified; I35.0 Nonrheumatic aortic (valve) stenosis; D51.9 Vitamin B12 deficiency anemia, unspecified; G47.33 Obstructive sleep apnea (adult) (pediatric); E11.9 Type 2 diabetes mellitus without complications; I11.0 Hypertensive heart disease with heart failure; E78.2 Mixed hyperlipidemia; R55 Syncope and collapse; K58.9 Irritable bowel syndrome, unspecified; E03.9 Hypothyroidism, unspecified; M48.061 Spinal stenosis, lumbar region without neurogenic claudication; K21.9 Gastro-esophageal reflux disease without esophagitis; Z79.82 Long term (current) use of aspirin; Z85.828 Personal history of other malignant neoplasm of skin; E88.810 Metabolic syndrome; Z95.2 Presence of prosthetic heart valve; Z96.649 Presence of unspecified artificial hip joint; Z90.49 Acquired absence of other specified parts of digestive tract; Z96.1 Presence of intraocular lens; Z98.49 Cataract extraction status, unspecified eye
CPT/HCPCS: 36415; 36430; 71045; 74018; 74177; 76775; 80048; 80053; 81001; 82365; 82607; 82746; 83605; 83690; 83735; 83880; 84100; 84443; 84484; 85014; 85018; 85025; 85027; 86850; 86900; 86901; 86920; 87081; 87086; 87637; 88300; 88305; 88342; 93005; 96361; 96365; 96375; 97110; 97116; 97162; 97165; 97530; 97535; 99285; A9270; C1751; C9113; J0696; J2001; J2270; J2405; J2704; J7030; J7050; J7120; P9016; Q9967

== ENCOUNTER 2023-11-10 15:04 | Outpatient (CLI) | payer MEDICARE, BC, SELFPAY ==
[2023-11-10 15:33] LABS: Basophils Percent Auto 0.5 % (0.2-1.2); Eosinophils Percent Auto 0.5 % (0-4.4); Hematocrit 34.2 % (37.0-47.0); Hemoglobin 10.9 g/dL (12.0-15.0); Immature Granulocyte Absolute 0.02 K/mm3 (0.00-0.031); Immature Granulocyte Percent A 0.4 % (0-0.5); Immature Reticulocyte Fraction 12.5 % (3.0-15.9); Lymphocytes Absolute Auto 1.56 K/mm3 (0.9-3.2); Lymphocytes Percent Auto 27.6 % (18.3-44.2); Mean Corpuscular HGB Conc 31.9 g/dl (32-36); Mean Corpuscular Hemoglobin 32.6 pg (26-34); Mean Corpuscular Volume 102.4 fl (80-100); Mean Platelet Volume 8.6 fl (7.4-10.4); Monocytes Absolute Auto 0.5 K/mm3 (0.1-0.6); Monocytes Percent Auto 8.3 % (2.6-8.5); Neutrophils Absolute Auto 3.6 K/mm3 (1.3-6.7); Neutrophils Percent Auto 62.7 % (45.5-73.1); Platelet Count Result 115 k/mm3 (150-375); Red Blood Count 3.34 M/mm3 (4.2-5.4); Red Cell Distribution Width 18.8 % (11.5-14.5); Reticulocyte Hemoglobin Conten 37.3 pg (28.2-36.6); Reticulocyte Percent 2.52 % (0.7-4.3); Reticulocytes Absolute 0.08 10^6/uL (0.02-0.10); White Blood Count 5.7 K/mm3 (4.5-10.0)
[2023-11-10 16:32] LABS: Iron 86 ug/dL (37-170)
[2023-11-10 16:41] LABS: Alanine Aminotransferase 15 U/L (6-35); Albumin Level 3.9 g/dL (3.5-5.1); Alkaline Phosphatase 81 U/L (38-126); Anion Gap 8 mmol/L (4-12); Aspartate Amino Transferase 24 U/L (14-36); Bilirubin,Total 0.7 mg/dL (0.2-1.3); Blood Urea Nitrogen 11 mg/dL (7-17); Calcium 9.4 mg/dL (8.4-10.2); Carbon Dioxide 26 mmol/L (22-30); Chloride 100 mmol/L (98-107); Estimated Glomerular Filt Rate > 60; Glucose 112 mg/dL (65-110); Lactate Dehydrogenase 218 U/L (120-246); Percent Iron Saturation 33 % (20-50); Potassium 3.4 mmol/L (3.4-5.0); Sodium 134 mmol/L (137-145)
[2023-11-10 17:51] LABS: Folic Acid > 20.0 ng/mL (2.76->20); Vitamin B12 > 1000.0 pg/mL (239-931)
[2023-11-15 05:13] LABS: Methylmalonic Acid 173 nmol/L (87-318)
[2023-11-16 13:23] LABS: Soluble Transferrin Receptor 1.41 mg/L (0.76-1.76)
== END 2023-11-10 15:05 | disposition home or self-care (01) ==
LOC: ANHLAB 15:07
PROVIDERS: Nurse Practitioner Family; PCP Family Medicine; Visit Provider Internal Medicine Hematology & Oncology
DX: D64.9 Anemia, unspecified (principal)
CPT/HCPCS: 36415; 80053; 82607; 82728; 82746; 83540; 83550; 83615; 83921; 84238; 85025; 85046

== ENCOUNTER 2023-11-16 11:31 | Outpatient (CLI) | payer MEDICARE, BC, SELFPAY ==
--- NOTE | ~2023-11-16 | XR_ITS ---
Supine and upright views of the abdomen Clinical history: Kidney stone COMPARISON: 10/27/2023 Findings: Bowel gas pattern is nonspecific. No evidence for obstruction or free air. No abnormal mass lesion or calcification is seen. Right hip arthroplasty in place. Degenerative spondylosis of the jozef mbar spine is unchanged. There is severe degenerative change of the left hip joint with remodeling of the left femoral head Impression: No definite renal stone seen. Stable degenerative changes, as above. Reviewed, dictated and finalized at location . Impression: No definite renal stone seen. Stable degenerative changes, as above.
[2023-11-16 12:47] LABS: Anion Gap 5 mmol/L (4-12); Blood Urea Nitrogen 13 mg/dL (7-17); Calcium 9.2 mg/dL (8.4-10.2); Carbon Dioxide 29 mmol/L (22-30); Chloride 98 mmol/L (98-107); Estimated Glomerular Filt Rate > 60; Glucose 108 mg/dL (65-110); Potassium 3.4 mmol/L (3.4-5.0); Sodium 132 mmol/L (137-145)
== END 2023-11-16 11:32 | disposition home or self-care (01) ==
PROVIDERS: Physician Assistant; PCP Family Medicine; Visit Provider Physician Assistant
DX: N20.0 Calculus of kidney (principal); E87.1 Hypo-osmolality and hyponatremia
CPT/HCPCS: 36415; 74018; 80048

== ENCOUNTER 2023-12-29 12:09 | Outpatient (CLI) | payer MEDICARE, BC, SELFPAY ==
[2023-12-29 12:40] LABS: Basophils Percent Auto 0.3 % (0.2-1.2); Eosinophils Percent Auto 0.7 % (0-4.4); Hematocrit 41.3 % (37.0-47.0); Hemoglobin 13.3 g/dL (12.0-15.0); Immature Granulocyte Absolute 0.01 K/mm3 (0.00-0.031); Immature Granulocyte Percent A 0.2 % (0-0.5); Immature Reticulocyte Fraction 10.4 % (3.0-15.9); Lymphocytes Absolute Auto 1.71 K/mm3 (0.9-3.2); Lymphocytes Percent Auto 28.5 % (18.3-44.2); Mean Corpuscular HGB Conc 32.2 g/dl (32-36); Mean Corpuscular Volume 102.5 fl (80-100); Mean Platelet Volume 8.8 fl (7.4-10.4); Monocytes Absolute Auto 0.5 K/mm3 (0.1-0.6); Monocytes Percent Auto 8.8 % (2.6-8.5); Neutrophils Absolute Auto 3.7 K/mm3 (1.3-6.7); Neutrophils Percent Auto 61.5 % (45.5-73.1); Platelet Count Result 113 k/mm3 (150-375); Red Blood Count 4.03 M/mm3 (4.2-5.4); Red Cell Distribution Width 12.9 % (11.5-14.5); Reticulocyte Hemoglobin Conten 36.2 pg (28.2-36.6); Reticulocyte Percent 1.49 % (0.7-4.3); Reticulocytes Absolute 0.06 10^6/uL (0.02-0.10)
[2023-12-29 17:15] LABS: Iron 73 ug/dL (37-170)
[2023-12-29 17:26] LABS: Percent Iron Saturation 25 % (20-50)
[2023-12-29 17:27] LABS: Alanine Aminotransferase 17 U/L (6-35); Albumin Level 4.2 g/dL (3.5-5.1); Alkaline Phosphatase 79 U/L (38-126); Anion Gap 8 mmol/L (4-12); Aspartate Amino Transferase 25 U/L (14-36); Bilirubin,Total 0.6 mg/dL (0.2-1.3); Blood Urea Nitrogen 19 mg/dL (7-17); Calcium 9.7 mg/dL (8.4-10.2); Carbon Dioxide 25 mmol/L (22-30); Chloride 103 mmol/L (98-107); Estimated Glomerular Filt Rate > 60; Glucose 103 mg/dL (65-110); Lactate Dehydrogenase 228 U/L (120-246); Potassium 3.4 mmol/L (3.4-5.0); Sodium 136 mmol/L (137-145)
[2023-12-30 16:04] LABS: Haptoglobin 135 mg/dL (43-212)
== END 2023-12-29 12:10 | disposition home or self-care (01) ==
LOC: ANHLAB 12:13
PROVIDERS: PCP Family Medicine; Visit Provider Nurse Practitioner Family
DX: D64.9 Anemia, unspecified (principal)
CPT/HCPCS: 36415; 80053; 82728; 83010; 83540; 83550; 83615; 85025; 85046; 86880

== ENCOUNTER 2023-12-31 13:07 | Outpatient (NON) | payer MEDICARE, BC, SELFPAY ==
[2023-12-31 15:00] LABS: Toxigenic C. Diff POSITIVE (NEGATIVE)
== END 2023-12-31 13:08 | disposition home or self-care (01) ==
LOC: ANHLAB 13:10
PROVIDERS: PCP Family Medicine; Visit Provider Student in an Organized Health Care Education/Training Program
DX: R19.7 Diarrhea, unspecified (principal)
CPT/HCPCS: 87493

== ENCOUNTER 2024-04-05 08:35 | Outpatient (CLI) | payer MEDICARE, BC, SELFPAY ==
--- NOTE | ~2024-04-05 | US_ITS ---
EXAMINATION: US abdomen complete DATE: 04/05/2024 09:23 INDICATION: Thrombocytopenia TECHNIQUE: Multiple grayscale and Doppler ultrasound images of the abdomen were obtained. COMPARISON: CT abdomen pelvis dated 10/24/2023 FINDINGS: Pancreas is normal. Visualized abdominal aorta is normal measuring 2.3 cm diameter at the proximal an d mid aorta tapering to 1.9 cm the distal aorta. The visualized proximal to mid inferior vena cava is normal. Liver has normal echogenicity and contour, with a smooth surface. No liver lesion identified . No intrahepatic biliary duct dilation suspected. Portal venous flow was seen in the hepatopetal, no rmal direction and has normal Doppler waveform. The gallbladder is not visualized and reportedly surg ically absent. The common bile duct is dilated to 12 mm likely related to prior cholecystectomy. No e vident choledocholithiasis. There is normal renal contour and echogenicity bilaterally. The right kid hemal measures 9.9 x 4.2 x 4.2 cm and the left 10.2 x 5.2 x 4.3 cm. There are no focal renal lesions id entified. There is no hydronephrosis. Spleen is normal measuring 10.5 cm in maximal length. IMPRESSION: 1. Mild dilation the common bile duct which measures up to 12 mm which is within normal limits post c holecystectomy with no intrahepatic biliary ductal dilation. Reviewed, dictated and finalized at location B. IMPRESSION: 1. Mild dilation the common bile duct which measures up to 12 mm which is withi n normal limits post cholecystectomy with no intrahepatic biliary ductal dilati on.
== END 2024-04-05 08:36 | disposition home or self-care (01) ==
PROVIDERS: PCP Family Medicine; Visit Provider Nurse Practitioner Family
DX: D69.6 Thrombocytopenia, unspecified (principal); D64.9 Anemia, unspecified
CPT/HCPCS: 76700

== ENCOUNTER 2024-04-18 10:16 | Outpatient (CLI) | payer MEDICARE, BC, SELFPAY ==
[2024-04-18 12:56] LABS: Basophils Percent Auto 0.7 % (0.2-1.2); Eosinophils Absolute Auto 0.1 K/mm3 (0-0.3); Hematocrit 43.5 % (37.0-47.0); Hemoglobin 13.9 g/dL (12.0-15.0); Immature Granulocyte Absolute 0.01 K/mm3 (0.00-0.031); Immature Granulocyte Percent A 0.2 % (0-0.5); Lymphocytes Absolute Auto 2.16 K/mm3 (0.9-3.2); Mean Corpuscular Hemoglobin 34.7 pg (26-34); Mean Corpuscular Volume 108.5 fl (80-100); Mean Platelet Volume 9.3 fl (7.4-10.4); Monocytes Absolute Auto 0.7 K/mm3 (0.1-0.6); Monocytes Percent Auto 11.3 % (2.6-8.5); Neutrophils Absolute Auto 2.9 K/mm3 (1.3-6.7); Neutrophils Percent Auto 49.8 % (45.5-73.1); Platelet Count Result 139 k/mm3 (150-375); Red Blood Count 4.01 M/mm3 (4.2-5.4); Red Cell Distribution Width 12.2 % (11.5-14.5); White Blood Count 5.8 K/mm3 (4.5-10.0)
[2024-04-18 16:34] LABS: Iron 94 ug/dL (37-170)
[2024-04-18 16:38] LABS: Alanine Aminotransferase 23 U/L (6-35); Albumin Level 4.4 g/dL (3.5-5.1); Alkaline Phosphatase 76 U/L (38-126); Anion Gap 14 mmol/L (4-12); Aspartate Amino Transferase 32 U/L (14-36); Bilirubin,Total 0.8 mg/dL (0.2-1.3); Blood Urea Nitrogen 23 mg/dL (7-17); Calcium 9.8 mg/dL (8.4-10.2); Carbon Dioxide 31 mmol/L (22-30); Chloride 87 mmol/L (98-107); Estimated Glomerular Filt Rate > 60; Glucose 89 mg/dL (65-110); Potassium 3.4 mmol/L (3.4-5.0); Sodium 132 mmol/L (137-145)
[2024-04-18 16:43] LABS: Percent Iron Saturation 32 % (20-50)
[2024-04-18 17:38] LABS: Vitamin B12 > 1000.0 pg/mL (239-931)
[2024-04-22 21:53] LABS: Platelet Antibody, Direct NEGATIVE (NEGATIVE)
== END 2024-04-18 10:17 | disposition home or self-care (01) ==
LOC: ANHLAB 10:19
PROVIDERS: Nurse Practitioner Family; PCP Family Medicine; Visit Provider Internal Medicine Hematology & Oncology
DX: D69.6 Thrombocytopenia, unspecified (principal); D64.9 Anemia, unspecified
CPT/HCPCS: 36415; 80053; 82607; 82728; 83540; 83550; 85025; 86023

== ENCOUNTER 2024-05-15 12:04 | Outpatient (NON) | payer MEDICARE, BC, SELFPAY ==
[2024-05-15 16:14] LABS: Toxigenic C. Diff POSITIVE (NEGATIVE)
== END 2024-05-15 12:05 | disposition home or self-care (01) ==
LOC: ANHLAB 12:05
PROVIDERS: PCP Family Medicine; Visit Provider Nurse Practitioner Family
DX: K52.9 Noninfective gastroenteritis and colitis, unspecified (principal); A04.72 Enterocolitis due to Clostridium difficile, not specified as recurrent
CPT/HCPCS: 87493

== ENCOUNTER 2024-06-06 11:03 | Outpatient (CLI) | payer MEDICARE, BC, SELFPAY ==
[2024-06-06 11:28] LABS: Basophils Percent Auto 0.5 % (0.2-1.2); Eosinophils Absolute Auto 0.1 K/mm3 (0-0.3); Eosinophils Percent Auto 2.2 % (0-4.4); Hematocrit 44.9 % (37.0-47.0); Hemoglobin 14.4 g/dL (12.0-15.0); Immature Granulocyte Absolute 0.02 K/mm3 (0.00-0.031); Immature Granulocyte Percent A 0.4 % (0-0.5); Lymphocytes Absolute Auto 1.57 K/mm3 (0.9-3.2); Lymphocytes Percent Auto 28.1 % (18.3-44.2); Mean Corpuscular HGB Conc 32.1 g/dl (32-36); Mean Corpuscular Hemoglobin 34.7 pg (26-34); Mean Corpuscular Volume 108.2 fl (80-100); Mean Platelet Volume 9.3 fl (7.4-10.4); Monocytes Absolute Auto 0.7 K/mm3 (0.1-0.6); Monocytes Percent Auto 12.5 % (2.6-8.5); Neutrophils Absolute Auto 3.1 K/mm3 (1.3-6.7); Neutrophils Percent Auto 56.3 % (45.5-73.1); Platelet Count Result 126 k/mm3 (150-375); Red Blood Count 4.15 M/mm3 (4.2-5.4); Red Cell Distribution Width 12.5 % (11.5-14.5); White Blood Count 5.6 K/mm3 (4.5-10.0)
[2024-06-06 11:39] LABS: Alanine Aminotransferase 23 U/L (6-35); Albumin Level 4.5 g/dL (3.5-5.1); Alkaline Phosphatase 72 U/L (38-126); Anion Gap 8 mmol/L (4-12); Aspartate Amino Transferase 35 U/L (14-36); Bilirubin,Total 0.8 mg/dL (0.2-1.3); Blood Urea Nitrogen 20 mg/dL (7-17); Calcium 10.1 mg/dL (8.4-10.2); Carbon Dioxide 32 mmol/L (22-30); Chloride 97 mmol/L (98-107); Estimated Glomerular Filt Rate > 60; Glucose 102 mg/dL (65-110); Sodium 137 mmol/L (137-145)
[2024-06-06 11:45] LABS: Hemoglobin A1C 4.8 % (<5.7)
[2024-06-06 11:57] LABS: Platelet Estimate Decreased (Adequate); Schistocytes None Seen
[2024-06-06 11:58] LABS: Macrocytosis 2+ (NORMAL)
[2024-06-06 12:09] LABS: Free T4 Free Thyroxine 1.05 ng/mL (0.78-2.19); Thyroid Stimulating Hormone 0.933 uIU/mL (0.465-4.680)
== END 2024-06-06 11:04 | disposition home or self-care (01) ==
PROVIDERS: PCP Family Medicine; Visit Provider Family Medicine
DX: E03.9 Hypothyroidism, unspecified (principal); I10 Essential (primary) hypertension; E11.9 Type 2 diabetes mellitus without complications
CPT/HCPCS: 36415; 80053; 83036; 84439; 84443; 85025

== ENCOUNTER 2024-08-16 09:26 | Outpatient (CLI) | payer MEDICARE, BC, SELFPAY ==
--- NOTE | ~2024-08-16 | CT_ITS ---
Non-contrast CT scan of the Abdomen and Pelvis Clinical indication: Right ureteral stone Technique: 2.5 mm axial scans were obtained through the abdomen and pelvis without intravenous or or al contrast. Dose reduction technique was used on this scan by utilizing automated exposure control a nd iterative reconstruction technique. The dose-length product (DLP) was 184.08 mGy-cm. COMPARISON: 10/24/2023 Findings: Images through the lung bases reveal no abnormalities. There are 2 nonobstructing right renal stones, measuring 4 mm and 5 mm in size respectively. No left renal stone. No hydronephrosis on either side. No ureteral stones seen on either side. The liver, spleen, pancreas, and adrenals appear normal. Cholecystectomy clips are present. There is no aortic aneurysm. There is no evidence of bowel obstruction. Images through the pelvis were performed. There is no evidence of ascites or lymphadenopathy. Urinary bladder grossly unremarkable. No pelvic mass evident. There is streak artifact from right hip arthro plasty. There is advanced degenerative spondylosis of the visualized spine. Impression: Nonobstructing right renal stones, as above. No ureteral stone or hydronephrosis on either side. Reviewed, dictated and finalized at location . STICS INTERN Impression: Nonobstructing right renal stones, as above. No ureteral stone or hydronephrosi s on either side.
--- NOTE | ~2024-08-16 | XR_ITS ---
EXAMINATION: XR abdomen/kub 1V DATE: 08/16/2024 09:49 INDICATION: Right ureteral stone. TECHNIQUE: A supine view of the abdomen was obtained. COMPARISON: Abdomen radiograph 11/16/2023, CT abdomen and pelvis 08/16/2024 FINDINGS: There are no dilated loops of bowel. There are phleboliths in the pelvis. The kidneys are o bscured by bowel. Surgical clips in the right upper quadrant are likely from cholecystectomy. There i s a total right hip arthroplasty. IMPRESSION: 1. No visible urolithiasis. Reviewed, dictated and finalized at location B. 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 No visible urolithiasis.
--- OUTSIDE RECORDS SUMMARY | 2024-08-17 22:26 | XMS_ITS | Clinical Summary ---
Author Organization [facility] Address [address] [place] [address]. [place] [address] [place] [address] Care Team Providers Care Portfolio Specialist Name Role Phone Morelia Ingram MD Primary Care Provider [phone] Allergies Active Allergy Reactions Criticality Noted Date Comments Niacin Other (see comment) 09/02/2023 Make pt feel hyper Medications traMADol (ULTRAM) 50 MG tabletIndication s:Acute Pain < 3 Day Supply Take 1 tablet (50 mg total) by mouth every 6 (six) hours as needed. Indications : Acute Pain < 3 Day Supply 10 tablet 09/02/2023 Active Social History Tobacco Use Types Packs/Day Years Used Date Smoking Tobacco: Never Smokeless Tobacco: Never Tobacco Cessation:Counseling Given: Not Answered Alcohol Use Standard Drinks/Week Comments Never 0 (1 standard drink = 0.6 oz pur e alcohol) Comments No Sex and Gender Information Value Date Recorded Sex Assigned at Not on file Legal Sex Female 1:26 PM [employer] Gender Identity Not on file Sexual Orientation Not on file Last Filed Vital Signs Vital Sign Reading Time Taken Comments Blood Pressure 140/70 09/02/2023 4:15 PM [employer] Pulse 67 09/02/2023 4:15 PM [employer] Temperature 36.7 ??C (98 ??F) 09/02/2023 4:15 PM [employer] Respiratory Rate 20 09/02/2023 4:15 PM [employer]LE [employer]IV[employer]TER Oxygen Saturation 100% 09/02/2023 4:15 PM [employer]LE [employer]TER Inhaled Oxygen Concentration - - Weight 59 kg (130 lb) 09/02/2023 4:15 PM [employer]LE [employer] Height 160 cm (5' 3 ) 09/02/2023 4:15 PM [employer] Body Mass Index 23.03 09/02/2023 4:15 PM [employer]LE [employer]IVING [employer]TER Plan of Treatment Health Maintenance Due Date Last Done Comments DTaP, Tdap and Td Vaccines (1 - Tdap) 1960 Zoster Vaccines (1 of 2) 12/03/1991 Annual Medicare Wellness Visit 2006 Dexa Scan (General) 2006 Pneumococcal Vaccine: 65+ Years (2 of 2 - PCV) 04/25/2016 04/25/2015 RSV Immunization or 60+ Years (1 - 1-dose 75+ series) 2016 COVID-19 Vaccine ( season) 2024 02/19/2022, 05/07/2021, 10/09/2020, Additional history exists Influenza Adult (#1) 2024 05/09/2021, 05/24/2020, 05/09/2020, Additional history exists Meningococcal Vaccine Aged Out No gaudencio anjelica eligible based on patient's age to complete this topic RSV Immunizations Under 20 Months Aged Out No longer eligible based on patient's age to complete this topic Insurance MEDICARE [facility] Care Teams Portfolio Specialist Relationship Specialty Start Date End Date Morelia Ingram MD [address] [facility] [address] [facility] [address] [place] [address] PCP - General FAMILY PRACTICE 09/02/23
--- OUTSIDE RECORDS SUMMARY | 2024-08-17 22:26 | XMS_ITS | Patient Health Summary ---
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 MD PROCEDURE/MINOR SURG ICAL ORDERABLES * DC DESTR MALIG SCAL,NCK,HAND 0.6-1 CM (08/21/2019 11:29 AM WOMEN'S STUDIES PROFESSOR) Narrative Rehan Rodriguez MD - 08/21/2019 11:29 AM WOMEN'S STUDIES PROFESSOR Katya Sage DO ? 08/21/2019 11:35 AM ED&C Procedure (Electrodesiccation and Currettage) Risks, benefits, and alternatives to ED&C procedure discussed including scar, bleeding, infection, pain, and skin cancer recurrence.. Patient expressed understanding and written consent obtained. Primary surgeon: Attending: Michael Pre-op diagnosis: smBCC Location: R neck Dermpath accession #: [id number].#[id number] Pre-op lesion size: 6mm Size of lesion after first pass: ??8mm Procedure: The site of previous biopsy was identified. The site was prepped with alcohol, then locally infiltrated with 1% lidocaine with epinephrine (3cc total). A curette was used to remove tissue concerning for malignancy down to the dermis until healthy tissue was identified. Electrocoagulation was then performed over the site and this cycle was repeated three times until comfortable reasonable margins were achieved. Vaseline ointment and a clean dressing were applied. The patient tolerated the procedure well. Verbal and written wound care instructions were provided.. The attending was present for james portions of the procedure and always immediately available. Katya Sage DO [facility] Dermatology Resident, PGY-2 Rehan Rodriguez MD PROCEDURE/MINOR SURG ICAL ORDERABLES * DC TANGNTL BX SKIN SINGLE LES (07/31/2019 10:17 AM WOMEN'S STUDIES PROFESSOR) Narrative Rehan Rodriguez MD - 07/31/2019 10:17 AM WOMEN'S STUDIES PROFESSOR Rehan Rodriguez MD ? 07/31/2019 10:17 AM Risks, benefits and alternatives to shave biopsy were discussed with the patient. Verbal consent was obtained. Encounter Diagnoses Name Primary? ? ? History of basal cell carcinoma Yes ? ? History of squamous cell carcinoma ? Actinic keratosis ? Foster angioma ? Lentigines ? Other seborrheic keratosis ? Neoplasm of uncertain behavior of skin ?? Location: right neck Skin prep: Alcohol Anesthesia: 1% lidocaine with epinephrine Hemostasis: Aluminum chloride Dressing and wound care discussed. Specimen(s) placed in a patient labeled container and sent to [facility] Dermatopathology. Patient agrees to phone call for results and message if not available. Rehan Rodriguez MD Rehan Rodriguez MD PROCEDURE/MINOR SURG ICAL ORDERABLES * DC DESTROY PREMALIG LESION, 2-14, DC DESTROY PREMALIG LESION, 1ST LESION (07/31/2019 10:16 AM WOMEN'S STUDIES PROFESSOR) Narrative Rehan Rodriguez MD - 07/31/2019 10:16 AM WOMEN'S STUDIES PROFESSOR Rehan Rodriguez MD ? 07/31/2019 10:17 AM Diagnosis and treatment options discussed. Cryotherapy (Liquid Nitrogen) to two lesion(s) on nasal bridge and left helix for 5-7 seconds each. Number of cycles: 1. Wound care reviewed. ?? Rehan Rodriguez MD PROCEDURE/MINOR SURG ICAL ORDERABLES * DC DESTROY PREMALIG LESION, 1ST LESION, DC DESTROY PREMALIG LESION, 2-14 (01/30/2019 1:34 PM CDT) Narrative Rehan Rodriguez MD - 01/30/2019 1:34 PM CDT Diane Asif MD ? 01/30/2019 ??1:34 PM Liquid nitrogen was applied for 5-7 seconds to the skin lesions and the expected blistering or scabbing reaction explained. Do not pick at the areas. Patient reminded to expect hypopigmented scars from the procedure. Return if lesions fail to fully resolve. Diane Asif MD Dermatology PGY-2 Rehan Rodriguez MD PROCEDURE/MINOR SURG ICAL ORDERABLES * DC TANGNTL BX SKIN SINGLE LES (01/30/2019 1:33 PM CDT) Narrative Rehan Rodriguez MD - 01/30/2019 1:33 PM CDT Rehan Rodriguez MD ? 01/30/2019 ??1:33 PM Risks, benefits and alternatives to shave biopsy were discussed with the patient. Verbal consent was obtained. Encounter Diagnoses Name Primary? ? ? History of basal cell carcinoma Yes ? ? History of squamous cell carcinoma ? Actinic keratosis ? Solar lentiginosis ? Seborrheic keratoses ? Multiple melanocytic nevi ? Neoplasm of uncertain behavior of skin ?? Location: nasal tip Skin prep: Alcohol Anesthesia: 1% lidocaine with epinephrine Hemostasis: Aluminum chloride Dressing and wound care discussed. Specimen(s) placed in a patient labeled container and sent to [facility] Dermatopathology. Patient agrees to phone call for results and message if not available. Diane Asif MD Rehan Rodriguez MD PROCEDURE/MINOR SURG ICAL ORDERABLES * DC DESTROY PREMALIG LESION, 2-14, DC DESTROY PREMALIG LESION, 1ST LESION (08/01/2018 10:44 AM WOMEN'S STUDIES PROFESSOR) Narrative Rehan Rodriguez MD - 08/01/2018 10:44 AM WOMEN'S STUDIES PROFESSOR Tolu Marcus MD ? 08/01/2018 10:40 AM Diagnosis and treatment options discussed. Cryotherapy (Liquid Nitrogen) to 4 lesions for 5-7 seconds each. Number of cycles: 1. Wound care reviewed. Tolu Marcus M.D. PGY-3 dermatology resident Rehan Rodriguez MD PROCEDURE/MINOR SURG ICAL ORDERABLES * (ABNORMAL) GLUCOSE ACCUCHECK (08/20/2014 7:17 AM WOMEN'S STUDIES PROFESSOR) Only the most recent of3 resultswithin the time period is included. 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 FINAL ??SPECIMEN SOURCE: ?? NASAL ??SPECIMEN QUALITY: ??ADEQUATE ??RESULT: ?Light growth of ? Methicillin resistant Staphylococcus aureus (MRSA) ? Negative for inducible clindamycin resistance. ?MRSA ?INT ?? TOBIAS ?? AMOX/CLAVULANATE ? R ? NR ?? AMP/SULBACTAM ?R ? NR ?? CEFAZOLIN ?R ? NR ?? CIPROFLOXACIN ?S ? <=1 ?? CLINDAMYCIN ?S ? <=0.25 ?? ERYTHROMYCIN ? R ? >4 ?? GENTAMICIN ? S ? <=1 ?? LEVOFLOXACIN ? S ? <=0.5 ?? OXACILLIN ?R ? NR 1 ?? TETRACYCLINE ? S ? <=1 ?? TRIMETHOPRIM/SULFA ? S ? <=0.5/9.5 ?? VANCOMYCIN ? S ? 1 S=Susceptible ??I=Intermediate ??R=Resistant ??* = Not Tested NR = Not Reported ??NN = See Therapy Comments THERAPY COMMENTS ?Note 1: ?Oxacillin-resistant staphylococci are resistant to ?all currently available beta-lactam antimicrobial ?agents including penicillins, beta lactam/beta- ?lactamase inhibitor combinations, and cephems with ?staphylococcal indications, including Cefazolin. REPORT COMMENT: SPECIMEN TYPE->NASAL Test Performed at: [facility] ??[id number] MARBIN GARCES MD Nasal 10/30/2013 2:50 PM CDT 10/30/2013 9:43 PM CDT Narrative [facility] ([facility]) - 11/02/2013 2:00 PM CDT Specimen Type->Nasal Rehan Rodriguez MD LAB - MICROBIOLOGY O RDERABLES [facility] ([facility]) * CARDIAC RHYTHM STRIP ORDER (08/16/2012 9:19 AM WOMEN'S STUDIES PROFESSOR) Narrative 08/16/2012 9:19 AM WOMEN'S STUDIES PROFESSOR Procedure Note Document, Scanned - 08/16/2012 9:19 AM CST Scanned Document CARDIAC SERVICES ORD ERABLES * EKG 12-LEAD (04/22/2012 3:36 PM CDT) Ventricular Rate 51 BPM [facility] Atrial Rate 51 BPM [facility] P-R Interval 174 ms [facility] QRS Duration ms 98 ms [facility] Q-T Interval ms 460 ms [facility] QTC Calculation (Bezet) 423 ms [facility] Calculated P [place] 55 degrees [facility] Calculated R [place] 12 degrees [facility] Calculated T [place] 56 degrees [facility] Interpretation EKG SINUS BRADYCARDIA cannot rule out ??SEPTAL INFARCT , AGE UNDETERMINED ABNORMAL ECG NO PREVIOUS ECGS AVAILABLE Confirmed by MD STEPHON, [facility] ([id number]) on 04/22/2012 4:45:47 PM [facility] 04/22/2012 3:36 PM CDT 04/22/2012 4:45 PM CDT Narrative Transcriptions Document, Scanned - 04/22/2012 3:43 PM CDT Document, Scanned - 04/22/2012 4:47 PM CDT Ignacio Walker MD ECG ORDERABLES Performing Organization Address [facility] de Phone Number [facility] * PTT (04/22/2012 3:13 PM CDT) PTT 26.8 24.0 - 33.0 seconds [facility] BLOOD SPECIMEN / Unknown 04/22/2012 3:13 PM CDT 04/22/2012 3:13 PM CDT Ignacio Walker MD LAB - COAGULATION ORDERABLES Performing Organization Address [facility] de Phone Number [facility] [address] [place] [address] * PT-INR (04/22/2012 3:13 PM CDT) PT 11.2 9.4 - 11.4 seconds [facility] INR 1.05 SEE BELOW [facility] Comment: Conventional anticoagulation ?? 2.0-3.0 Intensive anticoagulation ?? 2.5-3.5 BLOOD SPECIMEN / Unknown 04/22/2012 3:13 PM CDT 04/22/2012 3:13 PM CDT Ignacio Walker MD LAB - COAGULATION ORDERABLES Performing Organization Address [facility] Phone Number [facility] [address] [place] [address] * XR CHEST PA AND LATERAL ROUTINE CHEST (04/22/2012 3:00 PM CDT) Anatomical Region Laterality Modality Chest Radiographic Eve ging 04/22/2012 3:09 PM CDT Impressions 04/22/2012 3:09 PM CDT Normal. Narrative 04/22/2012 3:09 PM CDT Chest, 2 views DATE: 04/22/2012 INDICATION: Basal cell carcinoma of the face FINDINGS: The lungs are clear and free of effusion. The heart, mediastinum and bony thorax are normal. Procedure Note Dick Gatica MD - 04/22/2012 Chest, 2 views DATE: 04/22/2012 INDICATION: Basal cell carcinoma of the face FINDINGS: The lungs are clear and free of effusion. The heart, mediastinum and bony thorax are normal. IMPRESSION Normal. Ignacio Walker MD DIAGNOSTIC BRUNO Go ORDERABLES Care Teams Highway Maintenance Worker Relationship Specialty Start Date End Date Morelia Ingram MD [address] [place] [address] PCP - General Family Medicine 01/11/23
--- OUTSIDE RECORDS SUMMARY | 2024-08-17 22:26 | XMS_ITS | Clinical Summary ---
Author Organization [facility] [address] Address [address] [place] [address] Care Team Providers Care Strap Maker Name Role Phone Morelia Ingram MD Primary Care Provider Allergies Active Allergy Reactions Criticality Noted Date Comments Matty Inhibitors Cough Low 08/09/2012 Acrylic Acid Itching Low Reaction: ITCHING Amitriptyline Other (See comments) Medium Reaction: funny feeling, Bee Pollen Unknown 08/09/2012 Devlin Pepper Black Pepper Capsaicin Rash Medium 10/28/2015 Chlordiazepoxide Other (See comments) Medium Reaction: FEEL CRAZY, , Reaction: funny feeling, Ciprofloxacin Hcl Diarrhea Low 05/10/2017 Lactose Other (See comments) Reaction: DIARRHEA Latex Rash Medium 02/25/2023 Amitriptyline-Chlordiazepo xide Other (See comments) Low Reaction: FEELS CRAZY, Mite Extract Rhinitis Low 08/09/2012 Niacin Hives Medium Reaction: HIVES, Reaction: Hives, Nickel Other (See comments),Swelling Medium 05/04/2016 Reaction: OTHER ALLERGIC REACTION, Omeprazole Diarrhea Low 08/09/2012 Other Other (See comments) Low 08/16/2014 Peels skin off Prochlorperazine Other (See comments) Low Reaction: DIARRHEA Diazepam Other (See comments) Low 02/24/2023 Keeps patient awake Zolpidem Anxiety Low 08/27/2014 jittery Medications famotidine (PEPCID) 20 mg tablet Take 1 tablet (20 mg total) by mouth 2 (two) times a day Active potassium 99 mg tablet Take 2 tablets (198 mg total) by mouth 2 (two) times a day Active rOPINIRole (REQUIP) 1 mg tablet Take 1 tablet (1 mg total) by mouth nightly Active diclofenac DR (VOLTAREN) 75 mg EC tablet Take 1 tablet (75 mg total) by mouth 2 (two) times a day Active levothyroxine (SYNTHROID) 50 mcg tablet Take 1 tablet (50 mcg total) by mouth pulmonary fellow before breakfast Active losartan (COZAAR) 50 mg tablet Take 1 tablet (50 mg total) by mouth daily Active budesonide EC (ENTOCORT EC) 3 mg 24 hr capsule Take 2 capsules (6 mg total) by mouth every morning Active magnesium gluconate 200 mg tabletIndications :hypomagnesemia Take 1 tablet (200 mg total) by mouth 2 (two) times a day Active ferrous sulfate 325 mg (65 mg of elemental iron) tabletIndications :Iron Deficiency Anemia Take 1 tablet (65 mg of elemental iron total) by mouth nightly Active cholecalciferol (VITAMIN D-3) 2000 unit tablet Take 1 tablet (2,000 Units total) by mouth daily Active cranberry 500 mg capsule Take 1,680 mg by mouth 2 (two) times a day Active cetirizine (ZyrTEC) 10 mg tablet Take 1 tablet (10 mg total) by mouth daily Active furosemide (LASIX) 20 mg tabletIndications :Swelling TAKE 1 TABLET BY MOUTH DAILY NEEDED FOR SWELLING 30 tablet 1 Active Additional Information Patient not taking.Reported on 11/03/2023 sodium chloride 1 gram tablet Take 1 tablet (1 g total) by mouth daily Active aspirin 81 mg enteric coated tablet Take 1 tablet (81 mg total) by mouth daily 90 tablet 11 2024 Active Additional Information Patient not taking.Reported on 11/03/[address] (PROTONIX) 40 mg EC tablet Take 1 tablet (40 mg total) by mouth daily Active tamsulosin (FLOMAX) 0.4 mg extended release capsule Take 1 capsule (0.4 mg total) by mouth every morning Active acetaminophen (TYLENOL) 325 mg tablet Take 1 tablet (325 mg total) by mouth every 4 (four) hours 03/20/2 023 Active melatonin tablet Take 1 tablet (3 mg total) by mouth nightly 023 Active ondansetron ODT (ZOFRAN-ODT) 4 mg disintegrating tablet DISSOLVE 1 TABLET ON THE TONGUE EVERY 6 HOURS NEEDED FOR NAUSEA AND VOMITING 022 Active phenazopyridine (PYRIDIUM) 200 mg tablet Take 1 tablet (200 mg total) by mouth daily Active thiamine (VITAMIN B-1) 250 mg tablet Take 1 tablet (250 mg total) by mouth daily Active d-mannose (AZO D-Mannose) 500 mg capsule Take by mouth Active amoxicillin (AMOXIL) 500 mg tablet/capsule Take 4 caps (2000 mg) 1 hour prior to procedure. 4 tablet/caps ule Active Jardiance 10 mg tablet TAKE 1 TABLET DAILY 90 tablet 3 Active metoprolol XL (TOPROL-XL) 25 mg extended release tablet TAKE 3 TABLETS BY MOUTH DAILY 270 tablet 025 Active metoprolol XL (TOPROL-XL) 25 mg extended release tablet TAKE 3 TABLETS BY MOUTH DAILY 270 tablet 1 024 2024 Discontinued Active Problems Problem Noted Date Diagnosed Date Weight loss, unintentional 05/12/2023 Primary osteoarthritis of left hip 12/29/2022 Mixed diabetic hyperlipidemi a associated with type 2 diabetes mellitus 05/07/2021 Bradycardia 05/07/2021 Lower extremity edema 05/22/2019 Precordial pain 05/22/2019 Mixed hyperlipidemia 05/18/2017 Essential hypertension 05/18/2017 S/P aortic valve replacement with bioprosthetic valve 07/09/2016 Overview (10/29/2016): S/P aortic valve replacement with bioprosthetic valve Palpitations 07/09/2016 Overview (10/29/2016): Palpitations Atrial fibrillation (CMS/HCC) 07/09/2016 Overview (10/29/2016): Postoperative atrial fibrillation Dyspnea on exertion 07/09/2016 Overview (10/29/2016): VEL[place]SQUEZ (dyspnea on exertion) Controlled type 2 diabetes m ellitus without complication, without long-term current use of insulin ([facility]) 07/09/2016 Overview (10/29/2016): Type 2 diabetes mellitus with unspecified complications Resolved Problems Problem Noted Date Diagnosed Date Resolved Date Encounter for postoperative care 09/16/2015 05/18/2017 Overview (10/29/2016): Post surgical visit Disorder of aorta ([facility]) 08/07/2015 05/07/2021 Overview (10/29/2016): Aortic stenosis Surgical History Surgery Date Site/Laterality Comments CHOLECYSTECTOMY Cholecystectomy APPENDECTOMY Appendectomy OTHER SURGICAL HISTORY lower back pain: lumbar back fusion OTHER SURGICAL HISTORY basal cell skin cancer: basal cell skin cancer removed from face, arms OTHER SURGICAL HISTORY bilateral carpal tunnel repair OTHER SURGICAL HISTORY aortic stenosis: aortic valve replacement BIOPROSTHETIC AORTIC VALVE REPLACEMENT 07/26/2015 - 08/25/2015 23 mm Paul Magna pericardial valve, Dr. Gorman CATARACT EXTRACTION CARDIAC VALVE REPLACEMENT JOINT REPLACEMENT SPINE SURGERY Medical History Medical History Date Comments Hx Other Medical Allergies, seas onal; Comments: [facility] 02/19/2014 - Type 2 diabetes mellitus (HCC) D iabetes type 2; Comments: [facility] 02/19/2014 - Hypertension Hypertension Hx Other Medical aortic stenosis ; Comments: [facility] 02/19/2014 - Hx Other Medical obesity; Commen ts: [facility] 02/19/2014 - Hx Other Medical bilateral carpa l tunnel release; Comments: [facility] 02/19/2014 - Hx Other Medical R salpingoopher ectomy; Comments: [facility] 02/19/2014 - Hx Other Medical multiple basal cell carcinoma excisions; Comments: [facility] 02/19/2014 - Hx Other Medical lower back pain ; Comments: [facility] 08/07/2015 - Hx Other Medical basal cell skin cancer; Comments: [facility] 08/07/2015 - Type 2 diabetes mellitus (HCC) D iabetes type 2; Comments: [facility] 08/07/2015 - Sleep apnea Sleep apnea Hypertension Hypertension Anxiety disorder Anxiety Hx Other Medical palpitations; C omments: [facility] 08/07/2015 - Arthritis Arthritis; Comme nts: [facility] 08/07/2015 - Gastroesophageal reflux disease GERD Hypercholesterolemia High choles terol; Comments: [facility] 08/07/2015 - Hx Other Medical aortic stenosis ; Comments: [facility] 09/16/2015 - Melanoma (HCC) Removed from top of head in 2019, left arm in 2020. Family History Medical History Relation Name Comments Arthritis Father Joey Diabetes Father Joey Hypertension Father Joey Hypertension; Obesity Father Joey Stroke Father Joey Stroke; Memory loss Mother Meli Stroke Mother Meli Stroke; Coronary artery disease Sister 1 Pao nary artery disease, premature; Hypertension Sister 2 Daisy Hypertension; Lupus Sister 2 Daisy Thrombocytopenia Sister 2 Daisy Relation Name Status Comments Father Joey Mother Meli Sister 1 Alive Sister 2 Daisy Alive Social History Tobacco Use Types Packs/Day Years Used Date Smoking Tobacco: Never Smokeless Tobacco: Never Tobacco Cessation:Counseling Given: Not Answered Alcohol Use Standard Drinks/Week Comments Yes 0 (1 standard drink = 0.6 oz pur e alcohol) AUDIT-C Answer Date Recorded Q1: How often do you have a drink containing alcohol? Never 02/24/2023 Q2: How many drinks containi ng alcohol do you have on a typical day when you are drinking? Patient does not drink Q3: How often do you have si x or more drinks on one occasion? Never 02/24/2023 Personal Safety Answer Date Recorded Have you ever been in or are you currently in a harmful physical or emotional relationship or is someone making you feel afraid or unsafe? 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 Gender Identity Not on file Sexual Orientation Not on file Obstetrics History Last Filed Vital Signs Vital Sign Reading Time Taken Comments Blood Pressure 128/56 11/03/2023 11:31 AM CDT Pulse 59 11/03/2023 11:31 AM CDT Temperature 36.2 ??C (97.1 ??F) 06/03/2020 11:[address] Respiratory Rate - - Oxygen Saturation 96% 11/03/2023 11:31 AM CDT Inhaled Oxygen Concentration - - Weight 66.7 kg (147 lb) 11/03/2023 11:31 AM CDT Height 160 cm (5' 3 ) 11/03/2023 11:31 AM CDT Body Mass Index 26.04 11/03/2023 11:31 AM CDT Plan of Treatment Health Maintenance Due Date Last Done Comments Albumin Creatinine Ratio, Urine 1941 Depression Screening 1941 Osteoporosis Screening-Bone Density Scan 1941 Dilated Eye Exam 1941 Foot Exam 1941 DTaP/Tdap/Td Vaccine (1 - Tdap) 1952 Hepatitis B Screening 12/03/1959 Zoster Vaccine (1 of 2) 12/03/1991 Well Visit 65+ 2006 Pneumococcal vaccine 65+ (2 of 2 - PCV) 04/25/2016 04/25/2015 Lipid Panel 05/18/2018 05/18/2017 Hemoglobin A1C 08/27/2023 02/24/2023 Fall Risk Assessment 02/25/2024 02/24/2023 eGFR 02/25/2024 02/24/2023 Covid-19 Vaccine (3 - 2023-2 5 season) 2024 10/09/2020, 09/18/2020 Influenza Vaccine (#1) 2024 , 05/09/2020, 05/03/2019, Additional history exists Procedures Procedure Name Priority Date/Time Associated Diagnosis Comments EGFR Routine 02/24/2023 11:42 AM CDT Preop testing HEMOGLOBIN A1C Routine 02/24/2023 11:42 AM CDT Preop testing POCT LIPID PANEL Routine 05/18/2017 9:29 AM CDT Mixed hyperlipidemia from Last 3 Months or Most Recently Relevant to Health Maintenance Results * eGFR (02/24/2023 11:42 AM CDT) [facility] Signature eGFR 49 mL/min/1. 73 m2 [facility] Comment: Interpretive Data Reference Interval Normal ?>/= 90 mL/min/1.73m2 Mildly decreased* ? 60 - 89 mL/min/1.73m2 Mildly to moderately decreased ?45 - 59 mL/min/1.73m2 Moderately to severely decreased ??30 - 44 mL/min/1.73m2 Severely decreased ?15 - 29 mL/min/1.73m2 Kidney Failure ?< 15 ??mL/min/1.73m2 *Relative to young adult level Estimated glomerular filtration rate is determined by the 2020 CKD-EPI equation recommended by the National Kidney Foundation (A Unifying Approach to GFR Estimation: Recommendations of the NKF-ASK Task Force on Reassessing the Inclusion of Race in Diagnosing Kidney Disease, JASN 2020). The CKD-EPI equation should not be used for patients with unstable renal function and has not been validated in children and those over 70. Current interpretive data was last reviewed 2021. Blood 02/24/2023 11:4 2 AM CDT 02/24/2023 11:42 AM CDT Mary Ann Diez NP LAB BLOOD ORDERABLES Final R esult Performing Organization Address [facility] Co de Phone Number [facility] [address] [place] [address] * Hemoglobin A1c (02/24/2023 11:42 AM CDT) Hgb A1C 5.3 4.0 - 5.6 % [facility] Estimated Average Glucose 105 mg/dL [facility] Comment: The ADA recommends reporting an estimated Average Glucose (eAG) with all Hemoglobin A1c results using the equation derived from a study of 507 normal and diabetic adults. ??Minority populations were underrepresented and children were not included. ?? (Diabetes Care 31:8279-1895, 2008). ??The eAG is not equivalent to a fasting glucose. Blood 02/24/2023 11:4 2 AM CDT 02/24/2023 11:42 AM CDT Mary Ann Diez NP LAB BLOOD ORDERABLES Final R esult Performing Organization Address [facility] Co de Phone Number [facility] [address] [place] [address] * POCT lipid panel (05/18/2017 9:29 AM CDT) HDL, POC 40 mg/dL Triglycerides, POC 346 mg/dL LDL Cholesterol POC 83 mg/dL Chol/HDL Ratio, POC 4.8 Non-HDL Cholesterol, POC 152 mg/dL Cholesterol Total, POC 192 mg/dL Blood specimen (specimen) 05/18/2017 9:29 AM CDT Soheila Bangura MD POINT OF CARE TEST ORDERABL ES Final Result from Last 3 Months or Most Recently Relevant to Health Maintenance Insurance MEDICARE [facility] Address: [address] [place] [id number] MEDICARE Care Teams Strap Maker Relationship Specialty Start Date End Date Morelia Ingram MD [address] [facility] [address] [place] [address] PCP - General Family Medicine 05/18/22
--- OUTSIDE RECORDS SUMMARY | 2024-08-17 22:26 | XMS_ITS | Referral Summary ---
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 Active losartan (COZAAR) 50 mg [...] complication, without long-term current use of insulin ([facility]) 07/09/2016 Overview (10/29/2016): Type 2 diabetes mellitus with unspecified complications Resolved Problems Problem Noted Date Diagnosed Date Resolved Date Encounter for postoperative care 09/16/2015 05/18/2017 Overview (10/29/2016): Post surgical visit Disorder of aorta ([facility]) 08/07/2015 05/07/2021 Overview (10/29/2016): Aortic stenosis Social History Tobacco Use Types Packs/Day Years [...] on file 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 eGFR 49 mL/min/1. 73 m2 [facility] Comment: Interpretive Data Reference Interval Normal ?>/= [...] of Race in Diagnosing Kidney Disease, JASN 202). The CKD-EPI equation should not be used for patients with unstable renal function and has not been validated in children and those over 70. Current interpretive data was last reviewed 2021. Blood 02/24/2023 11:4 2 AM CDT 02/24/2023 11:42 AM CDT us Mary Ann Diez RUBBER AND POUNDER LAB BLOOD ORDERABLES Final R esult Performing Organization Address [facility] Co de Phone Number [facility] [address] [place] [address] * Hemoglobin A1c (02/24/2023 11:42 AM CDT) Hgb A1C 5.3 4.0 - 5.6 % [facility] Estimated Average Glucose 105 mg/dL [facility] Comment: The ADA recommends reporting an estimated Average Glucose (eAG) with all Hemoglobin A1c results using the equation derived from a study of 507 normal and diabetic adults. ??Minority populations were underrepresented and children were not included. ?? (Diabetes Care 31:6731-9731, 2008). ??The eAG is not equivalent to a fasting glucose. Blood 02/24/2023 11:4 2 AM CDT 02/24/2023 11:42 AM CDT us Mary Ann Diez NP LAB BLOOD ORDERABLES Final R esult Performing Organization Address [facility] Co de Phone Number [facility] [address] Department [place] [address] * POCT lipid panel (05/18/2017 9:29 AM CDT) Pathologist [facility] HDL, POC 40 mg/dL Triglycerides, POC 346 mg/dL LDL Cholesterol POC 83 mg/dL Chol/HDL Ratio, POC 4.8 Non-HDL Cholesterol, POC 152 mg/dL Cholesterol Total, POC 192 mg/dL Blood specimen (specimen) 05/18/2017 9:29 AM CDT us Soheila Bangura MD POINT OF CARE TEST ORDERABL ES Final Result from Last 3 Months or Most Recently Relevant to Health Maintenance Insurance MEDICARE [facility] MEDICARE Care Teams Supervisor Remelt Relationship Specialty Start Date End Date Morelia Ingram MD [address] [place] [address] PCP - General Family Medicine 05/18/22
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
--- OUTSIDE RECORDS SUMMARY | 2024-08-17 22:26 | XMS_ITS | Encounter Summary ---
Author Organization [facility] Healthcare Address [address] [place] [address] Care Team Providers Care Artist'S Manager Name Role Phone Morelia Ingram MD Primary Care Provider Encounter Details Date Type Department Care Team (Late st Contact Info) Description 10/24/2023 Orders Only [facility] [place] Information Management [address] [place] [id number] Scanning, Provider Social History Tobacco Use Types Packs/Day Years Used Date Smoking Tobacco: Never Smokeless Tobacco: Never Alcohol Use Standard Drinks/Week Comments Yes 0 [...] on file 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 Gender Identity Not on file Sexual Orientation Not on file documented as of this encounter Plan of Treatment Not on file documented as of this encounter Procedures Procedure Name Priority Date/Time Associated Diagnosis Comments SCAN - RADIOLOGY/IMAGING 10/24/2023 documented in this encounter Results * SCAN - RADIOLOGY/IMAGING (10/24/2023) Anatomical Region Laterality Modality Other us Provider Scanning Final Result documented in this encounter Visit Diagnoses Not on filedocumented in this encounter Care Teams Artist'S Manager Relationship Specialty Start Date End Date Morelia Ingram MD [address] [facility] [address] [place] [id number] PCP - General Family Medicine 05/18/22 documented as of this encounter
--- OUTSIDE RECORDS SUMMARY | 2024-08-17 22:26 | XMS_ITS | Continuity of Care Document ---
Author Organization [facility] Address [address] [place] [address] Phone Care Team Providers Care Plisse Machine Operator Name Role Phone Brandon Brewer MD Unavailable Unavailable Allergies, Adverse Reactions, Alerts Substance Reaction Status Criticality latex ItchyEyes Active No Information nickel Active No Information CETIRIZINE HCL Active No Informatio n niacin Active No Information chlordiazepoxide Active No Informat ion AMITRIPTYLINE HCL Active No Informa tion Medications Medication Instructions Dosage Effective Dates (start - stop) Status Comments diclofenac sodium 25 mg tablet,delayed release - Active levothyroxine 25 mcg tablet - Active Symbicort 160 mcg-4.5 mcg/actuation HFA aerosol inhaler inhale 2 puff by inhalation route 2 times every day in the morning and evening 2.00 puff - Active budesonide DR - ER 3 mg capsule,delayed,extend ed release take 3 capsule by oral route every day in the morning for up to 8 weeks 9 MG - Active famotidine 20 mg tablet - Active ropinirole 1 mg tablet - Active omeprazole 10 mg capsule,delayed release take 2 capsule by oral route every day before a meal 20 MG - Active aspirin 325 mg tablet - Active metoprolol tartrate 25 mg tablet take 1 tablet by oral route 2 times every day 25 MG - Active losartan 50 mg tablet take 1 tablet by oral route every day 50 MG - Active Procedures Procedure Date Office/outpatient visit,est, mod 2022 HYMOVIS, Hyaluaronan Or Derivative, Asp/inject major joint or bursa w/o US g uidance HYMOVIS, Hyaluaronan Or Derivative, Asp/inject major joint or bursa w/o US g uidance Asp/inject major joint or bursa w/o US g uidance HYMOVIS, Hyaluaronan Or Derivative, Asp/inject major joint or bursa w/o US g uidance HYMOVIS, Hyaluaronan Or Derivative, Fluoroscopic Guidance; Non Spinal Depo Medrol Methylprednisolone 40 MG inj Asp/inject major joint or bursa w/o US g uidance Omnipaque, 300-399 mg/ml, per ml 2022 Lidocaine For Injection, 10 Mg Per Ml Ma X-ray Exam Hip Unilat With Pelvis When P erf 2-3 View Depo Medrol 80 MG inj Asp/inject major joint or bursa w/o US g uidance Depo Medrol Methylprednisolone 40 MG inj Asp/inject major joint or bursa w/o US g uidance Office/outpatient visit,est, mod 2022 Asp/inject major joint or bursa w/o US g uidance Depo Medrol Methylprednisolone 40 MG inj Office/outpatient visit,est, mod 2021 MRI lwr extrm joint, w/o contrast X-ray Exam Hip Unilat With Pelvis When P erf 2-3 View X-ray exam both knees, standing 022 X-ray exam knee, 1 or 2 views Office/outpatient visit,new, mod 2021 X-ray Exam Hip Unilat With Pelvis When P erf 2-3 View Global/Postop followup visit Total Hip Replacement Office/outpatient visit,est, mod 2015 Office/outpatient visit,[facility], [facility] 2015 Advance Directives Directive Yes / No Effective Date File Name No Information Encounters Encounter Description Practice Location Reason(s) For Visit Diagnoses Date Provider Providers Copied on Encounter [facility], [address], [id number], tel:[phone] [facility] Bilateral primary osteoarthritis of knee 4 Osman Taylor. [address] [place] [address], [place], [place], [id number] , [place]. tel:[phone] Office/outpat ient visit,est, mod [facility], [address] [place] [address], [id number], tel:[phone] [facility] left hip (chief complaint) Unilateral primary osteoarthritis, left hip 3 Osman Taylor. [address] [place] [address], [id number] , [place]. [phone] Referring Provider: Emigdio Barragan, [address] [place] [address] [address], [place], [address]. tel:[phone] [facility], [address] [place] [address], [id number], [place] tel:[phone] [facility] bilateral knees (chief complaint) Bilateral primary osteoarthritis of knee 3 Turner Cochran. [address] [place] [address], [id number] , [place]. tel:[phone] Referring Provider: Sammie Enriquez, [address] [place] [address], [place], [address] . tel:[phone] [facility], [address] [place] [address], [id number], [place] tel:[phone] [facility] bilateral knees (chief complaint) Bilateral primary osteoarthritis of knee 3 Turner Cochran. [address] [place] [address], [id number] , [place]. tel:[phone] Referring Provider: Sammie Enriquez, [address], [place], [address] . tel:[phone] [facility], [address] [address], [place], [place], [id number], [place] tel:[phone] [facility] Bilateral primary osteoarthritis of knee Apr- 3 Osman Taylor. [address], [place], [place], [id number] , [place]. [phone] [facility], [address] [address], [place], [place], [id number], [place] tel:[phone] [facility] left hip (chief complaint) Unilateral primary osteoarthritis, left hip Sep-0 3 Turner Cochran. [address], [place] [address], [place], [place], [id number] , [place]. tel:[phone] Referring Provider: Sylvia Parra4 [place] [address], [place], [address]. tel:[phone] Office/outpat ient visit,est, [facility], [address] [address], [place], [place], [id number], [place] tel:[phone] [facility] left hip pain (chief complaint) bilateral knees (chief complaint) Pain in left hipUnilateral primary osteoarthritis, left hipBilateral primary osteoarthritis of knee Sep-0 3 Turner Cochran. [address], [place], [place], [id number] , [place]. tel:[phone] Referring Provider: Sylvia Parra4 [place] [address], [place], [address]. tel:[phone] Office/outpat ient visit,est, mod [facility], [address] [address], [place], [place], [id number], [place] tel:[phone] [facility] right knee right hip (chief complaint) Presence of right artificial hip jointPain in right knee 2 Osman Taylor. [address], [place], [place], [id number] , [place]. tel:[phone] Referring Provider: Emigdio Barragan, Sylvia[address] [place] [address], [place], [address]. tel:[phone] [facility], [address], [place], [place], [id number], [place] tel:[phone] [facility] Pain in right knee 2 [facility]. [address], [place], [place], [id number] , [place]. tel:[phone] Referring Provider: Brandon Vitale, [address], [place], [address] . tel:[phone] Office/outpat ient visit,[facility], [address], [place], [place], [id number], [place] tel:[phone] [facility] Knee Pain (chief complaint) Pain in right kneePresence of right artificial hip joint 2 Osman Taylor. [address], [place], [place], [id number] , [place]. tel:[phone] Referring Provider: Emigdio Barragan, [address] [place] [address], [place], [address]. tel:[phone] [facility], [address], [place], [place], [id number], [place] tel:[phone] [facility] post op right total hip (chief complaint) Pain in right hipPresence of right artificial hip joint 6 Osman Taylor. [address], [place], [place], [id number] , [place]. tel: [phone] Referring Provider: Brandon Vitale, [address], [place], [address] . tel:[phone] [facility], [address], [id number], [place] tel:[phone] [facility] Pain in right hip Marcio-0 6-201 6 Brewer Brandon. [address], [address], [id number] , [place]. tel:[phone] Referring Provider: Emigdio Barragan, [address] [place] [address], [place], [address]. tel:[phone] Office/outpat ient visit,[facility], [facility], [address], [id number], tel:[phone] [facility] right hip arthritis (chief complaint) Pain in right hip Pelon-1 3-201 6 Brewer Brandon. [address], [address], [id number] , [place]. [phone] Referring Provider: Emigdio Barragan, [address] [place] [address], [place], [address]. tel:[phone] Office/outpat ient visit,[facility], [facility], [address], [id number], [place] tel:[phone] [facility] right hip arthritis (chief complaint) Pain in right hip Oct-2 8-201 6 Osman Taylor. [address], [address], [id number] , [place]. tel:[phone] Referring Provider: Emigdio Barragan, [address] [place] [address], [place], [address]. tel:[phone] Family History Family Member Type Diagnosis Age At Onset Sister Problem (finding) Heart Disease Sister Problem (finding) Diabetes Sister Problem (finding) Hypertension Father Problem (finding) stroke Mother Problem (finding) Arthritis Father Problem (finding) hypertension Father Problem (finding) Heart Disease Father Problem (finding) Diabetes Sister Problem (finding) Osteoarthritis Mother Problem (finding) Heart Disease Mother Problem (finding) Diabetes mellitus Sister Problem (finding) Cancer, unknown Father Problem (finding) Diabetes mellitus Father Problem (finding) Osteoarthritis Mother Problem (finding) Other Immunizations Vaccine Date Status Comments Flu (split) (3 yrs or older) administered Source: Other Provider Pneumo (2 yrs or older) (PPV23) administe red Source: Other Provider Pneumo (2 yrs or older)(PPV) administered Source: Other Provider Payers Payer name Insurance type Covered republican ID Authoriza timishel(s) [place] W[place] Part B MB [id number] [place] Blue Cross Blue Shiel d [facility] [id number] Social History Type Description Quantity Date Captured Comments Alcohol Use Details Unknown Caffeine Use Details Unknown Tobacco Use Status No Information Smoking Status No Information Sex Female Chief Complaint And Reason For Visit No Information Reason For Referral Reason For Referral No Information Plan Of Treatment Date Type Action Status Referral Ordered: Other Bilateral knee ordered Referral Ordered: X-ray Exam Hip Unilat With Pelvis When Perf 2-3 View LT ordered Referral Ordered: Fluoroscopic Guidance; Non Spinal LT hip ordered Referral Ordered: X-ray Exam Hip Unilat With Pelvis When Perf 2-3 View RT hip ordered Referral Ordered: MRI lower extrm joint, w/o contrast RT knee Appointment date/timeframe: 03/02/2022 ordered Referral Ordered: X-ray exam knee, 1 or 2 views RT knee ordered Referral Ordered: X-ray exam both knees, standing ordered Referral Ordered: X-ray Exam Hip Unilat With Pelvis When Perf 2-3 View RT ordered Patient Education Body Mass Index: After Your Visit completed Future Order: Lab Order C Reacti ve Protein (CRP), Ordered on: Ordered Future Order: Lab Order CBC W/Di ff (CBC w/Diff), Ordered on: Ordered Future Order: Lab Order Sed Rate (Sed Rate), Ordered on: Ordered History Of Present Illness Encounter Date Complaint History Of Prese nt Illness left hip Elizabeth presents with left hip pain. bilateral knees Elizabeth comes in the office today for 2 of 2 Hymovis injections to bilateral knees. bilateral knees Elizabeth comes in the office today for 1 of 2 Hymovis injection to bilateral knees left hip Elizabeth comes in the office today for left intra-articular hip injection under fluoroscopy. left hip pain Ms Herrera is a 81 year old female who complains of left hip pain. She presents with pain, weakness, stiffness and numbness on the left side. She states that the symptoms have been chronic non-traumatic. The symptoms occur constantly. The problem is unchanged. Currently the patient states that the symptoms are moderate. The pain is described as discomforting. The symptoms occur continuously. The patient is experiencing pain in the following location: lateral region on the left side. She also reports additional pain in the groin on the left side. She rates her current pain as 6/10. The pain radiates from the lateral leg on the left side then to the groin on the left side. The patient presents with hip weakness. The symptoms are aggravated by ascending stairs, descending stairs, standing, walking and bending. Elizabeth states that the symptoms are relieved by rest and OTC medicines. In addition to left hip pain the patient is also experiencing decreased mobility, popping, stiffness, loss of motion, limping and joint pain. The patient has had a previous none. She has had no previous treatment. Patient has not had any pertinent therapy for this condition. Patient has had no prior surgeries. There were no previous episodes. She experienced no previous injury. bilateral knees She also complai ns of bilateral knee pain related to osteoarthritis. She received cortisone injections on 03/05/2022 with improvement and requests repeat cortisone injections today. Pain is aggravated by standing and walking. right knee right hip Elizabeth ret urns for results. Knee Pain Location: knee. Hand Dominance: right. Additional information: Elizabeth presents with right knee pain. post op right total hip Elizabeth comes back into the office today following right total hip replacement on 01-29-16. She is doing well. Xray was obtained. She is using a cane- she is only taking over the counter Tylenol. right hip arthritis Elizabeth come s into the office for her right hip arthritis- she has been cleared by her legal paraprofessional and has been off of her blood thinner. right hip arthritis Elizabeth come s into the office today for right hip pain associated with arthritis. She states she is having alot of groin pain also. She resides in [place] and did seek treatment by Dr. Emigdio Jerry in [facility]. He did a xray of her hip and advised her that she needed to undergo a MRI after review of her xray. She brings in both of these studies. She reports that after Dr. Jerry reviewed the MRI he advised her that she would be better [facility] at [facility] asked him if she could have her surgery at [facility]. He advised her to seek care by an ortho who operates at [facility] for determination if it could be done at that facility. She is using a walker which was directed by Dr. Jerry for her to use. She is anxious to have something done. She has not had any treatment on her hip to date. Functional Status Date Functional Assessmen t No Information Instructions Date Instruction Additional Infor mation No Information Assessments Type Assessment Date assessment Bilateral primary osteoarthritis of knee Patient Care Teams Name Effective Dates (start - stop) Status Members No Information
--- OUTSIDE RECORDS SUMMARY | 2024-08-17 22:26 | XMS_ITS ---
Author Organization [facility] Address [address] [place] [address] Care Team Providers Care Training Officer Name Role Phone Morelia Ingram MD Primary Care Provider U navailable Active Problems Problem Noted Date Diagnosed Date [...] lip s/p mohs Apr 2017 -2010, L christianity/face/upper forehead BCC s/p slow mohs s/p 7 [...] 08/07/2020 Assessment & Plan (08/07/2020 12:14 PM TESTING MANAGER): - nose (diffuse, recalcitrant), left cheek, [...] skin Assessment & Plan (08/07/2020 12:15 PM TESTING MANAGER): -vertex scalp: lentigo vs MIS -R thigh: ISK vs SCC - Shave Biopsy (see procedure note) - Post-biopsy handout given - Wound care instructions reviewed - Will call patient with biopsy results. If intervention is indicated, will make arrangements at that time Actinic skin damage 08/07/2020 Assessment & Plan (08/07/2020 12:14 PM TESTING MANAGER): Explained benign nature, reassurance provided. ABCDEs [...] FBSE Assessment & Plan (08/07/2020 12:14 PM TESTING MANAGER): -NER today -continue q6m FBSE Lower [...] 11/30/2011 Overview (02/19/2020): Overview: 2010: BCC, L christianity/face/upper forehead s/p Slow mohs w/ 7 stages. 03/2012: BCC, tip of nose s/p Mohs 08/03/201209/2013: BCC SM X3 , L upper arm, extensor side, L forearm, superior, L forearm, inferior s/p ED&C x 3 10/30/201304/2014: BCC, R infraorbital, s/p Mohs 08/15/2014 Assessment & Plan (11/11/2020 10:11 AM CDT): No evidence of recurrence. Assessment & Plan (08/07/2020 12:14 PM TESTING MANAGER): -NER today -continue q6m FBSE Current Oncology Plans No current plan information found. Past Plans No past plan information found. Radiation Treatments * No radiation treatments are documented for this patient in [facility]. Treatments may have been administered in another system. Lifetime Dose Tracking * Chemical Lifetime Dose Automatic Entry Manual Entr y Dose Length Product 3,037.3 mGy-cm 3,037.3 mGy-cm 0 mG y-cm Resolved Problems Problem Noted Date Diagnosed Date [...] lip s/p mohs Apr 2017 -2010, L christianity/face/upper forehead BCC s/p slow mohs s/p 7 stages. -03/2012, BCC, tip of nose. Mohs -09/2013, BCC SM X3 , L upper arm, extensor side, L forearm, superior, L forearm, inferior -04/2014, R infraorbital , BCC Mohs -Efudex 5% cream to R cheek and nose 2014. Assessment & Plan (11/11/2020 10:07 AM CDT): No evidence of recurrence.
--- OUTSIDE RECORDS SUMMARY | 2024-08-17 22:26 | XMS_ITS | Clinical Summary ---
Author Organization [facility] Address [address] [place] [address] Phone Care Team Providers Care Protein Purification Scientist Name Role Phone Morelia Ingram MD Primary Care Provider [phone] Allergies Active Allergy Reactions Criticality Noted Date Comments Adhesive Rash Low 03/20/2015 Amitriptyline-Chlordiazepoxide Hallucination Low Chlordiazepoxide Hcl Delirium Medium 03/20/2015 Latex Rash Low 03/20/2015 Niacin Hives High 03/20/2015 Medications levothyroxine 50 mcg tablet Take 50 mcg by mouth daily in the morning. Active budesonide (ENTOCORT EC) 3 mg Enteric Coated 24 hour capsule Take 3 mg by mouth 2 times daily. Active famotidine (PEPCID) 20 mg tablet Take 20 mg by mouth 2 times daily. Active traMADoL (ULTRAM) 50 mg tablet Take 50 mg by mouth every 6 hours as needed for Pain. Active phenazopyridine HCl (PHENAZOPYRIDINE ORAL) Take 20 mg by mouth daily. Active SODIUM CHLORIDE MISC by Misc.(Non-D rug; Combo Route) route. Active Cholecalciferol, Vitamin D3, 50 mcg (2,000 unit) Capsule Take 50 mcg by mouth daily. Active psyllium (METAMUCIL) Packet Take 1 Packet by mouth daily. Active thiamine (VITAMIN B-1) 250 mg Tablet Take 250 mg by mouth daily. Active tamsulosin (FLOMAX) 0.4 mg capsule Take 0.4 mg by mouth daily. Active furosemide (LASIX) 20 mg tablet Take 20 mg by mouth 1 time daily as needed. Active pantoprazole (PROTONIX) 40 mg Tablet, Delayed Release (E.C.) Take 40 mg by mouth daily. Active cyanocobalamin 1,000 mcg Tablet Take 1,000 mcg by mouth daily. Active metoprolol tartrate (LOPRESSOR) 100 mg tablet Take 100 mg by mouth 2 times daily. Active rOPINIRole (REQUIP) 1 mg tablet Take 1 mg by mouth 2 times daily. 01/28/2021 Active empagliflozin (JARDIANCE) 10 mg tablet Take 10 mg by mouth daily. 09/28/2023 Active ferrous sulfate 325 mg (65 mg iron) tablet Take 325 mg by mouth daily. Active Active Problems No known active problems Encounters Date Type Department Care Team Description 08/16/2024 External Device Data STL ABSTRACTION Provider, Abstract from Last 3 Months Family History Medical History Relation Name Comments No Known Problems Child 1 No Known Problems Child 2 No Known Problems Child 3 Cancer Child 4 Ed Diabetes Father Heart Disease Father No Known Problems Mother Diabetes Sister 1 joshua Heart Disease Sister 1 joshua Diabetes Sister 2 flaquita Cancer Sister 3 samanta Heart Disease Sister 3 samanta Relation Name Status Comments Child 1 Alive Child 2 Alive Child 3 Alive Child 4 Ed Alive Father Mother Sister 1 joshua Sister 2 flaquita Alive Sister 3 samanta Alive Social History Tobacco Use Types Packs/Day Years Used Date Smoking Tobacco: Never Smokeless Tobacco: Never Alcohol Use Standard Drinks/Week Comments No 0 (1 standard drink = 0.6 oz pur e alcohol) Comments Unknown Sex and Gender Information Value Date Recorded Sex Assigned at Female 11/07/2023 5:21 PM CDT Legal Sex Female 12:04 PM CDT Gender Identity Female 11/07/2023 5:21 PM CDT Sexual Orientation Straight 11/07/2023 5: 21 PM CDT Last Filed Vital Signs Vital Sign Reading Time Taken Comments Blood Pressure 190/83 04/19/2024 9:57 AM CDT Pulse 64 04/19/2024 9:55 AM CDT Temperature 36.6 ??C (97.8 ??F) 04/19/2024 9:55 AM CD T Respiratory Rate 15 04/19/2024 9:55 AM CDT Oxygen Saturation 94% 04/19/2024 9:55 AM CDT Inhaled Oxygen Concentration - - Weight 65 kg (143 lb 6.4 oz) 04/19/2024 9:55 AM CDT Height 160 cm (5' 3 ) 11/10/2023 2:13 PM CDT Body Mass Index 25.4 11/10/2023 2:13 PM CDT Plan of Treatment Upcoming Encounters Date Type Department Care Team (Late st Contact Info) Description 10/18/2024 11:00 AM CDT Office Visit [facility] Oncology and Hematology - [place] [address] [facility] [address] [place] [address] Luther Nath MD [address] [facility] [address] [place] [address] Health Maintenance Due Date Last Done Comments DIABETES ANNUAL FOOT EXAM 12/03/1958 DIABETES MICROALBUMIN ANNUAL SCREEN 12/03/1959 LDL CHOLESTEROL ANNUAL 12/03/1959 DTAP/TDAP/TD VACCINES (1 - Tdap) 1960 PNEUMOCOCCAL VACCINE 65+ YEA RS (2 of 2 - PCV) 04/25/2016 04/25/2015 RSV VACCINE (60+ or ) (1 - 1-dose 75+ series) 2016 ZOSTER VACCINE (2 of 2) 04/12/2020 02/16/2020 DIABETES HBA1C Q 6 MONTHS 08/27/20232022, 12/16/2022, 09/02/2022, Additional history exists INFLUENZA VACCINE (#1) 2024 2, 04/01/2021, 05/24/2020, Additional history exists COVID-19 Vaccine (3 - 2023-2 5 season) 2024 10/09/2020, 09/18/2020 DIABETES ANNUAL RETINAL EXAM 09/15/2024, 09/15/2023, 08/13/2023, Additional history exists OSTEOPOROSIS SCREENING Completed 06/27/2019 COLORECTAL SCREENING Discontinued 02/05/2021 Colorectal Cancer Screening Discontinued FIT-DNA Q 3 years Discontinued FIT/FOBT Q 1 year Discontinued Flex Sig/CT Colonography Q 5 years Discontinued Medical Devices Implanted Type Area Bods Developer Device Identifier Shelf Expiration Date Model / Serial / Lot Sealant Floseal W/ Adptr 10ml [id number] - [id number] Implanted:Qty : 1 on 03/29/2015 by Helio Godoy MD at [facility] Sealant N/A: Spine Lumbar COULTER- BIOSCIENCE 05/25/2016 [id number] / / [id number] Cataract Lens Insurance MEDICARE PART A AND B [facility] MEDICARE PART A AND B [facility] Advance Directives For more information, please contact: [phone] Documents on File Type Date Recorded Patient Director Diabetes Expl anation Advance Directive POA 03/20/2015 10:47 AM Advance Directive POA * Full Code (Latest Code Status on File) Date Activated Date Inactivated Comments 03/29/2015 4:43 PM 03/30/2015 1:45 PM * Full Code Date Activated Date Inactivated Comments 03/29/2015 1:51 PM 03/29/2015 4:43 PM * Full Code Date Activated Date Inactivated Comments 03/29/2015 1:00 PM 03/29/2015 1:51 PM * Full Code Date Activated Date Inactivated Comments 03/29/2015 12:16 PM 03/29/2015 1:00 PM Care Teams Protein Purification Scientist Relationship Specialty Start Date End Date Morelia Ingram MD [address] [facility] [address] [place] [address] PCP - General Family Practice 11/10/23
--- OUTSIDE RECORDS SUMMARY | 2024-08-17 22:26 | XMS_ITS | Referral Summary ---
Author Organization [facility] Address [address] [place] [address] Care Team Providers Care Principal Technical Writer Name Role Phone Morelia Ingram MD Primary Care Provider U francojohn Source Comments [facility],non-owned Affiliates and Associated Physician Practices is amultiple site organization consisting of ambulatory clinics and hospital sitesin [place], [place], [place] and [place]. This disclosure is being madepursuant to the Care Everywhere program and may not contain all information available regarding this patient. Last updated 18.[facility] Allergies Active Allergy Reactions Criticality Noted Date [...] lip s/p mohs Apr 2017 -2010, L hoahaoism/face/upper forehead BCC s/p slow mohs s/p 7 [...] 08/07/2020 Assessment & Plan (08/07/2020 12:14 PM SEO TEAM LEAD): - nose (diffuse, recalcitrant), left cheek, and [...] skin Assessment & Plan (08/07/2020 12:15 PM SEO TEAM LEAD): -vertex scalp: lentigo vs MIS -R thigh: ISK vs SCC - Shave Biopsy (see procedure note) - Post-biopsy handout given - Wound care instructions reviewed - Will call patient with biopsy results. If intervention is indicated, will make arrangements at that time Actinic skin damage 08/07/2020 Assessment & Plan (08/07/2020 12:14 PM SEO TEAM LEAD): Explained benign nature, reassurance provided. ABCDEs of [...] FBSE Assessment & Plan (08/07/2020 12:14 PM SEO TEAM LEAD): -NER today -continue q6m FBSE Lower extremity [...] 11/30/2011 Overview (02/19/2020): Overview: 2010: BCC, L hoahaoism/face/upper forehead s/p Slow mohs w/ 7 stages. 03/2012: BCC, tip of nose s/p Mohs 08/03/201209/2013: BCC SM X3 , L upper arm, extensor side, L forearm, superior, L forearm, inferior s/p ED&C x 3 10/30/201304/2014: BCC, R infraorbital, s/p Mohs 08/15/2014 Assessment & Plan (11/11/2020 10:11 AM CDT): No evidence of recurrence. Assessment & Plan (08/07/2020 12:14 PM SEO TEAM LEAD): -NER today -continue q6m FBSE Resolved Problems [...] lip s/p mohs Apr 2017 -2010, L hoahaoism/face/upper forehead BCC s/p slow mohs s/p 7 stages. -03/2012, BCC, tip of nose. Mohs -09/2013, BCC SM X3 , L upper arm, extensor side, L forearm, superior, L forearm, inferior -04/2014, R infraorbital , BCC Mohs -Efudex 5% cream to R cheek and nose 2014. Assessment & Plan (11/11/2020 10:07 AM CDT): No evidence of recurrence. Immunizations Name Administration Dates Next Due Light Harmonic primary monoval ent 12+ yr 0.3mL Purple cap 10/09/2020,09/18/2020 INFLUENZA VACCINE 05/09/2021,05/09/2020,04/25/20 INFLUENZA VACCINE, HIGH-DOSE , QUADR. (FLUZONE HIGH-DOSE QUADRIVALENT; 65Y+), 0.7 ML (HD-IIV4) 07/23/2022,04/01/2021 PNEUMOCOCCAL PPSV23 04/25/2015 Zoster Hzv Vacc Recombinant Inj Im 02/16/2020 iNFLUENZA VACCINE, RECOM-BRADLEY, QUADR. (FLUBLOCK QUADRIVALENT; 18Y+) (RIV4) 05/24/2020,05/03/2019 Social History Tobacco Use Types Packs/Day Years [...] and heating? Not hard at all 10/09/2022 [facility] [place] [facility] Occupat ional [facility] - Occupational Stress [...] place to sleep or slept in a alf (including now)? No 10/09/2022 Sex and Gender [...] Mass Index 34.99 10/09/2022 4:00 AM CDT Functional Status Functional Status Response Date of Assess ment Is person deaf or have serious hearing difficult y? No 10/09/2022 Is person blind or have serious difficulty seein g? No 10/09/2022 Does person have serious dif ficulty walking/climbing stairs? Yes 10/09/2022 Does person have difficulty dressing/bathing? Ye s 10/09/2022 Does person have difficulty doing errands alone? Yes 10/09/2022 Cognitive Status Response Date of Assessm ent Does person have difficulty concentrating/remembering/making decisions? No 10/09/2022 Plan of Treatment Upcoming Encounters Date Type Department Care Team (Late st Contact Info) Description 10/30/2024 1:30 PM CDT Office Visit [facility] - Dermatology [address] [place] [address], [place] [address] Rehan Rodriguez MD [address] [place] [address] [address] [place] [address] Procedures Procedure Name Priority Date/Time Associated Diagnosis Comments BASIC METABOLIC PANEL (CALCIUM TOTAL) STAT 10/09/2022 12:13 AM CDT from Last 3 Months or Most Recently Relevant to Health Maintenance Results * (ABNORMAL) BASIC METABOLIC PANEL (CALCIUM TOTAL) (10/09/2022 12:13 AM CDT) BUN 9 7 - 26 mg/dL 10/09/2022 12:47 AM [facility] Creatinine 0.68 0.56 - 0.96 mg/dL 10/09/2022 12:47 AM [facility] Sodium 136 136 - 145 mmol/L 10/09/2022 12:47 AM [facility] Potassium 3.9 3.5 - 4.5 mmol/L 10/09/2022 12:47 AM [facility] Chloride 104 98 - 107 mmol/L 10/09/2022 12:47 AM [facility] CO2 22 22 - 29 mmol/L 10/09/2022 12:47 AM [facility] Glucose 115 70 - 115 mg/dL 10/09/2022 12:47 AM [facility] Calcium 8.9 8.4 - 10.2 mg/dL 10/09/2022 12:47 AM [facility] Anion Gap 14 8 - 18 10/09/2022 12:47 AM [facility] BUN/Creatinine Ratio 13 7 - 23 10/09/2022 12:47 AM [facility] Osmolality Calculated 282 270 - 300 mOsm/kg 10/09/2022 12:47 AM [facility] eGFR by CKD-EPI 88(L) >=90 mL/min/1.7 3 m2 10/09/2022 12:47 AM [facility] Blood BLOOD SPECIMEN / Unknown Venipuncture / Unknown 10/09/2022 12:13 AM CDT 10/09/2022 12:22 AM CDT Darrion Almonte DO LAB - CHEMISTRY ORDE [facility] [address] [place] [address], [facility] [phone] from Last 3 Months or Most Recently Relevant to Health Maintenance Insurance Payer Benefit Plan / Group Subscriber ID Effective Dates Phone Address Type TPL [employer] LIABILITY [employer] LIABILITY [id number] 10/08/2022-Pre sent [address] [place] [address] Third Alliance Party Liability TPL [employer] LIABILITY [employer] LIABILITY [id number] Effective for all dates [address] [place] [address] Third Alliance Party Liability MEDICARE MEDICARE PART A AND B [id number] Effective for all dates [address] [place] [address] Medicare BLUE CROSS BLUE SHIELD [facility] BLUE CROSS BLUE SHIELD PPO Effective for all dates [address] [place] [address] PPO MEDICARE MEDICARE PART A AND B [id number] Effective for all dates [address] [place] [address] Medicare BLUE CROSS BLUE SHIELD [facility] BLUE CROSS BLUE SHIELD PPO Effective for all dates [address] [place] [address] PPO MEDICARE MEDICARE PART A AND B [id number] Effective for all dates [address] [place] [address] Medicare BLUE CROSS BLUE SHIELD [facility] BLUE CROSS BLUE SHIELD PPO Effective for all dates [address] [place] [address] PPO MEDICARE MEDICARE PART A AND B [id number] Effective for all dates [address] [place] [address] Medicare MEDICARE MEDICARE PART A AND B [id number] Effective for all dates [address] [place] [address] Medicare BLUE CROSS BLUE SHIELD [facility] BLUE CROSS BLUE SHIELD PPO Effective for all dates [address] [place] [address] PPO MEDICARE MEDICARE PART A AND B [id number] Effective for all dates [address] [place] [address] Medicare MEDICARE MEDICARE PART A AND B [id number] Effective for all dates [address] [place] [address] Medicare MEDICARE WPS MEDICARE PART B [id number] 11/23/2006-Pres ent [address] [address] [place] [address] Medicare ANTHEM BLUE CROSS TRADITIONAL [id number] 07/01/2008-Pre sent [address] [place] [address] PPO MEDICARE MEDICARE PART A AND B [id number] Effective for all dates [address] [place] [address] Medicare ANTH BLUE CROSS FEDERAL PLAN [id number] 07/01/2008-Pre sent [address] [place] [address] PPO Elizabeth Duarte Personal/Family Self 1940 [address] [id number] ELIZABETH DUARTE Personal/Family Spouse [address] [id number] ELIZABETH DUARTE Personal/Family Spouse [address] [place] [id number] ELIZABETH DUARTE Personal/Family Spouse [address] [place] [id number] ELIZABETH DUARTE Personal/Family Spouse [address] [facility] [place] [address] ELIZABETH DUARTE Personal/Family [address] [facility] [place] [address] ELIZABETH DUARTE Personal/Family [address] [facility] [place] [address] ELIZABETH DUARTE Personal/Family [address] [place] [id number] Elizabeth Duarte Third Alliance Party Liability Self 1940 [address] [facility] [place] [address] Advance Directives Documents on File Type Date Recorded Patient Mast Maker Expl anation Adv Directive/Living Will/POA 10/13/2022 12:00 PM Adv Directive/Living Will/POA 08/14/2012 5:04 AM * Full Code (Latest Code Status on File) Date Activated Date Inactivated Comments 10/09/2022 2:58 AM 10/12/2022 1:50 PM Care Teams Principal Technical Writer Relationship Specialty Start Date End Date Morelia Ingram MD [address] [place] [address] PCP - General Family Medicine 01/11/23
--- OUTSIDE RECORDS SUMMARY | 2024-08-17 22:26 | XMS_ITS | Continuity of Care Document ---
Author Organization [facility] Address [address] [place] [address] Phone Care Team Providers Care Car Groomer Name Role Phone Clark Dove Unavailable Unavailable Procedures Procedure Date Eye Exam & Treatment Ophthalmoscopy, Subsequent Ophthalmoscopy, Subsequent Eye Exam Established Pt Ophthalmoscopy, Subsequent Ophthalmoscopy, Subsequent Eye Exam Established Pt Ophthalmoscopy, Subsequent Eye Exam Established Pt Ophthalmoscopy, Subsequent Ophthalmoscopy, Subsequent Eye Exam Established Pt Ophthalmoscopy, Subsequent Post-op Follow-up Visit Ophthalmoscopy, Subsequent Ophthalmoscopy, Subsequent Post-op Follow-up Visit Ophthalmoscopy, Subsequent Office Consultation Apr- Ophthalmoscopy Apr- Ophthalmoscopy Apr- Treatment Of Retina Apr- Eye Exam, New Patient Advance Directives Directive Yes / No Effective Date File Name No Information Encounters Encounter Description Practice Location Reason(s) For Visit Diagnoses Date Provider Providers Copied on Encounter [facility], [address], [place], [place], [id number], [place] tel:[phone] [facility] No Information 0 Derrell Rodas. [address] [place], [address], [place]. tel:[phone] Referring Provider: Clark Milligan, [address] [place], [address]. tel:[phone] [facility], [address], [place], [place], [id number], [place] tel:[phone] [facility] No Information Sep-2 8-200 9 Derrell Rodas. [address] [place], [address], [place]. tel:[phone] Referring Provider: Clark Milligan, [address] [place], [address]. tel:[phone] [facility], [address], [place], [place], [address], [place] tel:[phone] [facility] No Information Mar-2 3-200 9 Derrell Rodas. [address] [place], [address], [place]. tel:[phone] [facility], [address], [place], [place], [address], [place] tel:[phone] [facility] No Information Sep-1 1-200 8 Derrell Rodas. [address] [place], [address], [place]. tel:[phone] [facility], [address], [place], [place], [address], [place] tel:[phone] [facility] No Information Mar-0 3-200 8 Derrell Rodas. [address] [place], [address], [place]. tel:[phone] [facility], [address], [place], [place], [id number], [place] tel:[phone] [facility] No Information Nov-1 3-200 7 Derrell Rodas. [address] [place], [place], [facility], . tel:[phone] [facility], [address] [place] [address] [address], [place], [place], [id number], tel:[phone] [facility] No Information Oct-2 9-200 7 Derrell Rodas. [address] [place], [place], [facility], [place]. tel:[phone] Office Consultation [facility], [address] [place] [address] [address], [place], [place], [address], tel:[phone] [facility] No Information Oct-2 5-200 7 Derrell Rodas. [address] [place], [place], [facility], [place]. tel:[phone] Referring Provider: Eduardo Enriquez, [address], [place], [place], [facility]. tel:[phone] [facility], [address] [place] [address] [address], [place], [place], [address], [place] tel:[phone] [facility] No Information Apr-2 2-200 7 Wendi Clark. [facility] , [address], [place], [place], [facility], [place]. tel:[phone] Referring Provider: Floyd Zuniga OD, [address] [place], [address]. tel:[phone] Family History Family Member Type Diagnosis Age At Onset No Information Payers Payer name Insurance type Covered republican ID Authoriza tion(s) [place] [id number] [place] F[place] BL [id number] Social History Type Description Quantity Date Captured Comments Sex Female Smoking Status No Information Chief Complaint And Reason For Visit No Information Reason For Referral Reason For Referral No Information History Of Present Illness Encounter Date Complaint History Of Prese nt Illness No Information Functional Status Date Functional Assessmen t No Information Instructions Date Instruction Additional Infor mation No Information Assessments Type Assessment Date No Information Patient Care Teams Name Effective Dates (start - stop) Status Members No Information
== END 2024-08-16 09:27 | disposition home or self-care (01) ==
PROVIDERS: Visit Provider Urology
DX: N20.1 Calculus of ureter (principal)
CPT/HCPCS: 74018; 74176

== ENCOUNTER 2024-09-07 16:59 | Outpatient (CLI) | payer MEDICARE, BC, SELFPAY ==
--- OUTSIDE RECORDS SUMMARY | 2024-09-07 17:02 | XMS_ITS ---
Author Organization [facility] Address [address] [facility] [place] [address] Care Team Providers Care Clearance Representative Name Role Phone Morelia Ingram MD Primary [...] lip s/p mohs Apr 2017 -2010, L sikhism/face/upper forehead BCC s/p slow mohs s/p 7 [...] 08/07/2020 Assessment & Plan (08/07/2020 12:14 PM SHIPPING LEAD): - nose (diffuse, recalcitrant), left cheek, [...] skin Assessment & Plan (08/07/2020 12:15 PM SHIPPING LEAD): -vertex scalp: lentigo vs MIS -R thigh: ISK vs SCC - Shave Biopsy (see procedure note) - Post-biopsy handout given - Wound care instructions reviewed - Will call patient with biopsy results. If intervention is indicated, will make arrangements at that time Actinic skin damage 08/07/2020 Assessment & Plan (08/07/2020 12:14 PM SHIPPING LEAD): Explained benign nature, reassurance provided. ABCDEs [...] FBSE Assessment & Plan (08/07/2020 12:14 PM SHIPPING LEAD): -NER today -continue q6m FBSE Lower [...] 11/30/2011 Overview (02/19/2020): Overview: 2010: BCC, L sikhism/face/upper forehead s/p Slow mohs w/ 7 stages. 03/2012: BCC, tip of nose s/p Mohs 08/03/201209/2013: BCC SM X3 , L upper arm, extensor side, L forearm, superior, L forearm, inferior s/p ED&C x 3 10/30/201304/2014: BCC, R infraorbital, s/p Mohs 08/15/2014 Assessment & Plan (11/11/2020 10:11 AM CDT): No evidence of recurrence. Assessment & Plan (08/07/2020 12:14 PM SHIPPING LEAD): -NER today -continue q6m FBSE Current Oncology Plans No current plan information found. Past Plans No past plan information found. Radiation Treatments * No radiation treatments are documented for this patient in [facility]. Treatments may have been administered in another [...] lip s/p mohs Apr 2017 -2010, L sikhism/face/upper forehead BCC s/p slow mohs s/p 7 stages. -03/2012, BCC, tip of nose. Mohs -09/2013, BCC SM X3 , L upper arm, extensor side, L forearm, superior, L forearm, inferior -04/2014, R infraorbital , BCC Mohs -Efudex 5% cream to R cheek and nose 2014. Assessment & Plan (11/11/2020 10:07 AM CDT): No evidence of recurrence.
--- OUTSIDE RECORDS SUMMARY | 2024-09-07 17:02 | XMS_ITS | Referral Summary ---
Author Organization [facility] algrano Address [address] [place] [address] Care Team Providers Care Acls Specialist Name Role Phone Morelia Ingram MD Primary Care Provider U francojohn Source Comments [facility],non-owned Affiliates and Associated Physician Practices is amultiple site organization consisting of ambulatory clinics and hospital sitesin [place], [place], [place] and [place]. This disclosure is being madepursuant to the Care Everywhere program and may not contain all information available regarding this patient. 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 If intervention is indicated, will make arrangements at that time Actinic skin damage 08/07/2020 Assessment & Plan (08/07/2020 12:14 PM BICYCLE I ASSEMBLER): Explained benign nature, reassurance provided. ABCDEs of [...] FBSE Assessment & Plan (08/07/2020 12:14 PM BICYCLE I ASSEMBLER): -NER today -continue q6m FBSE Lower extremity [...] 11/30/2011 Overview (02/19/2020): Overview: 2010: BCC, L adventist/face/upper forehead s/p Slow mohs w/ 7 stages. 03/2012: BCC, tip of nose s/p Mohs 08/03/201209/2013: BCC SM X3 , L upper arm, extensor side, L forearm, superior, L forearm, inferior s/p ED&C x 3 10/30/201304/2014: BCC, R infraorbital, s/p Mohs 08/15/2014 Assessment & Plan (11/11/2020 10:11 AM CDT): No evidence of recurrence. Assessment & Plan (08/07/2020 12:14 PM BICYCLE I ASSEMBLER): -NER today -continue q6m FBSE Resolved Problems [...] lip s/p mohs Apr 2017 -2010, L adventist/face/upper forehead BCC s/p slow mohs s/p 7 stages. -03/2012, BCC, tip of nose. Mohs -09/2013, BCC SM X3 , L upper arm, extensor side, L forearm, superior, L forearm, inferior -04/2014, R infraorbital , BCC Mohs -Efudex 5% cream to R cheek and nose 2014. Assessment & Plan (11/11/2020 10:07 AM CDT): No evidence of recurrence. Immunizations Name Administration Dates Next Due gantto primary monoval ent 12+ yr 0.3mL Purple [...] and heating? Not hard at all 10/09/2022 [facility] [place] [facility] Occupat ional Health - Occupational Stress [...] place to sleep or slept in a usp (including now)? No 10/09/2022 Sex and Gender Information Value Date Recorded Sex Assigned at Not on file Gender Identity Not on file Sexual Orientation Not on file Last Filed Vital Signs Vital Sign Reading Time Taken Comments Blood Pressure 153/71 11/03/2022 2:26 PM CDT Pulse 82 11/03/2022 2:26 PM CDT Temperature 36.2 C (97.1 F) 11/03/2022 2:26 PM CDT Respiratory Rate 18 10/12/2022 8:13 [...] Office Visit [facility] - Dermatology [address] [place] [address], [place] [address] Rehan Rodriguez MD [address] [place] [address] [address] [place] [address] Procedures Procedure Name Priority Date/Time Associated Diagnosis Comments BASIC METABOLIC PANEL (CALCIUM TOTAL) STAT 10/09/2022 12:13 AM CDT from Last 3 Months or Most Recently Relevant to Health Maintenance Results * (ABNORMAL) BASIC METABOLIC PANEL (CALCIUM TOTAL) (10/09/2022 12:13 AM CDT) BUN 9 7 - 26 mg/dL 10/09/2022 12:47 AM [facility] Creatinine 0.68 0.56 - 0.96 mg/dL 10/09/2022 12:47 AM [facility] Sodium 136 136 - 145 mmol/L 10/09/2022 12:47 AM [facility] Potassium 3.9 3.5 - 4.5 mmol/L 10/09/2022 12:47 AM [facility] Chloride 104 98 - 107 mmol/L 10/09/2022 12:47 AM [facility] CO2 22 22 - 29 mmol/L 10/09/2022 12:47 AM [facility] Glucose 115 70 - 115 mg/dL 10/09/2022 12:47 AM [facility] Calcium 8.9 8.4 - 10.2 mg/dL 10/09/2022 12:47 AM [facility] Anion Gap 14 8 - 18 10/09/2022 12:47 AM [facility] BUN/Creatinine Ratio 13 7 - 23 10/09/2022 12:47 AM [facility] Osmolality Calculated 282 270 - 300 mOsm/kg 10/09/2022 12:47 AM [facility] eGFR by CKD-EPI 88(L) >=90 mL/min/1.7 3 m2 10/09/2022 12:47 AM [facility] Blood BLOOD SPECIMEN / Unknown Venipuncture / Unknown 10/09/2022 12:13 AM CDT 10/09/2022 12:22 AM CDT Darrion Almonte DO LAB - CHEMISTRY [facility] [address] [place] [address], [facility] [phone] from Last 3 Months or Most Recently Relevant to Health Maintenance Insurance Payer Benefit Plan / Group Subscriber ID Effective Dates Phone Address Type TPL THIRD LIBERTARIAN LIABILITY TPL THIRD LIBERTARIAN LIABILITY [id number] 10/08/2022-Pre sent [address] [place] [address] Third Green Party Liability TPL THIRD LIBERTARIAN LIABILITY TPL THIRD LIBERTARIAN LIABILITY [id number] Effective for all dates [address] [place] [address] Third Green Party Liability MEDICARE MEDICARE PART A AND B [id number] Effective for all dates [address] [place] [address] Medicare BLUE CROSS BLUE SHIELD [facility] BLUE CROSS BLUE SHIELD PPO Effective for all dates [address] [place] [address] PPO MEDICARE MEDICARE PART A AND B [id number] Effective for all dates [address] [place] [address] Medicare BLUE [employer]OSS [employer] [place] BLUE CROSS BLUE SHIELD PPO Effective for all dates [address] [place] [address] PPO MEDICARE MEDICARE PART A AND B [id number] Effective for all dates [address] [place] [address] Medicare BLUE CROSS BLUE SHIELD [facility] BLUE CROSS BLUE SHIELD PPO Effective for all dates [address] [place] [address] PPO MEDICARE MEDICARE PART A AND B [id number] Effective for all dates [address] [place] [address] Medicare MEDICARE MEDICARE PART A AND B [id number] Effective for all dates [address] [place] [address] Medicare BLUE CROSS BLUE SHIELD [facility] BLUE CROSS BLUE SHIELD PPO Effective for all dates [address] [place] [address] PPO MEDICARE MEDICARE PART A AND B [id number] Effective for all dates [address] [place] [address] Medicare MEDICARE MEDICARE PART A AND B [id number] Effective for all dates [address] [place] [address] Medicare MEDICARE WPS MEDICARE PART B [id number] 11/23/2006-Pres ent [address] [address] [place] [address] Medicare ANTH BLUE CROSS TRADITIONAL [id number] 07/01/2008-Pre sent [address] [place] [address] PPO MEDICARE MEDICARE PART A AND B [id number] Effective for all dates [phone] [address] [place] [address] Medicare [facility] FEDERAL PLAN [id number] 07/01/2008-Pre sent [address] [place] [address] PPO Elizabeth Duarte Personal/Family Self 1940 [address] [place] [id number] ELIZABETH DUARTE Personal/Family Spouse [address] [place] [id number] ELIZABETH DUARTE Personal/Family Spouse [address] [place] [id number] ELIZABETH DUARTE Personal/Family Spouse [address] [place] [id number] ELIZABETH DUARTE Personal/Family Spouse [address] [place] [id number] ELIZABETH DUARTE Personal/Family [address] [place] [id number] ELIZABETH DUARTE Personal/Family [address] [place] [id number] ELIZABETH DUARTE Personal/Family [address] [place] [id number] Elizabeth Duarte Third Green Party Liability Self 1940 [address] [place] [address] Advance Directives Documents on File Type Date Recorded 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
--- OUTSIDE RECORDS SUMMARY | 2024-09-07 17:02 | XMS_ITS | Continuity of Care Document ---
Author Organization [facility] Address [address] [place] [address] Phone Care Team Providers Care Expediter Clerk Name Role Phone Clark Dove Unavailable Unavailable [...] Diagnoses Date Provider Providers Copied on Encounter [facility], [address], [place], [place], [id number], [place] tel:[phone] [address] [facility] No Information 8 0 Derrell Rodas. [address] [place], [address], [place]. tel:[phone] Referring Provider: Clark Milligan, [address] [place], [address]. tel:[phone] [facility], [address], [place], [place], [id number], [place] tel:[phone] [address] [facility] No Information Sep-2 8-200 9 Derrell [address]as[address] [place], [address], [place]. tel:[phone] Referring Provider: Clark Milligan, [address] [place], [address]. tel:[phone] [facility], [address], [place], [place], [id number], [place] tel:[phone] [facility] No Information Mar-2 3-200 9 Derrell Rodas. [address] [place], [address], [place]. tel:[phone] [facility], [address], [place], [place], [id number], [place] tel:[phone] [facility] No Information Sep-1 1-200 8 Derrell Rodas[address] [place], [address], [place]. tel:[phone] [facility], [address], [place], [place], [id number], [place] tel:[phone] [facility] No Information Mar-0 3-200 8 Derrell Rodas. [address] [place], [address], [place]. tel:[phone] [facility], [address], [place], [place], [id number], [place] tel:[phone] [facility] No Information Nov-1 3-200 7 Derrell Rodas. [address] [place], [place], [facility], . tel:[phone] [facility], [address] [place] [address] [address], [place], [place], [id number], tel:[phone] [address] [facility] No Information Oct-2 9-200 7 Derrell Rodas. [address] [place], [place], [facility], [place]. tel:[phone] Office Consultation [facility], [address] [place] [address] [address], [place], [place], [id number], tel:[phone] [facility] No Information Oct-2 5-200 7 Derrell Rodas. [address] [place], [place], [facility], [place]. tel:[phone] Referring Provider: Eduardo Enriquez, [address], [place], [place], [facility]. tel:[phone] [facility], [address] [place] [address] [address], [place], [place], [id number], [place] tel:[phone] SEC [facility] No Information Apr-2 2-200 7 Wendi Clark. [facility] , [address], [place], [place], [facility], [place]. tel:[phone] Referring Provider: Floyd Zuniga OD, [address] [place], [address]. tel:[phone] Family History Family Member Type Diagnosis Age At Onset No Information Payers Payer name Insurance type Covered libertarian ID Authoriza tion(s) [place] [id number] [place] FEP BL [id number] Social History Type Description Quantity Date Captured [...]
--- OUTSIDE RECORDS SUMMARY | 2024-09-07 17:02 | XMS_ITS | Clinical Summary ---
Author Organization [facility] [address] [facility] [address] Address [address] [place] [address] Care Team Providers Care Membership Sales Representative Name Role Phone Lenny Randall MD Primary Care Provider Allergies Active Allergy [...] tablet (1 mg total) by mouth nightly 01/29/[address] (VOLTAREN) 75 mg EC tablet Take 1 tablet (75 mg total) by mouth 2 (two) times a day Active levothyroxine (SYNTHROID) 50 mcg tablet Take 1 tablet (50 mcg total) by mouth manager wound care before breakfast Active losartan (COZAAR) 50 mg tablet Take 1 tablet (50 mg total) by mouth daily Active budesonide EC (ENTOCORT EC) 3 mg 24 hr capsule Take 2 capsules (6 mg total) by mouth every morning Active magnesium gluconate 200 mg tabletIndications: hypomagnesemia Take 1 tablet (200 mg total) by mouth 2 (two) times a day Active ferrous sulfate 325 mg (65 mg of elemental iron) tabletIndications: Iron Deficiency Anemia Take 1 tablet (65 mg [...] mouth daily Active furosemide (LASIX) 20 mg tabletIndications: Swelling TAKE 1 TABLET BY MOUTH DAILY NEEDED FOR SWELLING 30 tablet 1 04/26/20 23 Active Additional Information Patient not taking.Reported on 11/03/2023 sodium chloride 1 gram tablet Take 1 tablet (1 g total) by mouth daily Active aspirin 81 mg enteric coated tablet Take 1 tablet (81 mg total) by mouth daily 90 tablet 11 09/08/19 24 Active Additional Information Patient not taking.Reported on 11/03/[address] (PROTONIX) 40 mg EC tablet Take 1 tablet (40 mg total) by mouth daily 10/28/19 24 Active tamsulosin (FLOMAX) 0.4 mg extended release capsule Take 1 capsule (0.4 mg total) by mouth every morning 10/28/19 24 Active acetaminophen (TYLENOL) 325 mg tablet Take 1 tablet (325 mg total) by mouth every 4 (four) hours 10/13/19 23 Active melatonin tablet Take 1 tablet (3 mg total) by mouth nightly 10/13/19 23 Active ondansetron ODT (ZOFRAN-ODT) 4 mg disintegrating tablet DISSOLVE 1 TABLET ON THE TONGUE EVERY 6 HOURS NEEDED FOR NAUSEA AND VOMITING 04/29/20 22 Active phenazopyridine (PYRIDIUM) 200 mg tablet Take 1 tablet (200 mg total) by mouth daily 08/02/19 24 Active thiamine (VITAMIN B-1) 250 mg tablet Take 1 tablet (250 mg total) by mouth daily Active d-mannose (AZO D-Mannose) 500 mg capsule Take by mouth Active amoxicillin (AMOXIL) 500 mg tablet/capsule Take 4 caps (2000 mg) 1 hour prior to procedure. 4 tablet/capsu le 11/26/19 24 Active Jardiance 10 mg tablet TAKE 1 TABLET DAILY 90 tablet 3 07/17/20 24 Active metoprolol XL (TOPROL-XL) 25 mg extended release tablet TAKE 3 TABLETS BY MOUTH DAILY 270 tablet 08/07/19 25 Active Active Problems Problem Noted Date Diagnosed [...] Palpitations 07/09/2016 Overview (10/29/2016): Palpitations Atrial fibrillation ([facility]) 07/09/2016 Overview (10/29/2016): Postoperative atrial fibrillation Dyspnea on exertion 07/09/2016 Overview (10/29/2016): VEL[place]SQUEZ (dyspnea on exertion) Controlled type 2 diabetes m ellitus without complication, without long-term current use of insulin ([facility]) 07/09/2016 Overview (10/29/2016): Type 2 diabetes mellitus with unspecified complications Resolved Problems Problem Noted Date Diagnosed Date Resolved Date Encounter for postoperative care 09/16/2015 05/18/2017 Overview (10/29/2016): Post surgical visit Disorder of aorta (CMS/HCC) 08/07/2015 05/07/2021 Overview (10/29/2016): Aortic stenosis Encounters Date Type Department Care Team Description 09/06/2024 10:15 AM SENIOR IOS SOFTWARE ENGINEER Ancillary Procedure [facility] Medical Group Cardiology [address] [place] [address] S/P aortic valve replacement with bioprosthetic valve from Last 3 Months Surgical History Surgery Date Site/Laterality Comments CHOLECYSTECTOMY [...] Hx Other Medical Allergies, seas onal; Comments: [facility] 02/19/2014 - Type 2 diabetes mellitus (HCC) D iabetes type 2; Comments: [facility] 02/19/2014 - Hypertension Hypertension Hx Other Medical aortic stenosis ; Comments: [facility] 02/19/2014 - Hx Other Medical obesity; Commen ts: [facility] 02/19/2014 - Hx Other Medical bilateral carpa l tunnel release; Comments: [facility] 02/19/2014 - Hx Other Medical R salpingoopher ectomy; Comments: [facility] 02/19/2014 - Hx Other Medical multiple basal cell carcinoma excisions; Comments: [facility] 02/19/2014 - Hx Other Medical lower back pain ; Comments: [facility] 08/07/2015 - Hx Other Medical basal cell skin cancer; Comments: [facility] 08/07/2015 - Type 2 diabetes mellitus (HCC) D iabetes type 2; Comments: [facility] 08/07/2015 - Sleep apnea Sleep apnea Hypertension Hypertension Anxiety disorder Anxiety Hx Other Medical palpitations; C omments: [facility] 08/07/2015 - Arthritis Arthritis; Comme nts: [facility] 08/07/2015 - Gastroesophageal reflux disease GERD Hypercholesterolemia High choles terol; Comments: [facility] 08/07/2015 - Hx Other Medical aortic stenosis ; Comments: [facility] 09/16/2015 - Melanoma (HCC) Removed from top [...] on file Legal Sex Female 9:19 PM SENIOR IOS SOFTWARE ENGINEER Gender Identity Not on file Sexual Orientation Not on file Obstetrics History Last Filed Vital Signs Vital Sign Reading Time Taken Comments Blood Pressure 128/56 11/03/2023 11:31 AM CDT Pulse 59 11/03/2023 11:31 AM CDT Temperature 36.2 C (97.1 F) 06/03/2020 11:12 AM SENIOR IOS SOFTWARE ENGINEER Respiratory Rate - - Oxygen Saturation 96% [...] - Tdap) 1952 Hepatitis B Screening 12/03/1958 Well Visit 65+ 2006 Pneumococcal vaccine 65+ (2 of 2 - PCV) 04/25/2016 04/25/2015 Lipid Panel 05/18/2018 05/18/2017 Zoster Vaccine (2 of 2) 04/12/2020 02/16/2020 Hemoglobin A1C 08/27/2023 02/24/2023 Fall Risk Assessment 02/25/2024 02/24/2023 eGFR 02/25/2024 02/24/2023 Covid-19 Vaccine (3 - 2023-2 5 season) 2024 10/09/2020, 09/18/2020 Influenza Vaccine (#1) 2024 , 05/24/2020, 05/09/2020, Additional history exists Procedures Procedure Name Priority Date/Time Associated Diagnosis Comments TRANSTHORACIC ECHO (TTE) COMPLETE W DOPPLER/CF WO CONTRAST Routine 09/06/2024 10:39 AM SENIOR IOS SOFTWARE ENGINEER S/P aortic valve replacement with bioprosthetic valve EGFR Routine 02/24/2023 11:42 AM CDT Preop testing HEMOGLOBIN A1C Routine 02/24/2023 11:42 AM CDT Preop testing POCT LIPID PANEL Routine 05/18/2017 9:29 AM CDT Mixed hyperlipidemia from Last 3 Months or Most Recently Relevant to Health Maintenance Results * TRANSTHORACIC ECHO (TTE) COMPLETE W DOPPLER/CF WO CONTRAST (09/06/2024 10:39 AM SENIOR IOS SOFTWARE ENGINEER) LV EF % CONS SCIMAGE Anatomical Region Laterality Modality Ultrasound 09/06/2024 10:0 5 AM SENIOR IOS SOFTWARE ENGINEER Narrative 09/06/2024 7:28 PM SENIOR IOS SOFTWARE ENGINEER [facility] Medical Group Cardiology [address], [place] [address] [address] [facility] [address], [place] [address] P:[phone] P:[phone] Echocardiographic Report Patient Name: ELIZABETH DUARTE A : 1940 Study Date: 09/06/2024 10:05:48 AM Gender: F Tech: Location: [facility] Provider: JUSTIN GROSS Height(Cm): 160 BSA: 1.72 Weight(Kg): 66.7 Heart Rate: 61 BP: 128 / 56 Quality: Good Order Provider: JUSTIN GROSS PROCEDURES: Echocardiographic Report: Transthoracic echocardiogram with complete 2D, M-Mode, and color Doppler examination. With Strain Analysis. INDICATIONS: Aortic Valve Replacement. MEASUREMENTS: 2D/MM Value Range Doppler Value Range EF Mod BP 71 % [ 54 - 74 ] TASHA Vmax 0.99 cm2 [ 2.00 - 4.00 ] EF Teich MM 55 % [ 54 - 74 ] AV Mean PG 18 mmHg LVIDd 2D 4.64 cm [ 3.80 - 5.20 ] AV Peak Alvin 2.96 m/s [ 1.00 - 1.70 ] LVIDd MM 5.77 cm [ 3.80 - 5.20 ] AV Peak PG 35 mmHg LVIDs 2D 2.63 cm [ 2.20 - 3.50 ] AV VTI 71.66 cm LVIDs MM 4.12 cm [ 2.20 - 3.50 ] LVOT Diam 1.97 cm [ 1.70 - 2.10 ] LVPWd 2D 0.87 cm [ 0.60 - 0.90 ] LVOT Peak Alvin 0.96 m/s [ 0.70 - 1.10 ] LVPWd MM 0.88 cm [ 0.60 - 0.90 ] LVOT VTI 23.46 cm IVSd 2D 1.12 cm [ 0.60 - 0.90 ] MV E Peak Alvin 0.82 m/s [ 0.60 - 1.30 ] IVSd MM 1.04 cm [ 0.60 - 0.90 ] MV A Peak Alvin 0.73 m/s [ 1.00 - 1.20 ] LA Dimension MM 2.60 cm [ 2.70 - 3.80 ] MV Decel Time 251 msec [ 104 - 258 ] AoR Diam MM 2.98 cm [ 2.70 - 3.70 ] PV Peak Alvin 1.05 m/s [ 0.40 - 0.80 ] LA Volume Index 34 cc/m2 [ 16 - 34 ] Lateral E` 0.07 m/s [ 0.10 - 0.15 ] E` 0.05 m/s E/E` 12 2D/MM Value Range Doppler Value Range - FINDINGS: Interpretation Site: Exam was interpreted at home. Left Ventricle: Normal left ventricular size. Mild concentric left ventricular hypertrophy. Sigmoid hypertrophy of the septum. Normal global left ventricular systolic function. Diastolic dysfunction is present. Ejection fraction is measured at 71 %. Global Longitudinal Strain is -16 %. Right Ventricle: Normal right ventricular size. Normal right ventricular systolic function. Left Atrium: There is mild enlargement of left atrium. Right Atrium: The right atrium is normal in size. Atrial Septum: Normal atrial septum. Mitral Valve: Dense mitral annular calcification. Mild mitral valve regurgitation. Aortic Valve: s/p SAVR with 23 mm Paul Magna pericardial valve. Peak Velocity of 2.96 m/s. Peak gradient of 35.0 mmHg. Mean gradient of 18.0 mmHg. Tricuspid Valve: Normal appearance of the tricuspid valve. Right ventricular systolic pressure could not be estimated due to inadequate visualization of the tricuspid regurgitation jet. Pulmonic Valve: Pulmonic valve not well visualized. Pericardium: Normal pericardium with no significant pericardial effusion. Aorta: Aortic root not well visualized. IVC: Normal size and normal respiratory collapse consistent with normal right atrial pressure (<5 mmHg). CONCLUSIONS: Normal left ventricular size. Mild left ventricular hypertrophy. Sigmoid hypertrophy of the septum. Normal global left ventricular systolic function. Diastolic dysfunction is present. Ejection fraction is measured at 71 %. Global Longitudinal Strain is - 16 %. Normal RV size and systolic function. Mild enlargement of left atrium. Dense mitral annular calcification. Mild mitral valve regurgitation. s/p SAVR with 23 mm Paul Magna pericardial valve. V max 2.96 m/s. Mean gradient 18.0 mmHg. DVI 0.30. Right ventricular systolic pressure could not be estimated due to inadequate visualization of the tricuspid regurgitation jet. Electronically Signed By: Justin Gross MD, [facility] 09/06/2024 7:27:17 PM SENIOR IOS SOFTWARE ENGINEER Procedure Note Justin Gross MD - 09/06/2024 [facility] Medical Group Cardiology [address] [facility] [address] [place] [address] [address] [facility] [address], [place] [address] P:[phone] P:[phone] Echocardiographic Report Patient Name: ELIZABETH DUARTE A : 1940 Study Date: 09/06/2024 10:05:48 AM Gender: F Tech: Location: [facility] Provider: JUSTIN GROSS Height(Cm): 160 BSA: 1.72 Weight(Kg): 66.7 Heart Rate: 61 BP: 128 / 56 Quality: Good Order Provider: JUSTIN GROSS PROCEDURES: Echocardiographic Report: Transthoracic echocardiogram with complete 2D, M-Mode, and color Dopplerexamination. With Strain Analysis. INDICATIONS: Aortic Valve Replacement. MEASUREMENTS: 2D/MM Value Range Doppler ValueRange EF Mod BP 71 % [ 54 - 74 ] TASHA Vmax 0.99cm2 [ 2.00 - 4.00 ] EF Teich MM 55 % [ 54 - 74 ] AV Mean PG 18mmHg LVIDd 2D 4.64 cm [ 3.80 - 5.20 ] AV Peak Alvin 2.96m/s [ 1.00 - 1.70 ] LVIDd MM 5.77 cm [ 3.80 - 5.20 ] AV Peak PG 35mmHg LVIDs 2D 2.63 cm [ 2.20 - 3.50 ] AV VTI 71.66cm LVIDs MM 4.12 cm [ 2.20 - 3.50 ] LVOT Diam 1.97 cm[ 1.70 - 2.10 ] LVPWd 2D 0.87 cm [ 0.60 - 0.90 ] LVOT Peak Alvin 0.96m/s [ 0.70 - 1.10 ] LVPWd MM 0.88 cm [ 0.60 - 0.90 ] LVOT VTI 23.46cm IVSd 2D 1.12 cm [ 0.60 - 0.90 ] MV E Peak Alvin 0.82m/s [ 0.60 - 1.30 ] IVSd MM 1.04 cm [ 0.60 - 0.90 ] MV A Peak Alvin 0.73m/s [ 1.00 - 1.20 ] LA Dimension MM 2.60 cm [ 2.70 - 3.80 ] MV Decel Time 251msec [ 104 - 258 ] AoR Diam MM 2.98 cm [ 2.70 - 3.70 ] PV Peak Alvin 1.05m/s [ 0.40 - 0.80 ] LA Volume Index 34 cc/m2 [ 16 - 34 ] Lateral E` 0.07m/s [ 0.10 - 0.15 ] E` 0.05 m/s E/E` 12 2D/MM Value Range Doppler ValueRange - FINDINGS: Interpretation Site: Exam was interpreted at home. Left Ventricle: Normal left ventricular size. Mild concentric left ventricularhypertrophy. Sigmoid hypertrophy of the septum. Normal global left ventricular systolicfunction. Diastolic dysfunction is present. Ejection fraction is measured at 71 %. GlobalLongitudinal Strain is -16 %. Right Ventricle: Normal right ventricular size. Normal right ventricular systolicfunction. Left Atrium: There is mild enlargement of left atrium. Right Atrium: The right atrium is normal in size. Atrial Septum: Normal atrial septum. Mitral Valve: Dense mitral annular calcification. Mild mitral valve regurgitation. Aortic Valve: s/p SAVR with 23 mm Paul Magna pericardial valve. Peak Velocity of 2.96 m/s. Peak gradient of 35.0 mmHg. Mean gradient of18.0 mmHg. Tricuspid Valve: Normal appearance of the tricuspid valve. Right ventricular systolicpressure could not be estimated due to inadequate visualization of the tricuspidregurgitation jet. Pulmonic Valve: Pulmonic valve not well visualized. Pericardium: Normal pericardium with no significant pericardial effusion. Aorta: Aortic root not well visualized. IVC: Normal size and normal respiratory collapse consistent with normal rightatrial pressure (<5 mmHg). CONCLUSIONS: Normal left ventricular size. Mild left ventricular hypertrophy. Sigmoidhypertrophy of the septum. Normal global left ventricular systolic function. Diastolicdysfunction is present. Ejection fraction is measured at 71 %. Global Longitudinal Strainis -16 %. Normal RV size and systolic function. Mild enlargement of left atrium. Dense mitral annular calcification. Mild mitral valve regurgitation. s/p SAVR with 23 mm Paul Magna pericardial valve. V max 2.96 m/s. Meangradient 18.0 mmHg. DVI 0.30. Right ventricular systolic pressure could not be estimated due toinadequate visualization of the tricuspid regurgitation jet. Electronically Signed By: Justin Gross MD, [facility] 09/06/2024 7:27:17 PM SENIOR IOS SOFTWARE ENGINEER us Justin Gross MD CV ECHO PROCEDURES Final Result * eGFR (02/24/2023 11:42 AM CDT) eGFR 49 mL/min/1. 73 m2 [facility] Comment: Interpretive Data Reference Interval Normal >/= 90 mL/min/1.73m2 Mildly decreased* 60 - 89 mL/min/1.73m2 Mildly to moderately decreased 45 - 59 mL/min/1.73m2 Moderately to severely decreased 30 - 44 mL/min/1.73m2 Severely decreased 15 - 29 mL/min/1.73m2 Kidney Failure < 15 mL/min/1.73m2 *Relative to young adult level Estimated glomerular [...] 2 AM CDT 02/24/2023 11:42 AM CDT Result [facility] Mary Ann Diez NP LAB BLOOD ORDERABLES Final R esult Performing Organization Address [facility] Co de Phone Number [facility] [address] [place] [address] * Hemoglobin A1c (02/24/2023 11:42 AM CDT) Hgb A1C 5.3 4.0 - 5.6 % [facility] Estimated Average Glucose 105 mg/dL [facility] Comment: The ADA recommends reporting an estimated Average Glucose (eAG) with all Hemoglobin A1c results using the equation derived from a study of 507 normal and diabetic adults. Minority populations were underrepresented and children were not included. (Diabetes Care 31:5222-6632, 2007). The eAG is not equivalent to a fasting glucose. Blood 02/24/2023 11:4 2 AM CDT 02/24/2023 11:42 AM CDT Result [facility] Mary Ann Diez NP LAB BLOOD ORDERABLES Final R esult Performing Organization Address City/[facility] Co de Phone Number [facility] [address] Department [employer] [place] [address] * POCT lipid panel (05/18/2017 9:29 AM CDT) HDL, POC 40 mg/dL Triglycerides, POC 346 mg/dL LDL Cholesterol POC 83 mg/dL Chol/HDL Ratio, POC 4.8 Non-HDL Cholesterol, POC 152 mg/dL Cholesterol Total, POC 192 mg/dL Blood specimen (specimen) 05/18/2017 9:29 AM CDT Result [facility] Soheila Bangura MD POINT OF CARE TEST ORDERABL ES Final Result from Last 3 Months or Most Recently Relevant to Health Maintenance Insurance MEDICARE [facility] FEDERAL MEDICARE Care Teams Membership Sales Representative Relationship Specialty Start Date End Date Lenny Randall MD [address] [place] [address] PCP - General Family Medicine 09/06/24
--- OUTSIDE RECORDS SUMMARY | 2024-09-07 17:02 | XMS_ITS | Referral Summary ---
Author Organization [facility] [address] [facility] [address] Address [address] [place] [address] Care Team Providers Care Plasma Processing Centrifuge Operator Name Role Phone Lenny Randall MD Primary Care Provider Encounters Date Type Department Care Team Description 09/06/2024 10:[address] MAGISTRATE Ancillary Procedure [facility] Medical Group Cardiology [address] [place] [address] S/P aortic valve replacement with bioprosthetic valve from Last 3 Months Allergies Active Allergy Reactions Criticality Noted Date [...] 1 tablet (50 mcg total) by mouth chief arson division before breakfast Active losartan (COZAAR) 50 mg [...] complication, without long-term current use of insulin ([facility]) 07/09/2016 Overview (10/29/2016): Type 2 diabetes mellitus with unspecified complications Resolved Problems Problem Noted Date Diagnosed Date Resolved Date Encounter for postoperative care 09/16/2015 05/18/2017 Overview (10/29/2016): Post surgical visit Disorder of aorta ([facility]) 08/07/2015 05/07/2021 Overview (10/29/2016): Aortic stenosis Social [...] file Legal Sex Female 9:[address] MAGISTRATE Gender Identity Not on file Sexual Orientation Not on file Last Filed Vital Signs Vital Sign Reading Time Taken Comments Blood Pressure 128/56 11/03/2023 11:31 AM CDT Pulse 59 11/03/2023 11:31 AM CDT Temperature 36.2 C (97.1 F) 06/03/2020 11:[address] MAGISTRATE Respiratory Rate - - Oxygen Saturation 96% [...] DOPPLER/CF WO CONTRAST Routine 09/06/2024 10:[address] MAGISTRATE S/P aortic valve replacement with bioprosthetic valve EGFR Routine 02/24/2023 11:42 AM CDT Preop testing HEMOGLOBIN A1C Routine 02/24/2023 11:42 AM CDT Preop testing POCT LIPID PANEL Routine 05/18/2017 9:29 AM CDT Mixed hyperlipidemia from Last 3 Months or Most Recently Relevant to Health Maintenance Results * TRANSTHORACIC ECHO (TTE) COMPLETE W DOPPLER/CF WO CONTRAST (09/06/2024 10:[address] MAGISTRATE) LV EF % CONS SCIMAGE Anatomical Region Laterality Modality Ultrasound 09/06/2024 10:[address] MAGISTRATE Narrative 09/06/2024 7:[address] MAGISTRATE [facility] Medical Group Cardiology [address] [facility] [address] [address] [address] [facility] [address], [place] [address] P:[phone] P:[phone] Echocardiographic Report Patient Name: ELIZABETH DUARTE A : 1940 Study Date: 09/06/2024 10:05:48 AM Gender: F Tech: Location: [place] Ref Provider: JUSTIN GROSS Height(Cm): 160 BSA: 1.72 [...] jet. Electronically Signed By: Justin Gross MD, [facility] 09/06/2024 7:27:[address] MAGISTRATE Procedure Note Justin Gross MD - 09/06/2024 [facility] Medical Group Cardiology [address] [facility] [address], [place] [address] [address] [facility] [address], [place] [address] P:[phone] P:[phone] Echocardiographic Report Patient Name: ELIZABETH DUARTE A : 1940 Study Date: 09/06/2024 10:05:48 AM Gender: F Tech: Location: [place] Ref Provider: JUSTIN GROSS Height(Cm): 160 BSA: 1.72 [...] jet. Electronically Signed By: Justin Gross MD, [facility] 09/06/2024 7:27:[address] MAGISTRATE Justin Gross MD CV ECHO PROCEDURES Final Result * eGFR (02/24/2023 11:42 AM CDT) eGFR 49 mL/min/1. 73 m2 [facility] Comment: Interpretive Data Reference Interval Normal >/= [...] NP LAB BLOOD ORDERABLES Final R esult [facility] [address] Department of Laboratories [place], [place] [id number] * Hemoglobin A1c (02/24/2023 11:42 AM CDT) Hgb A1C 5.3 4.0 - 5.6 % [facility] Estimated Average Glucose 105 mg/dL [facility] Comment: The ADA recommends reporting an estimated Average Glucose (eAG) with all Hemoglobin A1c results using the equation derived from a study of 507 normal and diabetic adults. Minority populations were underrepresented and children were not included. (Diabetes Care 31:7423-3187, 2008). The eAG is not equivalent to a fasting glucose. Blood 02/24/2023 11:4 2 AM CDT 02/24/2023 11:42 AM CDT us Mary Ann Diez NP LAB BLOOD ORDERABLES Final R esult [facility] [address] Department [place] [address] * POCT lipid panel (05/18/2017 9:29 AM [...] Recently Relevant to Health Maintenance Insurance MEDICARE [employer] FEDERAL MEDICARE Care Teams Plasma Processing Centrifuge Operator Relationship Specialty Start Date End Date Lenny Randall MD [address] [facility] [address] [place] [address] PCP - General Family Medicine 09/06/24
--- OUTSIDE RECORDS SUMMARY | 2024-09-07 17:02 | XMS_ITS | Clinical Summary ---
Author Organization [facility] Address [address] [place] [address] Phone Care Team Providers Care Americanization Teacher Name Role Phone Morelia Ingram MD Primary Care Provider [phone] Allergies Active Allergy Reactions Criticality Noted Date [...] Encounters Date Type Department Care Team Description 08/22/2024 External Device Data [facility] Provider, Abstract 08/16/2024 External Device Data [facility] Provider, Abstract 08/16/2024 External Device Data [facility] Provider, [...] 64 04/19/2024 9:55 AM CDT Temperature 36.6 C (97.8 F) 04/19/2024 9:55 AM CDT Respiratory Rate 15 04/19/2024 9:55 AM CDT [...] Description 10/18/2024 11:00 AM CDT Office Visit [facility] Oncology and H[facility]ology - [place] [address] [facility] [address] [place] [address] Luther Nath MD [address] [facility] [address] [place] [address] Health Maintenance Due Date Last [...] years Discontinued Medical Devices Implanted Type Area Form Maker Device Identifier Shelf Expiration Date Model / Serial / Lot Sealant Floseal W/ Adptr 10ml [id number] - [id number] Implanted:Qty : 1 on 03/29/2015 by Helio Godoy MD at [facility] Sealant N/A: Spine Lumbar COULTER- BIOSCIENCE 05/25/2016 [id number] / / [id number] Cataract Lens Insurance MEDICARE PART A AND B [facility] MEDIC[facility] PART A AND B [facility] FEDERAL Advance Directives For more information, please contact: [phone] Documents on File Type Date Recorded Patient Lab Assistant Expl anation Advance Directive POA 03/20/2015 10:47 [...] 12:16 PM 03/29/2015 1:00 PM Care Teams Americanization Teacher Relationship Specialty Start Date End Date Morelia Ingram MD [address] [facility] [address] [place] [address] PCP - General Family Practice 11/10/23
--- OUTSIDE RECORDS SUMMARY | 2024-09-07 17:02 | XMS_ITS | Clinical Summary ---
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 Gender Identity Not on file Sexual Orientation Not on file Last Filed Vital Signs Vital Sign Reading Time Taken Comments Blood Pressure 140/70 09/02/2023 4:15 PM VASCULAR TECHNICIAN Pulse 67 09/02/2023 4:15 PM VASCULAR TECHNICIAN Temperature 36.7 C (98 F) 09/02/2023 4:15 PM VASCULAR TECHNICIAN Respiratory Rate 20 09/02/2023 4:15 PM VASCULAR TECHNICIAN Oxygen Saturation 100% 09/02/2023 4:15 PM VASCULAR TECHNICIAN Inhaled Oxygen Concentration - - Weight 59 kg (130 lb) 09/02/2023 4:15 PM VASCULAR TECHNICIAN Height 160 cm (5' 3 ) 09/02/2023 4:15 PM VASCULAR TECHNICIAN Body Mass Index 23.03 09/02/2023 4:15 PM VASCULAR TECHNICIAN Plan of Treatment Health Maintenance Due Date [...] 05/09/2021, 05/24/2020, 05/09/2020, Additional history exists Meningococcal B Vaccine Aged Out No l onger eligible based on patient's age to complete this topic Meningococcal Vaccine Aged Out No gaudencio anjelica eligible based on patient's age to complete this topic RSV Immunizations Under 20 Months Aged Out No longer eligible based on patient's age to complete this topic Insurance MEDICARE [facility] Care Teams Decontamination Worker Relationship Specialty Start Date End Date Morelia Ingram MD [address] [facility] [address] [place] [address] PCP - General FAMILY PRACTICE 09/02/23
--- OUTSIDE RECORDS SUMMARY | 2024-09-07 17:02 | XMS_ITS | Encounter Summary ---
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
--- OUTSIDE RECORDS SUMMARY | 2024-09-07 17:03 | XMS_ITS | Encounter Summary ---
Author Organization [facility] Address [address] [place] [address] Care Team Providers Care Behavioral Therapy Coordinator Name Role Phone Lenny Randall MD Primary Care Provider Reason for Visit * Cardiology (Routine) - Closed Specialty Diagnoses / Procedures Referred By Contac t Referred To Contact Diagnoses S/P aortic valve replacement with bioprosthetic valve Procedures Transthoracic Echo (TTE) Complete W Doppler/CF Hernan Gross MD [address] [address] Phone: tel: fax: [facility] Referral ID Status Reason Start Date Expiration Date Visits Re quested Visits Authorized [id number] Closed 09/08/2023 10/07/2024 1 1 Encounter Details Date Type Department Care Team (Latest Contact Info) Description 09/06/2024 10:15 AM BILL DISTRIBUTOR Ancillary Procedure [facility] Cardiology [address] [place] [address] S/P aortic valve replacement with bioprosthetic valve Social History Tobacco Use Types Packs/Day Years [...] on file Legal Sex Female 9:19 PM BILL DISTRIBUTOR Gender Identity Not on file Sexual Orientation Not on file documented as of this encounter Plan of Treatment Not on file documented as of this encounter Procedures Procedure Name Priority Date/Time Associated Diagnosis Comments TRANSTHORACIC ECHO (TTE) COMPLETE W DOPPLER/CF WO CONTRAST Routine 09/06/2024 10:39 AM BILL DISTRIBUTOR S/P aortic valve replacement with bioprosthetic valve documented in this encounter Results * TRANSTHORACIC ECHO (TTE) COMPLETE W DOPPLER/CF WO CONTRAST (09/06/2024 10:39 AM BILL DISTRIBUTOR) LV EF % CONS SCIMAGE Anatomical Region Laterality Modality Ultrasound 09/06/2024 10:0 5 AM BILL DISTRIBUTOR Narrative 09/06/2024 7:28 PM BILL DISTRIBUTOR [facility] Cardiology [address] [facility] [address] [address] [address] [facility] [address], [place] [address] P:[phone] P:[phone] Echocardiographic Report Patient Name: ELIZABETH DUARTE A : 1940 Study Date: 09/06/2024 10:05:48 AM Gender: F Tech: Location: [place] Ref Provider: HERNAN GROSS Height(Cm): 160 BSA: 1.72 Weight(Kg): 66.7 Heart Rate: 61 BP: 128 / 56 Quality: Good Order Provider: HERNAN GROSS PROCEDURES: Echocardiographic Report: Transthoracic echocardiogram with [...] the tricuspid regurgitation jet. Electronically Signed By: Hernan Gross MD, [facility] 09/06/2024 7:27:17 PM BILL DISTRIBUTOR Procedure Note Hernan Gross MD - 09/06/2024 [facility] Cardiology [address] [facility] [address], [place] [address] [address] [facility] [address], [address], [place] [address] P:[phone] P:[phone] Echocardiographic Report Patient Name: ELIZABETH DUARTE A : 1940 Study Date: 09/06/2024 10:05:48 AM Gender: F Tech: Location: [facility] Provider: HERNAN GROSS Height(Cm): 160 BSA: 1.72 Weight(Kg): 66.7 Heart Rate: 61 BP: 128 / 56 Quality: Good Order Provider: HERNAN GROSS PROCEDURES: Echocardiographic Report: Transthoracic echocardiogram with [...] the tricuspid regurgitation jet. Electronically Signed By: Hernan Gross MD, [facility] 09/06/2024 7:27:17 PM BILL DISTRIBUTOR us Hernan Gross MD CV ECHO PROCEDURES Final Result documented in this encounter Visit Diagnoses Diagnosis S/P aortic valve replacement with bioprosthetic valve documented in this encounter Care Teams Behavioral Therapy Coordinator Relationship Specialty Start Date End Date Lenny Randall MD [address] [address] PCP - General Family Medicine 09/06/24 documented as of this encounter
--- OUTSIDE RECORDS SUMMARY | 2024-09-07 17:03 | XMS_ITS | Continuity of Care Document ---
Author Organization [facility] Address [address] [place] [address] Phone Care Team Providers Care Outside Sales Name Role Phone Brandon Brewer MD Unavailable [...] Hip Replacement Office/outpatient visit,est, mod 2015 Office/outpatient visit,[facility], [facility] 2015 Advance Directives Directive Yes / No Effective Date File Name No Information Encounters Encounter Description Practice Location Reason(s) For Visit Diagnoses Date Provider Providers Copied on Encounter [facility], [address], [id number], tel:[phone] [facility] Bilateral primary osteoarthritis of knee 4 Osman Tyalor. [address] [place] [address], [place], [place], [id number] , [place]. tel:[phone] Office/outpat ient visit,est, mod [facility], [address] [place] [address], [id number], tel:[phone] [facility] left hip (chief complaint) Unilateral primary osteoarthritis, left hip 3 Osman Taylor. [address] [place] [address], [id number] , [place]. [phone] Referring Provider: Emigdio Barragan, [address] [place] [address] [address], [place], [address]. tel:[phone] [facility], [address] [place] [address], [id number], [place] tel:[phone] [facility] bilateral knees (chief complaint) Bilateral primary osteoarthritis of knee 3 Turner Cochran. [address] [place] [address], [id number] , [place]. tel:[phone] Referring Provider: Sammie Enriquez, [address] [place] [address], [place], [address] . tel:[phone] [facility], [address] [place] [address], [id number], [place] tel:[phone] [facility] bilateral knees (chief complaint) Bilateral primary osteoarthritis of knee 3 Turner Cochran. [address] [place] [address], [id number] , [place]. tel:[phone] Referring Provider: Sammie Enriquez, [address] [facility] [address], [place], [address] . tel:[phone] [facility], [address] [address], [place], [place], [id number], [place] tel:[phone] [facility] Bilateral primary osteoarthritis of knee Apr- 3 Osman Taylor. [address] [facility], [address], [place], [place], [id number] , [place]. [phone] [facility], [address] [address], [place], [place], [id number], [place] tel:[phone] [facility] left hip (chief complaint) Unilateral primary osteoarthritis, left hip Sep-0 3 Turner Cochran. [address] [facility] [place] [address], [place], [place], [id number] , [place]. tel:[phone] Referring Provider: Sylvia Parra[address] [place] [address], [place], [address]. tel:[phone] Office/outpat ient visit,est, [facility], [address] [address], [place], [place], [id number], [place] tel:[phone] [facility] left hip pain (chief complaint) bilateral knees (chief complaint) Pain in left hipUnilateral primary osteoarthritis, left hipBilateral primary osteoarthritis of knee Sep-0 3 Turner Cochran. [address] [facility], [place], [place], [id number] , [place]. tel:[phone] Referring Provider: Sylvia Parra4 [place] [address], [place], [address]. tel:[phone] Office/outpat ient visit,est, mod [facility], [address] [address], [place], [place], [id number], [place] tel:[phone] [facility] right knee right hip (chief complaint) Presence of right artificial hip jointPain in right knee 2 Osman Taylor. [address] [facility], [address], [place], [place], [id number] , [place]. tel:[phone] Referring Provider: Emigdio Barragan, Syl[address] [place] [address], [place], [address]. tel:[phone] [facility], [address] [facility] [address], [place], [place], [id number], [place] tel:[phone] [facility] Pain in right knee 2 [facility]. [address] [facility], [address], [place], [place], [id number] , [place]. tel:[phone] Referring Provider: Brandon Vitale, [address] [facility] [address], [place], [address] . tel:[phone] Office/outpat ient visit,[facility], [address] [facility] [address], [place], [place], [id number], [place] tel:[phone] [facility] Knee Pain (chief complaint) Pain in right kneePresence of right artificial hip joint 2 Osman Taylor. [address] [facility], [address], [place], [place], [id number] , [place]. tel:[phone] Referring Provider: Emigdio Barragan, [address] [place] [address], [place], [address]. tel:[phone] [facility], [address] [facility] [address], [place], [place], [id number], [place] tel:[phone] [facility] post op right total hip (chief complaint) Pain in right hipPresence of right artificial hip joint 6 Osman Taylor. [address] [facility], [address], [place], [place], [id number] , [place]. [phone] Referring Provider: Brandon Vitale, [address] [facility] [address], [place], [address] . tel:[phone] [facility], [address], [id number], [place] tel:[phone] [facility] Pain in right hip Marcio-0 6-201 6 Brewer Brandon. [address] [facility], [address], [id number] , [place]. tel:[phone] Referring Provider: Emigdio Barragan, [address] [place] [address], [place], [address]. tel:[phone] Office/outpat ient visit,[facility], [facility], [address], [id number], tel:[phone] [facility] right hip arthritis (chief complaint) Pain in right hip Pelon-1 3-201 6 Brewer Brandon. [address] [facility], [address], [id number] , [place]. [phone] Referring Provider: Emigdio Barragan, [address] [place] [address], [place], [address]. tel:[phone] Office/outpat ient visit,[facility], [facility], [address], [id number], [place] tel:[phone] [facility] right hip arthritis (chief complaint) Pain in right hip Oct-2 8-201 6 Osman Taylor. [address] [facility], [address], [id number] , [place]. tel:[phone] Referring Provider: Emigdio Barragan, [address] [place] [address], [place], [address]. tel:[phone] Family History Family Member Type Diagnosis Age [...] Provider Payers Payer name Insurance type Covered green party ID Authoriza timishel(s) Medicare [place] WPS Part B MB [id number] Vivian Blue Cross Blue Shiel d [facility] [id number] Social History Type Description Quantity Date Captured [...] arthritis- she has been cleared by her senior technical program manager and has been off of her blood thinner. right hip arthritis Elizabeth come s into the office today for right hip pain associated with arthritis. She states she is having alot of groin pain also. She resides in [place] and did seek treatment by Dr. Emigdio Jerry in [facility]. He did a xray of her hip and advised her that she needed to undergo a MRI after review of her xray. She brings in both of these studies. She reports that after Dr. Jerry reviewed the MRI he advised her that she would be better served at [facility]. [facility] and asked him if she could have her surgery at [facility]. He advised her to seek care by an ortho who operates at [facility] for determination if it could be done [...]
--- OUTSIDE RECORDS SUMMARY | 2024-09-07 17:03 | XMS_ITS | Clinical Summary ---
Author Organization [facility] Address [address] [place] [address] Care Team Providers Care Delivery Crew Member Name Role Phone Morelia Ingram MD Primary Care Provider U francojohn Source Comments [facility],non-owned Affiliates and Associated Physician Practices is amultiple site organization consisting of ambulatory clinics and hospital sitesin [place], [place], [place] and [place]. This disclosure is being madepursuant to the Care Everywhere program and may not contain all information available regarding this patient. Last updated 18.[facility] Allergies Active Allergy Reactions Criticality Noted Date [...] lip s/p mohs Apr 2017 -2010, L jainism/face/upper forehead BCC s/p slow mohs s/p 7 [...] 08/07/2020 Assessment & Plan (08/07/2020 12:14 PM [facility]): - nose (diffuse, recalcitrant), left cheek, and [...] skin Assessment & Plan (08/07/2020 12:15 PM [facility]): -vertex scalp: lentigo vs MIS -R thigh: ISK vs SCC - Shave Biopsy (see procedure note) - Post-biopsy handout given - Wound care instructions reviewed - Will call patient with biopsy results. If intervention is indicated, will make arrangements at that time Actinic skin damage 08/07/2020 Assessment & Plan (08/07/2020 12:14 PM [facility]): Explained benign nature, reassurance provided. ABCDEs of [...] FBSE Assessment & Plan (08/07/2020 12:14 PM [facility]): -NER today -continue q6m FBSE Lower extremity [...] 11/30/2011 Overview (02/19/2020): Overview: 2010: BCC, L jainism/face/upper forehead s/p Slow mohs w/ 7 stages. 03/2012: BCC, tip of nose s/p Mohs 08/03/201209/2013: BCC SM X3 , L upper arm, extensor side, L forearm, superior, L forearm, inferior s/p ED&C x 3 10/30/201304/2014: BCC, R infraorbital, s/p Mohs 08/15/2014 Assessment & Plan (11/11/2020 10:11 AM CDT): No evidence of recurrence. Assessment & Plan (08/07/2020 12:14 PM [facility]): -NER today -continue q6m FBSE Resolved Problems [...] lip s/p mohs Apr 2017 -2010, L jainism/face/upper forehead BCC s/p slow mohs s/p 7 stages. -03/2012, BCC, tip of nose. Mohs -09/2013, BCC SM X3 , L upper arm, extensor side, L forearm, superior, L forearm, inferior -04/2014, R infraorbital , BCC Mohs -Efudex 5% cream to R cheek and nose 2014. Assessment & Plan (11/11/2020 10:07 AM CDT): No evidence of recurrence. Immunizations Name Administration Dates Next Due Prowl primary monoval ent 12+ yr 0.3mL Purple [...] and heating? Not hard at all 10/09/2022 [facility] - Occupational Stress [...] place to sleep or slept in a chcf (including now)? No 10/09/2022 Sex and Gender [...] Description 10/30/2024 1:30 PM CDT Office Visit [facility] - Dermatology [address] [place] [address], [place] [address] Rehan Rodriguez MD [address] [place] [address] [address] [place] [address] Health Maintenance Due Date Last Done Comments BONE DENSITY TESTING 1940 MEDICARE AWV 12 MONTHS 1940 DTAP/TDAP/TD VACCINES (1 - [...] - 26 mg/dL 10/09/2022 12:47 AM CDT [facility] Creatinine 0.68 0.56 - 0.96 mg/dL 10/09/2022 12:47 AM CDT [facility] Sodium 136 136 - 145 mmol/L 10/09/2022 12:47 AM CDT [facility] Potassium 3.9 3.5 - 4.5 mmol/L 10/09/2022 12:47 AM [facility] Chloride 104 98 - 107 mmol/L 10/09/2022 12:47 AM [facility] CO2 22 22 - 29 mmol/L 10/09/2022 12:47 AM [facility] Glucose 115 70 - 115 mg/dL 10/09/2022 12:47 AM [facility] Calcium 8.9 8.4 - 10.2 mg/dL 10/09/2022 12:47 AM [facility] Anion Gap 14 8 - 18 10/09/2022 12:47 AM [facility] BUN/Creatinine Ratio 13 7 - 23 10/09/2022 12:47 AM [facility] Osmolality Calculated 282 270 - 300 mOsm/kg 10/09/2022 12:47 AM [facility] eGFR by CKD-EPI 88(L) >=90 mL/min/1.7 3 m2 10/09/2022 12:47 AM [facility] Blood BLOOD SPECIMEN / Unknown Venipuncture / Unknown 10/09/2022 12:13 AM CDT 10/09/2022 12:22 AM [facility] Darrion Almonte DO LAB - CHEMISTRY RUBEN MAHONEY [facility] Organization Address City/State/ZIP Co de Phone Number [facility] [address] [place] [address], [facility] [phone] from Last 3 Months or Most Recently Relevant to Health Maintenance Insurance Payer Benefit Plan / Group Subscriber ID Effective Dates Phone Address Type TPL THIRD LIBERTARIAN LIABILITY TPL THIRD LIBERTARIAN LIABILITY [id number] 10/08/2022-Pre sent [address] [facility] [place] [address] Third Democrat Liability TPL THIRD LIBERTARIAN LIABILITY TPL THIRD LIBERTARIAN LIABILITY [id number] Effective for all dates [address] [place] [address] Third Democrat Liability MEDICARE MEDICARE PART A AND B [id number] Effective for all dates [address] [place] [address] Medicare [employer]UE [employer] [place] BLUE [employer]OSS BLUE SHIELD PPO Effective for all dates [address] [place] [address] PPO MEDICARE MEDICARE PART A AND B [id number] Effective for all dates [address] [place] [address] Medicare BLUE CROSS BLUE SHIELD [facility] BLUE CROSS BLUE SHIELD PPO Effective for all dates [address] [place] [address] PPO MEDICARE MEDICARE PART A AND B [id number] Effective for all dates [address] [place] [address] Medicare BLUE CROSS BLUE SHIELD [facility] BLUE CROSS BLUE SHIELD PPO Effective for all dates [address] [place] [address] PPO MEDICARE MEDICARE PART A AND B [id number] Effective for all dates [address] [place] [address] Medicare MEDICARE MEDICARE PART A AND B [id number] Effective for all dates [address] [place] [address] Medicare BLUE CROSS BLUE [facility] BLUE CROSS BLUE SHIELD PPO Effective for all dates [address] [place] [address] PPO MEDICARE MEDICARE PART A AND B [id number] Effective for all dates [address] [place] [address] Medicare MEDICARE MEDICARE PART A AND B [id number] Effective for all dates [address] [place] [address] Medicare MEDICARE WPS MEDICARE PART B [id number] 11/23/2006-Pres ent [address] [address] [place] [address] Medicare ANTHEM BLUE CROSS TRADITIONAL [id number] 07/01/2008-Pre sent [phone] [address] [place] [address] PPO MEDICARE MEDICARE PART A AND B [id number] Effective for all dates [address] [place] [address] Medicare ANTHEM BLUE CROSS FEDERAL PLAN [id number] 07/01/2008-Pre sent [address] [place] [address] PPO Elizabeth Duarte Personal/Family Self 1940 [address] [place] [address] GERALDELIZABETH SHERMAN Personal/Family Spouse [address] [place] [address] ELIZABETH DUARTE Personal/Family Spouse [address] [place] [address] ELIZABETH DUARTE Personal/Family Spouse [address] [place] [address] GERALDAMADOELIZABETH Personal/Family Spouse [address] [place] [address] ELIZABETH DUARTE Personal/Family [address] [place] [address] ELIZABETH DUARTE Personal/Family [address] [place] [address] AMADO DUARTEORES Personal/Family [address] [place] [address] Elizabeth Duarte Mina Third Democrat Liability Self 1940 [address] [place] [address] Advance Directives Documents on File Type Date Recorded 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
--- OUTSIDE RECORDS SUMMARY | 2024-09-07 17:03 | XMS_ITS | Patient Health Summary ---
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 MD (residential housekeeper). Frankie Park MD have personally reviewed and interpreted this examination/study. > Interpreting Provider: Frankie Mazariegos MD on 10/09/2022 12:48 AM Darrion Almonte DO DIAGNOSTIC IMAGING O RDERABLES * CT DESTROY PREMALIG LESION, 1ST LESION (07/13/2022 11:29 AM MOCK UP MAKER) Narrative Rehan Rodriguez MD - 07/13/2022 11:29 AM MOCK UP MAKER Isai Mckoy MD 07/13/2022 11:30 AM Diagnosis and treatment options discussed. Cryotherapy (Liquid Nitrogen) to 1 lesion for 7 seconds each. Number of cycles: 1. Wound care reviewed. Rehan Rodriguez MD PROCEDURE/MINOR SURG ICAL ORDERABLES * PROC EXCISION LESION TRUNK ARM LEG MALIG (03/19/2021 1:45 PM CDT) Rogers Barriga MD - 03/19/2021 1:45 PM CDT Rogers Blanco MD 03/24/2021 10:34 AM Date of Service: 03/19/21 Surgery: Elliptical excision with intermediate repair Tumor Type: basal cell carcinoma Location: left forearm Dermpath Acc: [id number] Lesion Size: 1.0 cm Level of Defect: fat Repair size: 3.9 cm Suture: 4-0 monocryl Primary Surgeon: Bella Sausage Maker Surgeon: Jacek INDICATIONS: The patient was scheduled for excision [...] Estimated Blood Loss: < 5 cc Complications: none Rogers Blanco MD Microelectronics Technician Rogers Blanco MD PROCEDURE/MINOR SURG ICAL ORDERABLES * DERMATOPATHOLOGY (03/19/2021 12:00 AM CDT) Only the most recent of20 resultswithin the time period is included. Case Report Dermatopathology Report Case: [id number] Authorizing Provider: Rogers Blanco MD Collected: 03/19/2021 12:00 AM Ordering Location: [facility] Mohs Surgery and Received: 03/20/2021 08:47 AM Cutaneous Oncology Pathologist: Kenyon Oropeza MD Specimen: Skin, left forearm 2:29 PM CDT DERMATOPATHOLOGY LABORATORY Final Diagnosis Specimen A. SKIN, left forearm: BASAL CELL CARCINOMA (C44.619) NOT PRESENT AT MARGIN DERMAL SCAR (L90.5) INTRADERMAL MELANOCYTIC NEVUS, INCIDENTAL; NOT PRESENT AT MARGIN (D22.62) 2:29 PM CDT DERMATOPATHOLOGY LABORATORY Clinical History BCC excision with 0.4cm margins. Check margins. 2:29 PM CDT DERMATOPATHOLOGY LABORATORY Gross Description Specimen A: Received is one formalin filled container labeled with the patient's name and designated left forearm. The specimen consists of a non-oriented ellipse of skin measuring [id number]. The epidermal surface is unremarkable. The margin [...] characteristic determined by the Dermatopathology Laboratory at [facility], directed by Dr. Kapil Oropeza. These tests need not be, and therefore are not, approved by the [place] Food and Drug Administration. The tests are used for clinical purposes. Billing Codes Specimen Charges Stain Charges 24454 1 1 2:29 PM CDT DERMATOPATHOLOGY LABORATORY Embedded Images 1 2:29 PM CDT DERMATOPATHOLOGY LABORATORY Pathology/Cytolog y TISSUE SPECIMEN FROM SKIN / Unknown 03/19/2021 03/20/2021 8:47 AM CDT Rogers Blanco MD LAB - PATHOLOGY/CYTO LOGY ORDERABLES DERMATOPATHOLOGY LABORATORY [facility] - Department of Dermatology [facility] Medicine [address] [place] [address], [address] [phone] * CT DELIA BX SKIN SINGLE LES (02/26/2021 10:44 AM CDT) Narrative Rehan Rodriguez MD - 02/26/2021 10:44 AM CDT Rehan Rodriguez MD 02/26/2021 10:45 AM Risks, benefits and alternatives to shave biopsy were discussed with the patient. Verbal consent was obtained. Encounter Diagnoses Name Primary? History of squamous cell carcinoma Yes History of basal cell carcinoma History of malignant melanoma Lentigines Seborrheic keratoses Neoplasm of uncertain behavior of skin Location: L forearm Skin prep: Alcohol Anesthesia: 1% lidocaine with epinephrine Hemostasis: Aluminum chloride Dressing and wound care discussed. Specimen(s) placed in a patient labeled container and sent to [facility] Dermatopathology. Patient agrees to phone call for results and message if not available. Rehan Rodriguez MD Rehan Rodriguez MD PROCEDURE/MINOR SURG ICAL ORDERABLES * CT DESTR MALIG TRUNK,EXTREM 1.1-2 CM (11/11/2020 10:03 AM CDT) Rehan Escobar MD - 11/11/2020 10:03 AM CDT Rehan Rodriguez MD 11/11/2020 10:05 AM PROCEDURE: Electrodessication and Curettage Risk of bleeding, scarring, infection, and recurrence were discussed with the patient. SURGEON: Michael DIAGNOSIS: SCCIS LOCATION: Right thigh SIZE OF LESION PRE-OP: 0.8 cm SIZE AFTER FIRST PASS: 1.2 cm ANESTHESIA: 1% Lidocaine with epinephrine. DRESSING: Plain Vaseline petroleum jelly and Band-Aid. Wound care instructions were given to the patient. Rehan Rodriguez MD Rehan Rodriguez MD PROCEDURE/MINOR SURG ICAL ORDERABLES * CT REPR CMPL WND SCALP,EXTR 2.6-7.5, CT EXC SKIN MALIG 3.1-4CM REMAINDR BODY (08/14/2020 4:48 PM MOCK UP MAKER) Rogers Barriga MD - 08/14/2020 4:48 PM MOCK UP MAKER Rogers Blanco MD 08/16/2020 11:46 AM Elliptical Excision with Partial Complex Closure Date of Service: 08/14/2020 Surgery: Elliptical excision with partial complex repair Tumor Type: malignant melanoma in situ Location: Vertex scalp Derm-Path Lesion Size: 2.7 cm x 1.8cm Repair size: Complex portion=3.5 cm and granulating center=3cm Level of Defect: fat Suture: Horizontal mattress; PDS 4-0, prolene 4-0 Primary Surgeon: Dr. Rogers Blanco Sausage Maker Surgeon: Dr. Yesika Antonio INDICATIONS: The patient was scheduled for excision of a malignant melanoma in situ on the Vertex scalp. The risks of bleeding, infection, discomfort, incomplete removal, and scar formation were explained to the patient. All questions were answered. After informed consent, confirmation of site and identity, and appropriate instructions, the patient underwent the procedure as follows: PROCEDURE: The lesion was outlined with 1 cm margins. The lesion and the necessary margin (excised diameter) measured 4.7cm x 3.8 cm. An ellipse was designed around the lesion to conform to relaxed skin tension lines in an effort to minimize scarring and deformity. The patient was then placed in a supine position. The lesion and surrounding skin were prepped with providone, draped and anesthetized with Lidocaine 1% with epinephrine 1:100,000 buffered with sodium bicarbonate 8.4% in a 1:10 ratio. Using a #15 blade the skin was excised along pre-marked lines. The resulting defect extended to fat. Standing cones were extensively undermined undermined widely to a distance greater than the wound diameter at the cone measured perpendicular to the wound edge. Bleeding vessels were controlled with monopolar desiccation. space was closed and wound edges opposed with buried vertical mattress sutures using PDS 4-0 for bilateral edges of incision. Epidermal approximation was meticulously refined with horizontal mattress [...] tape. Postoperative instructions were reviewed per protocol. Reviewed that if MIS is present at the margins of specimen during dermatopathology evaluation, then the patient will need to have second stage of surgery performed at that time. If no MIS is present at margins, then second surgical procedure will not be needed. The patient left alert and fully oriented. Post-Operative Size: 4.7cm x 3.8 cm Repair size: Complex portion=3.5 cm and granulating center=3cm Sutures Used: PDS 4-0;Prolene 4-0 Estimated Blood Loss: <5 ml Complications: none The Attending surgeon, Dr. Blanco, was present for the entire procedure and always immediately available. Yesika Antonio M.D. [facility] Dermatology Resident, PGY-3 Rogers Blanco MD PROCEDURE/MINOR SURG ICAL ORDERABLES * CT DESTROY PREMALIG LESION, 2-14, CT DESTROY PREMALIG LESION, 1ST LESION (08/07/2020 11:14 AM MOCK UP MAKER) Narrative Rehan Rodriguez MD - 08/07/2020 11:14 AM MOCK UP MAKER Lizeth Nuñez MD 08/07/2020 11:14 AM Diagnosis and treatment options discussed, addressing the benefit and risks of each. Pt wish to proceed with cryotherapy. Liquid Nitrogen was applied to 3 lesions on (L forehead and L cheek) for 7-10s each. Number of cycles: 1. Wound care reviewed. Lizeth Nuñez MD Dermatology Resident PGY-4 Rehan Rodriguez MD PROCEDURE/MINOR SURG ICAL ORDERABLES * CT TANGNTL BX SKIN EA SEP ADDL, CT TANGNTL BX SKIN SINGLE LES (08/07/2020 11:13 AM MOCK UP MAKER) Narrative Rehan Rodriguez MD - 08/07/2020 11:13 AM MOCK UP MAKER Lizeth Nuñez MD 08/07/2020 11:13 AM Risks, benefits and alternatives [...] of above, verbal consent was obtained. Location: Vertex scalp, R thigh Skin prep: Alcohol Anesthesia: 1% lidocaine with epinephrine Hemostasis: Aluminum chloride Dressing and wound care discussed Lizeth Nuñez MD Dermatology Resident PGY-4 Rehan Rodriguez MD PROCEDURE/MINOR SURG ICAL ORDERABLES * CT DESTR MALIG SCAL,NCK,HAND 0.6-1 CM (08/21/2019 11:29 AM MOCK UP MAKER) Narrative Rehan Rodriguez MD - 08/21/2019 11:29 AM MOCK UP MAKER Katya Sage DO 08/21/2019 11:35 AM ED&C Procedure (Electrodesiccation and Currettage) Risks, benefits, and alternatives to ED&C procedure discussed including scar, bleeding, infection, pain, and skin cancer recurrence.. Patient expressed understanding and written consent obtained. Primary surgeon: Attending: Michael Pre-op diagnosis: smBCC Location: R neck Dermpath accession #: [id number].#[id number] Pre-op lesion size: 6mm Size of lesion after first pass: 8mm Procedure: The site of previous biopsy was [...] and always immediately available. Katya Sage DO [facility] Dermatology Resident, PGY-2 Rehan Rodriguez MD PROCEDURE/MINOR SURG ICAL ORDERABLES * CT TANGNTL BX SKIN SINGLE LES (07/31/2019 10:17 AM MOCK UP MAKER) Rehan Escobar MD - 07/31/2019 10:17 AM MOCK UP MAKER Rehan Rodriguez MD 07/31/2019 10:17 AM Risks, benefits and alternatives to shave biopsy were discussed with the patient. Verbal consent was obtained. Encounter Diagnoses Name Primary? History of basal cell carcinoma Yes History of squamous cell carcinoma Actinic keratosis Foster angioma Lentigines Other seborrheic keratosis Neoplasm of uncertain behavior of skin Location: right neck Skin prep: Alcohol Anesthesia: 1% lidocaine with epinephrine Hemostasis: Aluminum chloride Dressing and wound care discussed. Specimen(s) placed in a patient labeled container and sent to [facility] Dermatopathology. Patient agrees to phone call for results and message if not available. Rehan Rodriguez MD Rehan Rodriguez MD PROCEDURE/MINOR SURG ICAL ORDERABLES * CT DESTROY PREMALIG LESION, 2-14, CT DESTROY PREMALIG LESION, 1ST LESION (07/31/2019 10:16 AM MOCK UP MAKER) Rehan Escobar MD - 07/31/2019 10:16 AM MOCK UP MAKER Rehan Rodriguez MD 07/31/2019 10:17 AM Diagnosis and treatment options discussed. Cryotherapy (Liquid Nitrogen) to two lesion(s) on nasal bridge and left helix for 5-7 seconds each. Number of cycles: 1. Wound care reviewed. Rehan Rodriguez MD PROCEDURE/MINOR SURG ICAL ORDERABLES * CT DESTROY PREMALIG LESION, 1ST LESION, CT DESTROY PREMALIG LESION, 2-14 (01/30/2019 1:34 PM CDT) Rehan Escobar MD - 01/30/2019 1:34 PM CDT Diane Asif MD 01/30/2019 1:34 PM Liquid nitrogen was applied for 5-7 seconds to the skin lesions and the expected blistering or scabbing reaction explained. Do not pick at the areas. Patient reminded to expect hypopigmented scars from the procedure. Return if lesions fail to fully resolve. Diane Asif MD Dermatology PGY-2 Rehan Rodriguez MD PROCEDURE/MINOR SURG ICAL ORDERABLES * CT TANGNTL BX SKIN SINGLE LES (01/30/2019 1:33 PM CDT) Rehan Escobar MD - 01/30/2019 1:33 PM CDT Rehan Rodriguez MD 01/30/2019 1:33 PM Risks, benefits and alternatives to shave biopsy were discussed with the patient. Verbal consent was obtained. Encounter Diagnoses Name Primary? History of basal cell carcinoma Yes History of squamous cell carcinoma Actinic keratosis Solar lentiginosis Seborrheic keratoses Multiple melanocytic nevi Neoplasm of uncertain behavior of skin Location: nasal tip Skin prep: Alcohol Anesthesia: 1% lidocaine with epinephrine Hemostasis: Aluminum chloride Dressing and wound care discussed. Specimen(s) placed in a patient labeled container and sent to [facility] Dermatopathology. Patient agrees to phone call for results and message if not available. Diane Asif MD Rehan Rodriguez MD PROCEDURE/MINOR SURG ICAL ORDERABLES * CT DESTROY PREMALIG LESION, 2-14, CT DESTROY PREMALIG LESION, 1ST LESION (08/01/2018 10:44 AM MOCK UP MAKER) Rehan Escobar MD - 08/01/2018 10:44 AM MOCK UP MAKER Tolu Marcus MD 08/01/2018 10:40 AM Diagnosis and treatment options discussed. Cryotherapy (Liquid Nitrogen) to 4 lesions for 5-7 seconds each. Number of cycles: 1. Wound care reviewed. Tolu Marcus M.D. PGY-3 dermatology resident Rehan Rodriguez MD PROCEDURE/MINOR SURG ICAL ORDERABLES * (ABNORMAL) GLUCOSE ACCUCHECK (08/20/2014 7:17 AM MOCK UP MAKER) Only the most recent of3 resultswithin the time period is included. Glucose, Fingerstick 130(H) 70-115mg/d L mg/dL [facility] RALS (BEAKER) Comment:[facility] Director: NAZ LING SA 08/20/2014 7:17 AM MOCK UP MAKER Yesika Hancock MD LAB - CHEMISTRY O RDERABLES [facility] MARY FLORES) * (ABNORMAL) CULTURE AEROBIC (10/30/2013 2:50 PM CDT) Culture SEE NOTE(A) KERRI ([facility]) Comment: CULTURE, AEROBIC BACTERIA MICRO NUMBER: [id number] TEST STATUS: FINAL SPECIMEN SOURCE: NASAL SPECIMEN QUALITY: ADEQUATE RESULT: Light growth of Methicillin resistant Staphylococcus aureus (MRSA) Negative for inducible clindamycin resistance. MRSA INT TOBIAS AMOX/CLAVULANATE R NR AMP/SULBACTAM R NR CEFAZOLIN R NR CIPROFLOXACIN S <=1 CLINDAMYCIN S <=0.25 ERYTHROMYCIN R >4 GENTAMICIN S <=1 LEVOFLOXACIN S <=0.5 OXACILLIN R NR 1 TETRACYCLINE S <=1 TRIMETHOPRIM/SULFA S <=0.5/9.5 VANCOMYCIN S 1 S=Susceptible I=Intermediate R=Resistant * = Not Tested NR = Not Reported NN = See Therapy Comments THERAPY COMMENTS Note 1: Oxacillin-resistant staphylococci are resistant to all currently available beta-lactam antimicrobial agents including penicillins, beta lactam/beta- lactamase inhibitor combinations, and cephems with staphylococcal indications, including Cefazolin. REPORT COMMENT: SPECIMEN TYPE->NASAL Test Performed at: [id number] [id number] MARBIN GARCES MD Nasal 10/30/2013 2:50 PM CDT 10/30/2013 9:43 PM CDT Narrative [facility] ([facility]) - 11/02/2013 2:00 PM CDT Specimen Type->Nasal Rehan Rodriguez MD LAB - MICROBIOLOGY O RDERABLES [facility] ([facility]) * CARDIAC RHYTHM STRIP ORDER (08/16/2012 9:19 AM MOCK UP MAKER) Narrative 08/16/2012 9:19 AM MOCK UP MAKER Procedure Note Document, Scanned - 08/16/2012 9:19 AM CST Scanned Document CARDIAC SERVICES ORD ERABLES * EKG 12-LEAD (04/22/2012 3:36 PM CDT) Pathologist [facility] Ventricular Rate 51 BPM [facility] Atrial Rate 51 BPM [facility] P-R Interval 174 ms [facility] QRS Duration ms 98 ms [facility] Q-T Interval ms 460 ms [facility] QTC Calculation (Bezet) 423 ms [facility] Calculated P [place] 55 degrees [facility] Calculated R [place] 12 degrees [facility] Calculated T [place] 56 degrees [facility] Interpretation EKG SINUS BRADYCARDIA cannot rule out SEPTAL INFARCT , AGE UNDETERMINED ABNORMAL ECG NO PREVIOUS ECGS AVAILABLE Confirmed by MD STEPHON, DESIRE ([id number]) on 04/22/2012 4:45:47 PM [facility] MUSE 04/22/2012 3:36 PM CDT 04/22/2012 4:45 PM CDT Narrative Transcriptions Document, Scanned - 04/22/2012 3:43 PM CDT Document, Scanned - 04/22/2012 4:47 PM CDT Ignacio Walker MD ECG ORDERABLES [facility] MUSE * PTT (04/22/2012 3:13 PM CDT) Pathologist [facility] PTT 26.8 24.0 - 33.0 seconds [facility] BLOOD SPECIMEN / Unknown 04/22/2012 3:13 PM CDT 04/22/2012 3:13 PM CDT Ignacio Walekr MD LAB - COAGULATION ORDERABLES [facility] [address] [place] [address] * PT-INR (04/22/2012 3:13 PM CDT) Pathologist [facility] PT 11.2 9.4 - 11.4 seconds [facility] INR 1.05 SEE BELOW [facility] Comment: Conventional anticoagulation 2.0-3.0 Intensive anticoagulation 2.5-3.5 BLOOD SPECIMEN / Unknown 04/22/2012 3:13 PM CDT 04/22/2012 3:13 PM CDT Ignacio Walker MD LAB - COAGULATION ORDERABLES Performing Organization Address City/[facility] Co de Phone Number [facility] [address] [place] [address] * XR CHEST PA AND LATERAL ROUTINE [...] MD DIAGNOSTIC BRUNO Go ORDERABLES Care Teams Cooker Sulfate Relationship Specialty Start Date End Date Morelia Ingram MD [address] [place] [address] PCP - General Family Medicine 01/11/23
[2024-09-15 03:28] LABS: Calprotectin, Stool 132 mcg/g
== END 2024-09-07 17:00 | disposition home or self-care (01) ==
PROVIDERS: PCP Family Medicine; Visit Provider Nurse Practitioner Family
DX: R19.5 Other fecal abnormalities (principal)
CPT/HCPCS: 83993

== ENCOUNTER 2024-09-11 13:53 | Outpatient (CLI) | payer MEDICARE, BC, SELFPAY ==
[2024-09-11 15:29] LABS: Alanine Aminotransferase 32 U/L (6-35); Albumin Level 4.2 g/dL (3.5-5.1); Alkaline Phosphatase 63 U/L (38-126); Anion Gap 8 mmol/L (4-12); Aspartate Amino Transferase 34 U/L (14-36); Bilirubin,Total 0.7 mg/dL (0.2-1.3); Blood Urea Nitrogen 26 mg/dL (7-17); Calcium 9.9 mg/dL (8.4-10.2); Carbon Dioxide 32 mmol/L (22-30); Chloride 99 mmol/L (98-107); Estimated Glomerular Filt Rate > 60; Glucose 97 mg/dL (65-110); Potassium 4.6 mmol/L (3.4-5.0); Sodium 139 mmol/L (137-145)
--- OUTSIDE RECORDS SUMMARY | 2024-09-11 16:35 | XMS_ITS | Clinical Summary ---
Author Organization [facility] [place] [address] [facility] [address] Address [address] [place] [address] Care Team Providers Care Canine Service Teacher Name Role Phone Lenny Randall MD Primary [...] 1 tablet (50 mcg total) by mouth lead software qa engineer before breakfast Active losartan (COZAAR) 50 mg [...] Palpitations 07/09/2016 Overview (10/29/2016): Palpitations Atrial fibrillation ([facility]) 07/09/2016 Overview (10/29/2016): Postoperative atrial fibrillation Dyspnea on exertion 07/09/2016 Overview (10/29/2016): [place] (dyspnea on exertion) Controlled type 2 diabetes m ellitus without complication, without long-term current use of insulin ([facility]) 07/09/2016 Overview (10/29/2016): Type 2 diabetes mellitus with unspecified complications Resolved Problems Problem Noted Date Diagnosed Date Resolved Date Encounter for postoperative care 09/16/2015 05/18/2017 Overview (10/29/2016): Post surgical visit Disorder of aorta (CMS/HCC) 08/07/2015 05/07/2021 Overview (10/29/2016): Aortic stenosis Encounters Date Type Department Care Team Description 09/06/2024 10:15 AM RESTORATION ECOLOGIST Ancillary Procedure [facility] Cardiology [address] [place] [address] S/P aortic valve replacement with bioprosthetic valve [...] Hx Other Medical Allergies, seas onal; Comments: [facility] 02/19/2014 - Type 2 diabetes mellitus (HCC) D iabetes type 2; Comments: [facility] 02/19/2014 - Hypertension Hypertension Hx Other Medical aortic stenosis ; Comments: [facility] 02/19/2014 - Hx Other Medical obesity; Commen ts: [facility] 02/19/2014 - Hx Other Medical bilateral carpa l tunnel release; Comments: [facility] 02/19/2014 - Hx Other Medical R salpingoopher ectomy; Comments: [facility] 02/19/2014 - Hx Other Medical multiple basal cell carcinoma excisions; Comments: [facility] 02/19/2014 - Hx Other Medical lower back pain ; Comments: [facility] 08/07/2015 - Hx Other Medical basal cell skin cancer; Comments: [facility] 08/07/2015 - Type 2 diabetes mellitus (HCC) D iabetes type 2; Comments: [facility] 08/07/2015 - Sleep apnea Sleep apnea Hypertension Hypertension Anxiety disorder Anxiety Hx Other Medical palpitations; C omments: [facility] 08/07/2015 - Arthritis Arthritis; Comme nts: [facility] 08/07/2015 - Gastroesophageal reflux disease GERD Hypercholesterolemia High choles terol; Comments: [facility] 08/07/2015 - Hx Other Medical aortic [...] on file Legal Sex Female 9:19 PM RESTORATION ECOLOGIST Gender Identity Not on file Sexual Orientation Not on file Obstetrics History Last Filed Vital Signs Vital Sign Reading Time Taken Comments Blood Pressure 128/56 11/03/2023 11:31 AM CDT Pulse 59 11/03/2023 11:31 AM CDT Temperature 36.2 C (97.1 F) 06/03/2020 11:12 AM RESTORATION ECOLOGIST Respiratory Rate - - Oxygen Saturation 96% [...] DOPPLER/CF WO CONTRAST Routine 09/06/2024 10:39 AM RESTORATION ECOLOGIST S/P aortic valve replacement with bioprosthetic valve EGFR Routine 02/24/2023 11:42 AM CDT Preop testing HEMOGLOBIN A1C Routine 02/24/2023 11:42 AM CDT Preop testing POCT LIPID PANEL Routine 05/18/2017 9:29 AM CDT Mixed hyperlipidemia from Last 3 Months or Most Recently Relevant to Health Maintenance Results * TRANSTHORACIC ECHO (TTE) COMPLETE W DOPPLER/CF WO CONTRAST (09/06/2024 10:39 AM RESTORATION ECOLOGIST) LV EF % CONS SCIMAGE Anatomical Region Laterality Modality Ultrasound 09/06/2024 10:0 5 AM RESTORATION ECOLOGIST Narrative 09/06/2024 7:28 PM RESTORATION ECOLOGIST [facility] Medical [facility] Cardiology [address], [place] [address] [facility] [address], [place] [address] P:[phone] P:[phone] Echocardiographic Report Patient Name: ELIZABETH DUARTE A : 1940 Study Date: 09/06/2024 10:05:48 AM Gender: F Tech: Location: [facility] Provider: JUSTIN GROSS Height(Cm): 160 BSA: [...] jet. Electronically Signed By: Justin Gross MD, [facility] 09/06/2024 7:27:17 PM RESTORATION ECOLOGIST Procedure Note Justin Gross MD - 09/06/2024 [facility] Cardiology [address] [facility] [address], [place] [address] [facility] [address], [place] [address] P:[phone] P:[phone] Echocardiographic Report Patient Name: ELIZABETH DUARTE A : 1940 Study Date: 09/06/2024 10:05:48 AM Gender: F Tech: Location: [facility] Provider: JUSTIN GROSS Height(Cm): 160 BSA: [...] jet. Electronically Signed By: Justin Gross MD, [facility] 09/06/2024 7:27:17 PM RESTORATION ECOLOGIST us Justin Gross MD CV ECHO PROCEDURES Final Result * eGFR (02/24/2023 11:42 AM CDT) eGFR 49 mL/min/1. 73 m2 [facility] Comment: Interpretive Data Reference Interval Normal >/= [...] AM CDT 02/24/2023 11:42 AM CDT Result [facility] Mary Ann Diez NP LAB BLOOD ORDERABLES Final R esult Performing Organization Address [facility] Co de Phone Number [facility] [address] [place] [address] * Hemoglobin A1c (02/24/2023 11:42 AM CDT) Hgb A1C 5.3 4.0 - 5.6 % [facility] Estimated Average Glucose 105 mg/dL [facility] Comment: The ADA recommends reporting an estimated Average Glucose (eAG) with all Hemoglobin A1c results using the equation derived from a study of 507 normal and diabetic adults. Minority populations were underrepresented and children were not included. (Diabetes Care 31:3060-8252, 2007). The eAG is not equivalent to a fasting glucose. Blood 02/24/2023 11:4 2 AM CDT 02/24/2023 11:42 AM CDT Result [facility] Mary Ann Diez NP LAB BLOOD ORDERABLES Final R esult Performing Organization Address City/[facility] Co de Phone Number [facility] [address] [place] [address] * POCT lipid panel (05/18/2017 9:29 AM CDT) HDL, POC 40 mg/dL Triglycerides, POC 346 mg/dL LDL Cholesterol POC 83 mg/dL Chol/HDL Ratio, POC 4.8 Non-HDL Cholesterol, POC 152 mg/dL Cholesterol Total, POC 192 mg/dL Blood specimen (specimen) 05/18/2017 9:29 AM CDT Result [facility] Soheila Bangura MD POINT OF CARE TEST ORDERABL ES Final Result from Last 3 Months or Most Recently Relevant to Health Maintenance Insurance MEDICARE [facility] FEDERAL MEDICARE Care Teams Canine Service Teacher Relationship Specialty Start Date End Date Lenny Randall MD [address] [place] [address] PCP - General Family Medicine 09/06/24
--- OUTSIDE RECORDS SUMMARY | 2024-09-11 16:35 | XMS_ITS | Clinical Summary ---
Author Organization [facility] Address [address] [place] [address] Care Team Providers Care Senior Game Designer Name Role Phone Morelia Ingram MD Primary Care Provider [phone] Allergies Active Allergy Reactions Criticality Noted Date [...] on file Legal Sex Female 1:26 PM ATM TECHNICIAN Gender Identity Not on file Sexual Orientation Not on file Last Filed Vital Signs Vital Sign Reading Time Taken Comments Blood Pressure 140/70 09/02/2023 4:15 PM ATM TECHNICIAN Pulse 67 09/02/2023 4:15 PM ATM TECHNICIAN Temperature 36.7 C (98 F) 09/02/2023 4:15 PM ATM TECHNICIAN Respiratory Rate 20 09/02/2023 4:15 PM ATM TECHNICIAN Oxygen Saturation 100% 09/02/2023 4:15 PM ATM TECHNICIAN Inhaled Oxygen Concentration - - Weight 59 kg (130 lb) 09/02/2023 4:15 PM ATM TECHNICIAN Height 160 cm (5' 3 ) 09/02/2023 4:15 PM ATM TECHNICIAN Body Mass Index 23.03 09/02/2023 4:15 PM ATM TECHNICIAN Plan of Treatment Health Maintenance Due [...] age to complete this topic Insurance MEDICARE [facility] Care Teams Senior Game Designer Relationship Specialty Start Date End Date Morelia Ingram MD [address] [facility] [address] [place] [address] PCP - General FAMILY PRACTICE 09/02/23
--- OUTSIDE RECORDS SUMMARY | 2024-09-11 16:35 | XMS_ITS | Patient Health Summary ---
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 Vertex scalp Derm-Path Lesion Size: 2.7 cm x 1.8cm Repair size: Complex portion=3.5 cm and granulating center=3cm Level of Defect: fat Suture: Horizontal mattress; PDS 4-0, prolene 4-0 Primary Surgeon: Dr. Rogers Blanco Solutions Architect Surgeon: Dr. Yesika Antonio INDICATIONS: The patient [...] and always immediately available. Yesika Antonio M.D. [facility] Dermatology Resident, PGY-3 Rogers Blanco MD PROCEDURE/MINOR SURG ICAL ORDERABLES * TN DESTROY PREMALIG LESION, 2-14, TN DESTROY PREMALIG LESION, 1ST LESION (08/07/2020 11:14 AM BUDGET CONSULTANT) Narrative Rehan Rodriguez MD - 08/07/2020 11:14 AM BUDGET CONSULTANT Lizeth Nuñez MD 08/07/2020 11:14 AM Diagnosis and treatment options discussed, addressing the benefit and risks of each. Pt wish to proceed with cryotherapy. Liquid Nitrogen was applied to 3 lesions on (L forehead and L cheek) for 7-10s each. Number of cycles: 1. Wound care reviewed. Lizeth Nuñez MD Dermatology Resident PGY-4 Rehan Rodriguez MD PROCEDURE/MINOR SURG ICAL ORDERABLES * TN TANGNTL BX SKIN EA SEP ADDL, TN TANGNTL BX SKIN SINGLE LES (08/07/2020 11:13 AM BUDGET CONSULTANT) Narrative Rehan Rodriguez MD - 08/07/2020 11:13 AM BUDGET CONSULTANT Lizeth Nuñez MD 08/07/2020 11:13 AM Risks, [...] Rodriguez MD PROCEDURE/MINOR SURG ICAL ORDERABLES * TN DESTR MALIG SCAL,NCK,HAND 0.6-1 CM (08/21/2019 11:29 AM BUDGET CONSULTANT) Narrative Rehan Rodriguez MD - 08/21/2019 11:29 AM BUDGET CONSULTANT Katya Sage DO 08/21/2019 11:35 AM ED&C Procedure (Electrodesiccation and Currettage) Risks, benefits, and alternatives to ED&C procedure discussed including scar, bleeding, infection, pain, and skin cancer recurrence.. Patient expressed understanding and written consent obtained. Primary surgeon: Attending: Michael Pre-op diagnosis: smBCC Location: R neck Dermpath accession #: Acc.#[id number] Pre-op lesion size: 6mm Size of lesion [...] and always immediately available. Katya Sage DO [facility] Dermatology Resident, PGY-2 Rehan Rodriguez MD PROCEDURE/MINOR SURG ICAL ORDERABLES * TN TANGNTL BX SKIN SINGLE LES (07/31/2019 10:17 AM BUDGET CONSULTANT) Rehan Escobar MD - 07/31/2019 10:17 AM BUDGET CONSULTANT Rehan Rodriguez MD 07/31/2019 10:17 AM Risks, [...] a patient labeled container and sent to [facility] Dermatopathology. Patient agrees to phone call for results and message if not available. Rehan Rodriguez MD Rehan Rodriguez MD PROCEDURE/MINOR SURG ICAL ORDERABLES * TN DESTROY PREMALIG LESION, 2-14, TN DESTROY PREMALIG LESION, 1ST LESION (07/31/2019 10:16 AM BUDGET CONSULTANT) Rehan Escobar MD - 07/31/2019 10:16 AM BUDGET CONSULTANT Rehan Rodriguez MD 07/31/2019 10:17 AM Diagnosis and treatment options discussed. Cryotherapy (Liquid Nitrogen) to two lesion(s) on nasal bridge and left helix for 5-7 seconds each. Number of cycles: 1. Wound care reviewed. Rehan Rodriguez MD PROCEDURE/MINOR SURG ICAL ORDERABLES * TN DESTROY PREMALIG LESION, 1ST LESION, TN DESTROY PREMALIG LESION, 2-14 (01/30/2019 1:34 PM [...] Rodriguez MD PROCEDURE/MINOR SURG ICAL ORDERABLES * TN TANGNTL BX SKIN SINGLE LES (01/30/2019 1:33 [...] a patient labeled container and sent to [facility] Dermatopathology. Patient agrees to phone call for results and message if not available. Diane Asif MD Rehan Rodriguez MD PROCEDURE/MINOR SURG ICAL ORDERABLES * TN DESTROY PREMALIG LESION, 2-14, TN DESTROY PREMALIG LESION, 1ST LESION (08/01/2018 10:44 AM BUDGET CONSULTANT) Rehan Escobar MD - 08/01/2018 10:44 AM BUDGET CONSULTANT Tolu Marcus MD 08/01/2018 10:40 AM Diagnosis and treatment options discussed. Cryotherapy (Liquid Nitrogen) to 4 lesions for 5-7 seconds each. Number of cycles: 1. Wound care reviewed. Tolu Marcus M.D. PGY-3 dermatology resident Rehan Rodriguez MD PROCEDURE/MINOR SURG ICAL ORDERABLES * (ABNORMAL) GLUCOSE ACCUCHECK (08/20/2014 7:17 AM BUDGET CONSULTANT) Only the most recent of3 resultswithin the time period is included. Glucose, Fingerstick 130(H) 70-115mg/d L mg/dL [facility] RALS (BEAKER) Comment:Reprographics Technician: NAZ LING SA 08/20/2014 7:17 AM BUDGET CONSULTANT Yesika Hancock MD LAB - CHEMISTRY O RDERABLES [facility] MARY FLORES) * (ABNORMAL) CULTURE AEROBIC (10/30/2013 2:50 PM CDT) Culture SEE NOTE(A) KERRI ([facility]) Comment: CULTURE, AEROBIC BACTERIA MICRO NUMBER: [id number] TEST STATUS: FINAL SPECIMEN SOURCE: NASAL SPECIMEN [...] REPORT COMMENT: SPECIMEN TYPE->NASAL Test Performed at: [facility] [id number] MARBIN GARCES MD Nasal 10/30/2013 2:50 PM CDT 10/30/2013 9:43 PM CDT Narrative [facility] ([facility]) - 11/02/2013 2:00 PM CDT Specimen Type->Nasal Rehan Rodriguez MD LAB - MICROBIOLOGY O RDERABLES [facility] ([facility]) * CARDIAC RHYTHM STRIP ORDER (08/16/2012 9:19 AM BUDGET CONSULTANT) Narrative 08/16/2012 9:19 AM BUDGET CONSULTANT Procedure Note Document, Scanned - 08/16/2012 9:19 AM CST Scanned Document CARDIAC SERVICES ORD ERABLES * EKG 12-LEAD (04/22/2012 3:36 PM CDT) Pathologist [facility] Ventricular Rate 51 BPM [facility] Atrial Rate 51 BPM [facility] P-R Interval 174 ms [facility] QRS Duration ms 98 ms [facility] Q-T Interval ms 460 ms [facility] QTC Calculation (Bezet) 423 ms [facility] Calculated P [place] 55 degrees [facility] Calculated R [place] 12 degrees [facility] Calculated T [place] 56 degrees [facility] Interpretation EKG SINUS BRADYCARDIA cannot rule out SEPTAL INFARCT , AGE UNDETERMINED ABNORMAL ECG NO PREVIOUS ECGS AVAILABLE Confirmed by MD STEPHON, DESIRE ([id number]) on 04/22/2012 4:45:47 PM [facility] MUSE 04/22/2012 3:36 PM CDT 04/22/2012 4:45 PM CDT Narrative Transcriptions Document, Scanned - 04/22/2012 3:43 PM CDT Document, Scanned - 04/22/2012 4:47 PM CDT Ignacio Walker MD ECG ORDERABLES [facility] MUSE * PTT (04/22/2012 3:13 PM CDT) Pathologist [facility] PTT 26.8 24.0 - 33.0 seconds [facility] BLOOD SPECIMEN / Unknown 04/22/2012 3:13 PM CDT 04/22/2012 3:13 PM CDT Ignacio Walker MD LAB - COAGULATION ORDERABLES [facility] [address] [place] [address] * PT-INR (04/22/2012 3:13 PM CDT) Pathologist [facility] PT 11.2 9.4 - 11.4 seconds [facility] INR 1.05 SEE BELOW [facility] Comment: Conventional anticoagulation 2.0-3.0 Intensive anticoagulation 2.5-3.5 BLOOD SPECIMEN / Unknown 04/22/2012 3:13 PM CDT 04/22/2012 3:13 PM CDT Ignacio Walker MD LAB - COAGULATION ORDERABLES Performing Organization Address City/[facility] Co de Phone Number [facility] [address] [place] [address] * XR CHEST PA AND LATERAL ROUTINE [...] MD DIAGNOSTIC BRUNO Go ORDERABLES Care Teams Machine Plug Shaper Relationship Specialty Start Date End Date Morelia Ingram MD [address] [place] [address] PCP - General Family Medicine 01/11/23
--- OUTSIDE RECORDS SUMMARY | 2024-09-11 16:35 | XMS_ITS ---
Author Organization [facility] Address [address] [place] [address] Care Team Providers Care Metal Furniture Repairer Name Role Phone Morelia Ingram MD Primary [...] lip s/p mohs Apr 2017 -2010, L mormon/face/upper forehead BCC s/p slow mohs s/p 7 [...] 08/07/2020 Assessment & Plan (08/07/2020 12:14 PM CHILD SUPPORT AGENT): - nose (diffuse, recalcitrant), left cheek, and [...] skin Assessment & Plan (08/07/2020 12:15 PM CHILD SUPPORT AGENT): -vertex scalp: lentigo vs MIS -R thigh: ISK vs SCC - Shave Biopsy (see procedure note) - Post-biopsy handout given - Wound care instructions reviewed - Will call patient with biopsy results. If intervention is indicated, will make arrangements at that time Actinic skin damage 08/07/2020 Assessment & Plan (08/07/2020 12:14 PM CHILD SUPPORT AGENT): Explained benign nature, reassurance provided. ABCDEs of [...] FBSE Assessment & Plan (08/07/2020 12:14 PM CHILD SUPPORT AGENT): -NER today -continue q6m FBSE Lower extremity [...] 11/30/2011 Overview (02/19/2020): Overview: 2010: BCC, L mormon/face/upper forehead s/p Slow mohs w/ 7 stages. 03/2012: BCC, tip of nose s/p Mohs 08/03/201209/2013: BCC SM X3 , L upper arm, extensor side, L forearm, superior, L forearm, inferior s/p ED&C x 3 10/30/201304/2014: BCC, R infraorbital, s/p Mohs 08/15/2014 Assessment & Plan (11/11/2020 10:11 AM CDT): No evidence of recurrence. Assessment & Plan (08/07/2020 12:14 PM CHILD SUPPORT AGENT): -NER today -continue q6m FBSE Current Oncology Plans No current plan information found. Past Plans No past plan information found. Radiation Treatments * No radiation treatments are documented for this patient in [facility]. Treatments may have been administered in another [...] lip s/p mohs Apr 2017 -2010, L mormon/face/upper forehead BCC s/p slow mohs s/p 7 stages. -03/2012, BCC, tip of nose. Mohs -09/2013, BCC SM X3 , L upper arm, extensor side, L forearm, superior, L forearm, inferior -04/2014, R infraorbital , BCC Mohs -Efudex 5% cream to R cheek and nose 2014. Assessment & Plan (11/11/2020 10:07 AM CDT): No evidence of recurrence.
--- OUTSIDE RECORDS SUMMARY | 2024-09-11 16:35 | XMS_ITS | Referral Summary ---
Author Organization [facility] Address [address] [place] [address] Care Team Providers Care Lead Net Software Developer Name Role Phone Morelia Ingram MD Primary Care Provider U francojohn Source Comments [facility],non-owned Affiliates and Associated Physician Practices is amultiple site organization consisting of ambulatory clinics and hospital sitesin [place], [place], [place] and [place]. This disclosure is being madepursuant to the Care Everywhere program and may not contain all information available regarding this patient. Last updated 18.[facility] Allergies Active Allergy Reactions Criticality Noted Date [...] lip s/p mohs Apr 2017 -2010, L rastafarian/face/upper forehead BCC s/p slow mohs s/p 7 [...] 08/07/2020 Assessment & Plan (08/07/2020 12:14 PM CELL POURER): - nose (diffuse, recalcitrant), left cheek, and [...] skin Assessment & Plan (08/07/2020 12:15 PM CELL POURER): -vertex scalp: lentigo vs MIS -R thigh: ISK vs SCC - Shave Biopsy (see procedure note) - Post-biopsy handout given - Wound care instructions reviewed - Will call patient with biopsy results. If intervention is indicated, will make arrangements at that time Actinic skin damage 08/07/2020 Assessment & Plan (08/07/2020 12:14 PM CELL POURER): Explained benign nature, reassurance provided. ABCDEs of [...] FBSE Assessment & Plan (08/07/2020 12:14 PM CELL POURER): -NER today -continue q6m FBSE Lower extremity [...] 11/30/2011 Overview (02/19/2020): Overview: 2010: BCC, L rastafarian/face/upper forehead s/p Slow mohs w/ 7 stages. 03/2012: BCC, tip of nose s/p Mohs 08/03/201209/2013: BCC SM X3 , L upper arm, extensor side, L forearm, superior, L forearm, inferior s/p ED&C x 3 10/30/201304/2014: BCC, R infraorbital, s/p Mohs 08/15/2014 Assessment & Plan (11/11/2020 10:11 AM CDT): No evidence of recurrence. Assessment & Plan (08/07/2020 12:14 PM CELL POURER): -NER today -continue q6m FBSE Resolved Problems [...] lip s/p mohs Apr 2017 -2010, L rastafarian/face/upper forehead BCC s/p slow mohs s/p 7 stages. -03/2012, BCC, tip of nose. Mohs -09/2013, BCC SM X3 , L upper arm, extensor side, L forearm, superior, L forearm, inferior -04/2014, R infraorbital , BCC Mohs -Efudex 5% cream to R cheek and nose 2014. Assessment & Plan (11/11/2020 10:07 AM CDT): No evidence of recurrence. Immunizations Name Administration Dates Next Due Sooqini primary monoval ent 12+ yr 0.3mL Purple cap 10/09/2020,09/18/2020 INFLUENZA VACCINE 05/09/2021,05/09/2020,04/25/20 INFLUENZA VACCINE, HIGH-DOSE , QUADR. (FLUZONE HIGH-DOSE QUADRIVALENT; 65Y+), 0.7 ML (HD-IIV4) 07/23/2022,04/01/2021 PNEUMOCOCCAL PPSV23 04/25/2015 Zoster Hzv Vacc Recombinant Inj Im 02/16/2020 iNFLUENZA VACCINE, RECOM-RBADLEY, QUADR. (FLUBLOCK QUADRIVALENT; 18Y+) (RIV4) 05/24/2020,05/03/2019 Social [...] and heating? Not hard at all 10/09/2022 [facility] [place] of Occupat ional Health - Occupational Stress [...] place to sleep or slept in a residential (including now)? No 10/09/2022 Sex and Gender [...] Office Visit [facility] - Dermatology [address] [place] [address], [place] [address] Rehan Rodriguez MD [address] [place] [address] [address] [place] [address] Procedures Procedure Name Priority Date/Time Associated Diagnosis Comments BASIC METABOLIC PANEL (CALCIUM TOTAL) STAT 10/09/2022 12:13 AM CDT from Last 3 Months or Most Recently Relevant to Health Maintenance Results * (ABNORMAL) BASIC METABOLIC PANEL (CALCIUM TOTAL) (10/09/2022 12:13 AM CDT) BUN 9 7 - 26 mg/dL 10/09/2022 12:47 AM [facility] Creatinine 0.68 0.56 - 0.96 mg/dL 10/09/2022 12:47 AM [facility] Sodium 136 136 - 145 mmol/L 10/09/2022 12:47 AM [facility] Potassium 3.9 3.5 - 4.5 mmol/L 10/09/2022 12:47 AM [facility] Chloride 104 98 - 107 mmol/L 10/09/2022 12:47 AM [facility] CO2 22 22 - 29 mmol/L 10/09/2022 12:47 AM [facility] Glucose 115 70 - 115 mg/dL 10/09/2022 12:47 AM [facility] Calcium 8.9 8.4 - 10.2 mg/dL 10/09/2022 12:47 AM [facility] Anion Gap 14 8 - 18 10/09/2022 12:47 AM [facility] BUN/Creatinine Ratio 13 7 - 23 10/09/2022 12:47 AM [facility] Osmolality Calculated 282 270 - 300 mOsm/kg 10/09/2022 12:47 AM [facility] eGFR by CKD-EPI 88(L) >=90 mL/min/1.7 3 m2 10/09/2022 12:47 AM [facility] Blood BLOOD SPECIMEN / Unknown Venipuncture / Unknown 10/09/2022 12:13 AM CDT 10/09/2022 12:22 AM CDT Darrion Almonte DO LAB - CHEMISTRY ORDE [facility] [address] [place] [address], [facility] [phone] from Last 3 Months or Most Recently Relevant to Health Maintenance Insurance Payer Benefit Plan / Group Subscriber ID Effective Dates Phone Address Type TPL THIRD CONSTITUTION PARTY LIABILITY TPL THIRD CONSTITUTION PARTY LIABILITY [id number] 10/08/2022-Pre sent [address] [place] [address] Third Democrat Liability TPL THIRD CONSTITUTION PARTY LIABILITY TPL THIRD CONSTITUTION PARTY LIABILITY [id number] Effective for all dates [address] [place] [address] Third Democrat Liability MEDICARE MEDICARE PART A AND B [id number] Effective for all dates [address] [place] [address] Medicare BLUE CROSS BLUE SHIELD [facility] BLUE CROSS BLUE SHIELD PPO Effective for all dates [address] [place] [address] PPO MEDICARE MEDICARE PART A AND B [id number] Effective for all dates [address] [place] [address] Medicare BLUE CROSS BL[employer] [place] BLUE CROSS BLUE SHIELD PPO Effective for all dates [address] [place] [address] PPO MEDICARE MEDICARE PART A AND B [id number] Effective for all dates [address] [place] [address] Medicare BLUE CROSS BLUE SHIELD [facility] BLUE CROSS BLUE SHIELD PPO Effective for all dates [address] [place] [address] PPO MEDICARE MEDICARE PART A AND B [id number] Effective for all dates [address] [place] [address] Medicare MEDICARE MEDICARE PART A AND B [id number] Effective for all dates [address] [place] [address] Medicare BLUE CROSS BLUE SHIELD [facility] BLUE CROSS BLUE SHIELD PPO Effective for all dates [address] [place] [address] PPO MEDICARE MEDICARE PART A AND B [id number] Effective for all dates [address] [place] [address] Medicare MEDICARE MEDICARE PART A AND B [id number] Effective for all dates [address] [place] [address] Medicare MEDICARE WPS MEDICARE PART B [id number] 11/23/2006-Pres ent [address] [address] [place] [address] Medicare ANTH BLUE CROSS TRADITIONAL [id number] 07/01/2008-Pre sent [address] [place] [address] PPO MEDICARE MEDICARE PART A AND B [id number] Effective for all dates [address] [place] [address] Medicare [facility] [employer] [id number] 07/01/2008-Pre sent [address] [place] [address] PPO Elizabeth Duarte Personal/Family Self 1940 [address] [place] [address] ELIZABETH DUARTE Personal/Family Spouse [address] [place] [address] ELIZABETH DUARTE Personal/Family Spouse [address] [place] [address] ELIZABETH DUARTE Personal/Family Spouse [address] [place] [address] ELIZABETH DUARTE Personal/Family Spouse [address] [place] [address] ELIZABETH DUARTE Personal/Family [address] [place] [address] ELIZABETH DUARTE Personal/Family [address] [place] [address] ELIZABETH DUARTE Personal/Family [address] [address] Elizabeth Duarte Third Democrat Liability Self 1940 [address] [place] [address] Advance Directives Documents on File Type Date Recorded Patient Building Energy Consultant Expl anation Adv Directive/Living Will/POA 10/13/2022 12:00 PM Adv Directive/Living Will/POA 08/14/2012 5:04 AM * Full Code (Latest Code Status on File) Date Activated Date Inactivated Comments 10/09/2022 2:58 AM 10/12/2022 1:50 PM Care Teams Lead Net Software Developer Relationship Specialty Start Date End Date Morelia Ingram MD [address] [place] [address] PCP - General Family Medicine 01/11/23
--- OUTSIDE RECORDS SUMMARY | 2024-09-11 16:35 | XMS_ITS | Referral Summary ---
Author Organization [facility] [address] [facility] [address] Address [address] [place] [address] Care Team Providers Care Enterprise Systems Architect Name Role Phone Lenny Randall MD Primary Care Provider Encounters Date Type Department Care Team Description 09/06/2024 10:15 AM AUDIOMETRIC TECHNICIAN Ancillary Procedure [facility] Cardiology [address] [place] [address] S/P aortic valve replacement with [...] 1 tablet (50 mcg total) by mouth school laboratory technician before breakfast Active losartan (COZAAR) 50 mg [...] complication, without long-term current use of insulin ([facility]) 07/09/2016 Overview (10/29/2016): Type 2 diabetes mellitus with unspecified complications Resolved Problems Problem Noted Date Diagnosed Date Resolved Date Encounter for postoperative care 09/16/2015 05/18/2017 Overview (10/29/2016): Post surgical visit Disorder of aorta ([facility]) 08/07/2015 05/07/2021 Overview (10/29/2016): Aortic stenosis Social [...] on file Legal Sex Female 9:19 PM AUDIOMETRIC TECHNICIAN Gender Identity Not on file Sexual Orientation Not on file Last Filed Vital Signs Vital Sign Reading Time Taken Comments Blood Pressure 128/56 11/03/2023 11:31 AM CDT Pulse 59 11/03/2023 11:31 AM CDT Temperature 36.2 C (97.1 F) 06/03/2020 11:12 AM AUDIOMETRIC TECHNICIAN Respiratory Rate - - Oxygen Saturation 96% [...] DOPPLER/CF WO CONTRAST Routine 09/06/2024 10:39 AM AUDIOMETRIC TECHNICIAN S/P aortic valve replacement with bioprosthetic valve EGFR Routine 02/24/2023 11:42 AM CDT Preop testing HEMOGLOBIN A1C Routine 02/24/2023 11:42 AM CDT Preop testing POCT LIPID PANEL Routine 05/18/2017 9:29 AM CDT Mixed hyperlipidemia from Last 3 Months or Most Recently Relevant to Health Maintenance Results * TRANSTHORACIC ECHO (TTE) COMPLETE W DOPPLER/CF WO CONTRAST (09/06/2024 10:39 AM AUDIOMETRIC TECHNICIAN) LV EF % CONS SCIMAGE Anatomical Region Laterality Modality Ultrasound 09/06/2024 10:0 5 AM AUDIOMETRIC TECHNICIAN Narrative 09/06/2024 7:28 PM AUDIOMETRIC TECHNICIAN [facility] Cardiology [address] [facility] [address] [address] [address] [facility] [address], [place] [address] P:[phone] P:[phone] Echocardiographic Report Patient Name: ELIZABETH DUARTE A : 1940 Study Date: 09/06/2024 10:05:48 AM Gender: F Tech: Location: [place] Ref Provider: JUSTIN GROSS Height(Cm): 160 BSA: [...] valve regurgitation. s/p SAVR with 23 mm Pual Magna pericardial valve. V max 2.96 m/s. Mean gradient 18.0 mmHg. DVI 0.30. Right ventricular systolic pressure could not be estimated due to inadequate visualization of the tricuspid regurgitation jet. Electronically Signed By: Justin Gross MD, [facility] 09/06/2024 7:27:17 PM AUDIOMETRIC TECHNICIAN Procedure Note Justin Gross MD - 09/06/2024 [facility] Cardiology [address] [facility] [address], [place] [address] [address] [facility] [address], [place] [address] P:[phone] P:[phone] Echocardiographic Report Patient Name: ELIZABETH DUARTE A : 1940 Study Date: 09/06/2024 10:05:48 AM Gender: F Tech: Location: [place] Ref Provider: JUSTIN GROSS Height(Cm): 160 BSA: [...] Justin Gross MD, [facility] 09/06/2024 7:27:17 PM AUDIOMETRIC TECHNICIAN Justin Gross MD CV ECHO PROCEDURES Final Result * eGFR (02/24/2023 11:42 AM CDT) eGFR 49 mL/min/1. 73 m2 [facility] Comment: Interpretive Data Reference Interval Normal >/= [...] NP LAB BLOOD ORDERABLES Final R esult [facility] [address] Department of Laboratories [place], [place] [id number] * Hemoglobin A1c (02/24/2023 11:42 AM CDT) Hgb A1C 5.3 4.0 - 5.6 % [facility] Estimated Average Glucose 105 mg/dL [facility] Comment: The ADA recommends reporting an estimated Average Glucose (eAG) with all Hemoglobin A1c results using the equation derived from a study of 507 normal and diabetic adults. Minority populations were underrepresented and children were not included. (Diabetes Care 31:5451-1344, 2008). The eAG is not equivalent to a fasting glucose. Blood 02/24/2023 11:4 2 AM CDT 02/24/2023 11:42 AM CDT us Mary Ann Diez NP LAB BLOOD ORDERABLES Final R esult [facility] [address] Department [place] [address] * POCT lipid panel (05/18/2017 9:29 AM [...] Insurance MEDICARE BCBS FEDERAL MEDICARE Care Teams Enterprise Systems Architect Relationship Specialty Start Date End Date Lenny Randall MD [address] [email or web address] [address] [place] [address] PCP - General Family Medicine 09/06/24
--- OUTSIDE RECORDS SUMMARY | 2024-09-11 16:35 | XMS_ITS | Clinical Summary ---
Author Organization [facility] Address [address] [place] [address] Phone Care Team Providers Care Laundry Laborer Name Role Phone Morelia Ingram MD Primary Care Provider [phone] Allergies Active Allergy Reactions Criticality Noted Date [...] Description 10/18/2024 11:00 AM CDT Office Visit [facility] Oncology and H[facility]ology - [place] [address] [facility] [address] [place] [address] Luther Nath MD [address] [facility] [address] [place] [address] Health Maintenance Due Date Last [...] years Discontinued Medical Devices Implanted Type Area Mattress Specialist Device Identifier Shelf Expiration Date Model / Serial / Lot Sealant Floseal W/ Adptr 10ml [id number] - [id number] Implanted:Qty : 1 on 03/29/2015 by Helio Godoy MD at [facility] Sealant N/A: Spine Lumbar COULTER- BIOSCIENCE 05/25/2016 [id number] / / [id number] Cataract Lens Insurance MEDICARE PART A AND B [facility] MEDICARE PART A AND B [facility] FEDERAL Advance Directives For more information, please contact: [phone] Documents on File Type Date Recorded Patient Probation Supervisor Expl anation Advance Directive POA 03/20/2015 10:47 [...] 12:16 PM 03/29/2015 1:00 PM Care Teams Laundry Laborer Relationship Specialty Start Date End Date Morelia Ingram MD [address] [facility] [address] [place] [address] PCP - General Family Practice 11/10/23
--- OUTSIDE RECORDS SUMMARY | 2024-09-11 16:35 | XMS_ITS | Encounter Summary ---
Author Organization [facility] Address [address] [place] [address] Care Team Providers Care Civil Project Engineer Name Role Phone Morelia Ingram MD Primary Care Provider Lenny Randall MD Primary Care Provider Encounter Details Date Type Department Care Team (Late st Contact Info) Description 10/24/2023 Orders Only [facility] Health Information Management [address] [place] [address] Scanning, Provider Social History Tobacco Use Types [...] on file Legal Sex Female 9:19 PM MEDICAL LEAD Gender Identity Not on file Sexual Orientation [...] on filedocumented in this encounter Care Teams Civil Project Engineer Relationship Specialty Start Date End Date Morelia Ingram MD [address] [place] [address] PCP - General Family Medicine 05/18/22 09/05/24 Lenny Randall MD [address] [place] [address] PCP - General Family Medicine 09/06/24 documented as of this encounter
--- OUTSIDE RECORDS SUMMARY | 2024-09-11 16:36 | XMS_ITS | Continuity of Care Document ---
Author Organization [facility] Address [address] [place] [address] Phone Care Team Providers Care General I Farmworker Name Role Phone Clark Dove Unavailable Unavailable [...] Diagnoses Date Provider Providers Copied on Encounter [facility], [address], [place], [place], [id number], [place] tel:[phone] [facility] No Information 8 0 Derrell Rodas. [address] [place], [address], [place]. tel:[phone] Referring Provider: Clark Milligan, [address] [place], [address]. tel:[phone] [facility], [address], [place], [place], [id number], [place] tel:[phone] [facility] No Information Sep-2 8-200 9 Derrell Rodsa. [address] [place], [address], [place]. tel:[phone] Referring Provider: Clark Milligan, [address] [place], [address]. tel:[phone] [facility], [address], [place], [place], [id number], [place] tel:[phone] [facility] No Information Mar-2 3-200 9 Derrell Rodas. [address] [place], [address], [place]. tel:[phone] [facility], [address], [place], [place], [id number], [place] tel:[phone] [facility] No Information Sep-1 1-200 8 Derrell Rodas. [address] [place], [address], [place]. tel:[phone] [facility], [address], [place], [place], [id number], [place] tel:[phone] [facility] No Information Mar-0 3-200 8 Derrell Rodas. [address] [place], [address], [place]. tel:[phone] [facility], [address], [place], [place], [id number], [place] tel:[phone] [facility] No Information Nov-1 3-200 7 Derrell Rodas. [address] [place], [place], [facility], . tel:[phone] [facility], [address] [place] [address] [address], [place], [place], [id number], tel:[phone] [facility] No Information Oct-2 9-200 7 Derrell Rodas. [address] [place], [place], [facility], [place]. tel:[phone] Office Consultation [facility], [address] [place] [address] [address], [place], [place], [id number], tel:[phone] [facility] No Information Oct-2 5-200 7 Derrell Rodas. [address] [place], [place], [facility], [place]. tel:[phone] Referring Provider: Eduardo Enriquez, [address], [place], [place], [facility]. tel:[phone] [facility], [address] [place] [address] [address], [place], [place], [id number], [place] tel:[phone] SEC [facility] No Information Apr-2 2-200 7 Wendi Clark. [facility] [address] , [address], [place], [place], [facility], [place]. tel:[phone] Referring Provider: Floyd Zuniga OD, [address] [place], [address]. tel:[phone] Family History Family Member Type Diagnosis Age At Onset No Information Payers Payer name Insurance type Covered constitution party ID Authoriza tion(s) [place] [id number] [place] FEP BL [id number] Social History Type Description Quantity Date Captured [...]
--- OUTSIDE RECORDS SUMMARY | 2024-09-11 16:36 | XMS_ITS | Continuity of Care Document ---
Author Organization [facility] Address [address] [facility] [place] [address] Phone Care Team Providers Care Shuttle Threader Name Role Phone Brandon Brewer MD Unavailable [...] Hip Replacement Office/outpatient visit,est, mod 2015 Office/outpatient visit,[facility], [facility] 2015 Advance Directives Directive Yes / No Effective Date File Name No Information Encounters Encounter Description Practice Location Reason(s) For Visit Diagnoses Date Provider Providers Copied on Encounter [facility], [address], [id number], tel:[phone] [facility] Bilateral primary osteoarthritis of knee 4 Osman Taylor. [address] [place] [address], [place], [place], [id number] , [place]. tel:[phone] Office/outpat ient visit,est, mod [facility], [address] [place] [address], [id number], tel:[phone] [facility] left hip (chief complaint) Unilateral primary osteoarthritis, left hip 3 Osman Taylor. [address] [place] [address], [id number] , [place]. [phone] Referring Provider: Emigdio Barragan, [address] [place] [address] [address], [place], [address]. tel:[phone] [facility], [address] [place] [address], [id number], [place] tel:[phone] [facility] bilateral knees (chief complaint) Bilateral primary osteoarthritis of knee 3 Turner Cochran. [address] [place] [address], [id number] , [place]. tel:[phone] Referring Provider: Sammie Enriquez, [address] [place] [address], [place], [address] . tel:[phone] [facility], [address] [place] [address], [id number], [place] tel:[phone] [facility] bilateral knees (chief complaint) Bilateral primary osteoarthritis of knee 3 Turner Cochran. [address] [place] [address], [id number] , [place]. tel:[phone] Referring Provider: Sammie Enriquez, [address] [facility] [address], [place], [address] . tel:[phone] [facility], [address] [address], [place], [place], [id number], [place] tel:[phone] [facility] Bilateral primary osteoarthritis of knee Apr- 3 Osman Taylor. [address] [facility], [address], [place], [place], [id number] , [place]. [phone] [facility], [address] [address], [place], [place], [id number], [place] tel:[phone] [facility] left hip (chief complaint) Unilateral primary osteoarthritis, left hip Sep-0 3 Turner Cochran. [address] [facility] [address], [place], [place], [id number] , [place]. tel:[phone] Referring Provider: Sylvia Parra[address] [place] [address], [place], [address]. tel:[phone] Office/outpat ient visit,est, [facility], [address] [address], [place], [place], [id number], [place] tel:[phone] [facility] left hip pain (chief complaint) bilateral knees (chief complaint) Pain in left hipUnilateral primary osteoarthritis, left hipBilateral primary osteoarthritis of knee Sep-0 3 Turner Cochran. [address], [place], [place], [id number] , [place]. tel:[phone] Referring Provider: Sylvia Parra[address] [place] [address], [place], [address]. tel:[phone] Office/outpat ient visit,est, mod [facility], [address] [address], [place], [place], [id number], [place] tel:[phone] [facility] right knee right hip (chief complaint) Presence of right artificial hip jointPain in right knee 2 Osman Taylor. [address], [place], [place], [id number] , [place]. tel:[phone] Referring Provider: Emigdio Barragan, [address] [place] [address], [place], [address]. tel:[phone] [facility], [address] [facility] [address], [place], [place], [id number], [place] tel:[phone] [facility] Pain in right knee 2 [facility]. [address] [facility], [place], [place], [id number] , [place]. tel:[phone] Referring Provider: Brandon Vitale, [address] [facility] [address], [place], [address] . tel:[phone] Office/outpat ient visit,[facility], [address] [facility] [address], [place], [place], [id number], [place] tel:[phone] [facility] Knee Pain (chief complaint) Pain in right kneePresence of right artificial hip joint 2 Omsan Taylor. [address], [place], [place], [id number] , [place]. tel:[phone] Referring Provider: Emigdio Barragan, [address], [place], [address]. tel:[phone] [facility], [address] [facility] [address], [place], [place], [id number], [place] tel:[phone] [facility] post op right total hip (chief complaint) Pain in right hipPresence of right artificial hip joint 6 Osman Taylor. [address], [place], [place], [id number] , [place]. [phone] Referring Provider: Brandon Vitale, [address], [place], [address] . tel:[phone] [facility], [address], [id number], [place] tel:[phone] [facility] Pain in right hip Marcio-0 6-201 6 Brewer Brandon. [address], [address], [id number] , [place]. tel:[phone] Referring Provider: Emigdio Barragan, [address] [place] [address], [place], [address]. tel:[phone] Office/outpat ient visit,[facility], [facility], [address], [id number], tel:[phone] [facility] right hip arthritis (chief complaint) Pain in right hip Pelon-1 3-201 6 Brewer Brandon. [address] [facility], [address], [id number] , [place]. [phone] Referring Provider: Emigdio Barragan, [address] [place] [address], [place], [address]. tel:[phone] Office/outpat ient visit,[facility], [facility], [address], [id number], [place] tel:[phone] [facility] right hip arthritis (chief complaint) Pain in right hip Oct-2 8-201 6 Osman Taylor. [address] [facility], [address], [id number] , [place]. tel:[phone] Referring Provider: Emigdio Barragan, [address] [place] [address], [place], [address]. tel:[phone] Family History Family Member Type Diagnosis Age [...] timishel(s) Medicare [place] Part B MB [id number] [place] Blue Cross Blue Shiel d [facility] [id number] Social History Type Description Quantity Date Captured [...] arthritis- she has been cleared by her assistant speech language pathologist and has been off of her blood thinner. right hip arthritis Elizabeth come s into the office today for right hip pain associated with arthritis. She states she is having alot of groin pain also. She resides in [place] and did seek treatment by Dr. Emigdio Jerry in [facility] He did a xray of her hip and advised her that she needed to undergo a MRI after review of her xray. She brings in both of these studies. She reports that after Dr. Jerry reviewed the MRI he advised her that she would be better served [facility]. [facility] him if she could have her surgery at [facility]. He advised her to seek care by an ortho who operates at [facility] for determination if it could be [...]
--- OUTSIDE RECORDS SUMMARY | 2024-09-11 16:36 | XMS_ITS | Clinical Summary ---
Author Organization [facility] Address [address] [place] [address] Care Team Providers Care Marketing Production Manager Name Role Phone Morelia Ingram MD Primary Care Provider U francojohn Source Comments [facility],non-owned Affiliates and Associated Physician Practices is amultiple site organization consisting of ambulatory clinics and hospital sitesin [place], [place], [place] and [place]. This disclosure is being madepursuant to the Care Everywhere program and may not contain all information available regarding this patient. Last updated 18.[facility] Allergies Active Allergy Reactions Criticality Noted Date [...] lip s/p mohs Apr 2017 -2010, L buddhist/face/upper forehead BCC s/p slow mohs s/p 7 [...] 08/07/2020 Assessment & Plan (08/07/2020 12:14 PM SPECIMEN PREPARATION ASSISTANT): - nose (diffuse, recalcitrant), left cheek, and [...] skin Assessment & Plan (08/07/2020 12:15 PM SPECIMEN PREPARATION ASSISTANT): -vertex scalp: lentigo vs MIS -R thigh: ISK vs SCC - Shave Biopsy (see procedure note) - Post-biopsy handout given - Wound care instructions reviewed - Will call patient with biopsy results. If intervention is indicated, will make arrangements at that time Actinic skin damage 08/07/2020 Assessment & Plan (08/07/2020 12:14 PM SPECIMEN PREPARATION ASSISTANT): Explained benign nature, reassurance provided. ABCDEs of [...] FBSE Assessment & Plan (08/07/2020 12:14 PM SPECIMEN PREPARATION ASSISTANT): -NER today -continue q6m FBSE Lower extremity [...] 11/30/2011 Overview (02/19/2020): Overview: 2010: BCC, L buddhist/face/upper forehead s/p Slow mohs w/ 7 stages. 03/2012: BCC, tip of nose s/p Mohs 08/03/201209/2013: BCC SM X3 , L upper arm, extensor side, L forearm, superior, L forearm, inferior s/p ED&C x 3 10/30/201304/2014: BCC, R infraorbital, s/p Mohs 08/15/2014 Assessment & Plan (11/11/2020 10:11 AM CDT): No evidence of recurrence. Assessment & Plan (08/07/2020 12:14 PM SPECIMEN PREPARATION ASSISTANT): -NER today -continue q6m FBSE Resolved Problems [...] lip s/p mohs Apr 2017 -2010, L buddhist/face/upper forehead BCC s/p slow mohs s/p 7 stages. -03/2012, BCC, tip of nose. Mohs -09/2013, BCC SM X3 , L upper arm, extensor side, L forearm, superior, L forearm, inferior -04/2014, R infraorbital , BCC Mohs -Efudex 5% cream to R cheek and nose 2014. Assessment & Plan (11/11/2020 10:07 AM CDT): No evidence of recurrence. Immunizations Name Administration Dates Next Due LGL/LatinMedios primary monoval ent 12+ yr 0.3mL Purple [...] and heating? Not hard at all 10/09/2022 [facility] - Occupational Stress [...] to sleep or slept in a senior care (including now)? No 10/09/2022 Sex and Gender [...] Office Visit [facility] - Dermatology [address] [place] [address], [place] [address] Rehan Rodriguez MD [address] [place] [address] [address] [place] [address] Health Maintenance Due Date Last Done Comments [...] - 26 mg/dL 10/09/2022 12:47 AM CDT [facility] Creatinine 0.68 0.56 - 0.96 mg/dL 10/09/2022 12:47 AM CDT [facility] Sodium 136 136 - [...] 10/09/2022 12:13 AM CDT 10/09/2022 12:22 AM [facility] Darrion Almonte DO LAB - CHEMISTRY RUBEN MAHONEY [facility] Organization Address City/State/ZIP Co de Phone Number [facility] [address] [place] [address], [facility] [place] [phone] from Last 3 Months or Most Recently Relevant to Health Maintenance Insurance Payer Benefit Plan / Group Subscriber ID Effective Dates Phone Address Type TPL THIRD REPUBLICAN LIABILITY TPL THIRD REPUBLICAN LIABILITY [id number] 10/08/2022-Pre sent [address] [place] [address] Third Democrat Liability TPL THIRD REPUBLICAN LIABILITY TPL THIRD REPUBLICAN LIABILITY [id number] Effective for all dates [address] [place] [address] Third Democrat Liability MEDICARE MEDICARE PART A AND B [id number] Effective for all dates [phone] [address] [place] [address] Medicare [employer] [place] [employer] PPO Effective for all dates [address] [place] [address] PPO MEDICARE MEDICARE PART A AND B [id number] Effective for all dates [address] [place] [address] Medicare BLUE CROSS BLUE [employer]IELD [facility] BLUE CROSS BLUE SHIELD PPO Effective for all dates [address] [place] [address] PPO MEDICARE MEDICARE PART A AND B [id number] Effective for all dates [address] [place] [address] Medicare BLUE [employer]OSS BL[employer]IELD [facility] BLUE CROSS BLUE [employer]IELD PPO Effective for all dates [address] [place] [address] PPO MEDICARE MEDICARE PART A AND B [id number] Effective for all dates [address] [place] [address] Medicare MEDICARE MEDICARE PART A AND B [id number] Effective for all dates [address] [place] [address] Medicare BLUE CROSS BLUE [facility] BLUE CROSS BLUE SHIELD PPO Effective for all dates [address] [place] [address] PPO MEDICARE MEDICARE PART A AND B [id number] Effective for all dates [address] [place] [address] Medicare MEDICARE MEDICARE PART A AND B [id number] Effective for all dates [address] [place] [address] Medicare MEDICARE WPS MEDICARE PART B [id number] 11/23/2006-Pres ent [address] [address] [place] [address] Medicare [employer] [id number] 07/01/2008-Pre sent [address] [place] [address] PPO MEDICARE MEDICARE PART A AND B [id number] Effective for all dates [address] [place] [address] Medicare [employer] BLUE CROSS [employer]ERAL PLAN [id number] 07/01/2008-Pre sent [address] [place] [address] PPO Elizabeth Duarte Personal/Family Self 1940 [address] [place] [address] GERALDELIZABETH SHERMAN Personal/Family Sp[address] [place] [address] ELIZABETH DUARTE Personal/Family Spouse [address] [place] [address] ELIZABETH DUARTE Personal/Family Spouse [address] [place] [address] GERALDAMADOELIZABETH Personal/Family Spouse [address] [place] [address] ELIZABETH DUARTE Personal/Family [address] [place] [address] ELIZABETH DUARTE Personal/Family [address] [place] [place] [address] AMADO DUARTEORES Personal/Family [address] [place] [address] Elizabeth Duarte Mina Third Democrat Liability Self 1940 [address] [place] [address] Advance Directives Documents on File Type Date Recorded Patient Clean Up Worker Expl anation Adv Directive/Living Will/POA 10/13/2022 12:00 PM Adv Directive/Living Will/POA 08/14/2012 5:04 AM * Full Code (Latest Code Status on File) Date Activated Date Inactivated Comments 10/09/2022 2:58 AM 10/12/2022 1:50 PM Care Teams Marketing Production Manager Relationship Specialty Start Date End Date Morelia Ingrma MD [address] [place] [address] PCP - General Family Medicine 01/11/23
[2024-09-11 17:26] LABS: Hemoglobin A1C 4.7 % (<5.7)
== END 2024-09-11 13:54 | disposition home or self-care (01) ==
LOC: ANHLAB 13:54
PROVIDERS: PCP Family Medicine; Visit Provider Physician Assistant Medical
DX: E11.8 Type 2 diabetes mellitus with unspecified complications (principal); I10 Essential (primary) hypertension
CPT/HCPCS: 36415; 80053; 83036

== ENCOUNTER 2024-11-06 13:55 | Outpatient (CLI) | payer MEDICARE, BC, SELFPAY ==
[2024-11-06 14:16] LABS: Basophils Percent Auto 0.5 % (0.2-1.2); Eosinophils Absolute Auto 0.1 K/mm3 (0-0.3); Eosinophils Percent Auto 1.2 % (0-4.4); Hematocrit 43.1 % (37.0-47.0); Hemoglobin 13.8 g/dL (12.0-15.0); Immature Granulocyte Absolute 0.02 K/mm3 (0.00-0.031); Immature Granulocyte Percent A 0.3 % (0-0.5); Lymphocytes Absolute Auto 2.43 K/mm3 (0.9-3.2); Lymphocytes Percent Auto 40.8 % (18.3-44.2); Mean Corpuscular Hemoglobin 34.7 pg (26-34); Mean Corpuscular Volume 108.3 fl (80-100); Mean Platelet Volume 8.9 fl (7.4-10.4); Monocytes Absolute Auto 0.6 K/mm3 (0.1-0.6); Monocytes Percent Auto 10.4 % (2.6-8.5); Neutrophils Absolute Auto 2.8 K/mm3 (1.3-6.7); Neutrophils Percent Auto 46.8 % (45.5-73.1); Platelet Count Result 115 k/mm3 (150-375); Red Blood Count 3.98 M/mm3 (4.2-5.4); Red Cell Distribution Width 12.5 % (11.5-14.5)
--- OUTSIDE RECORDS SUMMARY | 2024-11-06 15:31 | XMS_ITS | Clinical Summary ---
Author Organization [facility] [address] [facility] [address] Address [address] [place] [address] Care Team Providers Care Prism Measurer Name Role Phone Lenny Randall MD Primary [...] 1 tablet (50 mcg total) by mouth field examiner before breakfast Active losartan (COZAAR) 50 mg [...] Palpitations 07/09/2016 Overview (10/29/2016): Palpitations Atrial fibrillation 07/09/2016 Overview (10/29/2016): Postoperative atrial fibrillation Dyspnea on exertion 07/09/2016 Overview (10/29/2016): VELÁSQUEZ (dyspnea on exertion) Controlled type 2 diabetes m ellitus without complication, without long-term current use of insulin 07/09/2016 Overview (10/29/2016): Type 2 diabetes mellitus with unspecified complications Resolved Problems Problem Noted Date Diagnosed Date Resolved Date Encounter for postoperative care 09/16/2015 05/18/2017 Overview (10/29/2016): Post surgical visit Disorder of aorta (CMS/HCC) 08/07/2015 05/07/2021 Overview (10/29/2016): Aortic stenosis Encounters Date Type Department Care Team Description 09/06/2024 10:15 AM ENROLLMENT SERVICES VICE PRESIDENT Ancillary Procedure [facility] Medical Group Cardiology [address] [place] [address] S/P aortic valve replacement with bioprosthetic valve [...] Hx Other Medical Allergies, seas onal; Comments: [facility] 02/19/2014 - Type 2 diabetes mellitus (HCC) D iabetes type 2; Comments: [facility] 02/19/2014 - Hypertension Hypertension Hx Other Medical aortic stenosis ; Comments: [facility] 02/19/2014 - Hx Other Medical obesity; Commen ts: [facility] 02/19/2014 - Hx Other Medical bilateral carpa l tunnel release; Comments: [facility] 02/19/2014 - Hx Other Medical R salpingoopher ectomy; Comments: [facility] 02/19/2014 - Hx Other Medical multiple basal cell carcinoma excisions; Comments: [facility] 02/19/2014 - Hx Other Medical lower back pain ; Comments: [facility] 08/07/2015 - Hx Other Medical basal cell skin cancer; Comments: [facility] 08/07/2015 - Type 2 diabetes mellitus (HCC) D iabetes type 2; Comments: [facility] 08/07/2015 - Sleep apnea Sleep apnea Hypertension Hypertension Anxiety disorder Anxiety Hx Other Medical palpitations; C omments: [facility] 08/07/2015 - Arthritis Arthritis; Comme nts: [facility] 08/07/2015 - Gastroesophageal reflux disease GERD Hypercholesterolemia High choles terol; Comments: [facility] 08/07/2015 - Hx Other Medical aortic stenosis [...] on file Legal Sex Female 9:19 PM ENROLLMENT SERVICES VICE PRESIDENT Gender Identity Not on file Sexual Orientation Not on file Obstetrics History Last Filed Vital Signs Vital Sign Reading Time Taken Comments Blood Pressure 128/56 11/03/2023 11:31 AM CDT Pulse 59 11/03/2023 11:31 AM CDT Temperature 36.2 C (97.1 F) 06/03/2020 11:12 AM ENROLLMENT SERVICES VICE PRESIDENT Respiratory Rate - - Oxygen Saturation 96% [...] 5 season) 2024 10/09/2020, 09/18/2020 Influenza Vaccine (Season Ended) 2025 05/09/2021, 05/24/2020, 05/09/2020, Additional history exists Procedures Procedure Name Priority Date/Time Associated Diagnosis Comments TRANSTHORACIC ECHO (TTE) COMPLETE W DOPPLER/CF WO CONTRAST Routine 09/06/2024 10:39 AM ENROLLMENT SERVICES VICE PRESIDENT S/P aortic valve replacement with bioprosthetic valve EGFR Routine 02/24/2023 11:42 AM CDT Preop testing HEMOGLOBIN A1C Routine 02/24/2023 11:42 AM CDT Preop testing POCT LIPID PANEL Routine 05/18/2017 9:29 AM CDT Mixed hyperlipidemia from Last 3 Months or Most Recently Relevant to Health Maintenance Results * TRANSTHORACIC ECHO (TTE) COMPLETE W DOPPLER/CF WO CONTRAST (09/06/2024 10:39 AM ENROLLMENT SERVICES VICE PRESIDENT) LV EF % CONS SCIMAGE Anatomical Region Laterality Modality Ultrasound 09/06/2024 10:0 5 AM ENROLLMENT SERVICES VICE PRESIDENT Narrative 09/06/2024 7:28 PM ENROLLMENT SERVICES VICE PRESIDENT [facility] Medical Group Cardiology [address], [place] [address] [address], [place] [address] P:[phone] P:[phone] Echocardiographic Report Patient Name: ELIZABETH DUARTE A : 1940 Study Date: 09/06/2024 10:05:48 AM Gender: F Tech: Location: [facility] Provider: JUSTIN GROSS Height(Cm): 160 BSA: [...] Justin Gross MD, [facility] 09/06/2024 7:27:17 PM ENROLLMENT SERVICES VICE PRESIDENT Procedure Note Justin Gross MD - 09/06/2024 [facility] Medical Group Cardiology [address] [facility] [address] [address] [address], [place] [address] P:[phone] P:[phone] Echocardiographic Report Patient Name: ELIZABETH DUARTE A : 1940 Study Date: 09/06/2024 10:05:48 AM Gender: F Tech: Location: [facility] Provider: JUSTIN GROSS Height(Cm): 160 BSA: [...] Justin Gross MD, [facility] 09/06/2024 7:27:17 PM ENROLLMENT SERVICES VICE PRESIDENT us Justin Gross MD CV ECHO PROCEDURES Final Result * eGFR (02/24/2023 11:42 AM CDT) eGFR 49 mL/min/1. 73 m2 [facility] Comment: Interpretive Data Reference Interval Normal >/= [...] CDT 02/24/2023 11:42 AM CDT Mary Ann Chary ROLDAN LAB BLOOD ORDERABLES Final R esult Performing Organization Address [facility] de Phone Number [facility] [address] [place] [address] * Hemoglobin A1c (02/24/2023 11:42 AM CDT) Hgb A1C 5.3 4.0 - 5.6 % [facility] Estimated Average Glucose 105 mg/dL [facility] Comment: The ADA recommends reporting an estimated Average Glucose (eAG) with all Hemoglobin A1c results using the equation derived from a study of 507 normal and diabetic adults. Minority populations were underrepresented and children were not included. (Diabetes Care 31:4482-4361, 2007). The eAG is not equivalent to a fasting glucose. Blood 02/24/2023 11:4 2 AM CDT 02/24/2023 11:42 AM CDT Mary Ann Diez NP LAB BLOOD ORDERABLES Final R esult Performing Organization Address [facility] Co de Phone Number [facility] [address] [place] [address] * POCT lipid panel (05/18/2017 9:29 AM [...] Recently Relevant to Health Maintenance Insurance MEDICARE [facility] MEDICARE Care Teams Prism Measurer Relationship Specialty Start Date End Date Lenny Randall MD [address] [place] [address] PCP - General Family Medicine 09/06/24
--- OUTSIDE RECORDS SUMMARY | 2024-11-06 15:31 | XMS_ITS | Clinical Summary ---
Author Organization [facility] Address [address] [place] [address] Care Team Providers Care Diesel Electrician Name Role Phone Morelia Ingram MD Primary Care Provider [phone] Allergies Active Allergy Reactions Criticality Noted Date [...] on file Legal Sex Female 1:26 PM HOOP FLARING MACHINE OPERATOR HELPER Gender Identity Not on file Sexual Orientation Not on file Last Filed Vital Signs Vital Sign Reading Time Taken Comments Blood Pressure 140/70 09/02/2023 4:15 PM HOOP FLARING MACHINE OPERATOR HELPER Pulse 67 09/02/2023 4:15 PM HOOP FLARING MACHINE OPERATOR HELPER Temperature 36.7 C (98 F) 09/02/2023 4:15 PM HOOP FLARING MACHINE OPERATOR HELPER Respiratory Rate 20 09/02/2023 4:15 PM HOOP FLARING MACHINE OPERATOR HELPER Oxygen Saturation 100% 09/02/2023 4:15 PM HOOP FLARING MACHINE OPERATOR HELPER Inhaled Oxygen Concentration - - Weight 59 kg (130 lb) 09/02/2023 4:15 PM HOOP FLARING MACHINE OPERATOR HELPER Height 160 cm (5' 3 ) 09/02/2023 4:15 PM HOOP FLARING MACHINE OPERATOR HELPER Body Mass Index 23.03 09/02/2023 4:15 PM HOOP FLARING MACHINE OPERATOR HELPER Plan of Treatment Health Maintenance Due Date Last Done Comments DTaP, Tdap and Td Vaccines (1 - Tdap) 1960 Zoster Vaccines (1 of 2) 12/03/1991 Annual Medicare Wellness Visit 2006 Dexa Scan (General) 2006 Pneumococcal Vaccine: 50+ Years (2 of 2 - PCV) 04/25/2016 04/25/2015 RSV Immunization or 60+ Years (1 - 1-dose 75+ series) 2016 COVID-19 Vaccine ( - season) 2024 02/19/2022, 05/07/2021, 10/09/2020, Additional history exists Meningococcal B Vaccine Aged Out No l onger eligible based on patient's age to complete this topic Meningococcal Vaccine Aged Out No gaudencio anjelica eligible based on patient's age to complete this topic RSV Immunizations Under 20 Months Aged Out No longer eligible based on patient's age to complete this topic Insurance MEDICARE [facility] Care Teams Diesel Electrician Relationship Specialty Start Date End Date Morelia Ingram MD [address] [facility] [address] [facility] [address] [place] [address] PCP - General FAMILY PRACTICE 09/02/23
--- OUTSIDE RECORDS SUMMARY | 2024-11-06 15:31 | XMS_ITS ---
Author Organization [facility] Address [address] [facility] [place] [address] Care Team Providers Care Grants Analyst Name Role Phone Morelia Ingram MD Primary [...] lip s/p mohs Apr 2017 -2010, L gnosticism/face/upper forehead BCC s/p slow mohs s/p 7 [...] 08/07/2020 Assessment & Plan (08/07/2020 12:14 PM NAVAL ARCHITECT SPECIALIST): - nose (diffuse, recalcitrant), left cheek, and [...] skin Assessment & Plan (08/07/2020 12:15 PM NAVAL ARCHITECT SPECIALIST): -vertex scalp: lentigo vs MIS -R thigh: ISK vs SCC - Shave Biopsy (see procedure note) - Post-biopsy handout given - Wound care instructions reviewed - Will call patient with biopsy results. If intervention is indicated, will make arrangements at that time Actinic skin damage 08/07/2020 Assessment & Plan (08/07/2020 12:14 PM NAVAL ARCHITECT SPECIALIST): Explained benign nature, reassurance provided. ABCDEs of [...] FBSE Assessment & Plan (08/07/2020 12:14 PM NAVAL ARCHITECT SPECIALIST): -NER today -continue q6m FBSE Lower extremity [...] basal cell carcinoma 11/30/2011 Overview (02/19/2020): Overview: 2011: BCC, L gnosticism/face/upper forehead s/p Slow mohs w/ 7 stages. 03/2012: BCC, tip of nose s/p Mohs 08/03/201209/2013: BCC SM X3 , L upper arm, extensor side, L forearm, superior, L forearm, inferior s/p ED&C x 3 10/30/201304/2014: BCC, R infraorbital, s/p Mohs 08/15/2014 Assessment & Plan (11/11/2020 10:11 AM CDT): No evidence of recurrence. Assessment & Plan (08/07/2020 12:14 PM NAVAL ARCHITECT SPECIALIST): -NER today -continue q6m FBSE Current Treatment and Therapy Plans No current plan information found. Past Treatment and Therapy Plans No past plan information found. Lifetime Dose Tracking * Chemical Lifetime Dose [...] lip s/p mohs Apr 2017 -2010, L gnosticism/face/upper forehead BCC s/p slow mohs s/p 7 stages. -03/2012, BCC, tip of nose. Mohs -09/2013, BCC SM X3 , L upper arm, extensor side, L forearm, superior, L forearm, inferior -04/2014, R infraorbital , BCC Mohs -Efudex 5% cream to R cheek and nose 2014. Assessment & Plan (11/11/2020 10:07 AM CDT): No evidence of recurrence.
--- OUTSIDE RECORDS SUMMARY | 2024-11-06 15:31 | XMS_ITS | Continuity of Care Document ---
Author Organization [facility] Address [address] [place] [address] Phone Care Team Providers Care Booking Officer Name Role Phone Brandon Brewer MD Unavailable [...] Hip Replacement Office/outpatient visit,est, mod 2015 Office/outpatient visit,[facility], [facility] 2015 Advance Directives Directive Yes / No Effective Date File Name No Information Encounters Encounter Description Practice Location Reason(s) For Visit Diagnoses Date Provider Providers Copied on Encounter [facility], [address], [id number], tel:[phone] [facility] Bilateral primary osteoarthritis of knee 4 Osman Taylor. [address] [place] [address], [place], [place], [id number] , [place]. tel:[phone] Office/outpat ient visit,est, mod [facility], [address] [place] [address], [id number], tel:[phone] [facility] left hip (chief complaint) Unilateral primary osteoarthritis, left hip 3 Osman Taylor. [address] [place] [address], [id number] , [place]. [phone] Referring Provider: Emigdio Barragan, [address] [place] [address] [address], [place], [address]. tel:[phone] [facility], [address] [place] [address], [id number], [place] tel:[phone] [facility] bilateral knees (chief complaint) Bilateral primary osteoarthritis of knee 3 Turner Cochran. [address] [place] [address], [id number] , [place]. tel:[phone] Referring Provider: Sammie Enriquez, [address] [place] [address], [place], [address] . tel:[phone] [facility], [address] [place] [address], [id number], [place] tel:[phone] [facility] bilateral knees (chief complaint) Bilateral primary osteoarthritis of knee 3 Turner Cochran. [address] [place] [address], [id number] , [place]. tel:[phone] Referring Provider: Sammie Enriquez, [address] [facility] [address], [place], [address] . tel:[phone] [facility], [address] [address], [place], [place], [id number], [place] tel:[phone] [facility] Bilateral primary osteoarthritis of knee Apr- 3 Osman Taylor. [address] [facility], [place], [place], [id number] , [place]. [phone] [facility], [address] [address], [place], [place], [id number], [place] tel:[phone] [facility] left hip (chief complaint) Unilateral primary osteoarthritis, left hip Sep-0 3 Turner Cochran. [address] [facility] [address], [place], [place], [id number] , [place]. tel:[phone] Referring Provider: Sylvia Parra[address] [place] [address], [place], [address]. tel:[phone] Office/outpat ient visit,est, [facility], [address] [address], [place], [place], [id number], [place] tel:[phone] [facility] left hip pain (chief complaint) bilateral knees (chief complaint) Pain in left hipUnilateral primary osteoarthritis, left hipBilateral primary osteoarthritis of knee Sep-0 3 Turner Cochran. [address] [facility], [place], [place], [id number] , [place]. tel:[phone] Referring Provider: Sylvia Parra4 [place] [address], [place], [address]. tel:[phone] Office/outpat ient visit,est, mod [facility], [address] [address], [place], [place], [id number], [place] tel:[phone] [facility] right knee right hip (chief complaint) Presence of right artificial hip jointPain in right knee 2 Osman Taylor. [address] [facility], [place], [place], [id number] , [place]. tel:[phone] Referring Provider: Emigdio Barragan, [address] [place] [address], [place], [address]. tel:[phone] [facility], [address] [facility] [address], [place], [place], [id number], [place] tel:[phone] [facility] Pain in right knee [address] [facility] [facility], [place], [place], [id number] , [place]. tel:[phone] Referring Provider: Brandon Vitale, [address] [facility] [address], [place], [address] . tel:[phone] Office/outpat ient visit,[facility], [address] [facility] [address], [place], [place], [id number], [place] tel:[phone] [facility] Knee Pain (chief complaint) Pain in right kneePresence of right artificial hip joint 2 Osman Taylor. [address] [facility], [place], [place], [id number] , [place]. tel:[phone] Referring Provider: Eimgdio Barragan, [address], [place], [address]. tel:[phone] [facility], [address] [facility] [address], [place], [place], [id number], [place] tel:[phone] [facility] post op right total hip (chief complaint) Pain in right hipPresence of right artificial hip joint 6 Osman Taylor. [address] [facility], [place], [place], [id number] , [place]. [phone] Referring Provider: Brandon Vitale, [address] [facility] [address], [place], [address] . tel:[phone] [facility], [address], [id number], [place] tel:[phone] [facility] Pain in right hip Marcio-0 6-201 6 Brewer Brandon. [address] [facility], [address], [id number] , [place]. tel:[phone] Referring Provider: Emigdio Barragan, [address], [place], [address]. tel:[phone] [facility], [address], [id number], tel:[phone] [facility] right hip arthritis (chief complaint) Pain in right hip Pelon-1 3-201 6 Brewer Brandon. [address] [facility], [address], [id number] , [place]. [phone] Referring Provider: Emigdio Barragan, [address], [place], [address]. tel:[phone] Office/outpat ient visit,[facility], [facility], [address], [id number], [place] tel:[phone] [facility] right hip arthritis (chief complaint) Pain in right hip Oct-2 8-201 6 Osman Taylor. [address] [facility], [address], [id number] , [place]. tel:[phone] Referring Provider: Emigdio Barragan, [address], [place], [address]. tel:[phone] Family History Family Member Type Diagnosis Age [...] timishel(s) [place] Part [place] MB [id number] [place] [employer] Blue Shiel d [facility] [id number] Social History Type Description Quantity Date Captured [...] arthritis- she has been cleared by her wound specialist and has been off of her blood thinner. right hip arthritis Elizabeth come s into the office today for right hip pain associated with arthritis. She states she is having alot of groin pain also. She resides in [place] and did seek treatment by Dr. Emigdio Jerry in [facility]. He did a xray of her hip and advised her that she needed to undergo a MRI after review of her xray. She brings in both of these studies. She reports that after Dr. Jerry reviewed the MRI he advised her that she would be [facility]. [facility] if she could have her surgery at [facility]. He advised her to seek care by an ortho who operates at [facility] for determination if it could be done [...]
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
--- OUTSIDE RECORDS SUMMARY | 2024-11-06 15:31 | XMS_ITS | Clinical Summary ---
Author Organization [facility] Address [address] [place] [address] Phone Care Team Providers Care Twister In Name Role Phone Morelia Ingram MD Primary Care Provider [phone] Allergies Active Allergy Reactions Criticality Noted Date [...] Encounters Date Type Department Care Team Description 09/12/2024 External Device Data STL ABSTRACTION Provider, Abstract 08/22/2024 External Device Data ST[facility] ABSTRACTION Provider, [...] Care Team (Late st Contact Info) Description 11/08/2024 9:45 AM CDT Office Visit [facility] Oncology and Hematology - [place] [address] [facility] [address] [place] [address] Luther Nath MD [address] [facility] [address] [place] [address] Health Maintenance Due Date Last Done Comments DIABETES ANNUAL FOOT EXAM 12/03/1959 DIABETES MICROALBUMIN ANNUAL SCREEN 12/03/1959 LDL CHOLESTEROL ANNUAL 12/03/1959 DTAP/TDAP/TD VACCINES (1 - Tdap) 1959 Traditional Medicare (ACO) A nnual Wellness Visit 1959 PNEUMOCOCCAL VACCINE 50+ YEA RS (2 of 2 - PCV) [...] years Discontinued Medical Devices Implanted Type Area Hemmer Automatic Device Identifier Shelf Expiration Date Model / Serial / Lot Sealant Floseal W/ Adptr 10ml [id number] - [id number] Implanted:Qty : 1 on 03/29/2015 by Helio Godoy MD at [facility] Sealant N/A: Spine Lumbar COULTER- BIOSCIENCE 05/25/2016 [id number] / / [id number] Cataract Lens Insurance MEDICARE PART A AND B [facility] MEDICARE PART A AND B [facility] [employer] Advance Directives For more information, please contact: [phone] Documents on File Type Date Recorded Patient Machine Cell Tuber Expl anation Advance Directive POA 03/20/2015 10:47 [...] 12:16 PM 03/29/2015 1:00 PM Care Teams Twister In Relationship Specialty Start Date End Date Morelia Ingram MD [address] [address] PCP - General Family Practice 11/10/23
--- OUTSIDE RECORDS SUMMARY | 2024-11-06 15:31 | XMS_ITS | Referral Summary ---
Author Organization [facility] [address] [facility] [address] Address [address] [place] [address] Care Team Providers Care Lay Out Helper Name Role Phone Lenny Randall MD Primary Care Provider Encounters Date Type Department Care Team Description 09/06/2024 10:15 AM SUPERVISOR FURNACE ROOM Ancillary Procedure [facility] Medical Group Cardiology [address] [place] [address] S/P aortic valve replacement with [...] 1 tablet (50 mcg total) by mouth head animal keeper before breakfast Active losartan (COZAAR) 50 mg [...] (10/29/2016): Post surgical visit Disorder of aorta ([facility]) 08/07/2015 05/07/2021 Overview (10/29/2016): Aortic stenosis Social [...] on file Legal Sex Female 9:19 PM SUPERVISOR FURNACE ROOM Gender Identity Not on file Sexual Orientation Not on file Last Filed Vital Signs Vital Sign Reading Time Taken Comments Blood Pressure 128/56 11/03/2023 11:31 AM CDT Pulse 59 11/03/2023 11:31 AM CDT Temperature 36.2 C (97.1 F) 06/03/2020 11:12 AM SUPERVISOR FURNACE ROOM Respiratory Rate - - Oxygen Saturation 96% [...] DOPPLER/CF WO CONTRAST Routine 09/06/2024 10:39 AM SUPERVISOR FURNACE ROOM S/P aortic valve replacement with bioprosthetic valve EGFR Routine 02/24/2023 11:42 AM CDT Preop testing HEMOGLOBIN A1C Routine 02/24/2023 11:42 AM CDT Preop testing POCT LIPID PANEL Routine 05/18/2017 9:29 AM CDT Mixed hyperlipidemia from Last 3 Months or Most Recently Relevant to Health Maintenance Results * TRANSTHORACIC ECHO (TTE) COMPLETE W DOPPLER/CF WO CONTRAST (09/06/2024 10:39 AM SUPERVISOR FURNACE ROOM) LV EF % CONS SCIMAGE Anatomical Region Laterality Modality Ultrasound 09/06/2024 10:0 5 AM SUPERVISOR FURNACE ROOM Narrative 09/06/2024 7:28 PM SUPERVISOR FURNACE ROOM [facility] Medical Group Cardiology [address] [facility] [address] [place] [id number] [address] [facility] [address] [place] [address], [place] [address] P:[phone] P:[phone] Echocardiographic Report Patient Name: ELIZABETH DUARTE A : 1940 Study Date: 09/06/2024 10:05:48 AM Gender: F Tech: Location: [facility] Provider: JUSTIN GROSS Height(Cm): 160 BSA: [...] jet. Electronically Signed By: Justin Gross MD, [facility] 09/06/2024 7:27:17 PM SUPERVISOR FURNACE ROOM Procedure Note Justin Gross MD - 09/06/2024 [facility] Medical Group Cardiology [address] [facility] [address], [place] [address] [address] [facility] [address], [address], [place] [address] P:[phone] P:[phone] Echocardiographic Report Patient Name: ELIZABETH DUARTE A : 1940 Study Date: 09/06/2024 10:05:48 AM Gender: F Tech: Location: [facility] Provider: JUSTIN GROSS Height(Cm): 160 BSA: [...] jet. Electronically Signed By: Justin Gross MD, [facility] 09/06/2024 7:27:17 PM SUPERVISOR FURNACE ROOM Justin Gross MD CV ECHO PROCEDURES Final Result * eGFR (02/24/2023 11:42 AM CDT) eGFR 49 mL/min/1. 73 m2 [facility] Comment: Interpretive Data Reference Interval Normal >/= [...] NP LAB BLOOD ORDERABLES Final R esult [facility] [address] [place] [address] * Hemoglobin A1c (02/24/2023 11:42 AM CDT) Hgb A1C 5.3 4.0 - 5.6 % [facility] Estimated Average Glucose 105 mg/dL [facility] Comment: The ADA recommends reporting an estimated Average Glucose (eAG) with all Hemoglobin A1c results using the equation derived from a study of 507 normal and diabetic adults. Minority populations were underrepresented and children were not included. (Diabetes Care 31:4231-7961, 2008). The eAG is not equivalent to a fasting glucose. Blood 02/24/2023 11:4 2 AM CDT 02/24/2023 11:42 AM CDT us Mary Ann Diez NP LAB BLOOD ORDERABLES Final R esult [facility] [address] Department [place] [address] * POCT lipid panel (05/18/2017 9:29 AM [...] Most Recently Relevant to Health Maintenance Insurance [facility] FEDERAL MEDICARE Care Teams Lay Out Helper Relationship Specialty Start Date End Date Lenny Randall MD [address] [facility] [address] [place] [address] PCP - General Family Medicine 09/06/24
--- OUTSIDE RECORDS SUMMARY | 2024-11-06 15:31 | XMS_ITS | Continuity of Care Document ---
Author Organization [facility] Address [address] [place] [address] Phone Care Team Providers Care Geologic Technician Name Role Phone Clark Dove Unavailable Unavailable Procedures Procedure Date Eye Exam & Treatment May- Ophthalmoscopy, Subsequent Ophthalmoscopy, Subsequent Eye Exam Established Pt Ophthalmoscopy, Subsequent Ophthalmoscopy, Subsequent Eye Exam Established Pt Ophthalmoscopy, Subsequent Eye Exam Established Pt Ophthalmoscopy, Subsequent Ophthalmoscopy, Subsequent Eye Exam Established Pt Ophthalmoscopy, Subsequent Post-op Follow-up Visit Ophthalmoscopy, Subsequent Ophthalmoscopy, Subsequent Post-op Follow-up Visit Ophthalmoscopy, Subsequent Office Consultation Apr--2006 Ophthalmoscopy Apr- Ophthalmoscopy Apr- Treatment Of Retina Apr- Eye Exam, New Patient Advance Directives Directive Yes / No Effective Date File Name No Information Encounters Encounter Description Practice Location Reason(s) For Visit Diagnoses Date Provider Providers Copied on Encounter [facility], [address], [place], [place], [id number], [place] tel:[phone] [facility] No Information 8 [address] [place], [address], [place]. tel:[phone] Referring Provider: Clark Milligan, [address] [place], [address]. tel:[phone] [facility], [address], [place], [place], [id number], [place] tel:[phone] [facility] No Information Sep-2 8-200 9 [address] [place], [address], [place]. tel:[phone] Referring Provider: Clark Milligan, [address] [place], [address]. tel:[phone] [facility], [address], [place], [place], [id number], [place] tel:[phone] [facility] No Information Mar-2 3-200 9 [address] [place], [address], [place]. tel:[phone] [facility], [address], [place], [place], [id number], [place] tel:[phone] [facility] No Information Sep-1 1-200 8 [address] [place], [address], [place]. tel:[phone] [facility], [address], [place], [place], [id number], [place] tel:[phone] [facility] No Information Mar-0 3-200 8 [address]as[address] [place], [address], [place]. tel:[phone] [facility], [address], [place], [place], [id number], [place] tel:[phone] [facility] No Information Nov-1 3-200 7 Derrell [address]as. [address] [place], [place], [facility], . tel:[phone] [facility], [address] [place] [address] [address], [place], [place], [id number], tel:[phone] [facility] No Information Oct-2 9-200 7 [address] [place], [place], [facility], [place]. tel:[phone] Office Consultation [facility], [address] [place] [address] [address], [place], [place], [id number], tel:[phone] [facility] No Information Oct-2 5-200 7 [address]as[address] [place], [place], [facility], [place]. tel:[phone] Referring Provider: Eduardo Enriquez, [address], [place], [place], [facility]. tel:[phone] [facility], [address] [place] [address] [address], [place], [place], [id number], [place] tel:[phone] [facility] No Information Apr-2 2-200 7 Wendi Clark. [facility] , [address], [place], [place], [facility], [place]. tel:[phone] Referring Provider: Floyd Zuniga OD, [address] [place], [address]. tel:[phone] Family History Family Member Type Diagnosis Age At Onset No Information Payers Payer name Insurance type Covered libertarian ID Authoriza tion(s) [place] [id number] [place] F[place] BL [id number] Social History Type Description Quantity Date Captured [...]
[2024-11-06 16:32] LABS: Anion Gap 7 mmol/L (4-12); Blood Urea Nitrogen 20 mg/dL (7-17); Calcium 9.6 mg/dL (8.4-10.2); Carbon Dioxide 33 mmol/L (22-30); Chloride 98 mmol/L (98-107); Estimated Glomerular Filt Rate > 60; Glucose 105 mg/dL (65-110); Iron 141 ug/dL (37-170); Potassium 3.9 mmol/L (3.4-5.0); Sodium 138 mmol/L (137-145)
[2024-11-06 16:44] LABS: Percent Iron Saturation 52 % (20-50)
[2024-11-06 17:42] LABS: Folic Acid > 20.0 ng/mL (2.76->20); Vitamin B12 > 1000.0 pg/mL (239-931)
== END 2024-11-06 13:56 | disposition home or self-care (01) ==
PROVIDERS: PCP Family Medicine; Visit Provider Internal Medicine Hematology & Oncology
DX: D64.9 Anemia, unspecified (principal)
CPT/HCPCS: 36415; 80048; 82607; 82728; 82746; 83540; 83550; 85025

== ENCOUNTER 2025-05-09 13:27 | Outpatient (CLI) | payer MEDICARE, BC, SELFPAY ==
[2025-05-09 13:47] LABS: Hematocrit 43.4 % (37.0-47.0); Hemoglobin 13.7 g/dL (12.0-15.0); Mean Corpuscular HGB Conc 31.6 g/dl (32-36); Mean Corpuscular Hemoglobin 33.9 pg (26-34); Mean Corpuscular Volume 107.4 fl (80-100); Platelet Count Result 125 k/mm3 (150-375); Red Blood Count 4.04 M/mm3 (4.2-5.4); White Blood Count 6.8 K/mm3 (4.5-10.0)
--- OUTSIDE RECORDS SUMMARY | 2025-05-09 15:31 | XMS_ITS | Clinical Summary ---
Author Organization [facility] Address [address] [place] [address] Phone Care Team Providers Care Photolithographic Stripper Name Role Phone Lenny Randall MD Primary [...] Encounters Date Type Department Care Team Description 03/27/2025 External Device Data ST[facility] ABSTRACTION Provider, Abstract 03/13/2025 External Device Data [facility]STRACTION Provider, Abstract 02/07/2025 External Device Data [facility] ABSTRACTION Provider, Abstract 02/07/2025 External Device Data [facility] ABSTRACTION Provider, Abstract 02/07/2025 External Device Data [facility] ABSTRACTION Provider, Abstract 02/06/2025 External Device Data [facility] ABSTRACTION Provider, Abstract [...] Sign Reading Time Taken Comments Blood Pressure 148/68 11/08/2024 9:37 AM CDT Pulse 95 11/08/2024 9:34 AM CDT Temperature 36.7 C (98 F) 11/08/2024 9:34 AM CDT Respiratory Rate 15 11/08/2024 9:34 AM CDT Oxygen Saturation 92% 11/08/2024 9:34 AM CDT Inhaled Oxygen Concentration - - Weight 68.4 kg (150 lb 12.8 oz) 11/08/2024 9:34 AM CDT Height 160 cm (5' 3) 11/10/2023 2:13 PM CDT Body Mass Index 26.71 11/10/2023 2:13 PM CDT Plan of Treatment Upcoming Encounters Date Type Department Care Team (Late st Contact Info) Description 05/16/2025 10:15 AM CDT Office Visit [facility] Oncology and [facility] [place] [address] [facility] [address] [place] [address] Luther Nath MD [address] [facility] [address] [place] [address] Health Maintenance Due Date Last [...] ZOSTER VACCINE (2 of 2) 04/12/2020 02/16/2020 OSTEOPOROSIS SCREENING 06/27/2024 06/27/2019 INFLUENZA VACCINE (#1) 2025 2, 04/01/2021, 05/24/2020, Additional history exists DIABETES HBA1C Q 6 MONTHS 03/11/20252024, 02/24/2023, 12/16/2022, Additional history exists COVID-19 Vaccine (3 - 2024-2 6 season) 2025 10/09/2020, 09/18/2020 DIABETES ANNUAL RETINAL EXAM 09/27/202511/2024, 09/27/2024, 09/15/2023, Additional history exists COLORECTAL SCREENING Discontinued 02/05/2021 Colorectal Cancer Screening Discontinued FIT-DNA Q 3 years Discontinued FIT/FOBT Q 1 year Discontinued Flex Sig/CT Colonography Q 5 years Discontinued Medical Devices Implanted Type Area Employment Security Officer Device Identifier Shelf Expiration Date Model / Serial / Lot Sealant Floseal W/ Adptr 10ml [id number] - [id number] Implanted:Qty : 1 on 03/29/2015 by Helio Godoy MD at [facility] Sealant N/A: Spine Lumbar COULTER- [employer] 05/25/2016 [id number] / / [id number] Cataract Lens Insurance MEDICARE PART A AND B [facility] MEDICARE PART A AND B [facility] FEDERAL Advance Directives For more information, please contact: [phone] Documents on File Type Date Recorded 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
--- OUTSIDE RECORDS SUMMARY | 2025-05-09 15:31 | XMS_ITS | Encounter Summary ---
Author Organization [facility] Address [address] [place] [address] Care Team Providers Care Finish Production Manager Name Role Phone Lenny Randall MD Primary Care Provider Pj Miranda MD Unavailable [phone] Encounter Details Date Type Department Care Team (Late st Contact Info) Description 05/03/2025 Results Follow-Up [facility] [address] [facility] [address] [place] [address] Pj Miranda MD [address] [place] [address] X-ray knee left 4+ views, XR Hip Left W Pelvis 2 or 3 Views Social History Tobacco Use Types Packs/Day Years [...] on file Legal Sex Female 9:19 PM POT ROOM SUPERVISOR Gender Identity Not on file Sexual Orientation Not on file documented as of this encounter Plan of Treatment Not on file documented as of this encounter Goals Goal Patient Goal Type Associated Problems Recent Progress Patient-Stated? Author CCM Chronic Pain Care Plan Chronic Care Management No change(04/18 2:59 PM CDT) No Meli Fleming RN Note: Problem: Chronic Pain Goals: 1. Minimize further functional decline 2. Maximize quality of life 3. Control pain Strategies: - Activity/exercise program recommendation - Conservative stepwise pain medicine strategy with multi-disciplinary approach - Recommend healthy lifestyle strategies and compensatory methods as needed documented as of this encounter Visit Diagnoses Not on filedocumented in this encounter Care Teams Finish Production Manager Relationship Specialty Start Date End Date Lenny Randall MD [address] [facility] [address] [place] [address] PCP - General Family Medicine 09/06/24 Pj Miranda MD [address] [place] [address] Anesthesiologist Pain Management 04/18/25 documented as of this encounter
--- OUTSIDE RECORDS SUMMARY | 2025-05-09 15:31 | XMS_ITS | Clinical Summary ---
Author Organization [facility] Address [address] [place] [address] Care Team Providers Care Development Vice President Name Role Phone Morelia Ingram MD Primary Care Provider [phone] Allergies Active Allergy Reactions Criticality Noted Date [...] on file Legal Sex Female 1:26 PM BUCKET HOOKER Gender Identity Not on file Sexual Orientation Not on file Last Filed Vital Signs Vital Sign Reading Time Taken Comments Blood Pressure 140/70 09/02/2023 4:15 PM BUCKET HOOKER Pulse 67 09/02/2023 4:15 PM BUCKET HOOKER Temperature 36.7 C (98 F) 09/02/2023 4:15 PM BUCKET HOOKER Respiratory Rate 20 09/02/2023 4:15 PM BUCKET HOOKER Oxygen Saturation 100% 09/02/2023 4:15 PM BUCKET HOOKER Inhaled Oxygen Concentration - - Weight 59 kg (130 lb) 09/02/2023 4:15 PM BUCKET HOOKER Height 160 cm (5' 3) 09/02/2023 4:15 PM BUCKET HOOKER Body Mass Index 23.03 09/02/2023 4:15 PM BUCKET HOOKER Plan of Treatment Health Maintenance Due Date Last Done Comments DTaP, Tdap and Td Vaccines (1 - Tdap) 1960 Zoster Vaccines (1 of 2) 12/03/1991 Annual Medicare Wellness Visit 2006 Dexa Scan (General) 2006 Pneumococcal Vaccine: 50+ Years (2 of 2 - PCV) 04/25/2016 04/25/2015 RSV Immunization or 60+ Years (1 - 1-dose 75+ series) 2016 COVID-19 Vaccine ( - season) 2025 02/19/2022, 05/07/2021, 10/09/2020, Additional history exists Influenza Adult (#1) 2025 05/09/2021, 05/24/2020, 05/09/2020, Additional history exists Hepatitis A Vaccines Aged Out No long er eligible based on patient's age to complete this topic Meningococcal B Vaccine Aged Out No l onger eligible based on patient's age to complete this topic Meningococcal Vaccine Aged Out No gaudencio anjelica eligible based on patient's age to complete this topic RSV Immunizations Under 20 Months Aged Out No longer eligible based on patient's age to complete this topic Insurance MEDICARE [facility] Care Teams Development Vice President Relationship Specialty Start Date End Date Morelia Ingram MD [address] [facility] [address] [place] [address] PCP - General FAMILY PRACTICE 09/02/23
--- OUTSIDE RECORDS SUMMARY | 2025-05-09 15:31 | XMS_ITS ---
Author Organization [facility] Address [address] [place] [address] Care Team Providers Care Pit Shoveler Name Role Phone Lenny Randall MD Primary Care Provider [phone] Active Problems Problem Noted Date Diagnosed Date [...] lip s/p mohs Apr 2017 -2010, L religion/face/upper forehead BCC s/p slow mohs s/p 7 [...] 08/07/2020 Assessment & Plan (08/07/2020 12:14 PM TRAINING CONSULTANT): - nose (diffuse, recalcitrant), left cheek, and [...] skin Assessment & Plan (08/07/2020 12:15 PM TRAINING CONSULTANT): -vertex scalp: lentigo vs MIS -R thigh: ISK vs SCC - Shave Biopsy (see procedure note) - Post-biopsy handout given - Wound care instructions reviewed - Will call patient with biopsy results. If intervention is indicated, will make arrangements at that time Actinic skin damage 08/07/2020 Assessment & Plan (08/07/2020 12:14 PM TRAINING CONSULTANT): Explained benign nature, reassurance provided. ABCDEs of [...] FBSE Assessment & Plan (08/07/2020 12:14 PM TRAINING CONSULTANT): -NER today -continue q6m FBSE Lower extremity [...] 11/30/2011 Overview (02/19/2020): Overview: 2011: BCC, L religion/face/upper forehead s/p Slow mohs w/ 7 stages. 03/2012: BCC, tip of nose s/p Mohs 08/03/201209/2013: BCC SM X3 , L upper arm, extensor side, L forearm, superior, L forearm, inferior s/p ED&C x 3 10/30/201304/2014: BCC, R infraorbital, s/p Mohs 08/15/2014 Assessment & Plan (11/11/2020 10:11 AM CDT): No evidence of recurrence. Assessment & Plan (08/07/2020 12:14 PM TRAINING CONSULTANT): -NER today -continue q6m FBSE Current Treatment [...] lip s/p mohs Apr 2017 -2010, L religion/face/upper forehead BCC s/p slow mohs s/p 7 stages. -03/2012, BCC, tip of nose. Mohs -09/2013, BCC SM X3 , L upper arm, extensor side, L forearm, superior, L forearm, inferior -04/2014, R infraorbital , BCC Mohs -Efudex 5% cream to R cheek and nose 2014. Assessment & Plan (11/11/2020 10:07 AM CDT): No evidence of recurrence.
--- OUTSIDE RECORDS SUMMARY | 2025-05-09 15:31 | XMS_ITS | Clinical Summary ---
Author Organization [facility] Address [address] [place] [address] Care Team Providers Care Drying Machine Operator Package Yarns Name Role Phone Lenny Randall MD Primary Care Provider [phone] Source Comments [facility],non-owned Affiliates and Associated Physician Practices is amultiple site organization consisting of ambulatory clinics and hospital sitesin [place], [place], [place] and [place]. This disclosure is being madepursuant to the Care Everywhere program and may not contain all information available regarding this patient. Last updated 18.[facility] Allergies Active Allergy Reactions Criticality Noted Date [...] Active Additional Information Patient not taking.Reported on 05/07/2025 omeprazole (PriLOSEC) 40 MG capsule Take 1 (one) capsule by mouth once daily 3 Active losartan (Cozaar) 100 MG tablet Take 1 (one) tablet by mouth once daily 3 Active diclofenac sodium EC (Voltaren) 75 MG tablet Take 1 (one) tablet by mouth 2 times daily 3 Active traMADol (Ultram) 50 MG tablet Take 1 (one) tablet by mouth 4 times daily Active Jardiance 10 MG tablet Take 1 (one) tablet by mouth once daily Active Active Problems Problem Noted Date [...] lip s/p mohs Apr 2017 -2010, L synagogue/face/upper forehead BCC s/p slow mohs s/p 7 [...] 08/07/2020 Assessment & Plan (08/07/2020 12:14 PM MANAGER INSIDE): - nose (diffuse, recalcitrant), left cheek, and [...] skin Assessment & Plan (08/07/2020 12:15 PM MANAGER INSIDE): -vertex scalp: lentigo vs MIS -R thigh: ISK vs SCC - Shave Biopsy (see procedure note) - Post-biopsy handout given - Wound care instructions reviewed - Will call patient with biopsy results. If intervention is indicated, will make arrangements at that time Actinic skin damage 08/07/2020 Assessment & Plan (08/07/2020 12:14 PM MANAGER INSIDE): Explained benign nature, reassurance provided. ABCDEs of [...] FBSE Assessment & Plan (08/07/2020 12:14 PM MANAGER INSIDE): -NER today -continue q6m FBSE Lower extremity [...] 11/30/2011 Overview (02/19/2020): Overview: 2010: BCC, L synagogue/face/upper forehead s/p Slow mohs w/ 7 stages. 03/2012: BCC, tip of nose s/p Mohs 08/03/201209/2013: BCC SM X3 , L upper arm, extensor side, L forearm, superior, L forearm, inferior s/p ED&C x 3 10/30/201304/2014: BCC, R infraorbital, s/p Mohs 08/15/2014 Assessment & Plan (11/11/2020 10:11 AM CDT): No evidence of recurrence. Assessment & Plan (08/07/2020 12:14 PM MANAGER INSIDE): -NER today -continue q6m FBSE Resolved Problems [...] lip s/p mohs Apr 2017 -2010, L synagogue/face/upper forehead BCC s/p slow mohs s/p 7 stages. -03/2012, BCC, tip of nose. Mohs -09/2013, BCC SM X3 , L upper arm, extensor side, L forearm, superior, L forearm, inferior -04/2014, R infraorbital , BCC Mohs -Efudex 5% cream to R cheek and nose 2014. Assessment & Plan (11/11/2020 10:07 AM CDT): No evidence of recurrence. Encounters Date Type Department Care Team Description 05/07/2025 11:00 AM CDT Office Visit [facility] - Dermatology [facility] [phone] Rehan Rodrigeuz MD Seborrheic keratosis (Primary Dx); History of nonmelanoma skin cancer; Lentigines; History of melanoma in situ; Actinic keratosis 05/07/2025 Travel from Last 3 Months Immunizations Immunization Administration Dates Next Due Kiwi Crate primary monoval ent 12+ yr 0.3mL Purple [...] and heating? Not hard at all 10/09/2022 [facility] - Occupational Stress [...] place to sleep or slept in a fci (including now)? No 10/09/2022 Comments No Sex and Gender Information Value Date Recorded Sex Assigned at Not on file Legal Sex Female 2:12 PM MANAGER INSIDE Gender Identity Not on file Sexual Orientation [...] 4:00 AM CDT Height 160 cm (5' 3) 10/09/2022 4:00 AM CDT patient stated Body Mass Index 34.99 10/09/2022 4:00 AM CDT Plan of Treatment Upcoming Encounters Date Type Department Care Team (Late st Contact Info) Description 11/05/2025 10:30 AM CDT Office Visit [facility] - Dermatology [address] [place] [address], [place] [address] Rehan Rodriguez MD [address] [facility] [address] [place] [address] Health Maintenance Due Date Last Done Comments [...] CREATININE 10/10/20232022, 10/09/2022, 04/22/2012, Additional history exists DEPRESSION SCREENING 07/26/2024 DIABETES - URINE PROTEIN SCREENING 07/26/2024 COVID-19 VACCINE ( season) 2025 02/19/2022, 05/07/2021, 10/09/2020, Additional history exists INFLUENZA VACCINE (#1) 2025 2, 05/09/2021, 04/01/2021, Additional history exists HEPATITIS B [...] Procedure Name Priority Date/Time Associated Diagnosis Comments ID DESTROY PREMALIG LESION, 2-14 Routine 05/07/2025 12:13 PM CDT Actinic keratosis ID DESTROY PREMALIG LESION, 1ST LESION Routine 05/07/2025 12:13 PM CDT Actinic keratosis BASIC METABOLIC PANEL (CALCIUM TOTAL) STAT 10/09/2022 12:13 AM CDT from Last 3 Months or Most Recently Relevant to Health Maintenance Results * ID DESTROY PREMALIG LESION, 1ST LESION, ID DESTROY PREMALIG LESION, 2-14 (05/07/2025 12:13 PM CDT) Narrative Rehan Rodriguez MD - 05/07/2025 12:13 PM CDT Rehan Rodriguez MD 05/07/2025 1:35 PM Diagnosis and treatment options discussed. Liquid nitrogen was applied to 3 ak (see office visit note for locations) for 6-10 seconds each for 1 cycle. Wound care reviewed. Carlie Kerns MD Rehan Rodriguez MD PROCEDURE/MINOR SURGICAL ORDE RABLES Final Result * (ABNORMAL) BASIC METABOLIC PANEL (CALCIUM TOTAL) (10/09/2022 12:13 AM CDT) BUN 9 7 - 26 mg/dL 10/09/2022 12:[address] [facility] Creatinine 0.68 0.56 - 0.96 mg/dL 10/09/2022 12:[address] [facility] Sodium 136 136 - 145 mmol/L 10/09/2022 12:[address] [facility] Potassium 3.9 3.5 - 4.5 mmol/L 10/09/2022 12:[address] [facility] Chloride 104 98 - 107 mmol/L 10/09/2022 12:[address] [facility] CO2 22 22 - 29 mmol/L 10/09/2022 12:[address] [facility] Glucose 115 70 - 115 mg/dL 10/09/2022 12:47 AM [facility] Calcium 8.9 8.4 - 10.2 mg/dL 10/09/2022 12:47 AM [facility] Anion Gap 14 8 - 18 10/09/2022 12:47 AM [facility] BUN/Creatinine Ratio 13 7 - 23 10/09/2022 12:47 AM [facility] Osmolality Calculated 282 270 - 300 mOsm/kg 10/09/2022 12:47 AM [facility] eGFR by CKD-EPI 88(L) >=90 mL/min/1.7 3 m2 10/09/2022 12:47 AM [facility] Blood BLOOD SPECIMEN / Unknown Venipuncture / Unknown 10/09/2022 12:13 AM CDT 10/09/2022 12:22 AM T Darrion Almonte DO LAB - CHEMISTRY ORDERABLES F inal Result [facility] [address] [place] [address], [facility] [phone] from Last 3 Months or Most Recently Relevant to Health Maintenance Insurance MEDICARE [facility] MEDICARE [facility] MEDICARE ANTH MEDICARE [facility] MEDICARE [facility] MEDICARE [facility] * Guarantor: ELIZABETH DUARTE Account Type Relation to Patient Date of Phone Billing Address Personal/Family [address] [place] [address] MEDICARE [facility] * Guarantor: ELIZABETH DUARTE Account Type Relation to Patient Date of Phone Billing Address Personal/Family [address] [place] [place] [address] MEDICARE 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
--- OUTSIDE RECORDS SUMMARY | 2025-05-09 15:31 | XMS_ITS | Clinical Summary ---
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 Active ferrous sulfate 325 mg (65 mg [...] (10 mg total) by mouth daily Active sodium chloride 1 gram tablet Take 1 tablet (1 g total) by mouth daily Active acetaminophen (TYLENOL) 325 mg tablet Take 2 tablets (650 mg total) by mouth every 4 (four) hours 10/13/19 23 Active ondansetron ODT (ZOFRAN-ODT) 4 mg disintegrating tablet DISSOLVE 1 TABLET ON THE TONGUE EVERY 6 HOURS NEEDED FOR NAUSEA AND VOMITING 04/29/20 22 Active phenazopyridine (PYRIDIUM) 200 mg tablet Take 1 tablet (200 mg total) by mouth daily 08/02/19 24 Active thiamine (VITAMIN B-1) 250 mg tablet Take 1 tablet (250 mg total) by mouth daily Active Jardiance 10 mg tablet TAKE 1 TABLET DAILY 90 tablet 3 07/17/20 24 Active traMADoL (ULTRAM) 50 mg tablet Take 1 tablet (50 mg total) by mouth every 6 (six) hours as needed for pain Active losartan (COZAAR) 50 mg tablet Take 1 tablet (50 mg total) by mouth daily 90 tablet 6 12/14/19 25 Active metoprolol XL (TOPROL-XL) 50 mg extended release tablet Take 1 tablet (50 mg total) by mouth daily 90 tablet 6 03/28/20 25 Active potassium 99 mg tablet Take 2 tablets (198 mg total) by mouth 2 (two) times a day 2024 Discontinued rOPINIRole (REQUIP) 1 mg tablet Take 1 tablet (1 mg total) by mouth nightly 01/29/20 [address] (VOLTAREN) 75 mg EC tablet Take 1 tablet (75 mg total) by mouth 2 (two) times a day 2024 Discontinued budesonide EC (ENTOCORT EC) 3 mg 24 hr capsule Take 1 capsule (3 mg total) by mouth every morning 2024 Discontinued magnesium gluconate 200 mg tabletIndications :hypomagnesemia Take 1 tablet (200 mg total) by mouth 2 (two) times a day 2024 Discontinued furosemide (LASIX) 20 mg tabletIndications :Swelling TAKE 1 TABLET BY MOUTH DAILY NEEDED FOR SWELLING 30 tablet 1 04/26/20 23 2024 Discontinued aspirin 81 mg enteric coated tablet Take 1 tablet (81 mg total) by mouth daily 90 tablet 11 09/08/19 24 2024 Discontinued(T herapy completed) pantoprazole DR (PROTONIX) 40 mg EC tablet Take 1 tablet (40 mg total) by mouth daily 10/28/192024 Discontinued tamsulosin (FLOMAX) 0.4 mg extended release capsule Take 1 capsule (0.4 mg total) by mouth every morning 10/28/19 24 2024 Discontinued d-mannose (AZO D-Mannose) 500 mg capsule Take by mouth 2024 Discontinued amoxicillin (AMOXIL) 500 mg tablet/capsule Take 4 caps (2000 mg) 1 hour prior to procedure. 4 tablet/caps ule 11/26/192024 Discontinued(T herapy completed) Active Problems Problem Noted Date Diagnosed Date [...] (10/29/2016): Post surgical visit Disorder of aorta ([facility]/HCC) 08/07/2015 05/07/2021 Overview (10/29/2016): Aortic stenosis Encounters Date Type Department Care Team Description 05/03/2025 Results Follow-Up [facility] at the [facility] [address] [address] [place] [id number] Pj Miranda MD X-ray knee left 4+ views, XR Hip Left W Pelvis 2 or 3 Views 04/18/2025 4:39 PM CDT - 04/18/2025 11:59 PM CDT Hospital Encounter [facility] - [facility] [address] [place] [id number] Left hip pain; Chronic pain of both knees Discharge Disposition: Discharge to home or self care 04/18/2025 2:42 PM CDT - 04/18/2025 11:59 PM CDT Hospital Encounter [facility] Center at [address] [phone] Pj Miranda MD Left hip pain (Primary Dx); Chronic pain of both knees Discharge Disposition: Discharge to home or self care 04/16/2025 Telephone [facility] [address] [phone] Muna Orozco RN Pre Arrival 03/28/2025 10:15 AM CDT Office Visit [facility] [address] [place] [phone] Justin Kendrick MD S/P aortic valve replacement with bioprosthetic valve (Primary Dx); Chronic diastolic congestive heart failure (HCC); PAF (paroxysmal atrial fibrillation); History of GI bleed; At risk for bleeding associated with anticoagulants 03/14/2025 Orders Only [facility] at [facility] [address] [facility] 1st [place] [address] Brandon Brewer Jr., MD Primary osteoarthritis of left hip (Primary Dx) 02/14/2025 Telephone [facility] [address] [place] [id number] Justin Kendrick MD from Last 3 Months Surgical History Surgery [...] Other Medical Allergies, seas onal; Comments: [facility] 02/19/2014 - Type 2 diabetes mellitus Diabete s type 2; Comments: [facility] 02/19/2014 - Hypertension Hypertension Hx Other Medical aortic stenosis ; Comments: [facility] 02/19/2014 - Hx Other Medical obesity; Commen ts: [facility] 02/19/2014 - Hx Other Medical bilateral carpa l tunnel release; Comments: [facility] 02/19/2014 - Hx Other Medical R salpingoopher ectomy; Comments: [facility] 02/19/2014 - Hx Other Medical multiple basal cell carcinoma excisions; Comments: [facility] 02/19/2014 - Hx Other Medical lower back pain ; Comments: [facility] 08/07/2015 - Hx Other Medical basal cell skin cancer; Comments: [facility] 08/07/2015 - Type 2 diabetes mellitus Diabete s type 2; Comments: [facility] 08/07/2015 - Sleep apnea Sleep apnea Hypertension Hypertension Anxiety disorder Anxiety Hx Other Medical palpitations; C omments: [facility] 08/07/2015 - Arthritis Arthritis; Comme nts: [facility] 08/07/2015 - Gastroesophageal reflux disease GERD Hypercholesterolemia High choles terol; Comments: [facility] 08/07/2015 - Hx Other Medical aortic stenosis ; Comments: [facility] 09/16/2015 - Melanoma (HCC) Removed from top of head in 2019, left arm in 2020. 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 Gender Identity Not on file Sexual Orientation Not on file Obstetrics History Last Filed Vital Signs Vital Sign Reading Time Taken Comments Blood Pressure 167/67 04/18/2025 2:59 PM CDT Pulse 58 04/18/2025 2:59 PM CDT Temperature 36 C (96.8 F) 04/18/2025 2:59 PM CDT Respiratory Rate 14 04/18/2025 2:59 PM CDT Oxygen Saturation 94% 04/18/2025 2:59 PM CDT Inhaled Oxygen Concentration - - Weight 71.5 kg (157 lb 11.2 oz) 04/18/2025 2:59 PM CDT Height 160 cm (5' 3) 04/18/2025 2:59 PM CDT Body Mass Index 27.94 04/18/2025 2:59 PM CDT Plan of Treatment Health Maintenance Due Date Last Done Comments Albumin Creatinine Ratio, Urine 1941 Depression Screening 1941 Osteoporosis Screening-Bone Density Scan 1941 Dilated Eye Exam 1941 Foot Exam 1941 DTaP/Tdap/Td Vaccine (1 - Tdap) 1952 Hepatitis B Screening 12[birth year]03/1958 Well Visit 65+ 2006 Pneumococcal vaccine 65+ (2 of 2 - PCV) 04/25/2016 04/25/2015 Zoster Vaccine (2 of 2) 04/12/2020 02/16/2020 Hemoglobin A1C 08/27/2023 02/24/2023 eGFR 02/25/2024 02/24/2023 Covid-19 Vaccine (3 - 2024-2 6 season) 2025 10/09/2020, 09/18/2020 Influenza Vaccine (#1) 2025 , 05/24/2020, 05/09/2020, Additional history exists Lipid Panel 12/13/2025 12/13/2024, 05/18/2017 Fall Risk Assessment 04/18/2026 04/18/2025, 02/25/20 23 Goals Goal Patient Goal Type Associated Problems [...] lifestyle strategies and compensatory methods as needed Procedures Procedure Name Priority Date/Time Associated Diagnosis Comments XR KNEE RIGHT 4 OR MORE VIEWS Schedule Routine, Read Routine (OP Routine) 04/18/2025 5:33 PM CDT Chronic pain of both knees XR KNEE LEFT 4 OR MORE VIEWS Schedule Routine, Read Routine (OP Routine) 04/18/2025 5:33 PM CDT Chronic pain of both knees XR HIP LEFT W PELVIS 2 OR 3 VIEWS Schedule Routine, Read Routine (OP Routine) 04/18/2025 5:33 PM CDT Left hip pain POCT LIPID PANEL Routine 12/13/2024 11:5 9 AM CDT Hypertension associated with type 2 diabetes mellitus (HCC) EGFR Routine 02/24/2023 11:42 AM CDT Preop testing HEMOGLOBIN A1C Routine 02/24/2023 11:42 AM CDT Preop testing from Last 3 Months or Most Recently Relevant to Health Maintenance Results * XR Hip Left W Pelvis 2 or 3 Views (04/18/2025 5:33 PM CDT) Anatomical Region Laterality Modality Lower Extremities, Hip, Pelvis Left C omputed Radiography 04/19/2025 8:28 AM CDT Impressions 04/19/2025 8:28 AM CDT 1. Severe deformity of the left femoral head and severe degenerative joint disease. 2. The visualized portion of the right hip prosthesis is within expected limits. 3. Partial visualization of a dextroconvex scoliosis with degenerative change. COMMENT: Please see above for additional findings. XR KNEE RIGHT 4 OR MORE VIEWS HISTORY: Right knee pain COMPARISON: None Available FINDINGS: There is noted very severe degenerative joint disease in the lateral joint space compartment with a [id number] appearance. Joint surfaces of the femoral condyle and tibial plateau are irregular. Sclerosis and spur formation is noted. There is mild narrowing of the medial joint space compartment chondrocalcinosis and mild spur formation are present. There is moderate narrowing of the patellofemoral joint space with spur formation. Extensive vascular calcification is noted. The mineralization is within expected limits for age. There is no evidence of a stress fracture, atypical periosteal reaction, atypical sclerosis or bone destruction. The remainder the examination is within expected limits. IMPRESSION: 1. 3 compartment degenerative joint disease which is most significant in the lateral joint space compartment where there is very severe disease. 2. Chondrocalcinosis. The possibility of CPPD or other cause of chondrocalcinosis should be considered. COMMENT: Please see above for additional findings. XR KNEE LEFT 4 OR MORE VIEWS HISTORY: Left knee pain COMPARISON: None available. FINDINGS: There is no evidence of fracture, stress fracture or dislocation. There is a compensatory expansion of the medial joint space compartment. There is significant sclerosis in the femoral condyle. A lucency at at the joint surface which is shaped like centimeters cervical. Chondrocalcinosis is present Marked narrowing of the lateral joint space compartment with sclerosis as well as spur formation is noted. On the Caraballo view, the lateral femoral condylar shape is markedly atherosclerotic and has a flattened contour with prominent spur formation. There is moderate narrowing of the patellofemoral joint space with minimal spur formation. There is no gross evidence of a joint effusion. The remainder of the examination is within expected limits. IMPRESSION: 1. 3 compartment degenerative joint disease which is most significant in the lateral joint space compartments. There is marked disease. COMMENT: Please see above for additional findings. Electronically signed by: Gerald Peterson M.D. Narrative 04/19/2025 8:28 AM CDT XR HIP LEFT 2 OR 3 VIEWS W PELVIS HISTORY: Left hip pain COMPARISON: None available. FINDINGS: The left hip is markedly abnormal and shape. It superior portion is flattened and irregular and has lost its rounded shape. There is also noted remodeling of the acetabular roof. However there is still a significant joint space in the superior hip joint on these nonweightbearing views. There is no evidence of fracture, stress fracture or dislocation. The right hip arthroplasty is noted in the visualized portion in AP projection is within expected limits. The included portions of the bone pelvic ring are grossly intact. The included portions of the sacroiliac joints are within expected limits. There is partial inclusion of a dextroconvex scoliosis. Extensive diffuse sclerosis consistent with degenerative disease is noted. The remainder of the examination is within expected limits. Procedure Note Gerald Peterson MD - 04/19/2025 XR HIP LEFT 2 OR 3 VIEWS W PELVIS HISTORY: Left hip pain COMPARISON: None available. FINDINGS: The left hip is markedly abnormal and shape. It superior portion is flattened and irregular and has lost its rounded shape. There is also noted remodeling of the acetabular roof. However there is still a significant joint space in the superior hip joint on these nonweightbearing views. There is no evidence of fracture, stress fracture or dislocation. The right hip arthroplasty is noted in the visualized portion in AP projection is within expected limits. The included portions of the bone pelvic ring are grossly intact. The included portions of the sacroiliac joints are within expected limits. There is partial inclusion of a dextroconvex scoliosis. Extensive diffuse sclerosis consistent with degenerative disease is noted. The remainder of the examination is within expected limits. IMPRESSION: 1. Severe deformity of the left femoral head and severe degenerative joint disease. 2. The visualized portion of the right hip prosthesis is within expected limits. 3. Partial visualization of a dextroconvex scoliosis with degenerative change. COMMENT: Please see above for additional findings. XR KNEE RIGHT 4 OR MORE VIEWS HISTORY: Right knee pain COMPARISON: None Available FINDINGS: There is noted very severe degenerative joint disease in the lateral joint space compartment with a [id number] appearance. Joint surfaces of the femoral condyle and tibial plateau are irregular. Sclerosis and spur formation is noted. There is mild narrowing of the medial joint space compartment chondrocalcinosis and mild spur formation are present. There is moderate narrowing of the patellofemoral joint space with spur formation. Extensive vascular calcification is noted. The mineralization is within expected limits for age. There is no evidence of a stress fracture, atypical periosteal reaction, atypical sclerosis or bone destruction. The remainder the examination is within expected limits. IMPRESSION: 1. 3 compartment degenerative joint disease which is most significant in the lateral joint space compartment where there is very severe disease. 2. Chondrocalcinosis. The possibility of CPPD or other cause of chondrocalcinosis should be considered. COMMENT: Please see above for additional findings. XR KNEE LEFT 4 OR MORE VIEWS HISTORY: Left knee pain COMPARISON: None available. FINDINGS: There is no evidence of fracture, stress fracture or dislocation. There is a compensatory expansion of the medial joint space compartment. There is significant sclerosis in the femoral condyle. A lucency at at the joint surface which is shaped like centimeters cervical. Chondrocalcinosis is present Marked narrowing of the lateral joint space compartment with sclerosis as well as spur formation is noted. On the Caraballo view, the lateral femoral condylar shape is markedly atherosclerotic and has a flattened contour with prominent spur formation. There is moderate narrowing of the patellofemoral joint space with minimal spur formation. There is no gross evidence of a joint effusion. The remainder of the examination is within expected limits. IMPRESSION: 1. 3 compartment degenerative joint disease which is most significant in the lateral joint space compartments. There is marked disease. COMMENT: Please see above for additional findings. Electronically signed by: Gerald Peterson M.D. us Pj Miranda MD IMG XR PROCEDURES Final Result * X-ray knee right 4+ views (04/18/2025 5:33 PM CDT) Anatomical Region Laterality Modality Lower Extremities, Knee Right Computed Radiography 04/19/2025 8:28 AM CDT Impressions 04/19/2025 8:28 AM CDT 1. Severe deformity of the left femoral head and severe degenerative joint disease. 2. The visualized portion of the right hip prosthesis is within expected limits. 3. Partial visualization of a dextroconvex scoliosis with degenerative change. COMMENT: Please see above for additional findings. XR KNEE RIGHT 4 OR MORE VIEWS HISTORY: Right knee pain COMPARISON: None Available FINDINGS: There is noted very severe degenerative joint disease in the lateral joint space compartment with a [id number] appearance. Joint surfaces of the femoral condyle and tibial plateau are irregular. Sclerosis and spur formation is noted. There is mild narrowing of the medial joint space compartment chondrocalcinosis and mild spur formation are present. There is moderate narrowing of the patellofemoral joint space with spur formation. Extensive vascular calcification is noted. The mineralization is within expected limits for age. There is no evidence of a stress fracture, atypical periosteal reaction, atypical sclerosis or bone destruction. The remainder the examination is within expected limits. IMPRESSION: 1. 3 compartment degenerative joint disease which is most significant in the lateral joint space compartment where there is very severe disease. 2. Chondrocalcinosis. The possibility of CPPD or other cause of chondrocalcinosis should be considered. COMMENT: Please see above for additional findings. XR KNEE LEFT 4 OR MORE VIEWS HISTORY: Left knee pain COMPARISON: None available. FINDINGS: There is no evidence of fracture, stress fracture or dislocation. There is a compensatory expansion of the medial joint space compartment. There is significant sclerosis in the femoral condyle. A lucency at at the joint surface which is shaped like centimeters cervical. Chondrocalcinosis is present Marked narrowing of the lateral joint space compartment with sclerosis as well as spur formation is noted. On the Caraballo view, the lateral femoral condylar shape is markedly atherosclerotic and has a flattened contour with prominent spur formation. There is moderate narrowing of the patellofemoral joint space with minimal spur formation. There is no gross evidence of a joint effusion. The remainder of the examination is within expected limits. IMPRESSION: 1. 3 compartment degenerative joint disease which is most significant in the lateral joint space compartments. There is marked disease. COMMENT: Please see above for additional findings. Electronically signed by: Gerald Peterson M.D. Narrative 04/19/2025 8:28 AM CDT XR HIP LEFT 2 OR 3 VIEWS W PELVIS HISTORY: Left hip pain COMPARISON: None available. FINDINGS: The left hip is markedly abnormal and shape. It superior portion is flattened and irregular and has lost its rounded shape. There is also noted remodeling of the acetabular roof. However there is still a significant joint space in the superior hip joint on these nonweightbearing views. There is no evidence of fracture, stress fracture or dislocation. The right hip arthroplasty is noted in the visualized portion in AP projection is within expected limits. The included portions of the bone pelvic ring are grossly intact. The included portions of the sacroiliac joints are within expected limits. There is partial inclusion of a dextroconvex scoliosis. Extensive diffuse sclerosis consistent with degenerative disease is noted. The remainder of the examination is within expected limits. Procedure Note Gerald Peterson MD - 04/19/2025 XR HIP LEFT 2 OR 3 VIEWS W PELVIS HISTORY: Left hip pain COMPARISON: None available. FINDINGS: The left hip is markedly abnormal and shape. It superior portion is flattened and irregular and has lost its rounded shape. There is also noted remodeling of the acetabular roof. However there is still a significant joint space in the superior hip joint on these nonweightbearing views. There is no evidence of fracture, stress fracture or dislocation. The right hip arthroplasty is noted in the visualized portion in AP projection is within expected limits. The included portions of the bone pelvic ring are grossly intact. The included portions of the sacroiliac joints are within expected limits. There is partial inclusion of a dextroconvex scoliosis. Extensive diffuse sclerosis consistent with degenerative disease is noted. The remainder of the examination is within expected limits. IMPRESSION: 1. Severe deformity of the left femoral head and severe degenerative joint disease. 2. The visualized portion of the right hip prosthesis is within expected limits. 3. Partial visualization of a dextroconvex scoliosis with degenerative change. COMMENT: Please see above for additional findings. XR KNEE RIGHT 4 OR MORE VIEWS HISTORY: Right knee pain COMPARISON: None Available FINDINGS: There is noted very severe degenerative joint disease in the lateral joint space compartment with a [id number]-[id number] appearance. Joint surfaces of the femoral condyle and tibial plateau are irregular. Sclerosis and spur formation is noted. There is mild narrowing of the medial joint space compartment chondrocalcinosis and mild spur formation are present. There is moderate narrowing of the patellofemoral joint space with spur formation. Extensive vascular calcification is noted. The mineralization is within expected limits for age. There is no evidence of a stress fracture, atypical periosteal reaction, atypical sclerosis or bone destruction. The remainder the examination is within expected limits. IMPRESSION: 1. 3 compartment degenerative joint disease which is most significant in the lateral joint space compartment where there is very severe disease. 2. Chondrocalcinosis. The possibility of CPPD or other cause of chondrocalcinosis should be considered. COMMENT: Please see above for additional findings. XR KNEE LEFT 4 OR MORE VIEWS HISTORY: Left knee pain COMPARISON: None available. FINDINGS: There is no evidence of fracture, stress fracture or dislocation. There is a compensatory expansion of the medial joint space compartment. There is significant sclerosis in the femoral condyle. A lucency at at the joint surface which is shaped like centimeters cervical. Chondrocalcinosis is present Marked narrowing of the lateral joint space compartment with sclerosis as well as spur formation is noted. On the Caraballo view, the lateral femoral condylar shape is markedly atherosclerotic and has a flattened contour with prominent spur formation. There is moderate narrowing of the patellofemoral joint space with minimal spur formation. There is no gross evidence of a joint effusion. The remainder of the examination is within expected limits. IMPRESSION: 1. 3 compartment degenerative joint disease which is most significant in the lateral joint space compartments. There is marked disease. COMMENT: Please see above for additional findings. Electronically signed by: Gerald Peterson M.D. us Pj Miranda MD IMG XR PROCEDURES Final Result * X-ray knee left 4+ views (04/18/2025 5:33 PM CDT) Anatomical Region Laterality Modality Lower Extremities, Knee Left Computed Radiography 04/19/2025 8:28 AM CDT Impressions 04/19/2025 8:28 AM CDT 1. Severe deformity of the left femoral head and severe degenerative joint disease. 2. The visualized portion of the right hip prosthesis is within expected limits. 3. Partial visualization of a dextroconvex scoliosis with degenerative change. COMMENT: Please see above for additional findings. XR KNEE RIGHT 4 OR MORE VIEWS HISTORY: Right knee pain COMPARISON: None Available FINDINGS: There is noted very severe degenerative joint disease in the lateral joint space compartment with a qkwv-[id number] appearance. Joint surfaces of the femoral condyle and tibial plateau are irregular. Sclerosis and spur formation is noted. There is mild narrowing of the medial joint space compartment chondrocalcinosis and mild spur formation are present. There is moderate narrowing of the patellofemoral joint space with spur formation. Extensive vascular calcification is noted. The mineralization is within expected limits for age. There is no evidence of a stress fracture, atypical periosteal reaction, atypical sclerosis or bone destruction. The remainder the examination is within expected limits. IMPRESSION: 1. 3 compartment degenerative joint disease which is most significant in the lateral joint space compartment where there is very severe disease. 2. Chondrocalcinosis. The possibility of CPPD or other cause of chondrocalcinosis should be considered. COMMENT: Please see above for additional findings. XR KNEE LEFT 4 OR MORE VIEWS HISTORY: Left knee pain COMPARISON: None available. FINDINGS: There is no evidence of fracture, stress fracture or dislocation. There is a compensatory expansion of the medial joint space compartment. There is significant sclerosis in the femoral condyle. A lucency at at the joint surface which is shaped like centimeters cervical. Chondrocalcinosis is present Marked narrowing of the lateral joint space compartment with sclerosis as well as spur formation is noted. On the Caraballo view, the lateral femoral condylar shape is markedly atherosclerotic and has a flattened contour with prominent spur formation. There is moderate narrowing of the patellofemoral joint space with minimal spur formation. There is no gross evidence of a joint effusion. The remainder of the examination is within expected limits. IMPRESSION: 1. 3 compartment degenerative joint disease which is most significant in the lateral joint space compartments. There is marked disease. COMMENT: Please see above for additional findings. Electronically signed by: Gerald Peterson M.D. Narrative 04/19/2025 8:28 AM CDT XR HIP LEFT 2 OR 3 VIEWS W PELVIS HISTORY: Left hip pain COMPARISON: None available. FINDINGS: The left hip is markedly abnormal and shape. It superior portion is flattened and irregular and has lost its rounded shape. There is also noted remodeling of the acetabular roof. However there is still a significant joint space in the superior hip joint on these nonweightbearing views. There is no evidence of fracture, stress fracture or dislocation. The right hip arthroplasty is noted in the visualized portion in AP projection is within expected limits. The included portions of the bone pelvic ring are grossly intact. The included portions of the sacroiliac joints are within expected limits. There is partial inclusion of a dextroconvex scoliosis. Extensive diffuse sclerosis consistent with degenerative disease is noted. The remainder of the examination is within expected limits. Procedure Note Gerald Peterson MD - 04/19/2025 XR HIP LEFT 2 OR 3 VIEWS W PELVIS HISTORY: Left hip pain COMPARISON: None available. FINDINGS: The left hip is markedly abnormal and shape. It superior portion is flattened and irregular and has lost its rounded shape. There is also noted remodeling of the acetabular roof. However there is still a significant joint space in the superior hip joint on these nonweightbearing views. There is no evidence of fracture, stress fracture or dislocation. The right hip arthroplasty is noted in the visualized portion in AP projection is within expected limits. The included portions of the bone pelvic ring are grossly intact. The included portions of the sacroiliac joints are within expected limits. There is partial inclusion of a dextroconvex scoliosis. Extensive diffuse sclerosis consistent with degenerative disease is noted. The remainder of the examination is within expected limits. IMPRESSION: 1. Severe deformity of the left femoral head and severe degenerative joint disease. 2. The visualized portion of the right hip prosthesis is within expected limits. 3. Partial visualization of a dextroconvex scoliosis with degenerative change. COMMENT: Please see above for additional findings. XR KNEE RIGHT 4 OR MORE VIEWS HISTORY: Right knee pain COMPARISON: None Available FINDINGS: There is noted very severe degenerative joint disease in the lateral joint space compartment with a [id number] appearance. Joint surfaces of the femoral condyle and tibial plateau are irregular. Sclerosis and spur formation is noted. There is mild narrowing of the medial joint space compartment chondrocalcinosis and mild spur formation are present. There is moderate narrowing of the patellofemoral joint space with spur formation. Extensive vascular calcification is noted. The mineralization is within expected limits for age. There is no evidence of a stress fracture, atypical periosteal reaction, atypical sclerosis or bone destruction. The remainder the examination is within expected limits. IMPRESSION: 1. 3 compartment degenerative joint disease which is most significant in the lateral joint space compartment where there is very severe disease. 2. Chondrocalcinosis. The possibility of CPPD or other cause of chondrocalcinosis should be considered. COMMENT: Please see above for additional findings. XR KNEE LEFT 4 OR MORE VIEWS HISTORY: Left knee pain COMPARISON: None available. FINDINGS: There is no evidence of fracture, stress fracture or dislocation. There is a compensatory expansion of the medial joint space compartment. There is significant sclerosis in the femoral condyle. A lucency at at the joint surface which is shaped like centimeters cervical. Chondrocalcinosis is present Marked narrowing of the lateral joint space compartment with sclerosis as well as spur formation is noted. On the Caraballo view, the lateral femoral condylar shape is markedly atherosclerotic and has a flattened contour with prominent spur formation. There is moderate narrowing of the patellofemoral joint space with minimal spur formation. There is no gross evidence of a joint effusion. The remainder of the examination is within expected limits. IMPRESSION: 1. 3 compartment degenerative joint disease which is most significant in the lateral joint space compartments. There is marked disease. COMMENT: Please see above for additional findings. Electronically signed by: Gerald Peterson M.D. Pj Miranda MD IMG XR PROCEDURES Final Result * (ABNORMAL) POCT lipid panel (12/13/2024 11:59 AM CDT) Cholesterol, POC 153 <200 MG/DL HDL, POC 46 >=40 mg/dL Triglycerides, POC 258(A) <=149 mg/dL LDL Cholesterol POC 55 <=129 mg/dL Chol/HDL Ratio, POC 1.2 NONE Non-HDL Cholesterol, POC 106 NONE mg/dL Cholesterol Total, POC 153 30 - 199 mg/dL Capillary blood 12/13/2024 1 1:59 AM CDT us Justin Kendrick MD POINT OF CARE TEST ORDERABLES Fi nal Result * eGFR (02/24/2023 11:42 AM CDT) eGFR 49 mL/min/1. [address] [facility] Comment: Interpretive Data Reference Interval Normal >/= [...] NP LAB BLOOD ORDERABLES Final R esult [facility] [address] Department [place] [address] * Hemoglobin A1c (02/24/2023 11:42 AM CDT) Hgb A1C 5.3 4.0 - 5.6 % [facility] Estimated Average Glucose 105 mg/dL [facility] Comment: The ADA recommends reporting an estimated Average Glucose (eAG) with all Hemoglobin A1c results using the equation derived from a study of 507 normal and diabetic adults. Minority populations were underrepresented and children were not included. (Diabetes Care 31:3088-2001, 2008). The eAG is not equivalent to a fasting glucose. Blood 02/24/2023 11:4 2 AM CDT 02/24/2023 11:42 AM CDT us Mary Ann Diez NP LAB BLOOD ORDERABLES Final R esult [facility] [address] Department [place] [address] from Last 3 Months or Most Recently Relevant to Health Maintenance Insurance MEDICARE [facility] Member Subscriber Plan / Payer (Ef fective 2008-Present) Name:Elizabeth Herrera Relation to Subscriber:Self Name:Elizabeth Herrera Payer ID:[id number] (NAIC) Group ID:[id number] Type:[facility] Address: [address] [place] [phone] MEDICARE Care Teams Wellness Educator Relationship Specialty Start Date End Date Lenny Randall MD [address] [facility] [address] [place] [address] PCP - General Family Medicine 09/06/24 Pj Miranda MD [address] [place] [address] Anesthesiologist Pain Management 04/18/25
[2025-05-09 17:43] LABS: Anion Gap 8 mmol/L (4-12); Blood Urea Nitrogen 25 mg/dL (7-17); Calcium 9.7 mg/dL (8.4-10.2); Carbon Dioxide 30 mmol/L (22-30); Chloride 98 mmol/L (98-107); Estimated Glomerular Filt Rate > 60; Glucose 104 mg/dL (65-110); Potassium 3.8 mmol/L (3.4-5.0); Sodium 136 mmol/L (137-145)
[2025-05-09 17:45] LABS: Iron 105 ug/dL (37-170)
[2025-05-09 17:54] LABS: Percent Iron Saturation 38 % (20-50)
[2025-05-09 18:20] LABS: Ferritin 114.00 ng/mL (11.1-264)
[2025-05-09 19:12] LABS: Vitamin B12 > 1000.0 pg/mL (239-931)
== END 2025-05-09 13:28 | disposition home or self-care (01) ==
LOC: ANHLAB 13:28
PROVIDERS: PCP Family Medicine; Visit Provider Internal Medicine Hematology & Oncology
DX: D64.9 Anemia, unspecified (principal)
CPT/HCPCS: 36415; 80048; 82607; 82728; 82746; 83540; 83550; 85027

== ENCOUNTER 2025-06-13 12:43 | Outpatient (CLI) | payer MEDICARE, BC, SELFPAY | END 2025-06-13 12:44 | disposition home or self-care (01) | LOC: ANHAUDIO 12:44 | PROVIDERS: PCP Family Medicine; Visit Provider Physician Assistant Medical | DX: H90.3 Sensorineural hearing loss, bilateral (principal) | CPT/HCPCS: 92557; 92567 ==